=== PATIENT | male | born 1950 | race Caucasian/White ===

== ENCOUNTER 2017-09-03 18:26 | Inpatient (IN) | payer OTHER ==
[~2017-09-03] VITALS: Ht 182.9 cm; Wt 124.0 kg
[2017-09-03] MEDS ORDERED: SODIUM CHLORIDE 0.9% 1000ML 1,000 ML IV STA ×2 (18:57→19:27)
[2017-09-03] MEDS ORDERED: ACETAMINOPHEN 500 MG TAB PO STA (19:05)
[2017-09-03] MEDS ORDERED: CETI10TA10 PO (19:12)
[2017-09-03] MEDS ORDERED: FAMO20TA11 PO (19:12)
[2017-09-03] MEDS ORDERED: FRS/40 PO (19:12)
[2017-09-03] MEDS ORDERED: CYM/30 PO (19:12)
[2017-09-03] MEDS ORDERED: GABA800T PO (19:12)
[2017-09-03] MEDS ORDERED: METO2.5T PO (19:12)
[2017-09-03] MEDS ORDERED: ASPI81TA28 PO (19:12)
[2017-09-03] MEDS ORDERED: MULT-506 PO (19:12)
[2017-09-03] MEDS ORDERED: CYAN500T13 PO (19:13)
[2017-09-03 19:24] LABS: BASO % 0.3 %; BASO ABS # 0.03 K/uL (0-0.2); COMPLETE YES; EOS % 0.4 %; HEMATOCRIT 42.3 % (42-52); IG% 0.3 %; LYMPH ABS # 1.05 K/uL (1.2-3.4); MEAN CELL VOLUME 92.2 fL (80-100); MEAN CORPUSCULAR HEMOGLOBIN 31.8 pg (25-34); MEAN CORPUSCULAR HGB CONC 34.5 g/dl (32-36); MEAN PLATELET VOLUME 9.8 fL (7.4-10.4); MONO % 8.4 %; NEUT % 81.6 %; PLATELET COUNT 167 K/uL (130-400); RED BLOOD COUNT 4.59 M/uL (4.7-6.1); WHITE BLOOD COUNT 11.69 K/uL (4.8-10.8)
[2017-09-03 19:24] LABS: MANUAL MICROSCOPIC REQUIRED? NO; REVIEW REQ? NO; URINE APPEARANCE CLEAR (CLEAR); URINE BILIRUBIN NEG (NEG); URINE COLOR YELLOW; URINE EPITHELIAL CELL AUTO 0-5 /lpf (0-5); URINE NITRITE NEG (NEG); URINE SPECIFIC GRAVITY 1.013 (1.000-1.030); UROBILINOGEN NEG (NEG); ZZUR CULT IF INDIC CLEAN CATCH NO
[2017-09-03] MEDS ORDERED: PIPERACILLIN/TAZOBACTAM 4.5 GM/100ML D5W IV STA (19:27)
[2017-09-03 19:32] LABS: PARTIAL THROMBOPLASTIN RATIO 1.2; PROTHROMBIN TIME (PATIENT) 10.9 SECONDS (9.0-12.0)
[2017-09-03 19:40] LABS: ALT/SGPT 30 U/L (12-78); AST/SGOT 20 U/L (15-37); BLOOD UREA NITROGEN 16 mg/dl (7-18); BUN/CREATININE RATIO 14.9 (10-20); CALCIUM 8.4 mg/dl (8.5-10.1); CARBON DIOXIDE 25 mmol/L (21-32); CHLORIDE 104 mmol/L (98-107); CREATININE 1.09 mg/dl (0.60-1.40); GLUCOSE 128 mg/dl (70-99); POTASSIUM 4.1 mmol/L (3.5-5.1); SODIUM 138 mmol/L (136-145)
[2017-09-03 19:45] LABS: ALKALINE PHOSPHATASE 119 U/L (45-117)
--- NOTE | 2017-09-03 19:51 | DIAGNOSTIC IMAGING REPORT ---
CT OF THE HEAD WITHOUT CONTRAST CLINICAL HISTORY: Dizziness. Trauma. COMPARISON STUDY: No previous studies for comparison. CT DOSE: 1095.59 mGy.cm TECHNIQUE: Helical axial images of the head were obtained without IV contrast. Automated exposure control was utilized for the study. A dose lowering technique was utilized adhering to the principles of ALARA. FINDINGS: No acute intracranial hemorrhage, midline shift or mass effect is present. Ventricular system is normal. The basilar cisterns are patent. There are no extra-axial collections. Post-white differentiation is maintained. There are no CT findings to suggest acute dural sinus thrombosis or acute territorial infarct. A 9 mm right matter hypodensity within the right parietal lobe likely reflects an old lacunar infarct. No calvarial fracture is present. Disconjugate gaze is noted. IMPRESSION: 1. No acute intracranial findings. 2. No calvarial fracture. 3. Disconjugate gaze. Electronically signed by: Erich Pickering M.D. 09/03/2017 7:50 PM Dictated Date/Time: 09/03/2017 7:44 PM
--- NOTE | 2017-09-03 20:04 | DIAGNOSTIC IMAGING REPORT ---
CT OF THE CERVICAL SPINE WITHOUT CONTRAST CLINICAL HISTORY: Trauma. COMPARISON STUDY: No previous studies for comparison. TECHNIQUE: Helical axial images of the cervical spine were obtained without IV contrast. Sagittal and coronal reconstructions were viewed. A dose lowering technique was utilized adhering to the principles of ALARA. FINDINGS: The craniocervical junction is intact. No acute cervical spine fracture is identified. There is moderate multilevel degenerative disc disease and severe multilevel facet arthrosis. There is no prevertebral edema. IMPRESSION: No acute cervical spine fracture or subluxation. Electronically signed by: Erich Pikcering M.D. 09/03/2017 8:02 PM Dictated Date/Time: 09/03/2017 7:50 PM
--- NOTE | 2017-09-03 20:18 | EMERGENCY ROOM VISIT NOTE ---
History First contact with patient: 18:46 Chief Complaint: DIZZY Stated Complaint: DIZZY,CAROLINE TREMORS, FRANCO History of Present Illness The patient is a 67 year old male who presents to the Emergency Room with complaints of dizziness, bilateral tremors, and headache since yesterday. Patient states he was working on his deck yesterday afternoon, lost his balance and fell about 3 feet landing onto his left leg and lower back. He did hit his head, but denies loss of consciousness. He was able to get himself up off the ground and has been walking on the leg since the injury. He reports progressively worsening dizziness and tremors today, he denies any history of symptoms like this. He also complains of a mild headache described as constant , throbbing, worse with standing up, better with lying down, 4/10. He has not taken any medications for his headache. He states he has generally been feeling well and a good state of health prior to his fall yesterday. He denies any fevers or chills, vision changes, neck pain or stiffness, chest pain, shortness of breath, palpitations, syncope, abdominal pain, numbness or weakness in the extremities, difficulty walking, saddle paresthesias, bowel or bladder dysfunction, hematuria, or rash. Review of Systems A complete 10 point review of systems was reviewed with the patient with pertinent positives and negatives as per history of present illness. All else were negative. Past Medical/Surgical History Hypertension, GERD, depression Social History Smoking Status: Never Smoker Alcohol Use: none Drug Use: none Marital Status: Housing Status: lives with family Current/Historical Medications Scheduled Aspirin (Aspirin Ec), 81 MG PO DAILY Cetirizine Hcl (Zyrtec), 10 MG PO DAILY Cyanocobalamin (Vitamin B12 500MCG), 500 MCG PO DAILY Duloxetine HCl (Cymbalta), 60 MG PO DAILY Famotidine (Pepcid), 20 MG PO BID Furosemide (Lasix), 40 MG PO DAILY Gabapentin (Neurontin), 800 MG PO TID Multivitamin (Multivitamin), 1 TAB PO DAILY Potassium Chloride (Potassium Chloride Cr), 10 MEQ PO DAILY Allergies No known allergies. Physical Exam Vital Signs Date Time Temp Pulse Resp B/P (MAP) Pulse Ox O2 Delivery O2 Flow Rate FiO2 09/03/17 22:29 83 16 111/73 98 Room Air 09/03/17 21:49 37.1 94 16 98/67 98 Room Air 09/03/17 20:00 107 09/03/17 19:43 106 16 112/65 98 Room Air 09/03/17 19:06 98 Room Air 09/03/17 18:40 37.9 122 20 125/80 93 Room Air Physical Exam CONSTITUTIONAL: No acute distress. Well appearing and well nourished. Alert and oriented X 4 with normal affect. HEENT: Normocephalic, atraumatic. Pupils equal, round and reactive to light, EOMI, disconjugate gaze the patient states is his baseline. TMs normal. Pharynx normal. NECK: Supple, full active range of motion without discomfort. No midline tenderness to palpation. RESPIRATORY: Clear to auscultation bilaterally with no wheezing, crackles, rhonchi or stridor. Equal expansion bilaterally. CARDIOVASCULAR: Regular rate and rhythm with no murmurs, rubs or gallops. Normal peripheral perfusion. No edema. GASTROINTESTINAL: Soft, nontender, nondistended, obese. Bowel sounds present in all quadrants. BACK: Midline tenderness in the lumbar spine, no step-offs, no ecchymosis or swelling. No paraspinous muscle tenderness. No midline tenderness of the thoracic spine. MUSCULOSKELETAL: There is tenderness and ecchymosis of the left anterior dougherty just below the knee, pain with range of motion of the left knee. Full range of motion of all other joints without discomfort. INTEGUMENTARY: Abrasions to the left dougherty, no rash or other significant dermatologic conditions noted. NEUROLOGIC: Cranial nerves II-XII grossly intact. No focal neurologic deficits noted. Normal strength, normal sensation, normal speech, normal coordination. Medical Decision & Procedures ER Provider Diagnostic Interpretation: CT OF THE HEAD WITHOUT CONTRAST CLINICAL HISTORY: Dizziness. Trauma. COMPARISON STUDY: No previous studies for comparison. CT DOSE: 1095.59 mGy.cm TECHNIQUE: Helical axial images of the head were obtained without IV contrast. Automated exposure control was utilized for the study. A dose lowering technique was utilized adhering to the principles of ALARA. FINDINGS: No acute intracranial hemorrhage, midline shift or mass effect is present. Ventricular system is normal. The basilar cisterns are patent. There are no extra-axial collections. Post-white differentiation is maintained. There are no CT findings to suggest acute dural sinus thrombosis or acute territorial infarct. A 9 mm right matter hypodensity within the right parietal lobe likely reflects an old lacunar infarct. No calvarial fracture is present. Disconjugate gaze is noted. IMPRESSION: 1. No acute intracranial findings. 2. No calvarial fracture. 3. Disconjugate gaze. ----- CT OF THE CERVICAL SPINE WITHOUT CONTRAST CLINICAL HISTORY: Trauma. COMPARISON STUDY: No previous studies for comparison. TECHNIQUE: Helical axial images of the cervical spine were obtained without IV contrast. Sagittal and coronal reconstructions were viewed. A dose lowering technique was utilized adhering to the principles of ALARA. FINDINGS: The craniocervical junction is intact. No acute cervical spine fracture is identified. There is moderate multilevel degenerative disc disease and severe multilevel facet arthrosis. There is no prevertebral edema. IMPRESSION: No acute cervical spine fracture or subluxation. ----- CHEST 2 VIEWS ROUTINE CLINICAL HISTORY: Fever. Evaluate for pneumonia. COMPARISON STUDY: No previous studies for comparison. FINDINGS: Lung volumes are at the upper limits of normal. There is a 9 mm density within the right midlung which favors a calcified granuloma. There is no consolidation to suggest pneumonia. No pneumothorax or pleural effusion is present. There is no evidence of pulmonary edema. Cardiac size is at the upper limits of normal. IMPRESSION: No acute cardiopulmonary findings. ----- CT ANGIOGRAPHY OF THE CHEST, PULMONARY EMBOLUS PROTOCOL CLINICAL HISTORY: Hypoxia, tachycardia and dizziness. COMPARISON STUDY: Chest radiograph September 03, 2017. TECHNIQUE: Following IV administration of 92 mL of Optiray-320, helical axial images of the chest were obtained utilizing the pulmonary embolus protocol. Maximal intensity projections and sagittal and coronal reformats were viewed on an independent 3D workstation. IV contrast was administered without complication. A dose lowering technique was utilized adhering to the principles of ALARA. CT DOSE: 1007.23 mGy.cm FINDINGS: No central or lobar pulmonary emboli are identified. The segmental and subsegmental vessels are suboptimally assessed due to suboptimal opacification. The heart is mildly enlarged. There is extensive coronary artery calcification. No pericardial effusion is present. Moderate aortic dilatation is noted at the level the sinuses of Valsalva, measuring 5 cm. The ascending aorta measures 4.2 cm at the level the main pulmonary artery. There is no thoracic aortic dissection. There are several partially calcified mediastinal and right hilar lymph nodes. There are no pathologically enlarged thoracic lymph nodes. Central airways are patent. A calcified granuloma within the right lower lobe is noted. Note is made of an indeterminate 6 cm groundglass nodule within the right upper lobe on image 187 of 328. There is no consolidation to suggest pneumonia. No pneumothorax or pleural effusion is present. No suspicious osseous lesions are present within the bony thorax. Upper abdomen is unremarkable. IMPRESSION: 1. No central or lobar pulmonary emboli. Segmental and subsegmental pulmonary arteries suboptimally assessed due to suboptimal opacification. 2. No acute intrathoracic findings. 3. Moderate dilatation of the aortic root, measuring approximately 5 cm at the sinuses of Valsalva. Ascending aorta measures 4.2 cm at the level of the main pulmonary artery. No thoracic aortic dissection. 4. Mild cardiomegaly and extensive coronary artery calcification. 5. Indeterminate 6 mm groundglass nodule within the right upper lobe. A follow-up chest CT in 6 months is recommended. Laboratory Results 09/03/17 19:10 Red Blood Count 4.59, Mean Corpuscular Volume 92.2, Mean Corpuscular Hemoglobin 31.8, Mean Corpuscular Hemoglobin Concent 34.5, Mean Platelet Volume 9.8, Neutrophils (%) (Auto) 81.6, Lymphocytes (%) (Auto) 9.0, Monocytes (%) (Auto) 8.4, Eosinophils (%) (Auto) 0.4, Basophils (%) (Auto) 0.3, Neutrophils # (Auto) 9.55, Lymphocytes # (Auto) 1.05, Monocytes # (Auto) 0.98, Eosinophils # (Auto) 0.05, Basophils # (Auto) 0.03 09/03/17 19:10 Test 09/03/17 18:45 09/03/17 19:10 09/03/17 19:15 09/03/17 19:21 Urine Color YELLOW Urine Appearance CLEAR (CLEAR) Urine pH 5.0 (4.5-7.5) Urine Specific [place] 1.013 (1.000-1.030) Urine Protein NEG (NEG) Urine Glucose (UA) NEG (NEG) Urine Ketones NEG (NEG) Urine Occult Blood NEG (NEG) Urine Nitrite NEG (NEG) Urine Bilirubin NEG (NEG) Urine Urobilinogen NEG (NEG) Urine Leukocyte Esterase SMALL (NEG) Urine WBC (Auto) 1-5 /hpf (0-5) Urine RBC (Auto) 0-4 /hpf (0-4) Urine Hyaline Casts (Auto) 1-5 /lpf (0-5) Urine Epithelial Cells (Auto) 0-5 /lpf (0-5) Urine Bacteria (Auto) NEG (NEG) White Blood Count 11.69 K/uL (4.8-10.8) Red Blood Count 4.59 M/uL (4.7-6.1) Hemoglobin 14.6 g/dL (14.0-18.0) Hematocrit 42.3 % (42-52) Mean Corpuscular Volume 92.2 fL (80-100) Mean Corpuscular Hemoglobin 31.8 pg (25-34) Mean Corpuscular Hemoglobin Concent 34.5 g/dl (32-36) Platelet Count 167 K/uL (130-400) Mean Platelet Volume 9.8 fL (7.4-10.4) Neutrophils (%) (Auto) 81.6 % Lymphocytes (%) (Auto) 9.0 % Monocytes (%) (Auto) 8.4 % Eosinophils (%) (Auto) 0.4 % Basophils (%) (Auto) 0.3 % Neutrophils # (Auto) 9.55 K/uL (1.4-6.5) Lymphocytes # (Auto) 1.05 K/uL (1.2-3.4) Monocytes # (Auto) 0.98 K/uL (0.11-0.59) Eosinophils # (Auto) 0.05 K/uL (0-0.5) Basophils # (Auto) 0.03 K/uL (0-0.2) RDW Standard Deviation 47.5 fL (36.4-46.3) RDW Coefficient of Variation 14.1 % (11.5-14.5) Immature Granulocyte % (Auto) 0.3 % Immature Granulocyte # (Auto) 0.03 K/uL (0.00-0.02) Prothrombin Time 10.9 SECONDS (9.0-12.0) Prothromb Time International Ratio 1.0 (0.9-1.1) Activated Partial Thromboplast Time 31.0 SECONDS (21.0-31.0) Partial Thromboplastin Ratio 1.2 Anion Gap 9.0 mmol/L (3-11) Est Creatinine Clear Calc Drug Dose 89.7 ml/min Estimated GFR () 81.0 Estimated GFR (Non- 69.9 BUN/Creatinine Ratio 14.9 (10-20) Calcium Level 8.4 mg/dl (8.5-10.1) Total Bilirubin 0.7 mg/dl (0.2-1) Direct Bilirubin 0.2 mg/dl (0-0.2) Aspartate Amino Transf (AST/SGOT) 20 U/L (15-37) Alanine Aminotransferase (ALT/SGPT) 30 U/L (12-78) Alkaline Phosphatase 119 U/L (45-117) Troponin I < 0.015 ng/ml (0-0.045) Total Protein 7.6 gm/dl (6.4-8.2) Albumin 3.4 gm/dl (3.4-5.0) Lipase 128 U/L (73-393) Influenza Type A (RT-PCR) Neg for Influ A (NEG) Influenza Type A Antigen Neg for Influ A (NEG) Influenza Type B Antigen Neg for Influ B (NEG) Influenza Type B (RT-PCR) Neg for Influ B (NEG) Bedside Lactic Acid Venous 1.34 mmol/L (0.90-1.70) Medications Administered Medications (Trade) Dose Ordered Sig/Thomas Route Start Time Stop Time Status Last Admin Dose Admin Sodium Chloride 1,000 ml @ 999 mls/hr Q1H1M STAT IV 09/03/17 18:57 09/03/17 19:57 DC 09/03/17 19:13 999 MLS/HR Acetaminophen (Tylenol Tab) 1,000 mg NOW STAT PO 09/03/17 19:05 09/03/17 19:06 DC 09/03/17 19:13 1,000 MG Sodium Chloride 1,000 ml @ 999 mls/hr Q1H1M STAT IV 09/03/17 19:27 09/03/17 20:27 DC 09/03/17 19:42 999 MLS/HR Piperacillin Sod/ Tazobactam Sod (Zosyn Iv) 4.5 gm NOW STAT IV 09/03/17 19:27 09/03/17 19:29 DC 09/03/17 19:42 4.5 GM ECG Indication: tachycardia, other (dizziness) Rate (beats per minute): 119 Rhythm: sinus tachycardia Findings: LAFB, no acute ischemic change, no ectopy Comparison ECG Date: no prior available Medical Decision CC: Patient presenting with complaint of headache, dizziness, tremors Interpretation of Labs: Leukocytosis with left shift, no anemia, no significant electrolyte abnormalities, normal renal function, normal liver enzymes and lipase, normal coagulation factors. Normal lactic acid. UA negative. Differential Diagnosis: Includes, but not limited to concussion, intracranial hemorrhage, traumatic injury, fracture, infectious etiology including pneumonia , urinary tract infection, influenza, bacteremia, sepsis, viral URI, serotonin syndrome, among others. Medication Reconciliation: I attest that I have personally reviewed the patient' s current medication list. Vital signs review: I reviewed the patient's vital signs and interpret them as follows: T: Febrile; BP: Normotensive; HR: Tachycardic; RR: Within normal limits; Pulse Ox: Mild hypoxia 90-93% on room air. Blood pressure screening: The patient was found to have normal blood pressure on screening and does not require follow-up for repeat blood pressure check. Summary: Patient was evaluated at bedside, history of physical exam performed. Patient is alert and oriented, in no acute distress, resting calmly in the stretcher. Patient is noted to be tachycardic in the 120s, also noted to be febrile at 38.5 , he does not report any history of recent illness. He does note recent sick contacts with URI symptoms. Also noted to have mild hypoxia with sats of 90-93%, lungs are clear and he denies any shortness of breath or chest pain, and denies any history of smoking or lung disease. Patient's neurologic exam is normal with no focal deficits noted. No clonus or hyperreflexia to suggest serotonin syndrome. No obvious source of infection from history or physical exam, sepsis workup initiated and patient covered with IV fluids and broad-spectrum antibiotics. Tylenol given for fever. EKG reviewed at bedside, shows sinus tachycardia with a left anterior fascicular block, no ischemic changes appreciated. No previous EKG for comparison. Orders were placed at bedside for CT of the head and C-spine, plain film x-rays of the chest, lumbar spine, left knee and tib-fib to evaluate for traumatic injury. Patient discussed with Dr. Torres, who agrees with my assessment and plan. Labs reviewed as above, no significant abnormalities. Normal lactic acid. No UTI. Chest x-ray is clear. No apparent source for infection, however patient is persistently tachycardic after Tylenol and 2 L of fluid. Given the symptoms of dizziness with persistent tachycardia and borderline hypoxia, CT of the chest was ordered to rule out PE, this is also negative. Patient reassessed multiple times throughout ED stay, he reports that he feels somewhat improved, headache somewhat better after Tylenol and he no longer is noticing significant tremors. He does still have some dizziness with position changes. I am recommending that the patient be admitted for further workup of his fever, persistent tachycardia, and dizziness. I spoke with Dr. Ozuna, hospitalist, who agrees to admit the patient. Patient stable at time of admission. Blood Pressure Screening Patient's blood pressure: Normal blood pressure Impression Primary Impression: Fever of unknown origin Additional Impressions: SIRS (systemic inflammatory response syndrome) Dizziness Departure Information Dispostion Admitted as an inpatient Condition FAIR Referrals Brian Titus M.D. (PCP) Patient Instructions My [facility] Health Problem Qualifiers
--- NOTE | 2017-09-03 20:35 | DIAGNOSTIC IMAGING REPORT ---
CHEST 2 VIEWS ROUTINE CLINICAL HISTORY: Fever. Evaluate for pneumonia. COMPARISON STUDY: No previous studies for comparison. FINDINGS: Lung volumes are at the upper limits of normal. There is a 9 mm density within the right midlung which favors a calcified granuloma. There is no consolidation to suggest pneumonia. No pneumothorax or pleural effusion is present. There is no evidence of pulmonary edema. Cardiac size is at the upper limits of normal. IMPRESSION: No acute cardiopulmonary findings. Electronically signed by: Erich Pickering M.D. 09/03/2017 8:33 PM Dictated Date/Time: 09/03/2017 8:32 PM
--- NOTE | 2017-09-03 20:37 | DIAGNOSTIC IMAGING REPORT ---
L-SPINE MIN 4 VIEWS ROUTINE CLINICAL HISTORY: Back pain following fall. COMPARISON: None FINDINGS: There is mild levoscoliosis of the lumbar spine. No acute fracture is identified. There is moderate multilevel disc space narrowing, osteophytosis and vacuum disc and ulna. There is moderate multilevel facet arthrosis. There may be a previous L4 laminectomy. IMPRESSION: 1. No acute lumbar spine fracture or subluxation. 2. Moderate multilevel degenerative disc disease and facet arthrosis. 3. Mild levoscoliosis of the lumbar spine. Electronically signed by: Erich Pickering M.D. 09/03/2017 8:36 PM Dictated Date/Time: 09/03/2017 8:34 PM
--- NOTE | 2017-09-03 20:39 | DIAGNOSTIC IMAGING REPORT ---
L KNEE 1 OR 2 VIEWS ROUTINE CLINICAL HISTORY: Left knee pain following fall. COMPARISON: None FINDINGS: Alignment of the total left knee arthroplasty is anatomic. There is no periprosthetic fracture or unexpected radiopaque foreign body. There is no periprosthetic lucency. There is a small to moderate left knee joint effusion. There is prepatellar soft tissue swelling. IMPRESSION: 1. Status post total left knee arthroplasty. No periprosthetic fracture. 2. Prepatellar soft tissue swelling. 3. Small to moderate left knee joint effusion. Electronically signed by: Erich Pickering M.D. 09/03/2017 8:37 PM Dictated Date/Time: 09/03/2017 8:36 PM
--- NOTE | 2017-09-03 20:40 | DIAGNOSTIC IMAGING REPORT ---
L TIBIA/FIBULA 2 VIEWS ROUTINE CLINICAL HISTORY: Fall. Evaluate for fracture. COMPARISON: None FINDINGS: Alignment of the total left knee arthroplasty is anatomic. There is no periprosthetic fracture. There is no acute fracture within the left tibia or fibula. Talar dome is intact. IMPRESSION: No acute fracture of the left tibia or fibula. Electronically signed by: Erich Pickering M.D. 09/03/2017 8:38 PM Dictated Date/Time: 09/03/2017 8:37 PM
[2017-09-03 21:15] LABS: INFLUENZA A PCR Neg for Influ A (NEG); INFLUENZA B PCR Neg for Influ B (NEG)
[2017-09-03] MEDS ORDERED: OPTIRAY 320 IV PRN (21:45)
[2017-09-03] MEDS ORDERED: POTA10TA30 PO (22:15)
--- NOTE | 2017-09-03 22:36 | DIAGNOSTIC IMAGING REPORT ---
CT ANGIOGRAPHY OF THE CHEST, PULMONARY EMBOLUS PROTOCOL CLINICAL HISTORY: Hypoxia, tachycardia and dizziness. COMPARISON STUDY: Chest radiograph September 03, 2017. TECHNIQUE: Following IV administration of 92 mL of Optiray-320, helical axial images of the chest were obtained utilizing the pulmonary embolus protocol. Maximal intensity projections and sagittal and coronal reformats were viewed on an independent 3D workstation. IV contrast was administered without complication. A dose lowering technique was utilized adhering to the principles of ALARA. CT DOSE: 1007.23 mGy.cm FINDINGS: No central or lobar pulmonary emboli are identified. The segmental and subsegmental vessels are suboptimally assessed due to suboptimal opacification. The heart is mildly enlarged. There is extensive coronary artery calcification. No pericardial effusion is present. Moderate aortic dilatation is noted at the level the sinuses of Valsalva, measuring 5 cm. The ascending aorta measures 4.2 cm at the level the main pulmonary artery. There is no thoracic aortic dissection. There are several partially calcified mediastinal and right hilar lymph nodes. There are no pathologically enlarged thoracic lymph nodes. Central airways are patent. A calcified granuloma within the right lower lobe is noted. Note is made of an indeterminate 6 cm groundglass nodule within the right upper lobe on image 187 of 328. There is no consolidation to suggest pneumonia. No pneumothorax or pleural effusion is present. No suspicious osseous lesions are present within the bony thorax. Upper abdomen is unremarkable. IMPRESSION: 1. No central or lobar pulmonary emboli. Segmental and subsegmental pulmonary arteries suboptimally assessed due to suboptimal opacification. 2. No acute intrathoracic findings. 3. Moderate dilatation of the aortic root, measuring approximately 5 cm at the sinuses of Valsalva. Ascending aorta measures 4.2 cm at the level of the main pulmonary artery. No thoracic aortic dissection. 4. Mild cardiomegaly and extensive coronary artery calcification. 5. Indeterminate 6 mm groundglass nodule within the right upper lobe. A follow-up chest CT in 6 months is recommended. Electronically signed by: Erich Pickering M.D. 09/03/2017 10:35 PM Dictated Date/Time: 09/03/2017 10:22 PM
--- NOTE | 2017-09-03 23:07 | History and Physical ---
History & Physical Date & Time of Service: Sep 03, 2017 at 23:06 . Chief Complaint: weak, dizzy . Primary Care Physician: Brian Titus M.D. . History of Present Illness Source: patient, family, clinic records, hospital records 67-year-old male followed by Dr. Titus for Family Medicine. History of borderline hypertension, sleep apnea, peripheral neuropathy, and other problems noted below. He has multiple dental caries and extractions are planned in the near future. Notes some pain in a right lower molar without apparent drainage. 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 Treated with antibiotics the past. Recently has noted scant drainage, slightly bloody. Yesterday he was working on his deck, fell, injured his left leg. No head injury or loss of consciousness. He attributes the fall to losing his balance on a stepladder. No associated presyncope, vertigo, chest pain, palpitations, focal neurologic symptoms. Experienced some low back pain and left leg pain after the fall. Today he felt weak and unsteady. Noted that his hands were shaking. No fever, chills, sweats. Mild frontal headache. No visual changes, nausea, vomiting. . Past Medical/Surgical History Chronic and Resolved Medical Problems: (3) Essential hypertension Status: Chronic (4) Foot ulcer, left Status: Chronic (5) Neuropathy Status: Chronic (6) Pulmonary nodule Permanent Comment: CT 09/28/00 5 x 8 mm nodule superior segment RLL Status: Chronic (7) Sleep apnea Permanent Comment: CPAP Status: Chronic (8) Umbilical hernia Status: Chronic Surgical Problems: (1) Status post bilateral knee replacements Status: Chronic (2) Status post inguinal hernia repair Status: Chronic (3) Status post lumbar surgery Status: Chronic (4) Status post tonsillectomy Status: Chronic . Family History FATHER Congestive heart failure MOTHER Breast cancer Social History Smoking Status: Never Smoker Alcohol Use: occasionally Marital Status: Housing status: lives with family Immunizations History of Influenza Vaccine: Yes History of Pneumococcal: Yes Allergies Coded Allergies: No Known Allergies (Unverified , 09/03/17) Home Medications Scheduled Aspirin (Aspirin Ec), 81 MG PO DAILY Cetirizine Hcl (Zyrtec), 10 MG PO DAILY Cyanocobalamin (Vitamin B12 500MCG), 500 MCG PO DAILY Duloxetine HCl (Cymbalta), 60 MG PO DAILY Famotidine (Pepcid), 20 MG PO BID Furosemide (Lasix), 40 MG PO DAILY Gabapentin (Neurontin), 800 MG PO TID Multivitamin (Multivitamin), 1 TAB PO DAILY Potassium Chloride (Potassium Chloride Cr), 10 MEQ PO DAILY Review of Systems Constitutional- no fever; no weight loss Eyes- no acute visual changes; chronic right exotropia ENT- chronic sinus drainage; no pharyngitis; multiple caries Pulmonary- chronic dyspnea on exertion; no cough Cardiac- no chest pain, no palpitations, chronic dependent edema GI- no nausea, no vomiting, no diarrhea, no melena, no hematochezia - no dysuria, no hematuria Musculoskeletal- chronic back / knee pain Derm- chronic ulcer left foot with minimal drainage Hematologic- no unusual bruising, no unusual bleeding Lymphatics- no adenopathy Endocrine- no polyuria or polydipsia Neuro- peripheral neuropathy causing bilat foot discomfort . Physical Exam Vital Signs Date Time Temp Pulse Resp B/P (MAP) Pulse Ox O2 Delivery O2 Flow Rate FiO2 09/03/17 23:05 88 20 123/81 96 Room Air 09/03/17 23:02 88 09/03/17 22:29 83 16 111/73 98 Room Air 09/03/17 21:49 37.1 94 16 98/67 98 Room Air 09/03/17 20:00 107 09/03/17 19:43 106 16 112/65 98 Room Air 09/03/17 19:06 98 Room Air 09/03/17 18:40 37.9 122 20 125/80 93 Room Air General Appearance: no apparent distress, + obese Head: normocephalic, atraumatic Eyes: normal inspection (eyelids and conjunctivae normal), PERRL, EOMI, sclerae normal ENT: hearing grossly normal, pharynx normal, + pertinent finding (poor dentition) Neck: supple, no adenopathy, thyroid normal, trachea midline Respiratory/Chest: lungs clear, no respiratory distress, no accessory muscle use Cardiovascular: regular rate, rhythm, no edema, no gallop, no JVD, no murmur, + abnormal peripheral pulses (pedal pulses diminished), + pertinent finding (1+ pretibial edema) Abdomen/GI: normal bowel sounds, non tender, soft, no organomegaly, no pulsatile mass, + pertinent finding (umbilical hernia, nontender) Extremities/Musculoskelatal: no calf tenderness, normal capillary refill (1-2 sec), + pertinent finding (deformities feet; 12 x 20 mm ulcer left plantar medial foot) Neurologic/Psych: no motor/sensory deficits (motor strength extremities grossly intact), alert, normal mood/affect, oriented x 3, + pertinent finding ( PERRL, right exotropia) Skin: warm/dry, + pertinent finding (venous stasis changes lower extremities; abrasions + skin tear left dougherty; left foot ulcer as noted above) Lymphatic: no adenopathy (cervical or axillary) Diagnostics Laboratory Results Results Past 24 Hours Test 09/03/17 18:45 09/03/17 19:10 09/03/17 19:15 09/03/17 19:21 Range/Units Urine Color YELLOW Urine Appearance CLEAR CLEAR Urine pH 5.0 4.5-7.5 Urine Specific [employer] 1.013 1.000-1.030 Urine Protein NEG NEG Urine Glucose (UA) NEG NEG Urine Ketones NEG NEG Urine Occult Blood NEG NEG Urine Nitrite NEG NEG Urine Bilirubin NEG NEG Urine Urobilinogen NEG NEG Urine Leukocyte Esterase SMALL NEG Urine WBC (Auto) 1-5 0-5 /hpf Urine RBC (Auto) 0-4 0-4 /hpf Urine Hyaline Casts (Auto) 1-5 0-5 /lpf Urine Epithelial Cells (Auto) 0-5 0-5 /lpf Urine Bacteria (Auto) NEG NEG White Blood Count 11.69 4.8-10.8 K/uL Red Blood Count 4.59 4.7-6.1 M/uL Hemoglobin 14.6 14.0-18.0 g/dL Hematocrit 42.3 42-52 % Mean Corpuscular Volume 92.2 80-100 fL Mean Corpuscular Hemoglobin 31.8 25-34 pg Mean Corpuscular Hemoglobin Concent 34.5 32-36 g/dl Platelet Count 167 130-400 K/uL Mean Platelet Volume 9.8 7.4-10.4 fL Neutrophils (%) (Auto) 81.6 % Lymphocytes (%) (Auto) 9.0 % Monocytes (%) (Auto) 8.4 % Eosinophils (%) (Auto) 0.4 % Basophils (%) (Auto) 0.3 % Neutrophils # (Auto) 9.55 1.4-6.5 K/uL Lymphocytes # (Auto) 1.05 1.2-3.4 K/uL Monocytes # (Auto) 0.98 0.11-0.59 K/uL Eosinophils # (Auto) 0.05 0-0.5 K/uL Basophils # (Auto) 0.03 0-0.2 K/uL RDW Standard Deviation 47.5 36.4-46.3 fL RDW Coefficient of Variation 14.1 11.5-14.5 % Immature Granulocyte % (Auto) 0.3 % Immature Granulocyte # (Auto) 0.03 0.00-0.02 K/uL Prothrombin Time 10.9 9.0-12.0 SECONDS Prothromb Time International Ratio 1.0 0.9-1.1 Activated Partial Thromboplast Time 31.0 21.0-31.0 SECONDS Partial Thromboplastin Ratio 1.2 Sodium Level 138 136-145 mmol/L Potassium Level 4.1 3.5-5.1 mmol/L Chloride Level 104 98-107 mmol/L Carbon Dioxide Level 25 21-32 mmol/L Anion Gap 9.0 3-11 mmol/L Blood Urea Nitrogen 16 7-18 mg/dl Creatinine 1.09 0.60-1.40 mg/dl Est Creatinine Clear Calc Drug Dose 89.7 ml/min Estimated GFR () 81.0 Estimated GFR (Non- 69.9 BUN/Creatinine Ratio 14.9 10-20 Random Glucose 128 70-99 mg/dl Calcium Level 8.4 8.5-10.1 mg/dl Total Bilirubin 0.7 0.2-1 mg/dl Direct Bilirubin 0.2 0-0.2 mg/dl Aspartate Amino Transf (AST/SGOT) 20 15-37 U/L Alanine Aminotransferase (ALT/SGPT) 30 12-78 U/L Alkaline Phosphatase 119 45-117 U/L Troponin I < 0.015 0-0.045 ng/ml Total Protein 7.6 6.4-8.2 gm/dl Albumin 3.4 3.4-5.0 gm/dl Lipase 128 73-393 U/L Influenza Type A (RT-PCR) Neg for Influ A NEG Influenza Type A Antigen Neg for Influ A NEG Influenza Type B Antigen Neg for Influ B NEG Influenza Type B (RT-PCR) Neg for Influ B NEG Bedside Lactic Acid Venous 1.34 0.90-1.70 mmol/L Microbiology Results 09/03/17 Blood Culture, Received Pending 09/03/17 Blood Culture, Received Pending Diagnostic Radiology CHEST 2 VIEWS ROUTINE FINDINGS: Lung volumes are at the upper limits of normal. There is a 9 mm density within the right midlung which favors a calcified granuloma. There is no consolidation to suggest pneumonia. No pneumothorax or pleural effusion is present. There is no evidence of pulmonary edema. Cardiac size is at the upper limits of normal. IMPRESSION: No acute cardiopulmonary findings. Electronically signed by: Erich Pickering M.D. 09/03/2017 8:33 PM Dictated Date/Time: 09/03/2017 8:32 PM L-SPINE MIN 4 VIEWS ROUTINE FINDINGS: There is mild levoscoliosis of the lumbar spine. No acute fracture is identified. There is moderate multilevel disc space narrowing, osteophytosis and vacuum disc and ulna. There is moderate multilevel facet arthrosis. There may be a previous L4 laminectomy. IMPRESSION: 1. No acute lumbar spine fracture or subluxation. 2. Moderate multilevel degenerative disc disease and facet arthrosis. 3. Mild levoscoliosis of the lumbar spine. Electronically signed by: Erich Pickering M.D. 09/03/2017 8:36 PM L KNEE 1 OR 2 VIEWS ROUTINE FINDINGS: Alignment of the total left knee arthroplasty is anatomic. There is no periprosthetic fracture or unexpected radiopaque foreign body. There is no periprosthetic lucency. There is a small to moderate left knee joint effusion. There is prepatellar soft tissue swelling. IMPRESSION: 1. Status post total left knee arthroplasty. No periprosthetic fracture. 2. Prepatellar soft tissue swelling. 3. Small to moderate left knee joint effusion. Electronically signed by: Erich Pickering M.D. 09/03/2017 8:37 PM Dictated Date/Time: 09/03/2017 8:36 PM L TIBIA/FIBULA 2 VIEWS ROUTINE FINDINGS: Alignment of the total left knee arthroplasty is anatomic. There is no periprosthetic fracture. There is no acute fracture within the left tibia or fibula. Talar dome is intact. IMPRESSION: No acute fracture of the left tibia or fibula. Electronically signed by: Erich Pickering M.D. 09/03/2017 8:38 PM Dictated Date/Time: 09/03/2017 8:[address] OF THE HEAD WITHOUT CONTRAST FINDINGS: No acute intracranial hemorrhage, midline shift or mass effect is present. Ventricular system is normal. The basilar cisterns are patent. There are no extra-axial collections. Post-white differentiation is maintained. There are no CT findings to suggest acute dural sinus thrombosis or acute territorial infarct. A 9 mm right matter hypodensity within the right parietal lobe likely reflects an old lacunar infarct. No calvarial fracture is present. Disconjugate gaze is noted. IMPRESSION: 1. No acute intracranial findings. 2. No calvarial fracture. 3. Disconjugate gaze. Electronically signed by: Erich Pickering M.D. 09/03/2017 7:50 PM Dictated Date/Time: 09/03/2017 7:[address] OF THE CERVICAL SPINE WITHOUT CONTRAST FINDINGS: The craniocervical junction is intact. No acute cervical spine fracture is identified. There is moderate multilevel degenerative disc disease and severe multilevel facet arthrosis. There is no prevertebral edema. IMPRESSION: No acute cervical spine fracture or subluxation. Electronically signed by: Erich Pickering M.D. 09/03/2017 8:02 PM Dictated Date/Time: 09/03/2017 7:[address] ANGIOGRAPHY OF THE CHEST, PULMONARY EMBOLUS PROTOCOL FINDINGS: No central or lobar pulmonary emboli are identified. The segmental and subsegmental vessels are suboptimally assessed due to suboptimal opacification. The heart is mildly enlarged. There is extensive coronary artery calcification. No pericardial effusion is present. Moderate aortic dilatation is noted at the level the sinuses of Valsalva, measuring 5 cm. The ascending aorta measures 4.2 cm at the level the main pulmonary artery. There is no thoracic aortic dissection. There are several partially calcified mediastinal and right hilar lymph nodes. There are no pathologically enlarged thoracic lymph nodes. Central airways are patent. A calcified granuloma within the right lower lobe is noted. Note is made of an indeterminate 6 cm groundglass nodule within the right upper lobe on image 187 of [id number]. There is no consolidation to suggest pneumonia. No pneumothorax or pleural effusion is present. No suspicious osseous lesions are present within the bony thorax. Upper abdomen is unremarkable. IMPRESSION: 1. No central or lobar pulmonary emboli. Segmental and subsegmental pulmonary arteries suboptimally assessed due to suboptimal opacification. 2. No acute intrathoracic findings. 3. Moderate dilatation of the aortic root, measuring approximately 5 cm at the sinuses of Valsalva. Ascending aorta measures 4.2 cm at the level of the main pulmonary artery. No thoracic aortic dissection. 4. Mild cardiomegaly and extensive coronary artery calcification. 5. Indeterminate 6 mm groundglass nodule within the right upper lobe. A follow-up chest CT in 6 months is recommended. Electronically signed by: Erich Pickering M.D. 09/03/2017 10:35 PM Dictated Date/Time: 09/03/2017 10:22 PM . EKG EKG performed at 18:[address] at 120 / minute, left anterior fascicular block, inverted T-waves aVL, poor R-wave progression. . Impression Assessment and Plan SUSPECTED SEPSIS Patient presented to ED with temp of 37.9, pulse of 122. Hemodynamically stable. WBC's 11,690. Serum lactate 1.34. He does not quite meet SIRS criteria, but the overall clinical picture is consistent with sepsis per 2001 definition if an infection is confirmed. Possible sources of infection include dental abscess, endocarditis, soft tissue infection or osteomyelitis of left foot. Blood cultures were obtained in ED. Patient received intravenous piperacillin/tazobactam which will be continued. Add daptomycin for gram-positive coverage. Check C-reactive protein, ESR, and pro-calcitonin with next labs. Check panelipse films. Check plain films left foot; consider MRI scan. Consult ID. SKIN TEAR / ABRASIONS LLE Tetanus vaccination status current. Local care for skin tear. CORONARY CALCIFICATIONS Extensive coronary calcifications noted on CT of chest. No history of [place] or angina, although patient has chronic dyspnea on exertion that is stable. Continue aspirin. Check lipid profile. Consider stress testing if patient develops anginal symptoms or worsening dyspnea on exertion. PULMONARY NODULE 6 mm nodule noted within the right upper lobe. Patient was evaluated by Pulmonary Medicine for a pulmonary nodule in the superior segment of the right lower lobe in 1999. These may represent the same lesion. Follow per guidelines. AORTIC ROOT DILATATION Aortic root dilatation of 5 cm at valves of Valsalva noted on CT. Follow per guidelines. LEFT FOOT ULCER Follow-up with Podiatry. DENTAL CARIES Follow-up with Oral Surgery at [facility]. HYPERTENSION History of borderline hypertension, only taking furosemide at this time. Follow and titrate therapy. SLEEP APNEA Continue CPAP. VTE PROPHYLAXIS Moderate risk for VTE. SQ enoxaparin. Ambulate. RESUSCITATION STATUS Discussed with patient and his . He does not have a living will. He would like resuscitation attempted in the event of a cardiopulmonary arrest if there is a reasonable chance of a meaningful recovery, but does not want prolonged extraordinary measures if prognosis is poor. Therefore, code status = "Level 1" (full resuscitation). DISPOSITION Admit to Telemetry Unit. Expected discharge to home. Family Medicine follow-up with Dr. Titus. . VTE Prophylaxis Risk Level: Moderate Given or contraindicated: Enoxaparin (Lovenox)SQ
[2017-09-03] MEDS ORDERED: ACETAMINOPHEN 325 MG TAB PO PRN (23:15)
[2017-09-04 00:25] VITALS: BP 110/72; PULSE 75; TEMP 36.6; O2SAT 98; Ht 182.9 cm; Wt 124.0 kg
[2017-09-04] MEDS ORDERED: PIPERACILL/TAZOBAC CONSULT ACTIVE PRN (01:00)
[2017-09-04] MEDS: DAPTOmycin IV 750 MG in SODIUM CHLORIDE 0.9% 50ML 50 ML IV SCH (01:31)
[2017-09-04] MEDS: PIPERACILL/TAZOBAC IV 4.5 GM in DEXTROSE 5% 100ML 100 ML IV SCH ×4 (04:05→20:42)
[2017-09-04 06:04] LABS: HEMATOCRIT 41.4 % (42-52); MEAN CELL VOLUME 92.8 fL (80-100); MEAN CORPUSCULAR HEMOGLOBIN 31.2 pg (25-34); MEAN CORPUSCULAR HGB CONC 33.6 g/dl (32-36); PLATELET COUNT 146 K/uL (130-400); RED BLOOD COUNT 4.46 M/uL (4.7-6.1); WHITE BLOOD COUNT 6.96 K/uL (4.8-10.8)
[2017-09-04 06:44] LABS: C-REACTIVE PROTEIN 4.61 mg/dl (0-0.29); CALCIUM 8.2 mg/dl (8.5-10.1); CHOLESTEROL/HDL RATIO 2.9; CREATININE 0.88 mg/dl (0.60-1.40); POTASSIUM 3.3 mmol/L (3.5-5.1)
[2017-09-04 07:15] VITALS: BP 128/82; PULSE 78; TEMP 36.7; O2SAT 95
[2017-09-04] MEDS: ASPIRIN 81 MG ECTAB PO SCH (07:55)
[2017-09-04] MEDS: FUROSEMIDE 40 MG TAB PO SCH (07:55)
[2017-09-04] MEDS: POTASSIUM CHLORIDE 10 MEQ TABCR PO SCH (07:55)
[2017-09-04] MEDS: DULOXETINE (CYMBALTA) 30 MG CAP PO SCH (07:55)
[2017-09-04] MEDS: NEOMYCIN/POLYMYX/BACITR OINT 15 GM TUBE EXT SCH (07:55)
[2017-09-04] MEDS: FAMOTIDINE 20 MG TAB PO SCH ×2 (07:56→21:05)
[2017-09-04] MEDS: CETIRIZINE HCL 10 MG TAB PO SCH (07:56)
[2017-09-04] MEDS: CYANOCOBALAMIN 500 MCG TAB (VIT B-12) PO SCH (07:56)
[2017-09-04] MEDS: MULTIVITAMIN TAB PO SCH (07:56)
[2017-09-04] MEDS: ENOXAPARIN 40 MG/0.4 ML SYR SQ SCH (07:56)
[2017-09-04] MEDS: GABAPENTIN 800 MG TAB PO SCH ×3 (07:56→21:05)
--- NOTE | 2017-09-04 10:34 | Progress Note ---
Progress Note Date of Service Sep 04, 2017. Progress Note ID Consult Dictated #[id number] A/P: 1. Left Foot ulcer, likely source 2. Leukocytosis - resolved -continue abx for now, follow cultures -For mri foot, await results -may require debridement foot ulcer, please send culture -will follow, thank you
--- NOTE | 2017-09-04 10:40 | INFECT. DISEASE CONSULTATION ---
DATE OF CONSULTATION: 09/04/2017 REQUESTING PHYSICIAN: Dr. Luevano. HISTORY OF PRESENT ILLNESS: This is a 67-year-old gentleman who was admitted to the hospital after he had dizziness and fell from a ladder at home. He did undergo multiple x-rays which were unremarkable. He had mild leukocytosis of 11 in the Emergency Room, which has improved to 6.9. His sed rate was elevated at 16 and his CRP was elevated at 4.6. He did have a procalcitonin done in the ER which was negative. A flu swab and urinalysis were negative. Blood cultures were obtained and are pending at this time. He did undergo CTA, a CAT scan of the head and spine which were negative. His chest x-ray was unremarkable. He did have an x-ray of his left knee as he did suffer an abrasion on the left dougherty during his fall. This did show some soft tissue edema. He does have bilateral knee replacements which were done in 2007 and there was no malalignment of his hardware. He states he has had no difficulty postoperatively with his knee replacements. He was placed on Zosyn and daptomycin. His daughter is present during my examination. They both state that he has had chronic left foot deformity which causes callus. He does visit with podiatry both with the [facility] and also the [place]. He states that he has had multiple bedside debridements of the callus, it is sometimes done by the attic blower and sometimes done by himself at home. He states that occasionally this does lead to bleeding and recently he has noticed some bleeding and purulent drainage from the area. He has not had any fevers or chills prior to admission but was having dizziness. His T-max overnight was 37.9. He is tolerating antibiotics well. Today, he states he is feeling better. He denies any cough, shortness of breath, chest pain, nausea, vomiting, diarrhea or abdominal pain. His appetite has been stable. His remaining review of systems are reviewed and are negative except for as noted. MEDICAL HISTORY: Significant for hypertension, chronic left foot ulceration, neuropathy, pulmonary nodule, sleep apnea and an umbilical hernia. SURGICAL HISTORY: Significant for bilateral knee replacements in 2007, inguinal hernia repair, lumbar surgery and tonsillectomy. FAMILY HISTORY: Noncontributory. SOCIAL HISTORY: Negative for tobacco use, alcohol use or drug use. ALLERGIES: He has no known drug allergies. MEDICATIONS: Include Lovenox, aspirin, Zyrtec, vitamin B12, Cymbalta, Pepcid, Lasix, Neurontin, multivitamins, potassium, Zosyn, dapto, Tylenol. PHYSICAL EXAMINATION: VITAL SIGNS: He is afebrile. His T-max overnight was 37.9, pulse 78, respiratory rate 18, blood pressure 128/82, oxygen saturation is 95% on room air. GENERAL: He is awake, alert and oriented x3. He is in no acute distress. HEENT: Mucous membranes are moist. Extraocular muscles are intact. HEART: Regular. LUNGS: Clear bilaterally. ABDOMEN: Soft, nontender, nondistended. EXTREMITIES: There is no lower extremity edema bilaterally. Examination of the left knee reveals the incision to be well healed. There is superficial abrasion on the lateral anterior calf. There is no purulent drainage, tenderness, warmth or erythema. Examination of the left foot reveals a wound on the dorsal aspect of the foot. There is seropurulent drainage on the dressing; however, I am unable to express any drainage for culture. There is minimal tenderness. There is no surrounding erythema. LABORATORY STUDIES: CBC today reveals a white blood cell count of 6.9, hemoglobin 13.9, platelets are 146. Sed rate is 16. Chemistry panel reveals sodium of 139, potassium 3.3, chloride 106, bicarbonate 28, BUN 15, creatinine 0.8, glucose is 109. LFTs are within normal limits. Procalcitonin is 0.12. UA is negative. Flu swab is negative. Blood cultures are pending. IMAGING: As above. ASSESSMENT AND PLAN: Left foot ulceration, less likely infection. The patient states he is due for an MRI later today to look for osteomyelitis. He also should undergo wound debridement either at the bedside and/or operatively and culture should be obtained. He will remain on empiric antibiotics for now. Thank you for this consultation.
--- NOTE | 2017-09-04 11:51 | DIAGNOSTIC IMAGING REPORT ---
LEFT FOOT 3 VIEWS HISTORY: Left foot ulcer, possible sepsis COMPARISON: None. FINDINGS: There is no fracture or dislocation. There is a pes planus deformity. Advanced degenerative changes at the subtalar joint. This is similar to the cartilage space narrowing and subchondral sclerosis. The bones are osteopenic. 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 Moderate osteoarthritis at the first dorsal metatarsal joint and mild osteoarthritis at the first MTP joint and interphalangeal joints. The Lisfranc joint is aligned. Suspect a dorsal skin ulceration at the midfoot. Mild diffuse soft tissue swelling No radiopaque foreign bodies. No bony destruction. IMPRESSION: 1. Suspect a dorsal skin ulceration at the midfoot. No underlying bony destruction to suggest osteomyelitis. 2. Chronic and degenerative changes as described above. 3. 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 Electronically signed by: Jeremie Zamarripa M.D. 09/04/2017 11:50 AM Dictated Date/Time: 09/04/2017 11:46 AM
--- NOTE | 2017-09-04 11:53 | DIAGNOSTIC IMAGING REPORT ---
PANELIPSE OF THE MANDIBLE CLINICAL HISTORY: Tooth pain. Sepsis. COMPARISON STUDY: No previous studies for comparison. FINDINGS: A single view of the mandible is provided for interpretation. There are multiple dental caries. Multiple dental fillings are visualized. No definite dental apical abscesses are evident. IMPRESSION: Multiple dental caries Electronically signed by: Artur Fall M.D. 09/04/2017 11:52 AM Dictated Date/Time: 09/04/2017 11:50 AM
[2017-09-04 15:30] VITALS: BP 116/72; PULSE 80; TEMP 36.7; O2SAT 93
[2017-09-04 16:00] VITALS: O2SAT 93
--- NOTE | 2017-09-04 17:54 | Progress Note ---
Subjective Date of Service: Sep 04, 2017. Subjective Pt evaluation today including: conversation w/ patient, physical exam, lab review, review of studies, review of inpatient medication list Saw/examined the patient in room 253 He's doing okay today; presented with weakness and unsteadiness after a fall Currently seated at bedside - good PO intake Problem List Medical Problems: (1) Dizziness Status: Acute (2) Fever of unknown origin Status: Acute (3) SIRS (systemic inflammatory response syndrome) Status: Acute Review of Systems Constitutional: + fever (improving), + chills, + weakness Respiratory: No shortness of breath Cardiac: No chest pain Abdomen: No pain, No nausea, No vomiting, No diarrhea Medications Current Inpatient Medications Medications (Trade) Dose Ordered Sig/Thomas Route Start Time Stop Time Status Last Admin Dose Admin Ioversol (Optiray 320) 100 ml UD PRN IV 09/03/17 21:45 09/07/17 21:44 Enoxaparin Sodium (Lovenox Inj) 40 mg DAILY SQ 09/04/17 09:00 10/04/17 08:59 09/04/17 07:56 40 MG Acetaminophen (Tylenol Tab) 650 mg Q4H PRN PO 09/03/17 23:15 10/03/17 23:14 Aspirin (Ecotrin Tab) 81 mg DAILY PO 09/04/17 09:00 10/04/17 08:59 09/04/17 07:55 81 MG Cetirizine HCl (zyrTEC TAB) 10 mg DAILY PO 09/04/17 09:00 10/04/17 08:59 09/04/17 07:56 10 MG Cyanocobalamin (Vitamin B-12 Tab) 500 mcg DAILY PO 09/04/17 09:00 10/04/17 08:59 09/04/17 07:56 500 MCG Duloxetine HCl (Cymbalta Cap) 60 mg DAILY PO 09/04/17 09:00 10/04/17 08:59 09/04/17 07:55 60 MG Famotidine (Pepcid Tab) 20 mg BID PO 09/04/17 09:00 10/04/17 08:59 09/04/17 07:56 20 MG Furosemide (Lasix Tab) 40 mg DAILY PO 09/04/17 09:00 10/04/17 08:59 09/04/17 07:55 40 MG Gabapentin (Neurontin Tab) 800 mg TID PO 09/04/17 09:00 10/04/17 08:59 09/04/17 13:30 800 MG Multivitamins (Multivitamin Tab) 1 tab DAILY PO 09/04/17 09:00 10/04/17 08:59 09/04/17 07:56 1 TAB Potassium Chloride (Klor-Con M10) 10 meq DAILY PO 09/04/17 09:00 10/04/17 08:59 09/04/17 07:55 10 MEQ Daptomycin 750 mg/ Sodium Chloride 65 ml @ 100 mls/hr Q24H IV 09/04/17 02:00 09/14/17 01:59 09/04/17 01:31 100 MLS/HR Piperacillin Sod/ Tazobactam Sod 4.5 gm/Dextrose 120 ml @ 30 mls/hr Q8H IV 09/04/17 04:00 09/14/17 03:59 09/04/17 11:36 30 MLS/HR Piperacillin Sod/ Tazobactam Sod (Consult) 1 ea UD PRN N/A 09/04/17 01:00 10/04/17 00:59 Neomycin/ Polymyxin/ Bacitracin (Neosporin Oint) 1 appln DAILY EXT 09/04/17 09:00 10/04/17 08:59 09/04/17 07:55 1 APPLN Objective Vital Signs Date Time Temp Pulse Resp B/P (MAP) Pulse Ox O2 Delivery O2 Flow Rate FiO2 09/04/17 16:00 93 Room Air 09/04/17 15:30 36.7 80 18 116/72 (87) 93 Room Air 09/04/17 08:00 Room Air 09/04/17 07:15 36.7 78 18 128/82 (97) 95 Room Air 09/04/17 00:25 36.6 75 18 110/72 98 Room Air 09/04/17 00:05 84 20 124/72 95 Room Air 09/03/17 23:49 36.5 09/03/17 23:05 88 20 123/81 96 Room Air 09/03/17 23:02 88 09/03/17 22:29 83 16 111/73 98 Room Air 09/03/17 21:49 37.1 94 16 98/67 98 Room Air 09/03/17 20:00 107 09/03/17 19:43 106 16 112/65 98 Room Air 09/03/17 19:06 98 Room Air 09/03/17 18:40 37.9 122 20 125/80 93 Room Air Physical Exam General Appearance: no apparent distress, + obese Respiratory/Chest: chest non-tender, lungs clear, normal breath sounds, no respiratory distress, no accessory muscle use Cardiovascular: regular rate, rhythm, no edema, no murmur Extremities: + pertinent finding (L charcot deformity; ulceration on bottom of foot and dougherty) Laboratory Results Last 24 Hours Test 09/03/17 18:45 09/03/17 19:10 09/03/17 19:15 09/03/17 19:21 Urine Color YELLOW Urine Appearance CLEAR Urine pH 5.0 Urine Specific [place] 1.013 Urine Protein NEG Urine Glucose (UA) NEG Urine Ketones NEG Urine Occult Blood NEG Urine Nitrite NEG Urine Bilirubin NEG Urine Urobilinogen NEG Urine Leukocyte Esterase SMALL Urine WBC (Auto) 1-5 /hpf Urine RBC (Auto) 0-4 /hpf Urine Hyaline Casts (Auto) 1-5 /lpf Urine Epithelial Cells (Auto) 0-5 /lpf Urine Bacteria (Auto) NEG White Blood Count 11.69 K/uL Red Blood Count 4.59 M/uL Hemoglobin 14.6 g/dL Hematocrit 42.3 % Mean Corpuscular Volume 92.2 fL Mean Corpuscular Hemoglobin 31.8 pg Mean Corpuscular Hemoglobin Concent 34.5 g/dl Platelet Count 167 K/uL Mean Platelet Volume 9.8 fL Neutrophils (%) (Auto) 81.6 % Lymphocytes (%) (Auto) 9.0 % Monocytes (%) (Auto) 8.4 % Eosinophils (%) (Auto) 0.4 % Basophils (%) (Auto) 0.3 % Neutrophils # (Auto) 9.55 K/uL Lymphocytes # (Auto) 1.05 K/uL Monocytes # (Auto) 0.98 K/uL Eosinophils # (Auto) 0.05 K/uL Basophils # (Auto) 0.03 K/uL RDW Standard Deviation 47.5 fL RDW Coefficient of Variation 14.1 % Immature Granulocyte % (Auto) 0.3 % Immature Granulocyte # (Auto) 0.03 K/uL Prothrombin Time 10.9 SECONDS Prothromb Time International Ratio 1.0 Activated Partial Thromboplast Time 31.0 SECONDS Partial Thromboplastin Ratio 1.2 Sodium Level 138 mmol/L Potassium Level 4.1 mmol/L Chloride Level 104 mmol/L Carbon Dioxide Level 25 mmol/L Anion Gap 9.0 mmol/L Blood Urea Nitrogen 16 mg/dl Creatinine 1.09 mg/dl Est Creatinine Clear Calc Drug Dose 89.7 ml/min Estimated GFR () 81.0 Estimated GFR (Non- 69.9 BUN/Creatinine Ratio 14.9 Random Glucose 128 mg/dl Calcium Level 8.4 mg/dl Total Bilirubin 0.7 mg/dl Direct Bilirubin 0.2 mg/dl Aspartate Amino Transf (AST/SGOT) 20 U/L Alanine Aminotransferase (ALT/SGPT) 30 U/L Alkaline Phosphatase 119 U/L Troponin I < 0.015 ng/ml Total Protein 7.6 gm/dl Albumin 3.4 gm/dl Lipase 128 U/L Influenza Type A (RT-PCR) Neg for Influ A Influenza Type A Antigen Neg for Influ A Influenza Type B Antigen Neg for Influ B Influenza Type B (RT-PCR) Neg for Influ B Bedside Lactic Acid Venous 1.34 mmol/L Test 09/04/17 05:30 White Blood Count 6.96 K/uL Red Blood Count 4.46 M/uL Hemoglobin 13.9 g/dL Hematocrit 41.4 % Mean Corpuscular Volume 92.8 fL Mean Corpuscular Hemoglobin 31.2 pg Mean Corpuscular Hemoglobin Concent 33.6 g/dl RDW Standard Deviation 48.2 fL RDW Coefficient of Variation 14.2 % Platelet Count 146 K/uL Mean Platelet Volume 10.0 fL Erythrocyte Sedimentation Rate 16 mm/hr Sodium Level 139 mmol/L Potassium Level 3.3 mmol/L Chloride Level 106 mmol/L Carbon Dioxide Level 28 mmol/L Anion Gap 6.0 mmol/L Blood Urea Nitrogen 15 mg/dl Creatinine 0.88 mg/dl Est Creatinine Clear Calc Drug Dose 110.8 ml/min Estimated GFR () 103.0 Estimated GFR (Non- 88.9 BUN/Creatinine Ratio 17.0 Random Glucose 109 mg/dl Calcium Level 8.2 mg/dl C-Reactive Protein 4.61 mg/dl Triglycerides Level 113 mg/dl Cholesterol Level 126 mg/dl HDL Cholesterol 44 mg/dl LDL Cholesterol, Calculated 59 mg/dl VLDL Cholesterol, Calculated 23 mg/dl Cholesterol/HDL Ratio 2.9 Procalcitonin 0.12 ng/ml Assessment and Plan Possible Sepsis secondary to L Foot Ulceration 09/04 ordering MRI of the foot to r/o osteo wound care for the ulcer appreciate ID input - continue abx. may need debridement for culture 09/03 Patient presented to ED with temp of 37.9, pulse of 122. Hemodynamically stable. WBC's 11,690. Serum lactate 1.34. He does not quite meet SIRS criteria, but the overall clinical picture is consistent with sepsis per 2001 definition if an infection is confirmed. Possible sources of infection include dental abscess, endocarditis, soft tissue infection or osteomyelitis of left foot. Blood cultures were obtained in ED. Patient received intravenous piperacillin/tazobactam which will be continued. Add daptomycin for gram-positive coverage. Check C-reactive protein, ESR, and pro-calcitonin with next labs. Check panelipse films. Check plain films left foot; consider MRI scan. Consult ID. SKIN TEAR / ABRASIONS LLE Tetanus vaccination status current. Local care for skin tear. CORONARY CALCIFICATIONS Extensive coronary calcifications noted on CT of chest. No history of [place] or angina, although patient has chronic dyspnea on exertion that is stable. Continue aspirin. Check lipid profile. Consider stress testing if patient develops anginal symptoms or worsening dyspnea on exertion. PULMONARY NODULE 6 mm nodule noted within the right upper lobe. Patient was evaluated by Pulmonary Medicine for a pulmonary nodule in the superior segment of the right lower lobe in 1999. These may represent the same lesion. Follow per guidelines. AORTIC ROOT DILATATION Aortic root dilatation of 5 cm at valves of Valsalva noted on CT. Follow per guidelines. LEFT FOOT ULCER Follow-up with Podiatry. DENTAL CARIES Follow-up with Oral Surgery at [facility]. HYPERTENSION History of borderline hypertension, only taking furosemide at this time. Follow and titrate therapy. SLEEP APNEA Continue CPAP. VTE PROPHYLAXIS Moderate risk for VTE. SQ enoxaparin. Ambulate. RESUSCITATION STATUS Discussed with patient and his . He does not have a living will. He would like resuscitation attempted in the event of a cardiopulmonary arrest if there is a reasonable chance of a meaningful recovery, but does not want prolonged extraordinary measures if prognosis is poor. Therefore, code status = "Level 1" (full resuscitation). DISPOSITION Admit to Telemetry Unit. Expected discharge to home. Family Medicine follow-up with Dr. Titus. .
[2017-09-04] MEDS ORDERED: GADAVIST IV PRN (20:30)
[2017-09-04 21:00] VITALS: O2SAT 93
[2017-09-04 23:29] VITALS: BP 131/89; PULSE 80; TEMP 37.3; O2SAT 93
[2017-09-05 00:09] VITALS: O2SAT 93
--- NOTE | 2017-09-05 00:12 | DIAGNOSTIC IMAGING REPORT ---
L LOWER EXT NONJOINT COMBO HISTORY: 67 years-old Male L foot ulceration; r/o osteo acute ulceration of the left foot with concern for osteomyelitis. COMPARISON: Left foot radiographs of same day TECHNIQUE: Multiplanar multisequence MRI of the left foot is obtained both with and without the use of 12 mL Gadavist. FINDINGS: The study is moderately limited secondary to patient motion. There is moderate skin thickening with enhancing subcutaneous edema of the dorsal medial mid foot centered about the first tarsal metatarsal joint and proximal diaphyseal portion of the first metatarsal as seen on image 28 of series 7, image 7 of series 11 and image 25 of series 9 with overlying skin marker seen at this site. Focal skin ulceration measures up to 2.0 cm. No enhancing abscess identified within this distribution. Moderate joint space narrowing with circumscribed subcortical cystic changes and marginal spurring noted involving the first tarsal metatarsal joint without definite evidence of osteomyelitis within this distribution. Moderate first metatarsal phalangeal and interphalangeal degenerative changes are also present. Joint space narrowing with subchondral cystic changes and marginal spurring are also noted however to a lesser degree within the second tarsal metatarsal joint. Multifocal interphalangeal degenerative changes are noted. Extensive abnormal marrow signal is noted throughout the talus and calcaneus with large subcortical cystic changes, joint space narrowing and marginal spurring. Moderate-sized subtalar joint effusion is present. These changes are only partially imaged. No definite evidence of calcaneonavicular coalition. There is moderate atrophy of the intrinsic musculature of the foot. Pes planus deformity. The flexor and extensor tendons appear to be grossly intact. IMPRESSION: 1. Moderate skin thickening with enhancing subcutaneous edema of the dorsal medial mid foot suggests cellulitis with focal 2.0 cm skin ulceration. No definite evidence of associated osteomyelitis. 2. Joint space narrowing with prominent subcortical cystic changes, joint space narrowing and marginal spurring of the first tarsal metatarsal joint favors severe degenerative changes, however this is within close proximity to the adjacent skin ulceration. Follow-up recommended to exclude early osteomyelitis. 3. Pes planus deformity with extensive abnormal marrow signal of the hindfoot, partially imaged involving the talus and calcaneus with large subcortical cystic changes, marginal spurring and joint space narrowing with moderate subtalar joint effusion. These findings suggest chronic advanced degenerative changes. 4. Atrophy of the intrinsic musculature of the foot, likely secondary to long-standing diabetes mellitus with chronic denervation changes. The above report was generated using voice recognition software. It may contain grammatical, syntax or spelling errors. Electronically signed by: Cuco Rivera M.D. 09/05/2017 12:11 AM Dictated Date/Time: 09/04/2017 8:42 PM
[2017-09-05] MEDS: DAPTOmycin IV 750 MG in SODIUM CHLORIDE 0.9% 50ML 50 ML IV SCH (01:44)
[2017-09-05 07:32] VITALS: BP 127/87; PULSE 74; TEMP 36.6; O2SAT 96
[2017-09-05] MEDS: ENOXAPARIN 40 MG/0.4 ML SYR SQ SCH (07:51)
[2017-09-05] MEDS: DULOXETINE (CYMBALTA) 30 MG CAP PO SCH (07:54)
[2017-09-05] MEDS: NEOMYCIN/POLYMYX/BACITR OINT 15 GM TUBE EXT SCH (07:54)
[2017-09-05] MEDS: POTASSIUM CHLORIDE 10 MEQ TABCR PO SCH (07:54)
[2017-09-05] MEDS: ASPIRIN 81 MG ECTAB PO SCH (07:54)
[2017-09-05] MEDS: GABAPENTIN 800 MG TAB PO SCH ×3 (07:55→20:30)
[2017-09-05] MEDS: MULTIVITAMIN TAB PO SCH (07:55)
[2017-09-05] MEDS: CYANOCOBALAMIN 500 MCG TAB (VIT B-12) PO SCH (07:55)
[2017-09-05] MEDS: CETIRIZINE HCL 10 MG TAB PO SCH (07:55)
[2017-09-05] MEDS: FUROSEMIDE 40 MG TAB PO SCH (07:55)
[2017-09-05] MEDS: FAMOTIDINE 20 MG TAB PO SCH ×2 (07:55→20:30)
[2017-09-05 09:16] VITALS: O2SAT 96
[2017-09-05 11:21] VITALS: BP 133/89; PULSE 72; TEMP 36.6; O2SAT 94
[2017-09-05] MEDS: PIPERACILL/TAZOBAC IV 4.5 GM in DEXTROSE 5% 100ML 100 ML IV SCH ×2 (11:51→20:30)
[2017-09-05] MEDS ORDERED: POTASSIUM CHLORIDE 10 MEQ TABCR PO ONE (14:30)
--- NOTE | 2017-09-05 14:40 | Progress Note ---
Medicine Progress Note Date & Time of Visit: Sep 05, 2017 at 14:40. Subjective states he feels ok overall denies left foot pain except when walking denies fever/chills no knee pain, left lower leg pain no other symptoms Objective Last 8 Hrs Date Time Temp Pulse Resp B/P (MAP) Pulse Ox O2 Delivery O2 Flow Rate FiO2 09/05/17 11:21 36.6 72 16 133/89 (104) 94 Room Air 09/05/17 09:16 96 Room Air 09/05/17 08:00 Room Air 09/05/17 07:32 36.6 74 14 127/87 (100) 96 Room Air Physical Exam: General- oriented x 3, not in distress Head- atraumatic Eyes- PERRL, EOMI, anicteric ENT- oropharynx clear Neck- supple, no JVD, no adenopathy, no thyromegaly Lungs- clear to auscultation b/l Heart- regular rhythm; no murmur, normal rate Abdomen- normal bowel sounds, soft, nontender Extremities- RIGHT LEG: no pretibial edema, no calf tenderness; peripheral pulses intact LEFT LEG: dorsal/medial left foot: (+) small area of eschar/ulcer, nontender/no discharge/no erythema left foot: mild edema, no tenderness anterior proximal lower leg: small open wound, no discharge, mild erythema surrounding Neuro- alert, oriented x 3; no gross focal deficits Skin- warm & dry Assessment & Plan Possible Sepsis secondary to L Foot Infected Ulcer/Cellulitis, Left Lower Leg Infected Wound/Cellulitis - now afebrile, leukocytosis resolved - blood cultures: negative so far MRI Foot: (+) foot cellulitis, no OM seen - on Day 2 Dapto + Zosyn ID consulted- appreciate the recommendations will consult Dr. Morse for possible debridement - discussed case with patient and his they would feel more comfortable with PO antibiotics on discharge will discuss with ID and Wound Care [facility] SKIN TEAR / ABRASIONS LLE Tetanus vaccination status current. Local care for skin tear. CORONARY CALCIFICATIONS Extensive coronary calcifications noted on CT of chest. No history of [place] or angina, although patient has chronic dyspnea on exertion that is stable. Continue aspirin. LDL 59 Consider stress testing if patient develops anginal symptoms or worsening dyspnea on exertion. PULMONARY NODULE 6 mm nodule noted within the right upper lobe. Patient was evaluated by Pulmonary Medicine for a pulmonary nodule in the superior segment of the right lower lobe in 1999. These may represent the same lesion. Follow per guidelines. AORTIC ROOT DILATATION Aortic root dilatation of 5 cm at valves of Valsalva noted on CT. Follow per guidelines. DENTAL CARIES Follow-up with Oral Surgery at [facility]. HYPERTENSION History of borderline hypertension, only taking furosemide at this time. Follow and titrate therapy. stable SLEEP APNEA Continue CPAP. VTE PROPHYLAXIS Moderate risk for VTE. SQ enoxaparin. Ambulate. RESUSCITATION STATUS Therefore, code status = "Level 1" (full resuscitation). DISPOSITION anticipate d/c home when cleared by wound care and ID will benefit from home health [facility] Family Medicine follow-up with Dr. Titus. . Current Inpatient Medications: Current Inpatient Medications Medications (Trade) Dose Ordered Sig/Thomas Route Start Time Stop Time Status Last Admin Dose Admin Ioversol (Optiray 320) 100 ml UD PRN IV 09/03/17 21:45 09/07/17 21:44 Enoxaparin Sodium (Lovenox Inj) 40 mg DAILY SQ 09/04/17 09:00 10/04/17 08:59 09/04/17 07:56 40 MG Acetaminophen (Tylenol Tab) 650 mg Q4H PRN PO 09/03/17 23:15 10/03/17 23:14 Aspirin (Ecotrin Tab) 81 mg DAILY PO 09/04/17 09:00 10/04/17 08:59 09/05/17 07:54 81 MG Cetirizine HCl (zyrTEC TAB) 10 mg DAILY PO 09/04/17 09:00 10/04/17 08:59 09/05/17 07:55 10 MG Cyanocobalamin (Vitamin B-12 Tab) 500 mcg DAILY PO 09/04/17 09:00 10/04/17 08:59 09/05/17 07:55 500 MCG Duloxetine HCl (Cymbalta Cap) 60 mg DAILY PO 09/04/17 09:00 10/04/17 08:59 09/05/17 07:54 60 MG Famotidine (Pepcid Tab) 20 mg BID PO 09/04/17 09:00 10/04/17 08:59 09/05/17 07:55 20 MG Furosemide (Lasix Tab) 40 mg DAILY PO 09/04/17 09:00 10/04/17 08:59 09/05/17 07:55 40 MG Gabapentin (Neurontin Tab) 800 mg TID PO 09/04/17 09:00 10/04/17 08:59 09/05/17 13:07 800 MG Multivitamins (Multivitamin Tab) 1 tab DAILY PO 09/04/17 09:00 10/04/17 08:59 09/05/17 07:55 1 TAB Potassium Chloride (Klor-Con M10) 10 meq DAILY PO 09/04/17 09:00 10/04/17 08:59 09/05/17 07:54 10 MEQ Neomycin/ Polymyxin/ Bacitracin (Neosporin Oint) 1 appln DAILY EXT 09/04/17 09:00 10/04/17 08:59 09/05/17 07:54 1 APPLN Gadobutrol (Gadavist) 12 mmol UD PRN IV 09/04/17 20:30 09/08/17 20:29
--- NOTE | 2017-09-05 14:43 | Progress Note ---
Subjective Date of Service: Sep 05, 2017. Subjective afebrile. blood cultures negative to date. remains on emperic broad spectrum abx , tolerating well. MRI negative osteo. no abscess. no wound culture but no purulent drainage noted. Problem List Medical Problems: (1) Dizziness Status: Acute (2) Fever of unknown origin Status: Acute (3) SIRS (systemic inflammatory response syndrome) Status: Acute Objective Vital Signs Date Time Temp Pulse Resp B/P (MAP) Pulse Ox O2 Delivery O2 Flow Rate FiO2 09/05/17 11:21 36.6 72 16 133/89 (104) 94 Room Air 09/05/17 09:16 96 Room Air 09/05/17 08:00 Room Air 09/05/17 07:32 36.6 74 14 127/87 (100) 96 Room Air 09/05/17 00:09 93 Room Air 09/04/17 23:29 37.3 80 20 131/89 (103) 93 Room Air 09/04/17 21:00 93 Room Air 09/04/17 20:47 Room Air 09/04/17 16:00 93 Room Air 09/04/17 15:30 36.7 80 18 116/72 (87) 93 Room Air Assessment and Plan (1) Foot ulcer, left Assessment & Plan: continue abx for now, follow cultures, if negative and unable to obtain wound culture will likely d/c on po abx for 2-3 weeks for infected ulcer. will follow. (2) Fever of unknown origin
[2017-09-05 15:44] VITALS: BP 117/77; PULSE 73; TEMP 36.3; O2SAT 96
[2017-09-05 23:40] VITALS: BP 102/65; PULSE 83; TEMP 37; O2SAT 94
[2017-09-06 00:10] VITALS: O2SAT 93
[2017-09-06] MEDS: DAPTOmycin IV 750 MG in SODIUM CHLORIDE 0.9% 50ML 50 ML IV SCH (02:24)
[2017-09-06] MEDS: PIPERACILL/TAZOBAC IV 4.5 GM in DEXTROSE 5% 100ML 100 ML IV SCH ×2 (03:50→11:39)
[2017-09-06 07:26] LABS: BUN/CREATININE RATIO 16.7 (10-20); CALCIUM 8.9 mg/dl (8.5-10.1); CREATININE 0.92 mg/dl (0.60-1.40); POTASSIUM 4.1 mmol/L (3.5-5.1)
[2017-09-06] MEDS: ASPIRIN 81 MG ECTAB PO SCH (07:49)
[2017-09-06] MEDS: GABAPENTIN 800 MG TAB PO SCH (07:49)
[2017-09-06] MEDS: FAMOTIDINE 20 MG TAB PO SCH (07:49)
[2017-09-06] MEDS: CYANOCOBALAMIN 500 MCG TAB (VIT B-12) PO SCH (07:49)
[2017-09-06] MEDS: DULOXETINE (CYMBALTA) 30 MG CAP PO SCH (07:49)
[2017-09-06] MEDS: CETIRIZINE HCL 10 MG TAB PO SCH (07:49)
[2017-09-06] MEDS: MULTIVITAMIN TAB PO SCH (07:49)
[2017-09-06] MEDS: FUROSEMIDE 40 MG TAB PO SCH (07:50)
[2017-09-06] MEDS: ENOXAPARIN 40 MG/0.4 ML SYR SQ SCH (07:50)
[2017-09-06] MEDS: NEOMYCIN/POLYMYX/BACITR OINT 15 GM TUBE EXT SCH (07:51)
[2017-09-06] MEDS: POTASSIUM CHLORIDE 10 MEQ TABCR PO SCH (07:51)
[2017-09-06 07:57] VITALS: BP 126/84; PULSE 72; TEMP 36.7; O2SAT 95
--- NOTE | 2017-09-06 12:36 | Progress Note ---
Medicine Progress Note Date & Time of Visit: Sep 06, 2017 at 12:30. Subjective seen resting in bed, comfortable s/p debridement of left foot today, tolerated well denies pain denies fever/chills, weakness, nausea, dizziness ambulating with no problems states he is ready and would like to be discharged today Objective Last 8 Hrs Date Time Temp Pulse Resp B/P (MAP) Pulse Ox O2 Delivery O2 Flow Rate FiO2 09/06/17 07:57 36.7 72 20 126/84 (98) 95 Room Air 09/06/17 07:43 20 09/06/17 07:28 Room Air 09/06/17 07:21 Room Air Physical Exam: General- oriented x 3, not in distress Eyes- anicteric Neck- no JVD Lungs- clear to auscultation b/l Heart- regular rhythm; no murmur, normal rate Abdomen- normal bowel sounds, soft, nontender Extremities- RIGHT LEG: no pretibial edema, no calf tenderness; peripheral pulses intact LEFT LEG: dorsal/medial left foot: (+) small area of superficial, nontender/no discharge/no erythema left foot: trace edema, no tenderness anterior proximal lower leg: small open wound, no discharge, no erythema mild lower leg edema no warmth/tenderness Neuro- alert, oriented x 3; no gross focal deficits Skin- warm & dry Laboratory Results: Last 24 Hours Test 09/06/17 06:23 Sodium Level 137 mmol/L Potassium Level 4.1 mmol/L Chloride Level 103 mmol/L Carbon Dioxide Level 30 mmol/L Anion Gap 4.0 mmol/L Blood Urea Nitrogen 15 mg/dl Creatinine 0.92 mg/dl Est Creatinine Clear Calc Drug Dose 106.0 ml/min Estimated GFR () 99.4 Estimated GFR (Non- 85.8 BUN/Creatinine Ratio 16.7 Random Glucose 96 mg/dl Calcium Level 8.9 mg/dl Date/Time Source Procedure Growth Status 09/06/17 11:30 Drainage-Deep Foot Left Gram Stain Pending Ordered 09/06/17 11:30 Drainage-Deep Foot Left Wound Culture Pending Ordered 09/06/17 11:30 Drainage - Surface Leg Lower Left Gram Stain Pending Ordered 09/06/17 11:30 Drainage - Surface Leg Lower Left Wound Culture Pending Ordered Assessment & Plan Possible Sepsis secondary to L Foot Infected Ulcer/Cellulitis, Left Lower Leg Infected Wound/Cellulitis - now afebrile, leukocytosis resolved - blood cultures: negative so far MRI Foot: (+) foot cellulitis, no OM seen - 09/05/17 s/p Debridement by Dr. Morse wound cultures pending - received 3 days Dapto + Zosyn ID consulted- Dr. Mason recommend at least 2 weeks of Levaquin + Doxycycline PO probiotics daily -ff up with Dr. Morse day after discharge ff up with PCP in 3-5 days ff up with ID Clinic Dr. Mason in 1 week SKIN TEAR / ABRASIONS LLE Tetanus vaccination status current. Local care for skin tear. CORONARY CALCIFICATIONS Extensive coronary calcifications noted on CT of chest. No history of [place] or angina, although patient has chronic dyspnea on exertion that is stable. Continue aspirin. LDL 59 Consider stress testing if patient develops anginal symptoms or worsening dyspnea on exertion. PULMONARY NODULE 6 mm nodule noted within the right upper lobe. Patient was evaluated by Pulmonary Medicine for a pulmonary nodule in the superior segment of the right lower lobe in 1999. These may represent the same lesion. Follow per guidelines. AORTIC ROOT DILATATION Aortic root dilatation of 5 cm at valves of Valsalva noted on CT. Follow per guidelines. DENTAL CARIES Follow-up with Oral Surgery at [facility]. HYPERTENSION stable monitor SLEEP APNEA Continue CPAP. VTE PROPHYLAXIS Moderate risk for VTE. SQ enoxaparin. Ambulate. RESUSCITATION STATUS Therefore, code status = "Level 1" (full resuscitation). DISPOSITION - d/c home today -ff up with Dr. Morse day after discharge ff up with PCP in 3-5 days ff up with ID Clinic Dr. Mason in 1 week Current Inpatient Medications: Current Inpatient Medications Medications (Trade) Dose Ordered Sig/Thomas Route Start Time Stop Time Status Last Admin Dose Admin Ioversol (Optiray 320) 100 ml UD PRN IV 09/03/17 21:45 09/07/17 21:44 Enoxaparin Sodium (Lovenox Inj) 40 mg DAILY SQ 09/04/17 09:00 10/04/17 08:59 09/04/17 07:56 40 MG Acetaminophen (Tylenol Tab) 650 mg Q4H PRN PO 09/03/17 23:15 10/03/17 23:14 Aspirin (Ecotrin Tab) 81 mg DAILY PO 09/04/17 09:00 10/04/17 08:59 09/06/17 07:49 81 MG Cetirizine HCl (zyrTEC TAB) 10 mg DAILY PO 09/04/17 09:00 10/04/17 08:59 09/06/17 07:49 10 MG Cyanocobalamin (Vitamin B-12 Tab) 500 mcg DAILY PO 09/04/17 09:00 10/04/17 08:59 09/06/17 07:49 500 MCG Duloxetine HCl (Cymbalta Cap) 60 mg DAILY PO 09/04/17 09:00 10/04/17 08:59 09/06/17 07:49 60 MG Famotidine (Pepcid Tab) 20 mg BID PO 09/04/17 09:00 10/04/17 08:59 09/06/17 07:49 20 MG Furosemide (Lasix Tab) 40 mg DAILY PO 09/04/17 09:00 10/04/17 08:59 09/06/17 07:50 40 MG Gabapentin (Neurontin Tab) 800 mg TID PO 09/04/17 09:00 10/04/17 08:59 09/06/17 07:49 800 MG Multivitamins (Multivitamin Tab) 1 tab DAILY PO 09/04/17 09:00 10/04/17 08:59 09/06/17 07:49 1 TAB Potassium Chloride (Klor-Con M10) 10 meq DAILY PO 09/04/17 09:00 10/04/17 08:59 09/06/17 07:51 10 MEQ Piperacillin Sod/ Tazobactam Sod 4.5 gm/Dextrose 120 ml @ 30 mls/hr Q8H IV 09/04/17 04:00 09/14/17 03:59 09/06/17 03:50 30 MLS/HR Piperacillin Sod/ Tazobactam Sod (Consult) 1 ea UD PRN N/A 09/04/17 01:00 10/04/17 00:59 Neomycin/ Polymyxin/ Bacitracin (Neosporin Oint) 1 appln DAILY EXT 09/04/17 09:00 10/04/17 08:59 09/06/17 07:51 1 APPLN Gadobutrol (Gadavist) 12 mmol UD PRN IV 09/04/17 20:30 09/08/17 20:29 Daptomycin 500 mg/ Sodium Chloride 60 ml @ 100 mls/hr Q24H IV 09/07/17 02:00 09/14/17 01:59
[2017-09-06] MEDS ORDERED: LEVO1TAB34 PO (12:38)
[2017-09-06] MEDS ORDERED: DXY100 PO (12:38)
[2017-09-06] MEDS ORDERED: LACT10CA3 PO (12:38)
[2017-09-06 12:44] VITALS: BP 126/84; PULSE 72; TEMP 36.7; O2SAT 95
--- NOTE | 2017-09-06 12:45 | Discharge Instructions ---
Discharge Instructions Date of Service Sep 06, 2017. Admission Reason for Admission: Systemic Inflammatory Response Syndrome Discharge Discharge Diagnosis / Problem: LEFT LEG AND FOOT INFECTED WOUNDS, CELLULITIS Discharge Goals Goal(s): Diagnostic testing, Therapeutic intervention Activity Recommendations Activity Limitations: as noted below (NO HEAVY EXERTION UNTIL RE-EVALUATED BY PRIMARY CARE PHYSICIAN) . Instructions / Follow-Up Instructions / Follow-Up PLEASE REVIEW YOUR NEW MEDICATION LIST AND FOLLOW INSTRUCTIONS CAREFULLY. TAKE YOGURT AND PROBIOTICS DAILY. DRINK PLENTY OF FLUIDS DAILY. PLEASE FOLLOW WOUND CARE INSTRUCTIONS: Care for left foot: cleanse gently, cover with foam dressing to protect and possibly soften callous.change every 3 days. Care for abrasions on left leg, just below knee: cleanse gently, cover with foam dressing until healed.Change every 3 days. CALL PRIMARY CARE PHYSICIAN OR RETURN TO ER IMMEDIATELY IF WITH FEVER/CHILLS, NAUSEA/VOMITING, WEAKNESS, INCREASING PAIN, REDNESS, DISCHARGE, SWELLING, DRAINAGE ON THE LEFT LEG AND FOOT. FOLLOW UP WITH WOUND CARE CENTER- DR. MICHAEL GARCIA TOMORROW SEPTEMBER 06, 2017 AT 2: 00PM. FOLLOW UP WITH DR. DIEHL ON TUESDAY SEPTEMBER 12, 2017 AT 2:55PM. FOLLOW UP WITH INFECTIOUS DISEASE CLINIC DR. DAVILA IN 1 WEEK. TEL. NO. Current Hospital Diet Patient's current hospital diet: AHA Diet (Heart Healthy) Discharge Diet Recommended Diet: AHA Diet (Heart Healthy) Procedures Procedures Performed: MRI OF THE LOWER EXTREMITY, CT SCAN OF THE CHEST Pending Studies Studies pending at discharge: yes List of pending studies: WOUND CULTURE RESULTS Laboratory Results Lipid Panel Test 09/04/17 05:30 Range/Units Triglycerides Level 113 0-150 mg/dl Cholesterol Level 126 0-200 mg/dl HDL Cholesterol 44 mg/dl Cholesterol/HDL Ratio 2.9 LDL Cholesterol, Calculated 59 mg/dl Medical Emergencies . Who to Call and When: Medical Emergencies: If at any time you feel your situation is an emergency, please call 911 immediately. . Non-Emergent Contact Non-Emergency issues call your: Primary Care Provider Call Non-Emergent contact if: you have a fever, your pain is not controlled, your pain is worsening, wound has increased drainage, wound has increased redness, wound has increased pain, you have any medication questions . . "Provider Documentation" section prepared by Avni Fitzpatrick. . VTE Core Measure Inpt VTE Proph given/why not?: Enoxaparin (Lovenox)SQ
--- NOTE | 2017-09-06 12:54 | Discharge Summary ---
Discharge Summary Date of Service Sep 06, 2017. Discharge Summary Admission Date: Sep 03, 2017 at 23:09 Discharge Date: Sep 06, 2017 Discharge Disposition: Home Principal Diagnosis: Possible Sepsis secondary to L Foot Infected Ulcer/Cellulitis, Left Lower Leg Infected Wound/Cellulitis Secondary Diagnoses/Problems: Please refer to hospital course below. Procedures: L TIBIA/FIBULA 2 VIEWS ROUTINE CLINICAL HISTORY: Fall. Evaluate for fracture. COMPARISON: None FINDINGS: Alignment of the total left knee arthroplasty is anatomic. There is no periprosthetic fracture. There is no acute fracture within the left tibia or fibula. Talar dome is intact. IMPRESSION: No acute fracture of the left tibia or fibula. L KNEE 1 OR 2 VIEWS ROUTINE CLINICAL HISTORY: Left knee pain following fall. COMPARISON: None FINDINGS: Alignment of the total left knee arthroplasty is anatomic. There is no periprosthetic fracture or unexpected radiopaque foreign body. There is no periprosthetic lucency. There is a small to moderate left knee joint effusion. There is prepatellar soft tissue swelling. IMPRESSION: 1. Status post total left knee arthroplasty. No periprosthetic fracture. 2. Prepatellar soft tissue swelling. 3. Small to moderate left knee joint effusion. CT OF THE HEAD WITHOUT CONTRAST CLINICAL HISTORY: Dizziness. Trauma. COMPARISON STUDY: No previous studies for comparison. CT DOSE: 1095.59 mGy.cm TECHNIQUE: Helical axial images of the head were obtained without IV contrast. Automated exposure control was utilized for the study. A dose lowering technique was utilized adhering to the principles of ALARA. FINDINGS: No acute intracranial hemorrhage, midline shift or mass effect is present. Ventricular system is normal. The basilar cisterns are patent. There are no extra-axial collections. Post-white differentiation is maintained. There are no CT findings to suggest acute dural sinus thrombosis or acute territorial infarct. A 9 mm right matter hypodensity within the right parietal lobe likely reflects an old lacunar infarct. No calvarial fracture is present. Disconjugate gaze is noted. IMPRESSION: 1. No acute intracranial findings. 2. No calvarial fracture. 3. Disconjugate gaze. CT ANGIOGRAPHY OF THE CHEST, PULMONARY EMBOLUS PROTOCOL CLINICAL HISTORY: Hypoxia, tachycardia and dizziness. COMPARISON STUDY: Chest radiograph September 03, 2017. TECHNIQUE: Following IV administration of 92 mL of Optiray-320, helical axial images of the chest were obtained utilizing the pulmonary embolus protocol. Maximal intensity projections and sagittal and coronal reformats were viewed on an independent 3D workstation. IV contrast was administered without complication. A dose lowering technique was utilized adhering to the principles of ALARA. CT DOSE: 1007.23 mGy.cm FINDINGS: No central or lobar pulmonary emboli are identified. The segmental and subsegmental vessels are suboptimally assessed due to suboptimal opacification. The heart is mildly enlarged. There is extensive coronary artery calcification. No pericardial effusion is present. Moderate aortic dilatation is noted at the level the sinuses of Valsalva, measuring 5 cm. The ascending aorta measures 4.2 cm at the level the main pulmonary artery. There is no thoracic aortic dissection. There are several partially calcified mediastinal and right hilar lymph nodes. There are no pathologically enlarged thoracic lymph nodes. Central airways are patent. A calcified granuloma within the right lower lobe is noted. Note is made of an indeterminate 6 cm groundglass nodule within the right upper lobe on image 187 of 328. There is no consolidation to suggest pneumonia. No pneumothorax or pleural effusion is present. No suspicious osseous lesions are present within the bony thorax. Upper abdomen is unremarkable. IMPRESSION: 1. No central or lobar pulmonary emboli. Segmental and subsegmental pulmonary arteries suboptimally assessed due to suboptimal opacification. 2. No acute intrathoracic findings. 3. Moderate dilatation of the aortic root, measuring approximately 5 cm at the sinuses of Valsalva. Ascending aorta measures 4.2 cm at the level of the main pulmonary artery. No thoracic aortic dissection. 4. Mild cardiomegaly and extensive coronary artery calcification. 5. Indeterminate 6 mm groundglass nodule within the right upper lobe. A follow-up chest CT in 6 months is recommended. LEFT FOOT 3 VIEWS HISTORY: Left foot ulcer, possible sepsis COMPARISON: None. FINDINGS: There is no fracture or dislocation. There is a pes planus deformity. Advanced degenerative changes at the subtalar joint. This is similar to the cartilage space narrowing and subchondral sclerosis. The bones are osteopenic. 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 Moderate osteoarthritis at the first dorsal metatarsal joint and mild osteoarthritis at the first MTP joint and interphalangeal joints. The Lisfranc joint is aligned. Suspect a dorsal skin ulceration at the midfoot. Mild diffuse soft tissue swelling No radiopaque foreign bodies. No bony destruction. IMPRESSION: 1. Suspect a dorsal skin ulceration at the midfoot. No underlying bony destruction to suggest osteomyelitis. 2. Chronic and degenerative changes as described above. 3. 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 PANELIPSE OF THE MANDIBLE CLINICAL HISTORY: Tooth pain. Sepsis. COMPARISON STUDY: No previous studies for comparison. FINDINGS: A single view of the mandible is provided for interpretation. There are multiple dental caries. Multiple dental fillings are visualized. No definite dental apical abscesses are evident. IMPRESSION: Multiple dental caries L LOWER EXT NONJOINT COMBO HISTORY: 67 years-old Male L foot ulceration; r/o osteo acute ulceration of the left foot with concern for osteomyelitis. COMPARISON: Left foot radiographs of same day TECHNIQUE: Multiplanar multisequence MRI of the left foot is obtained both with and without the use of 12 mL Gadavist. FINDINGS: The study is moderately limited secondary to patient motion. There is moderate skin thickening with enhancing subcutaneous edema of the dorsal medial mid foot centered about the first tarsal metatarsal joint and proximal diaphyseal portion of the first metatarsal as seen on image 28 of series 7, image 7 of series 11 and image 25 of series 9 with overlying skin marker seen at this site. Focal skin ulceration measures up to 2.0 cm. No enhancing abscess identified within this distribution. Moderate joint space narrowing with circumscribed subcortical cystic changes and marginal spurring noted involving the first tarsal metatarsal joint without definite evidence of osteomyelitis within this distribution. Moderate first metatarsal phalangeal and interphalangeal degenerative changes are also present. Joint space narrowing with subchondral cystic changes and marginal spurring are also noted however to a lesser degree within the second tarsal metatarsal joint. Multifocal interphalangeal degenerative changes are noted. Extensive abnormal marrow signal is noted throughout the talus and calcaneus with large subcortical cystic changes, joint space narrowing and marginal spurring. Moderate-sized subtalar joint effusion is present. These changes are only partially imaged. No definite evidence of calcaneonavicular coalition. There is moderate atrophy of the intrinsic musculature of the foot. Pes planus deformity. The flexor and extensor tendons appear to be grossly intact. IMPRESSION: 1. Moderate skin thickening with enhancing subcutaneous edema of the dorsal medial mid foot suggests cellulitis with focal 2.0 cm skin ulceration. No definite evidence of associated osteomyelitis. 2. Joint space narrowing with prominent subcortical cystic changes, joint space narrowing and marginal spurring of the first tarsal metatarsal joint favors severe degenerative changes, however this is within close proximity to the adjacent skin ulceration. Follow-up recommended to exclude early osteomyelitis. 3. Pes planus deformity with extensive abnormal marrow signal of the hindfoot, partially imaged involving the talus and calcaneus with large subcortical cystic changes, marginal spurring and joint space narrowing with moderate subtalar joint effusion. These findings suggest chronic advanced degenerative changes. 4. Atrophy of the intrinsic musculature of the foot, likely secondary to long-standing diabetes mellitus with chronic denervation changes. Consultations: WOUND CARE SERVICE DR. GARCIA, INFECTIOUS DISEASE DR. DAVILA Pending Studies/Follow-Up: Please refer to hospital course below. Medication Reconciliation New Medications: Doxycycline Hyclate (Doxycycline Hyclate) 100 Mg Cap 100 MG PO BID for 14 Days, #28 CAP 0 Refills Lactobacillus-Inulin (Culturelle) 1 Cap Cap 1 CAP PO DAILY, #21 CAP 2 Refills Levofloxacin (Levaquin) 500 Mg Tab 500 MG PO DAILY for 14 Days, #14 TAB 0 Refills Continued Medications: Aspirin (Aspirin Ec) 81 Mg Tab 81 MG PO DAILY Cetirizine Hcl (Zyrtec) 10 Mg Tab 10 MG PO DAILY, TAB Cyanocobalamin (Vitamin B12 500MCG) 500 Mcg Tab 500 MCG PO DAILY, TAB Duloxetine HCl (Cymbalta) 30 Mg Cap 60 MG PO DAILY, CAP 2 Refills Famotidine (Pepcid) 20 Mg Tab 20 MG PO BID, TAB Furosemide (Lasix) 40 Mg Tab 40 MG PO DAILY, TAB Gabapentin (Neurontin) 800 Mg Tab 800 MG PO TID, TAB Multivitamin (Multivitamin) Tab 1 TAB PO DAILY, TAB Potassium Chloride (Potassium Chloride Cr) 10 Meq Tab 10 MEQ PO DAILY, TAB Admission Information HPI (per Admitting provider): 67-year-old male followed by Dr. Titus for Family Medicine. History of borderline hypertension, sleep apnea, peripheral neuropathy, and other problems noted below. He has multiple dental caries and extractions are planned in the near future. Notes some pain in a right lower molar without apparent drainage. 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 Treated with antibiotics the past. Recently has noted scant drainage, slightly bloody. Yesterday he was working on his deck, fell, injured his left leg. No head injury or loss of consciousness. He attributes the fall to losing his balance on a stepladder. No associated presyncope, vertigo, chest pain, palpitations, focal neurologic symptoms. Experienced some low back pain and left leg pain after the fall. Today he felt weak and unsteady. Noted that his hands were shaking. No fever, chills, sweats. Mild frontal headache. No visual changes, nausea, vomiting. . Physical Exam (per Admitting): General Appearance: no apparent distress, + obese Head: normocephalic, atraumatic Eyes: normal inspection (eyelids and conjunctivae normal), PERRL, EOMI, sclerae normal ENT: hearing grossly normal, pharynx normal, + pertinent finding (poor dentition) Neck: supple, no adenopathy, thyroid normal, trachea midline Respiratory/Chest: lungs clear, no respiratory distress, no accessory muscle use Cardiovascular: regular rate, rhythm, no edema, no gallop, no JVD, no murmur , + abnormal peripheral pulses (pedal pulses diminished), + pertinent finding (1 + pretibial edema) Abdomen/GI: normal bowel sounds, non tender, soft, no organomegaly, no pulsatile mass, + pertinent finding (umbilical hernia, nontender) Extremities/Musculoskelatal: no calf tenderness, normal capillary refill (1- 2 sec), + pertinent finding (deformities feet; 12 x 20 mm ulcer left plantar medial foot) Neurologic/Psych: no motor/sensory deficits (motor strength extremities grossly intact), alert, normal mood/affect, oriented x 3, + pertinent finding ( PERRL, right exotropia) Skin: warm/dry, + pertinent finding (venous stasis changes lower extremities ; abrasions + skin tear left dougherty; left foot ulcer as noted above) Lymphatic: no adenopathy (cervical or axillary) Hospital Course Possible Sepsis secondary to L Foot Infected Ulcer/Cellulitis, Left Lower Leg Infected Wound/Cellulitis - blood cultures: negative so far MRI Foot: (+) foot cellulitis, no OM seen - 09/05/17 s/p Debridement by Dr. Garcia wound cultures pending - received 3 days Dapto + Zosyn now afebrile, leukocytosis resolved, leg and foot swelling improving ID consulted- Dr. Davila recommend at least 2 weeks of Levaquin + Doxycycline PO probiotics daily -ff up with Dr. Garcia day after discharge ff up with PCP in 3-5 days ff up with ID Clinic Dr. Davila in 1 week SKIN TEAR / ABRASIONS LLE Tetanus vaccination status current. Local care for skin tear. CORONARY CALCIFICATIONS Extensive coronary calcifications noted on CT of chest. No history of DC or angina, although patient has chronic dyspnea on exertion that is stable. Continue aspirin. LDL 59 Consider stress testing if patient develops anginal symptoms or worsening dyspnea on exertion. PULMONARY NODULE 6 mm nodule noted within the right upper lobe. Patient was evaluated by Pulmonary Medicine for a pulmonary nodule in the superior segment of the right lower lobe in 1999. These may represent the same lesion. Follow per guidelines. AORTIC ROOT DILATATION Aortic root dilatation of 5 cm at valves of Valsalva noted on CT. Follow per guidelines. DENTAL CARIES Follow-up with Oral Surgery at [facility]. HYPERTENSION stable monitor SLEEP APNEA Continue CPAP. DISPOSITION - d/c home -ff up with Dr. Garcia day after discharge ff up with PCP in 3-5 days ff up with ID Clinic Dr. Davila in 1 week Total time spent on discharge = 30 minutes This includes examination of the patient, discharge planning, medication reconciliation, and communication with other providers. Discharge Instructions Discharge Instructions Date of Service Sep 06, 2017. Admission Reason for Admission: Systemic Inflammatory Response Syndrome Discharge Discharge Diagnosis / Problem: LEFT LEG AND FOOT INFECTED WOUNDS, CELLULITIS Discharge Goals Goal(s): Diagnostic testing, Therapeutic intervention Activity Recommendations Activity Limitations: as noted below (NO HEAVY EXERTION UNTIL RE-EVALUATED BY PRIMARY CARE PHYSICIAN) . Instructions / Follow-Up Instructions / Follow-Up PLEASE REVIEW YOUR NEW MEDICATION LIST AND FOLLOW INSTRUCTIONS CAREFULLY. TAKE YOGURT AND PROBIOTICS DAILY. DRINK PLENTY OF FLUIDS DAILY. PLEASE FOLLOW WOUND CARE INSTRUCTIONS: Care for left foot: cleanse gently, cover with foam dressing to protect and possibly soften callous.change every 3 days. Care for abrasions on left leg, just below knee: cleanse gently, cover with foam dressing until healed.Change every 3 days. CALL PRIMARY CARE PHYSICIAN OR RETURN TO ER IMMEDIATELY IF WITH FEVER/CHILLS, NAUSEA/VOMITING, WEAKNESS, INCREASING PAIN, REDNESS, DISCHARGE, SWELLING, DRAINAGE ON THE LEFT LEG AND FOOT. FOLLOW UP WITH WOUND CARE CENTER- DR. MICHAEL GARCIA TOMORROW SEPTEMBER 06, 2017 AT 2: 00PM. FOLLOW UP WITH DR. TITUS ON TUESDAY SEPTEMBER 12, 2017 AT 2:55PM. FOLLOW UP WITH INFECTIOUS DISEASE CLINIC DR. DAVILA IN 1 WEEK. TEL. NO. Current Hospital Diet Patient's current hospital diet: AHA Diet (Heart Healthy) Discharge Diet Recommended Diet: AHA Diet (Heart Healthy) Procedures Procedures Performed: MRI OF THE LOWER EXTREMITY, CT SCAN OF THE CHEST Pending Studies Studies pending at discharge: yes List of pending studies: WOUND CULTURE RESULTS
[2017-09-07] MEDS ORDERED: DAPTOmycin IV 500 MG in SODIUM CHLORIDE 0.9% 50ML 50 ML IV SCH (02:00)
--- NOTE | 2017-09-07 14:34 | Wound Consultation: Inpatient ---
Wound Consultation Date of Consultation: Sep 06, 2017. Attending Physician: Avni Fitzpatrick MD Reason for Consultation: Nonhealing ulceration left foot History of Present Illness Patient was recently admitted to [facility] 2 days ago for evaluation potential treatment of sepsis. Patient at the current time denies any fever chills or night sweats. Patient states she's had an ulceration off and on in his left foot for many years. Patient states she's had multiple medical treatments for this problem most recently with podiatry. Patient has had orthotic shoes constructed for this problem. Patient recently states there was some increased swelling and redness in the area. Patient states he has intermittent drainage from the same area. Patient also states that he sustained a traumatic wound to his left lower extremity approximately 3 days ago prior to this occurrence. Patient currently denies any significant pain in his foot or leg. Patient denies any chest pain, shortness of breath, abdominal discomfort, nausea, or vomiting. Patient denies any other systemic complaints. Family History Breast cancer MOTHER Congestive heart failure FATHER Social History Smoking Status: Never Smoker Alcohol Use: occasionally Drug Use: none Marital Status: Housing Status: lives with family Allergies Coded Allergies: No Known Allergies (Unverified , 09/03/17) Home Medications Scheduled Aspirin (Aspirin Ec), 81 MG PO DAILY Cetirizine Hcl (Zyrtec), 10 MG PO DAILY Cyanocobalamin (Vitamin B12 500MCG), 500 MCG PO DAILY Doxycycline Hyclate (Doxycycline Hyclate), 100 MG PO BID Duloxetine HCl (Cymbalta), 60 MG PO DAILY Famotidine (Pepcid), 20 MG PO BID Furosemide (Lasix), 40 MG PO DAILY Gabapentin (Neurontin), 800 MG PO TID Lactobacillus-Inulin (Culturelle), 1 CAP PO DAILY Levofloxacin (Levaquin), 500 MG PO DAILY Multivitamin (Multivitamin), 1 TAB PO DAILY Potassium Chloride (Potassium Chloride Cr), 10 MEQ PO DAILY Inpatient Medications 10 systems were reviewed in their entirety and positive findings are noted in the chief complaint history of present illness. Physical Exam Vital signs were reviewed and found to be unremarkable. Patient is afebrile. General: The patient is sitting in a hospital bed in no distress. Alert, cooperative and appropriate to all questions. HEENT: Pupils equal and reactive to light. Sclera clear, EOM intact. Neck: Supple, No JVD noted Chest: CTA in all tanner. No deformity Heart: RRR without murmurs, S3, S4, thrills, rubs or heaves Extremities: Ulceration is present in the left foot plantar surface measuring 0.4 x 0.4 x 0.2 cm. There is surrounding eschar and callus formation noted. There is no periwound erythema or active drainage or odor noted. There is a deformity present of the left foot and ankle region which is chronic in nature. Patient also has a left lower extremity traumatic wound measuring 1.2 x 2.8 x 0.1 cm. Central slough and some surrounding eschar present. No significant periwound erythema or active drainage or odor noted. Range of motion is present. Distal neurovascular bundles intact. Neurological: Alert and oriented x3. No focal deficits. Skin: No rashes, papules, vesicles, excoriations Assessment & Plan Assessment: 1 stage III pressure ulcer left foot 2 traumatic wound left lower extremity Plan: At this time the sites did require debridement. With patient's permission and after the application of topical Xylocaine 4% the sites were debrided with a #5 curette. Surrounding callus formation eschar Central slough and some subcutaneous tissue is removed. Minimal bleeding occurred which was controlled with direct pressure . Sites to be dressed with Aquasol AG and gauze change with a daily basis patient will be referred to the wound clinic tomorrow for ongoing offloading issues with consideration for total contact casting be made at that time. Patient will continue to be monitored and follow a weekly basis. This represented an excisional debridement of less than 20 cm.
[2017-09-28] MEDS ORDERED: SULF800T23 PO (15:52)
== END 2017-09-06 13:18 | disposition home or self-care (01) | DRG 853 ==
LOC: C.EDB 18:28 → C.MS2W 23:09 → ENRESERV 23:14 → CANRESERV 23:25
PROVIDERS: ADMIT Hospitalist; ATTEND Internal Medicine
PROC: 0JBR0ZZ Excision of Left Foot Subcutaneous Tissue and Fascia, Open Approach (ICD-10-PCS; principal; 2017-09-06)
DX: A41.9 Sepsis, unspecified organism (principal); L89.893 Pressure ulcer of other site, stage 3; L03.116 Cellulitis of left lower limb; L97.529 Non-pressure chronic ulcer of other part of left foot with unspecified severity; I10 Essential (primary) hypertension; K21.9 Gastro-esophageal reflux disease without esophagitis; F32.9 Major depressive disorder, single episode, unspecified; G47.30 Sleep apnea, unspecified; R91.1 Solitary pulmonary nodule; Z79.82 Long term (current) use of aspirin; Z79.899 Other long term (current) drug therapy

== ENCOUNTER 2018-03-17 23:45 | Emergency (ER) | payer OTHER ==
[~2018-03-17] VITALS: Ht 182.9 cm; Wt 130.8 kg
[~2018-03-17 23:45] MED LIST: ASPI81TA28 PO; CETI10TA10 PO; CYAN500T13 PO; CYM/30 PO; DXY100 PO; FAMO20TA11 PO; FRS/40 PO; GABA800T PO; LACT10CA3 PO; MULT-506 PO; POTA10TA30 PO
[2018-03-17 23:50] VITALS: TEMP 36.4; Ht 182.9 cm; Wt 130.8 kg
[2018-03-18] MEDS ORDERED: BENZ100C84 PO (00:30)
[2018-03-18] MEDS ORDERED: AMOX875T PO (00:32)
[2018-03-18] MEDS ORDERED: PRED10TA PO (00:34)
[2018-03-18] MEDS ORDERED: MONT1TAB3 PO (00:39)
[2018-03-18] MEDS ORDERED: GUAISYP4 PO (00:41)
[2018-03-18] MEDS ORDERED: AZEL0.15 NAE (00:43)
[2018-03-18] MEDS ORDERED: ADVIN10/60 INH (00:44)
[2018-03-18] MEDS ORDERED: VNTHFA/IN INH (00:45)
[2018-03-18 00:48] LABS: BASO % 0.3 %; BASO ABS # 0.03 K/uL (0-0.2); EOS % 1.1 %; HEMOGLOBIN 15.6 g/dL (14.0-18.0); IG# 0.02 K/uL (0.00-0.02); LYMPH % 33.3 %; LYMPH ABS # 2.91 K/uL (1.2-3.4); MEAN CELL VOLUME 92.9 fL (80-100); MEAN CORPUSCULAR HEMOGLOBIN 31.5 pg (25-34); MEAN CORPUSCULAR HGB CONC 33.9 g/dl (32-36); MEAN PLATELET VOLUME 9.6 fL (7.4-10.4); MONO % 9.4 %; MONO ABS # 0.82 K/uL (0.11-0.59); NEUT % 55.7 %; NEUT ABS # 4.87 K/uL (1.4-6.5); PLATELET COUNT 187 K/uL (130-400); RED CELL DISTRIBUTION WIDTH CV 14.2 % (11.5-14.5); RED CELL DISTRIBUTION WIDTH SD 47.9 fL (36.4-46.3); WHITE BLOOD COUNT 8.75 K/uL (4.8-10.8)
[2018-03-18] MEDS ORDERED: ATOR10TA82 PO (00:50)
[2018-03-18 00:56] LABS: PTT PATIENT 27.5 SECONDS (21.0-31.0)
[2018-03-18 01:17] LABS: ALBUMIN 3.6 gm/dl (3.4-5.0); CALCIUM 9.1 mg/dl (8.5-10.1); CREATININE 0.92 mg/dl (0.60-1.40); TOTAL PROTEIN 8.1 gm/dl (6.4-8.2)
[2018-03-18 01:33] VITALS: BP 104/80
[2018-03-18 01:45] VITALS: PULSE 81; O2SAT 93
--- NOTE | 2018-03-18 02:07 | EMERGENCY ROOM VISIT NOTE ---
History Report prepared by Aminata: Jesús Cope Under the Supervision of: Dr. Chacho Plata M.D. First contact with patient: 23:53 Chief Complaint: URINARY SYMPTOMS Stated Complaint: PEEING BLOOD History of Present Illness The patient is a 67 year old male who presents to the Emergency Room with complaints of intermittent hematuria starting yesterday. The patient states that he noticed his urine was pink and red yesterday. He reports that his urine turned back to a normal color later that afternoon. The patient states the hematuria returned today and was darker than before. He denies pain with urination, flank pain, and urinary frequency. The patient states he was recently started on Augmentin three to four days ago do to a cough and infection. He reports that he is still experiencing his cough. The patient notes he has six more days left of his prescription. The patient states he does take Aspirin. He reports a history of hyperlipidemia, which he was recently put on Lipitor. Source of History: patient Onset: yesterday Position: other (global) Quality: other (red urine) Timing: intermittent Associated Symptoms: + cough Note: Denies: urinary pain, flank pain, urinary frequency. Review of Systems See HPI for pertinent positives & negatives. A total of 10 systems reviewed and were otherwise negative. Past Medical & Surgical Medical Problems: (1) Aortic root dilatation (2) Coronary artery disease (3) Essential hypertension (4) Foot ulcer, left (5) HLD (hyperlipidemia) (6) Neuropathy (7) Pulmonary nodule (8) Sleep apnea (9) Umbilical hernia Surgical Problems: (1) Status post bilateral knee replacements (2) Status post inguinal hernia repair (3) Status post lumbar surgery (4) Status post tonsillectomy Family History Breast cancer MOTHER Congestive heart failure FATHER Social History Smoking Status: Never Smoker Alcohol Use: none Drug Use: none Marital Status: Housing Status: lives with family Occupation Status: retired Current/Historical Medications Scheduled Amoxicillin & Pot Clavulanate (Augmentin 875-125 mg), 1 TAB PO BID Aspirin (Aspirin Ec), 81 MG PO DAILY Atorvastatin (Lipitor), 10 MG PO DAILY Azelastine Hcl (Astepro), 1 SPRY PREETI BID Cetirizine Hcl (Zyrtec), 10 MG PO DAILY Cyanocobalamin (Vitamin B12 500MCG), 500 MCG PO DAILY Duloxetine HCl (Cymbalta), 60 MG PO DAILY Famotidine (Pepcid), 20 MG PO BID Fluticasone Prop/Salmeterol (Advair Diskus 100/50 60 Dose), 1 PUFFS INH BID Furosemide (Lasix), 40 MG PO DAILY Gabapentin (Neurontin), 800 MG PO TID Montelukast Sodium (Singulair), 10 MG PO DAILY Multivitamin (Multivitamin), 1 TAB PO DAILY Potassium Chloride (Potassium Chloride Cr), 10 MEQ PO DAILY Prednisone Tab (Prednisone), 10 MG PO DAILY/UD Scheduled PRN Albuterol Hfa (Ventolin Hfa), 2 PUFFS INH Q4H PRN for SOB/Wheezing Benzonatate (Tessalon Perles), 100 MG PO TID PRN for Cough Guaifenesin/Codeine (Robitussin-Ac Syrup), 5 ML PO Q4H PRN for Cough Allergies Coded Allergies: No Known Allergies (Unverified , 09/03/17) Physical Exam Vital Signs Date Time Temp Pulse Resp B/P (MAP) Pulse Ox O2 Delivery O2 Flow Rate FiO2 03/18/18 01:45 81 20 93 Room Air 03/18/18 01:33 104/80 03/17/18 23:50 36.4 83 18 151/81 95 Room Air Physical Exam Constitutional: Vital signs reviewed. Eyes: Pupils are equal round reactive to light. Conjunctiva are noninjected. ENT: Pharynx is clear without erythema or exudate. Mucous membranes are moist. Neck supple without meningeal signs. Respiratory: Fine crackles at the left base. Breath sounds are equal bilaterally. Cardiovascular: Regular rate and rhythm. No rubs or gallops. GI: Soft, nondistended and nontender. Bowel sounds are present. Musculoskeletal: No peripheral edema. No lower extremity tenderness. Integumentary: No cyanosis. Neurological: The patient is awake and alert. No focal deficits. Psychiatric: Normal affect. Medical Decision & Procedures ER Provider Diagnostic Interpretation: Radiology results as stated below per my review and the radiologist's interpretation: Chest X-ray: No consolidation. No heart failure. No change from August 2017. CT ABDOMEN & PELVIS Without Contrast: Left upper pole calyx 3-4 mm calculus without hydronephrosis. Additional small nonobstructive left upper pole renal calculus. No ureteral calculus. Scattered small densities in the posterior aspect of the bladder. Bladder calculi or recently passed ureteral calculi cannot be excluded. Recommend clinical correlation and correlation with urinalysis. No findings to suggest acute appendicitis. Incidental findings: Mild fatty infiltration of the liver. Degenerative and postsurgical changes of the lumbar spine. Atherosclerotic vascular disease without abdominal aortic aneurysm. Radiologist: Mariah Crain MD. Laboratory Results 03/18/18 00:30 Red Blood Count 4.95, Mean Corpuscular Volume 92.9, Mean Corpuscular Hemoglobin 31.5, Mean Corpuscular Hemoglobin Concent 33.9, Mean Platelet Volume 9.6, Neutrophils (%) (Auto) 55.7, Lymphocytes (%) (Auto) 33.3, Monocytes (%) (Auto) 9.4, Eosinophils (%) (Auto) 1.1, Basophils (%) (Auto) 0.3, Neutrophils # (Auto) 4.87, Lymphocytes # (Auto) 2.91, Monocytes # (Auto) 0.82, Eosinophils # (Auto) 0.10, Basophils # (Auto) 0.03 03/18/18 00:30 Test 03/18/18 00:30 White Blood Count 8.75 K/uL (4.8-10.8) Red Blood Count 4.95 M/uL (4.7-6.1) Hemoglobin 15.6 g/dL (14.0-18.0) Hematocrit 46.0 % (42-52) Mean Corpuscular Volume 92.9 fL (80-100) Mean Corpuscular Hemoglobin 31.5 pg (25-34) Mean Corpuscular Hemoglobin Concent 33.9 g/dl (32-36) Platelet Count 187 K/uL (130-400) Mean Platelet Volume 9.6 fL (7.4-10.4) Neutrophils (%) (Auto) 55.7 % Lymphocytes (%) (Auto) 33.3 % Monocytes (%) (Auto) 9.4 % Eosinophils (%) (Auto) 1.1 % Basophils (%) (Auto) 0.3 % Neutrophils # (Auto) 4.87 K/uL (1.4-6.5) Lymphocytes # (Auto) 2.91 K/uL (1.2-3.4) Monocytes # (Auto) 0.82 K/uL (0.11-0.59) Eosinophils # (Auto) 0.10 K/uL (0-0.5) Basophils # (Auto) 0.03 K/uL (0-0.2) RDW Standard Deviation 47.9 fL (36.4-46.3) RDW Coefficient of Variation 14.2 % (11.5-14.5) Immature Granulocyte % (Auto) 0.2 % Immature Granulocyte # (Auto) 0.02 K/uL (0.00-0.02) Prothrombin Time 10.7 SECONDS (9.0-12.0) Prothromb Time International Ratio 1.0 (0.9-1.1) Activated Partial Thromboplast Time 27.5 SECONDS (21.0-31.0) Partial Thromboplastin Ratio 1.1 Urine Color BROWN Urine Appearance CLOUDY (CLEAR) Urine pH 5.5 (4.5-7.5) Urine Specific [place] 1.027 (1.000-1.030) Urine Protein TRACE (NEG) Urine Glucose (UA) NEG (NEG) Urine Ketones NEG (NEG) Urine Occult Blood 3+ (NEG) Urine Nitrite NEG (NEG) Urine Bilirubin NEG (NEG) Urine Urobilinogen NEG (NEG) Urine Leukocyte Esterase NEG (NEG) Urine WBC (Auto) 10-30 /hpf (0-5) Urine RBC (Auto) >30 /hpf (0-4) Urine Hyaline Casts (Auto) 1-5 /lpf (0-5) Urine Epithelial Cells (Auto) 20-30 /lpf (0-5) Urine Bacteria (Auto) NEG (NEG) Urine Yeast (Auto) (NONE PRSENT) Anion Gap 3.0 mmol/L (3-11) Est Creatinine Clear Calc Drug Dose 109.0 ml/min Estimated GFR () 99.4 Estimated GFR (Non- 85.8 BUN/Creatinine Ratio 23.9 (10-20) Calcium Level 9.1 mg/dl (8.5-10.1) Total Bilirubin 0.7 mg/dl (0.2-1) Direct Bilirubin mg/dl (0-0.2) Aspartate Amino Transf (AST/SGOT) U/L (15-37) Alanine Aminotransferase (ALT/SGPT) 49 U/L (12-78) Alkaline Phosphatase 108 U/L (45-117) Total Protein 8.1 gm/dl (6.4-8.2) Albumin 3.6 gm/dl (3.4-5.0) Laboratory results as reviewed by me. ED Course 2355: The patient was evaluated in room A02. A complete history and physical exam was performed. 0137: I reevaluated the patient and updated him on the results. He understands the treatment plan. The patient is ready for discharge. Medical Decision This is a 67-year-old male presents with hematuria. Differential diagnosis includes kidney stone, bladder CA, renal carcinoma, UTI, renal failure. I did perform a limited focused review of portions of the patient's old chart on the electronic medical record. The patient has had no recent pertinent visits to this hospital. I did evaluate the patient as noted above. The patient is presenting with gross hematuria. He has no other symptoms other than upper respiratory symptoms for which she is taking Augmentin. IV access was established. I did order and personally review the patient's chest x-ray as described above. There is no evidence of infiltrate. Urine analysis revealed hematuria without infection. I did order and review the patient's blood work as noted in the electronic medical record. He is not anemic. Renal function is normal. I did order a CT of the abdomen and pelvis. I did review the images myself as well as the radiology report as described above. The patient does have nephrolithiasis without hydronephrosis or ureterolithiasis. There is also debris in the bladder that can be consistent with passed kidney stones. He did state that he had gross hematuria yesterday which resolved and then restarted today. I did discuss the test results with the patient and his . I did recommend he follow-up with Dr. Seals of urology for further evaluation. He was discharged in good condition. Medication Reconcilliation Current Medication List: was personally reviewed by me Blood Pressure Screening Patient's blood pressure: Elevated blood pressure Blood pressure disposition: Referred to PCP Impression Primary Impression: Gross hematuria Additional Impressions: Kidney stones Bronchitis Scribe Attestation The scribe's documentation has been prepared under my direct and personally reviewed by me in its entirety. I confirm that the note above accurately reflects all work, treatment, procedures, and medical decision making performed by me. Departure Information Dispostion Home / Self-Care Referrals Brian Titus M.D. (PCP) Forms HOME CARE DOCUMENTATION FORM, IMPORTANT VISIT INFORMATION Patient Instructions ED Hematuria, Kidney Stones, My [facility] Additional Instructions You have been examined and treated today on an emergency basis only. This is not a substitute for, or an effort to provide, complete comprehensive medical care. It is impossible to recognize and treat all injuries or illnesses in a single emergency department visit. It is therefore important that you follow up closely with your physician and Dr. Seals of urology. Call as soon as possible for an appointment. Return for worsening symptoms or if you develop fever, vomiting, chest pain, shortness of breath, decreased urination or any other concerning symptoms. Problem Qualifiers
--- NOTE | 2018-03-18 07:35 | DIAGNOSTIC IMAGING REPORT ---
CT SCAN OF THE ABDOMEN AND PELVIS WITHOUT IV CONTRAST CLINICAL HISTORY: Hematuria. COMPARISON STUDY: No priors. TECHNIQUE: CT scan of the abdomen and pelvis is performed from the lung bases to the proximal femora. Images are reviewed in the axial, sagittal, and coronal planes. IV contrast was not administered for this examination as per the referring clinician. A dose lowering technique was utilized adhering to the principles of ALARA. CT DOSE: 1515.19 mGy.cm FINDINGS: Lung bases: The heart is normal in size and without pericardial effusion. There are coronary artery calcifications. There is right basilar scarring/atelectasis. The lung bases are otherwise clear. There is a small hiatal hernia. Liver: The unenhanced liver is mildly atrophic and demonstrates heterogeneously diminished attenuation consistent with hepatic steatosis. Nodularity of the surface contour suggests early change of cirrhosis. There is no intrahepatic biliary ductal dilatation. Gallbladder: Unremarkable. Spleen: Normal in size and attenuation. Pancreas: The unenhanced pancreas is mildly atrophic and grossly unremarkable. Adrenal glands: Unremarkable. Kidneys: The unenhanced kidneys are atrophic and without hydronephrosis. There is a 7 mm calculus in the left renal pelvis seen on image #155. An additional 3 mm nonobstructing calculus is seen in the left upper pole. There are no right-sided renal calculi identified. There is no evidence of contour deforming renal mass lesion. Abdominal vasculature: The abdominal aorta is normal in course and caliber noting mild to moderate atherosclerotic calcification. Bowel: There are scattered colonic diverticula without CT evidence of acute diverticulitis. No bowel obstruction is seen. Mild colonic fecal retention is observed. The appendix is well-visualized and normal. Peritoneum: There is no intraperitoneal free air or abdominal ascites. There is a fat-containing umbilical hernia. Lymphadenopathy: None. Pelvic viscera: The prostate gland is enlarged and heterogeneous, measuring 5.7 cm in transverse diameter. There are numerous small bladder calculi identified. Although decompressed, the bladder wall appears mildly thickened and trabeculated suggesting chronic outlet obstruction. There is evidence of previous left inguinal herniorrhaphy. Skeletal structures: The skeletal structures are osteopenic. There is mild to moderate lumbosacral spondylosis and scoliosis with changes of previous laminectomy in the lower lumbar spine No lytic or blastic lesions are seen. IMPRESSION: 1. There is a 7 mm calculus in the left renal pelvis, as well as an additional nonobstructing calculus in the upper pole of the left kidney. No hydronephrosis is seen 2. No right renal calculi are identified. No hydronephrosis is seen. 3. Prostatomegaly with evidence of chronic bladder outlet obstruction. 4. Numerous small bladder calculi are identified. 5. Hepatic steatosis. 6. Nodularity of the hepatic surface contour suggests early change of cirrhosis. 7. Additional findings as above. Electronically signed by: Aiden Lin M.D. 03/18/2018 7:34 AM Dictated Date/Time: 03/18/2018 7:26 AM
--- NOTE | 2018-03-18 08:52 | DIAGNOSTIC IMAGING REPORT ---
TWO VIEW CHEST CLINICAL HISTORY: Cough. FINDINGS: PA and lateral chest radiographs are compared to chest x-ray and chest CT dated 09/03/2017. The PA view is degraded by patient rotation The heart is enlarged and there is atherosclerotic calcification of the thoracic aorta. The pulmonary vasculature is noncongested. Chronic interstitial thickening is similar to previous. No airspace consolidation or pleural effusion is identified. There is right basilar atelectasis. A calcified granuloma is noted in the right midlung. Apical scarring is observed. There is no pneumothorax. The skeletal structures are osteopenic. Degenerative changes noted throughout the thoracic spine. IMPRESSION: Cardiomegaly with no acute cardiopulmonary abnormality. Electronically signed by: Aiden Lin M.D. 03/18/2018 8:51 AM Dictated Date/Time: 03/18/2018 8:49 AM
== END 2018-03-18 01:56 | disposition home or self-care (01) ==
LOC: C.EDB 23:46 → C.EDA 03-18 01:56
DX: N20.0 Calculus of kidney (principal); J40 Bronchitis, not specified as acute or chronic; E78.5 Hyperlipidemia, unspecified; Z79.82 Long term (current) use of aspirin; I10 Essential (primary) hypertension; I25.10 Atherosclerotic heart disease of native coronary artery without angina pectoris; G62.9 Polyneuropathy, unspecified; G47.30 Sleep apnea, unspecified; Z96.653 Presence of artificial knee joint, bilateral; Z82.49 Family history of ischemic heart disease and other diseases of the circulatory system; Z80.3 Family history of malignant neoplasm of breast; Z79.899 Other long term (current) drug therapy

== ENCOUNTER 2019-02-16 00:31 | Inpatient (IN) ==
[2019-02-16] MEDS ORDERED: ACETAMINOPHEN 500 MG TAB PO STA (00:55)
[2019-02-16] MEDS ORDERED: SODIUM CHLORIDE 0.9% 1000ML 500 ML IV ONE (00:55)
[2019-02-16] MEDS ORDERED: ALBUT/IPRATROP 3MG/0.5MG NEB 3 ML VIAL NEB STA (00:55)
[2019-02-16 01:49] LABS: Basophils # (auto) 0.03 K/uL (0-0.2); Basophils % (auto) 0.2 %; Eosinophils # (auto) 0.04 K/uL (0-0.5); Eosinophils % (auto) 0.3 %; Hematocrit (blood only) 42.8 % (42-52); Hemoglobin 14.8 g/dL (14.0-18.0); Immature Granulocytes # (auto) 0.02 K/uL (0.00-0.02); Immature Granulocytes % (auto) 0.2 %; Lymphocytes % (auto) 6.5 %; Mean Corpuscular Hgb Conc 34.6 g/dL (32-36); Mean Corpuscular Volume 91.8 fL (80-100); Mean Platelet Volume 10.2 fL (7.4-10.4); Monocytes # (auto) 0.83 K/uL (0.11-0.59); Monocytes % (auto) 6.8 %; Neutrophils # (auto) 10.55 K/uL (1.4-6.5); Platelet Count 155 K/uL (130-400); RDW Coefficient of Variation 14.3 % (11.5-14.5); RDW Standard Deviation 47.9 fL (36.4-46.3); Red Blood Count 4.66 M/uL (4.7-6.1); White Blood Count 12.27 K/uL (4.8-10.8)
[2019-02-16 02:10] LABS: Alanine Aminotransferase 27 U/L (12-78); Albumin Level 3.4 gm/dl (3.4-5.0); Aspartate Aminotransferase 16 U/L (15-37); BUN Creatinine Ratio 19.7 (10-20); Bilirubin Direct 0.3 mg/dl (0-0.2); Blood Urea Nitrogen 22 mg/dl (7-18); Calcium 8.5 mg/dl (8.5-10.1); Carbon Dioxide 27 mmol/L (21-32); Chloride 102 mmol/L (98-107); Creatinine Clr Calc Pharmacy 88.2 ml/min; Est GFR (African American) 77.8; Est GFR (Non-African American) 67.1; Glucose 122 mg/dl (70-99); Potassium 4.1 mmol/L (3.5-5.1); Sodium 135 mmol/L (136-145)
[2019-02-16 02:15] LABS: Alkaline Phosphatase 132 U/L (45-117); Bilirubin,Total 0.9 mg/dl (0.2-1); Total Protein 7.8 gm/dl (6.4-8.2); Troponin I < 0.015 ng/ml (0-0.045)
[2019-02-16] MEDS ORDERED: LEVOFLOXACIN/D5W 750 MG/150 ML BAG IV STA (02:18)
[2019-02-16] MEDS ORDERED: SODIUM CHLORIDE 0.9% 1000ML 1,000 ML IV ONE (02:18)
--- NOTE | 2019-02-16 03:57 | History & Physical Report ---
Date of Service February 16, 2019 Assessment & Plan (1) Sepsis: (2) Pneumonia: (3) Atrial fibrillation: (4) Sleep apnea: (5) Aortic root dilatation: (6) Essential hypertension: (7) Neuropathy: (8) Coronary artery disease: (9) HLD (hyperlipidemia): History of Present Illness Chief Complaint: Fever and chills Primary Care Provider: Brian Titus 68-year-old male with a past medical history of obstructive sleep apnea, obesity with a BMI of 39, aortic root dilatation, hypertension, hyperlipidemia, neuropathy, GERD, osteoarthritis, degenerative disc disease lumbar spine, degenerative joint disease, and CAD comes in tonight complaining of fever, chills, and was found to have a right lower lobe pneumonia in the emergency room. He had a lactate of 2.1 and a white blood cell count of 12 in the emergency room as well. He was tachycardic and found to be in atrial fibrillation. Assessment and Plan Sepsis syndrome secondary to pneumonia Atrial fibrillation likely secondary to sepsis Fevers, chills Tachycardia Obstructive sleep apnea syndrome Hypertension Hyperlipidemia Acute kidney injury GERD Neuropathy Degenerative disc disease and degenerative joint disease Osteoarthritis Hyperlipidemia CAD Leukocytosis Started Rocephin and Zithromax, he was given Levaquin in the ER, however I will continue Rocephin and Zithromax, nebulizers, continue outpatient medications where appropriate, monitor daily labs, heparin drip for atrial fibrillation, cardiology evaluation, IVFs, Metoprolol low dose. SCDs, metoprolol for rate control was seen by cardiology. ROS-No Headache, No Visual Changes, positive fever, positive chills, No Neck Pain or Stiffness, No Chest Pain, No Palpitations, No SOB, No HERNANDEZ, positive cough, positive yellow sputum, positive wheezing, No Abdominal Pain, No Diarrhea, No Hematemesis, No Hemoptysis, No Unexpected Weight Loss, No Flank pain, No Melena, No Hematochezia, No Frequency, No Urgency, No Burning, No Hematuria, No Rashes, No Diaphoresis. Decreased appetite Physical Exam Gen-AAO x 3, NAD, febrile, Obese Head-NCAT, EOMI, PERRLA, Anicteric Sclera, No Posterior Pharyngeal Erythema Neck-Supple, No JVD, No Thyromegaly, No Masses, No LAD, No Bruits Lungs-+ R Rales, + Rhonchi, + Wheezing, No Crepitus Chest-No S4, +S1, +S2, No S3, No Murmurs, No Rubs, No Gallops, No Ectopy Abdomen-Soft, Bowel Sounds Present, Non Tender, Obese, Non Distended, No Hepatomegaly, No Splenomegaly, No Palpable Masses, No Rebound, No Rigidity, No Guarding Musculoskeletal-Full Range of Motion Bilaterally, No CVAT Extremities-No Cyanosis, No Clubbing, No Edema Nuero-Cranial Nerves II-XII grossly intact, Motor WNL, DTRs WNL, Strength WNL, No Focal Psych-Normal Mood PMH Obstr sleep apnea, pulmonary nodules, aortic root dilatation, hypertension, hyperlipidemia, neuropathy, GERD, osteoporosis, degenerative disease lumbar spine, degenerative joint disease, hyperlipidemia, CAD PSH-billable hernia repair, inguinal hernia repair, tonsils and adenoids been removed, lumbar spinal surgery. FH-reviewed noncontributory SH-no tobacco, drugs, alcohol, he is retired Meds reviewed and Reconciled Labs Reviewed Allergies Allergy/AdvReac Type Severity Reaction Status Date / Time No Known Allergies Allergy Unverified 02/16/19 01:32 Home Medications Home Medications Medication Instructions Recorded Confirmed Type albuterol sulfate 2 puff INHALATION Q4H PRN 02/16/19 02/16/19 History aspirin 81 mg PO DAILY 02/16/19 02/16/19 History atorvastatin [Lipitor] 10 mg PO DAILY 02/16/19 02/16/19 History benzonatate 100 mg PO TID PRN 02/16/19 02/16/19 History cetirizine [Zyrtec] 10 mg PO DAILY 02/16/19 02/16/19 History duloxetine 60 mg PO DAILY 02/16/19 02/16/19 History famotidine 20 mg PO BID 02/16/19 02/16/19 History fluticasone propion-salmeterol 1 puff INHALATION BID 02/16/19 02/16/19 History [Advair Diskus] furosemide [Lasix] 40 mg PO DAILY 02/16/19 02/16/19 History gabapentin 800 mg PO TID 02/16/19 02/16/19 History multivitamin 1 tab PO DAILY 02/16/19 02/16/19 History potassium chloride 10 meq PO DAILY 03/30/19 03/30/19 History prednisone 10 mg PO DAILY 02/16/19 02/16/19 History vitamin [id number] acid 1 tab PO DAILY 02/16/19 02/16/19 History Past Med/Surg History Medical History Sleep apnea (Chronic) "CPAP" Pulmonary nodule (Chronic) "CT 09/03/17 6 mm nodule RUL; CT 09/28/00 5 x 8 mm nodule superior segment RLL" Aortic root dilatation (Chronic) "CT 09/03/17 5 cm at the sinuses of Valsalva" Essential hypertension (Chronic) Neuropathy (Chronic) Coronary artery disease (Chronic) "no clinical history of DC or angina, but extensive coronary calcifications noted on CT chest 09/03/17" HLD (hyperlipidemia) Umbilical hernia (Chronic) Surgical History Status post bilateral knee replacements (Chronic) Status post inguinal hernia repair (Chronic) Status post tonsillectomy (Chronic) Status post lumbar surgery (Chronic) Family History Other No significant family history Social History Preferred Language: [place]ian Communication Ability: Effective 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
[2019-02-16] MEDS ORDERED: METOPROLOL TARTRATE 50 MG TAB PO STA (04:00)
[2019-02-16] MEDS ORDERED: POLYETHYLENE (MIRALAX) 17 GM PACK PO PRN (05:43)
[2019-02-16] MEDS ORDERED: ONDANSETRON INJ 2 MG/ML 2 ML VIAL IV PRN (05:43)
[2019-02-16] MEDS: Heparin IV Standard *NO* Bolus IV SCH ×2 (05:45→06:50)
[2019-02-16 06:27] LABS: INR 1.2 (0.9-1.1); Partial Thromboplastin Ratio 1.1; Partial Thromboplastin Time 29.9 Seconds (21.0-31.0); Prothrombin Time 11.7 Seconds (9.0-12.0)
[2019-02-16] MEDS ORDERED: Heparin Adult STANDARD Wt-Based Dextrose 5% 25,000 units/500 mL IV SCH (06:45)
[2019-02-16] MEDS: SODIUM CHLORIDE 0.9% 1000ML 1,000 ML IV SCH ×2 (06:45→18:14)
--- NOTE | 2019-02-16 07:51 | Emergency Department Note ---
Entered by Danitza Broderick acting as a scribe for ED Provider Note Name: Dante Banks Age: 68 M Arrives Via: Private vehicle Informant: The patient CC: Weakness HPI: A 68 year old male arrives for evaluation of sudden weakness starting 12 hours ago. The patient reports that he has a fever. He states that he has a cough and rhinorrhea. He notes that exerting himself worsens his weakness. He adds that his is sick at home with a sinus infection. The patient reports that he took 3 Tylenol 7 hours ago and took Advil. He states that these medications did not help his symptoms. He notes that he did receive a flu shot this past winter. He denies any recent falls, dysuria, abdominal pain, stroke symptoms, slurred speech and ear pain. ROS: See above HPI for pertinent positives & negatives. A total of 10 systems reviewed and were otherwise negative. Past Medical History: Sleep apnea, Pulmonary nodule, Aortic root dilatation, CAD, HTN, Neuropathy, HLD. Past Surgical History: Bilateral knee replacements, Inguinal hernia repair, Tonsillectomy, Lumbar surgery. Family History: No significant family history. Social History: Feels safe at home. Never smoker. Home Medications: Albuterol Sulfate 2 puff INH, Aspirin 81 mg PO, Atorvastatin 10 mg PO, Benzonotate 100 mg PO, Zyrtec 10 mg PO, Duloxetine 60 mg PO, Famo tidine 20 mg PO, Advair Diskus 1 puff INH, Lasix 40 mg PO, Gabapentin 800 mg PO, Potassium Chloride 10 meq PO, Prednisone 10 mg PO, Vitamin F61-[id number] acid 1 tab PO. Allergies No known allergies. Physical: Vitals: BP: 136/73, Pulse: 87, Resp: 22, Temp: 102F, O2 Sat: 95, Delivery: Room Air Exam: GENERAL: Patient is ill appearing and in mild distress. EYES: No scleral icterus, unremarkable pupils. ENT: Mucous membranes moist. Rhinorrhea. NECK: No masses appreciated, no meningismus, trachea is midline. RESPIRATORY: No dyspnea. Clear to auscultation and equal bilaterally. Bilateral crackles with mild wheezing in left lower lobe. CARDIOVASCULAR: Mildly tachycardic. Regular rhythm. No murmurs, rubs, gallops appreciated. GASTROINTESTINAL: Abdomen soft, non-tender, no peritonitis. Bowel sounds positive. No masses appreciated. BACK: No midline tenderness, no CVA tenderness EXTREMITIES: Normal motion all extremities, no cyanosis, no edema. NEUROLOGIC: Alert and oriented, no acute motor or sensory deficits, no focal weakness, cranial nerves grossly intact. SKIN: No rash, no jaundice, no diaphoresis. Warm to touch. ED Course: 0049: Prior Medical Record, Triage/Nursing Notes, Medications, Allergies reviewed by Me. Past medical records reviewed. The patient was evaluated in room C7, and a complete history and physical examination were performed. 0223: I reevaluated the patient at this time. His results showed Pneumonia. He was tachycardic and mildly hypoxic. He is now in A-fib and he noted that his PCP told him that he possibly had A-fib in the past but that he doesnt know. I paged for Dr. Cavazos at this time. 0230: I reviewed the patient's case with Dr. Cavazos - Deborah hospitalist. He will evaluate the patient for further management. Vital Signs: reviewed and remarkable for fever, tachy, Labs: Reviewed and remarkable for elevated lactate Interventions: Saline Lock, 1.5L NSS bolus, Levaquin 750mg IV Imaging: X ray results are stated below per my interpretation: Chest: 1 view: RLL infitrate, no effusion, normal cardiac border. EKG: Afib without ischemia Consults: Dr Dirk Cabrera Hospitalist Blood pressure: Normal. No Referral necessary Disposition: Hospitalization Differentials: Etiologies such as viral syndrome, otitis, pharyngitis, pneumonia, influenza, meningitis, urinary tract infection, septic arthritis, soft tissue infectious process, intra-abdominal process, sepsis, bacteremia, as well as others were entertained. Medical Decision Making: Pleasant 68 yr old male who looks ill arrives for cough, fatigue, illness. He is unwell appearing. Flipped to afib tachy, though without hypotension. Given IV Fluids. Nebulizer helped some with shortness of breath. LA 2.1 He does not require 30ml/kg IV fluids at this time. Given IV Levaquin. Given age, comorbid disease, new onset Afib will need to come in for his pneumonia. He does note previous afib in past. With this will hold off on immediate anticoagulation and defer to hospitalist. Impression: Right Lower Lobe Pneumonia Sirs Atrial Fibrillation with Rapid Ventricular Response Remi Mcmillan MD The scribe's documentation has been prepared under my direction and personally reviewed by me in its entirety. I confirm that the note above accurately reflects all work, treatment, procedures, and medical decision making performed by me. Impression & Plan Right lower lobe pneumonia, SIRS (systemic inflammatory response syndrome), Atrial fibrillation with rapid ventricular response Past Med/Surg History Medical History Sleep apnea (Chronic) "CPAP" Pulmonary nodule (Chronic) "CT 09/03/17 6 mm nodule RUL; CT 09/28/00 5 x 8 mm nodule superior segment RLL" Aortic root dilatation (Chronic) "CT 09/03/17 5 cm at the sinuses of Valsalva" Essential hypertension (Chronic) Neuropathy (Chronic) Coronary artery disease (Chronic) "no clinical history of [place] or angina, but extensive coronary calcifications noted on CT chest 09/03/17" HLD (hyperlipidemia) Umbilical hernia (Chronic) Surgical History Status post bilateral knee replacements (Chronic) Status post inguinal hernia repair (Chronic) Status post tonsillectomy (Chronic) Status post lumbar surgery (Chronic) Family History Other No significant family history Social History Preferred Language: Kosovan Communication Ability: Effective Residential Therapist Required: No Beliefs That Will Affect Care: None Current Living Situation: Spouse Other Information That Helps Us Care for You: No Feels Safe at Home: Yes Safety Concerns: Feels Safe At This Time Smoking Status: Never smoker Hx Alcohol Use: Yes Hx Substance Use: No Results & Data Vital Signs Vital Signs - 24 hr 02/16/19 00:32 02/16/19 00:34 02/16/19 01:42 Temperature 38.9 C H Temperature Source Oral Sepsis Recent Fever Within 48 Hours Yes Sepsis New/Unexplained Change in Mental Status No Sepsis Action Taken by Nursing No Action Required Pulse Rate 87 107 H Pulse Rate [Apical] Pulse Rate from SpO2 Sensor 96 H Respiratory Rate 22 21 Respiratory Effort / Characteristics Respiratory Depth Respiratory Pattern Blood Pressure 136/73 118/67 Blood Pressure [Left Arm] Blood Pressure [Right Arm] Blood Pressure Mean 94 84 Blood Pressure Mean [Left Arm] Blood Pressure Mean [Right Arm] Blood Pressure Position [Right Arm] Pulse Oximetry 95 95 Oxygen Delivery Method Room Air Room Air 02/16/19 01:44 02/16/19 02:00 02/16/19 02:01 Temperature Temperature Source Sepsis Recent Fever Within 48 Hours Sepsis New/Unexplained Change in Mental Status Sepsis Action Taken by Nursing Pulse Rate 104 H 108 H 108 H Pulse Rate [Apical] Pulse Rate from SpO2 Sensor 99 H 107 H 103 H Respiratory Rate 15 20 19 Respiratory Effort / Characteristics Respiratory Depth Respiratory Pattern Blood Pressure 115/65 Blood Pressure [Left Arm] Blood Pressure [Right Arm] Blood Pressure Mean 81 Blood Pressure Mean [Left Arm] Blood Pressure Mean [Right Arm] Blood Pressure Position [Right Arm] Pulse Oximetry 100 95 95 Oxygen Delivery Method 02/16/19 02:30 02/16/19 03:01 02/16/19 04:00 Temperature Temperature Source Sepsis Recent Fever Within 48 Hours Sepsis New/Unexplained Change in Mental Status Sepsis Action Taken by Nursing Pulse Rate 118 H 126 H 102 H Pulse Rate [Apical] Pulse Rate from SpO2 Sensor 107 H Respiratory Rate 19 23 21 Respiratory Effort / Characteristics Respiratory Depth Respiratory Pattern Blood Pressure 110/71 114/73 Blood Pressure [Left Arm] Blood Pressure [Right Arm] Blood Pressure Mean 84 86 Blood Pressure Mean [Left Arm] Blood Pressure Mean [Right Arm] Blood Pressure Position [Right Arm] Pulse Oximetry 96 93 96 Oxygen Delivery Method Room Air Room Air 02/16/19 04:35 02/16/19 06:22 Temperature 38.0 C H 36.8 C Temperature Source Oral Oral Sepsis Recent Fever Within 48 Hours Sepsis New/Unexplained Change in Mental Status Sepsis Action Taken by Nursing Pulse Rate Pulse Rate [Apical] 99 H 94 H Pulse Rate from SpO2 Sensor Respiratory Rate 20 20 Respiratory Effort / Characteristics Non-Labored Spontaneous Respiratory Depth Normal Respiratory Pattern Regular Blood Pressure Blood Pressure [Left Arm] 115/66 Blood Pressure [Right Arm] 113/73 Blood Pressure Mean Blood Pressure Mean [Left Arm] 82 Blood Pressure Mean [Right Arm] 86 Blood Pressure Position [Right Arm] Sitting Pulse Oximetry 93 93 Oxygen Delivery Method Room Air Room Air Home Medications Current Medication List: was personally reviewed by me Laboratory Data Attestation: I reviewed the patient's lab results. Result diagrams: 02/16/19 01:10 02/16/19 01:12 Lab Results 02/16/19 02/16/19 02/16/19 Range/Units 01:00 01:10 01:12 WBC 12.27 H (4.8-10.8) K/uL RBC 4.66 L (4.7-6.1) M/uL Hgb 14.8 (14.0-18.0) g/dL Hct 42.8 (42-52) % MCV 91.8 (80-100) fL MCH 31.8 (25-34) pg MCHC 34.6 (32-36) g/dL RDW Std Deviation 47.9 H (36.4-46.3) fL RDW Coeff of Claribel 14.3 (11.5-14.5) % Plt Count 155 (130-400) K/uL MPV 10.2 (7.4-10.4) fL Immature Gran % (Auto) 0.2 % Neut % (Auto) 86.0 % Lymph % (Auto) 6.5 % [place] % (Auto) 6.8 % Eos % (Auto) 0.3 % Baso % (Auto) 0.2 % Immature Gran # (Auto) 0.02 (0.00-0.02) K/uL Neut # (Auto) 10.55 H (1.4-6.5) K/uL Lymph # (Auto) 0.80 L (1.2-3.4) K/uL [place] # (Auto) 0.83 H (0.11-0.59) K/uL Eos # (Auto) 0.04 (0-0.5) K/uL Baso # (Auto) 0.03 (0-0.2) K/uL PT (9.0-12.0) Seconds INR (0.9-1.1) APTT (21.0-31.0) Seconds PTT Ratio Sodium 135 L (136-145) mmol/L Potassium 4.1 (3.5-5.1) mmol/L Chloride 102 (98-107) mmol/L Carbon Dioxide 27 (21-32) mmol/L Anion Gap 6.0 (3-11) BUN 22 H (7-18) mg/dl Creatinine 1.12 (0.6-1.4) mg/dl Est Cr Clr Drug Dosing 88.2 ml/min Est GFR ( Amer) 77.8 Est GFR (Non-Af Amer) 67.1 BUN/Creatinine Ratio 19.7 (10-20) Glucose 122 H (70-99) mg/dl Lactate (0.4-2.0) mmol/L Calcium 8.5 (8.5-10.1) mg/dl Total Bilirubin 0.9 (0.2-1) mg/dl Direct Bilirubin 0.3 H (0-0.2) mg/dl AST 16 (15-37) U/L ALT 27 (12-78) U/L Alkaline Phosphatase 132 H (45-117) U/L Troponin I < 0.015 (0-0.045) ng/ml Total Protein 7.8 (6.4-8.2) gm/dl Albumin 3.4 (3.4-5.0) gm/dl Procalcitonin (0-0.5) ng/ml Influenza Type A Ag Neg for Influ A (Neg) Influenza Type B Ag Neg for Influ B (Neg) 02/16/19 02/16/19 02/16/19 Range/Units 01:16 05:52 05:52 WBC (4.8-10.8) K/uL RBC (4.7-6.1) M/uL Hgb (14.0-18.0) g/dL Hct (42-52) % MCV (80-100) fL MCH (25-34) pg MCHC (32-36) g/dL RDW Std Deviation (36.4-46.3) fL RDW Coeff of Claribel (11.5-14.5) % Plt Count (130-400) K/uL MPV (7.4-10.4) fL Immature Gran % (Auto) % Neut % (Auto) % Lymph % (Auto) % [place] % (Auto) % Eos % (Auto) % Baso % (Auto) % Immature Gran # (Auto) (0.00-0.02) K/uL Neut # (Auto) (1.4-6.5) K/uL Lymph # (Auto) (1.2-3.4) K/uL [place] # (Auto) (0.11-0.59) K/uL Eos # (Auto) (0-0.5) K/uL Baso # (Auto) (0-0.2) K/uL PT (9.0-12.0) Seconds INR (0.9-1.1) APTT (21.0-31.0) Seconds PTT Ratio Sodium (136-145) mmol/L Potassium (3.5-5.1) mmol/L Chloride (98-107) mmol/L Carbon Dioxide (21-32) mmol/L Anion Gap (3-11) BUN (7-18) mg/dl Creatinine (0.6-1.4) mg/dl Est Cr Clr Drug Dosing ml/min Est GFR ( Amer) Est GFR (Non-Af Amer) BUN/Creatinine Ratio (10-20) Glucose (70-99) mg/dl Lactate 2.1 H* 1.8 (0.4-2.0) mmol/L Calcium (8.5-10.1) mg/dl Total Bilirubin (0.2-1) mg/dl Direct Bilirubin (0-0.2) mg/dl AST (15-37) U/L ALT (12-78) U/L Alkaline Phosphatase (45-117) U/L Troponin I (0-0.045) ng/ml Total Protein (6.4-8.2) gm/dl Albumin (3.4-5.0) gm/dl Procalcitonin 0.94 H (0-0.5) ng/ml Influenza Type A Ag (Neg) Influenza Type B Ag (Neg) 02/16/19 Range/Units 05:53 WBC (4.8-10.8) K/uL RBC (4.7-6.1) M/uL Hgb (14.0-18.0) g/dL Hct (42-52) % MCV (80-100) fL MCH (25-34) pg MCHC (32-36) g/dL RDW Std Deviation (36.4-46.3) fL RDW Coeff of Claribel (11.5-14.5) % Plt Count (130-400) K/uL MPV (7.4-10.4) fL Immature Gran % (Auto) % Neut % (Auto) % Lymph % (Auto) % [place] % (Auto) % Eos % (Auto) % Baso % (Auto) % Immature Gran # (Auto) (0.00-0.02) K/uL Neut # (Auto) (1.4-6.5) K/uL Lymph # (Auto) (1.2-3.4) K/uL [place] # (Auto) (0.11-0.59) K/uL Eos # (Auto) (0-0.5) K/uL Baso # (Auto) (0-0.2) K/uL PT 11.7 (9.0-12.0) Seconds INR 1.2 H (0.9-1.1) APTT 29.9 (21.0-31.0) Seconds PTT Ratio 1.1 Sodium (136-145) mmol/L Potassium (3.5-5.1) mmol/L Chloride (98-107) mmol/L Carbon Dioxide (21-32) mmol/L Anion Gap (3-11) BUN (7-18) mg/dl Creatinine (0.6-1.4) mg/dl Est Cr Clr Drug Dosing ml/min Est GFR ( Amer) Est GFR (Non-Af Amer) BUN/Creatinine Ratio (10-20) Glucose (70-99) mg/dl Lactate (0.4-2.0) mmol/L Calcium (8.5-10.1) mg/dl Total Bilirubin (0.2-1) mg/dl Direct Bilirubin (0-0.2) mg/dl AST (15-37) U/L ALT (12-78) U/L Alkaline Phosphatase (45-117) U/L Troponin I (0-0.045) ng/ml Total Protein (6.4-8.2) gm/dl Albumin (3.4-5.0) gm/dl Procalcitonin (0-0.5) ng/ml Influenza Type A Ag (Neg) Influenza Type B Ag (Neg) Administered Medications Sodium Chloride (Nss 1000ml) 1,000 mls @ 85 mls/hr IV .[id number] [facility] Stop: 03/18/19 05:42 Last Admin: 02/16/19 06:45 Dose: 85 mls/hr Documented by: [id number] Heparin Sodium/Dextrose (Heparin Sodium/Dextrose) 25,000 units in 500 mls @ 35 mls/hr IV .[id number] [facility]; Protocol Stop: 03/18/19 06:44 Last Titration: 02/16/19 07:03 Dose: 1,750 units/hr, 35 mls/hr Documented by: [id number] Cosigned by: [id number] Admin: 02/16/19 06:45 Dose: 1,750 units/hr, 35 mls/hr Documented by: [id number] Cosigned by: [id number] Discontinued Medications Acetaminophen (Tylenol) 1,000 mg PO NOW STA Stop: 02/16/19 00:56 Last Admin: 02/16/19 01:27 Dose: 1,000 mg Documented by: [id number] Albuterol (Duoneb) 3 ml NEB NOW STA Stop: 02/16/19 00:56 Last Admin: 02/16/19 01:27 Dose: 3 ml Documented by: [id number] Heparin Sodium/Dextrose () 1 ea IV Q15M [facility]; Protocol Stop: 02/16/19 08:00 Last Admin: 02/16/19 06:50 Dose: Not Given Documented by: [id number] Admin: 02/16/19 05:45 Dose: 1 ea Documented by: [id number] Sodium Chloride (Nss 1000ml) 500 mls @ 999 mls/hr IV .Q31M ONE Stop: 02/16/19 01:25 Last Infusion: 02/16/19 03:22 Dose: 0 mls/hr Documented by: [id number] Admin: 02/16/19 01:30 Dose: 999 mls/hr Documented by: [id number] Levofloxacin/Dextrose (Levaquin/D5w) 750 mg in 150 mls @ 100 mls/hr IV NOW STA Stop: 02/16/19 03:47 Last Infusion: 02/16/19 04:32 Dose: 0 mls/hr Documented by: [id number] Admin: 02/16/19 03:07 Dose: 100 mls/hr Documented by: [id number] Sodium Chloride (Nss 1000ml) 1,000 mls @ 999 mls/hr IV .Q1H1M ONE Stop: 02/16/19 03:18 Last Infusion: 02/16/19 04:22 Dose: 0 mls/hr Documented by: [id number] Admin: 02/16/19 03:08 Dose: 999 mls/hr Documented by: [id number] Metoprolol Tartrate (Lopressor) 12.5 mg PO NOW STA Stop: 02/16/19 04:01 Last Admin: 02/16/19 04:32 Dose: 12.5 mg Documented by: [id number] Imaging Data Attestation: I personally reviewed and interpreted this imaging study as follows: ECG Data Attestation: I personally reviewed and interpreted this ECG as follows: Blood Pressure Blood Pressure Findings: Normal blood pressure Blood Pressure Disposition: further management by hospitalist Discharge Plan Visit Data *Final* Discharge Date/Time: 02/16/19 04:25 Chief Complaint: Weakness Stated Complaint: SHAKING,HOT ED Provider: Remi Mcmillan Discharge Problem: Right lower lobe pneumonia, SIRS (systemic inflammatory response syndrome), Atrial fibrillation with rapid ventricular response Patient Disposition: Admitted As Inpatient Discharge Instructions Interventions: ED Discharge Assessment Last Done: 02/16/19 04:25 Discharge Problem: Right lower lobe pneumonia Qualifiers: Pneumonia type: due to unspecified organism Qualified Code(s): J18.1 - Lobar pneumonia, unspecified organism The scribe's documentation has been prepared under my direction and personally reviewed by me in its entirety. I confirm that the note above accurately reflects all work, treatment, procedures, and medical decision making performed by me.
[2019-02-16] MEDS: cefTRIAXone SODIUM 1,000 MG in DEXTROSE 5% 50 ML IV SCH (08:33)
[2019-02-16] MEDS: FLUTICASONE/SALMETEROL 100/50 (ADVAIR) 14 PUFF/1 INHALER INH SCH ×2 (08:33→20:04)
[2019-02-16] MEDS: ATORVASTATIN 10 MG TAB PO SCH (08:34)
[2019-02-16] MEDS: ASPIRIN 81 MG ECTAB PO SCH (08:34)
[2019-02-16] MEDS: METOPROLOL TARTRATE 25 MG TAB PO SCH ×2 (08:34→20:05)
[2019-02-16] MEDS: POTASSIUM CHLORIDE 10 MEQ TABCR PO SCH (08:34)
[2019-02-16] MEDS: CETIRIZINE HCL 10 MG TABLET PO SCH (08:34)
[2019-02-16] MEDS: VITAMIN B COMPLEX TAB PO SCH (08:34)
[2019-02-16] MEDS: MULTIVITAMIN TAB PO SCH (08:34)
[2019-02-16] MEDS: predniSONE 10 MG TABLET PO SCH (08:34)
[2019-02-16] MEDS: FAMOTIDINE 20 MG TAB PO SCH ×2 (08:34→20:05)
[2019-02-16] MEDS: GABAPENTIN 800 MG TAB PO SCH ×3 (08:35→20:05)
[2019-02-16] MEDS: DULOXETINE HCL 60 MG CAP PO SCH (08:35)
--- NOTE | 2019-02-16 09:48 | XRay Report ---
XR chest 1V portable CLINICAL HISTORY: sepsis, cough COMPARISON STUDY: Chest radiograph and chest CT September 03, 2017. Chest radiograph March 18, 2018. FINDINGS: Lung volumes are normal. There is no pneumothorax or pleural effusion. There is no evidence for pulmonary edema. No consolidation is present. Cardiomegaly is unchanged. Mediastinal contours ar e stable. IMPRESSION: No acute cardiopulmonary findings. No change in appearance of the chest. Electronically signed by: Erich Pickering M.D. 02/16/2019 9:47 AM
--- NOTE | 2019-02-16 10:23 | Cardiology Consultation ---
Date of Consultation February 16, 2019 Assessment & Plan (1) Premature atrial contraction: I reviewed the patient's presenting EKG, telemetry findings and repeat EKG this morning. The patient presented with sinus tachycardia with frequent supraventricular ectopy. The P waves noted on the initial EKG are small and subtle, but now with the telemetry data from overnight and repeat EKG this morning I think you can say with some degree of confidence that this was not atrial fibrillation. Sinus tachycardia with frequent supraventricular ectopy was likely present due to the patient's acute illness with significant fever. Supportive care with antibiotics and IV fluids was administered and his ta chycardia and ectopy have resolved. He does have mild conduction system disease with a borderline first-degree AV block and left anterior fascicular block, but I do not think any specific treatment or testing needs to be performed for this. (2) Aortic root dilatation: On further review of patient's chart, I found evidence that he had undergone a CT of the chest, pulmonary embolism protocol for dizziness and shortness of breath performed at [facility] on 09/03/17. This included findings of a 5 cm aneurysm at the level of the sinus of Valsalva and a 4.2 cm ascending thoracic aortic aneurysm documented at the level of the pulmonary artery. A 6 mm pulmonary nodule was also noted at that time. -I do not see any repeat imaging of the chest to reassess the incisional pulmonary nodule or the aorta. I do not see any prior echocardiogram reports in the [facility] system or in his [employer] hospital[facility] chart. Will performed a resting transthoracic echocardiogram this admission for assessment of the sinus of Valsalva diameter and assessment of aortic valve pathology which can oftentimes accompany dilatation at the level of the sinus of Valsalva. At some point, the patient will need a repeat CT. As his hospitalization develops, will determine if that is necessary this admission to help guide his pneumonia therapy, or if it can be performed as an outpatient. DVT prophylaxis: The patient's unfractionated heparin infusion has been discontinued since he is felt to not be in atrial fibrillation. I ordered Lovenox 40 mg subcu daily for DVT prophylaxis to start tomorrow. History of Present Illness Attending Physician: Jeremías Ozuna MD History of Present Illness Dante Banks is a 68-year-old male seen in cardiology consultation per the request of Dr. Cavazos for the evaluation of tachycardia, possibly atrial fibrillation. The patient's primary care provider is Dr. Brian Titus with [facility]. The patient does not see cardiology as an outpatient. He describes that he was in his normal state of health until last evening he was at the local [employer] and he started having chills. He went home and sat in front of his wood pellet fireplace but could not get warm. He ultimately came to the emergency room and was found to have a fever of 38.9 C . He has been treated for clinical suspicion of pneumonia. The initial impression of the chest x-ray as per the emergency room provider and admitting team was that the patient had a right lower lobe pneumonia. Radiology overread this morning does not include finding of infiltrate. Blood cultures were drawn and are pending. Influenza screen performed last evening was negative. The patient is currently feeling improved. The patient states that he could feel that his heart was "pounding ". Telemetry apparently revealed tachycardia with a regular rate. An EKG performed 02/16/19 at 1:38 AM revealed sinus tachycardia with frequent premature atrial contractions per my impression, incomplete right bundle branch block, left ant erior fascicular block. Allergies Allergy/AdvReac Type Severity Reaction Status Date / Time No Known Allergies Allergy Unverified 02/16/19 01:32 Home Medications Home Medications Medication Instructions Recorded Confirmed Type albuterol sulfate 2 puff INHALATION Q4H PRN 02/16/19 02/16/19 History aspirin 81 mg PO DAILY 02/16/19 02/16/19 History atorvastatin [Lipitor] 10 mg PO DAILY 02/16/19 02/16/19 History benzonatate 100 mg PO TID PRN 02/16/19 02/16/19 History cetirizine [Zyrtec] 10 mg PO DAILY 02/16/19 02/16/19 History duloxetine 60 mg PO DAILY 02/16/19 02/16/19 History famotidine 20 mg PO BID 02/16/19 02/16/19 History fluticasone propion-salmeterol 1 puff INHALATION BID 02/16/19 02/16/19 History [Advair Diskus] furosemide [Lasix] 40 mg PO DAILY 02/16/19 02/16/19 History gabapentin 800 mg PO TID 02/16/19 02/16/19 History multivitamin 1 tab PO DAILY 02/16/19 02/16/19 History potassium chloride 10 meq PO DAILY 02/16/19 02/16/19 History prednisone 10 mg PO DAILY 02/16/19 02/16/19 History vitamin [id number] acid 1 tab PO DAILY 02/16/19 02/16/19 History Patient History Medical History Sleep apnea (Chronic) "CPAP" Pulmonary nodule (Chronic) "CT 09/03/17 6 mm nodule RUL; CT 09/28/00 5 x 8 mm nodule superior segment RLL" Aortic root dilatation (Chronic) "CT 09/03/17 5 cm at the sinuses of Valsalva" Essential hypertension (Chronic) Neuropathy (Chronic) Coronary artery disease (Chronic) "no clinical history of [place] or angina, but extensive coronary calcifications noted on CT chest 09/03/17" HLD (hyperlipidemia) Umbilical hernia (Chronic) Surgical History Status post bilateral knee replacements (Chronic) Status post inguinal hernia repair (Chronic) Status post tonsillectomy (Chronic) Status post lumbar surgery (Chronic) Family History Other No significant family history Social History Preferred Language: Sinhala Communication Ability: Effective Physical 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 The patient states that his spouse had recently been ill with a sinus infection. No other sick contacts. Physical Exam Vital Signs (Past 24 Hours): Last Vital Signs Temp 37.5 C 02/16/19 07:14 Pulse 97 H 02/16/19 10:01 Resp 18 02/16/19 07:14 BP 105/66 02/16/19 07:14 Pulse Ox 93 02/16/19 07:14 Physical Exam: General: Ill in appearance, without acute distress Eyes: conjunctiva are pink and non-injected, sclera clear Neck: normal jugular venous pulse, no hepatojugular reflux Chest: normal shape and normal respiratory effort Lungs: clear to auscultation and percussion Cardiac Exam: - regular heart sounds, no murmurs, rubs, or gallops, no jugular venous distention Abdomen: abdomen soft, non-tender, no abnormal masses and no hepatosplenomegaly Extremities: no edema and no cyanosis Neuro:awake, coversant, follows commands, no focal motor deficits Psych: appropriate affect and insight. Results & Data Laboratory Results Lactate level had been 2.1 on admission and is down to 1.8. Bone was negative x1. The pro calcitonin level was mildly elevated at 0.94 NG per mL. Diagnostic Findings Repeat EKG performed this morning 02/16/19 at 9:50 AM reveals normal sinus rhythm 83 bpm left left anterior fascicular block. Compared to the prior EKG, sinus tachycardia with frequent PACs has resolved. The incomplete right bundle branch block pattern has resolved.
[2019-02-16] MEDS: BENZONATATE 100 MG CAPSULE PO PRN ×3 (12:29→23:25)
--- NOTE | 2019-02-16 16:21 | Hospitalist Progress Note ---
Date of Service February 16, 2019 Assessment & Plan (1) Sepsis: Possible Atypical Pneumonia/Acute Bronchitis Meets SIRS criteria CXR:No acute cardiopulmonary findings. No change in appearance of the chest. Lactate levels normalized Elevated Procalcitonin levels Negative Influenza Screen Continue empiric Abx:Ceftriaxone and Azithro Blood Cultures: 1/2 : Gram positive cocci --Likely contaminant Repeat blood cultures Saturating well on room air IV fluids Premature atrial contraction: In setting of acute infection IV fluids Monitor electrolytes Aortic root dilatation Ascending Thoracic Aortic Anuerysm Pulmonary Nodule Noted on Prior CT ECHO as per Cards Consider repeat CT chest Inpatient Vs Outpatient NEMESIO CPAP q HS Hyperlipidemia Continue statins Neuropathy: Continue Gabapentin DVT Px: Lovenox SQ Code Status Full Code Disposition: Expect to discharge home when stable Subjective Patient is seen and examined at bedside Feels better today Reports dry cough and had and episode of diarrhea Denies any chest pain, SOB, dizziness, nausea, abd pain Family at bedside Physical Exam Vital Signs (Past 24 Hours): Last Vital Signs Temp 36.8 C 02/16/19 15:51 Pulse 84 02/16/19 15:51 Resp 20 02/16/19 15:51 BP 126/77 02/16/19 15:51 Pulse Ox 94 02/16/19 15:51 Physical Exam: Physical Exam: Vitals signs as noted above General Appearance:Obese, no apparent distress Head: normocephalic, Atraumatic Eyes: normal inspection, EOMI Neck: supple, Trachea midline Respiratory/Chest: Normal breath sounds, CTA Cardiovascular: S1, S2, No murmur Abdomen/GI:Soft, Non tender, Bowel sounds present Extremities/Musculoskelatal:normal inspection, no edema Neurologic/Psych:AAOX3, grossly no focal neurological deficits Skin: normal color, warm Results & Data Laboratory Results Short CBC 02/16/19 Range/Units 01:10 WBC 12.27 H (4.8-10.8) K/uL Hgb 14.8 (14.0-18.0) g/dL Hct 42.8 (42-52) % Plt Count 155 (130-400) K/uL BMP 02/16/19 01:12 Sodium 135 L Potassium 4.1 Chloride 102 Carbon Dioxide 27 BUN 22 H Creatinine 1.12 Glucose 122 H Calcium 8.5 Cardiac Enzymes 02/16/19 Range/Units 01:12 Troponin I < 0.015 (0-0.045) ng/ml Liver Function 02/16/19 Range/Units 01:12 Total Bilirubin 0.9 (0.2-1) mg/dl Direct Bilirubin 0.3 H (0-0.2) mg/dl AST 16 (15-37) U/L ALT 27 (12-78) U/L Alkaline Phosphatase 132 H (45-117) U/L Albumin 3.4 (3.4-5.0) gm/dl
[2019-02-16] MEDS: ACETAMINOPHEN 325 MG TAB PO PRN (18:16)
[2019-02-16 22:10] LABS: Appearance Urine Clear (Clear); Bacteria Urine Automated Negative (Negative); Bilirubin Urine Negative (Negative); Blood Urine 2+ (Negative); Cast Urine Automated 0 /lpf (0-5); Color Urine Yellow; Glucose Urine UA Negative (Negative); Ketones Urine Negative (Negative); Leukocyte Esterase Urine Negative (Negative); Nitrite Urine Negative (Negative); Protein Urine Negative (Negative); RBC Urine Automated >30 /hpf (0-4); Specific Gravity Urine 1.015 (1.000-1.030); Urobilinogen Urine Negative (Negative)
[2019-02-16] MEDS: AZITHROMYCIN 500 MG in DEXTROSE 5% 250 ML IV SCH (22:27)
[2019-02-16] MEDS: GUAIFENESIN/CODEINE 200MG/20MG 10ML UDC PO PRN (23:25)
[2019-02-17 05:56] LABS: Basophils # (auto) 0.02 K/uL (0-0.2); Basophils % (auto) 0.1 %; Eosinophils # (auto) 0.01 K/uL (0-0.5); Eosinophils % (auto) 0.1 %; Hematocrit (blood only) 38.3 % (42-52); Hemoglobin 13.1 g/dL (14.0-18.0); Immature Granulocytes # (auto) 0.04 K/uL (0.00-0.02); Immature Granulocytes % (auto) 0.3 %; Lymphocytes # (auto) 0.93 K/uL (1.2-3.4); Lymphocytes % (auto) 6.9 %; Mean Corpuscular Hgb Conc 34.2 g/dL (32-36); Mean Corpuscular Volume 91.8 fL (80-100); Mean Platelet Volume 10.2 fL (7.4-10.4); Monocytes # (auto) 0.79 K/uL (0.11-0.59); Monocytes % (auto) 5.8 %; Neutrophils # (auto) 11.76 K/uL (1.4-6.5); Neutrophils % (auto) 86.8 %; Platelet Count 123 K/uL (130-400); RDW Coefficient of Variation 14.6 % (11.5-14.5); RDW Standard Deviation 49.2 fL (36.4-46.3); Red Blood Count 4.17 M/uL (4.7-6.1); White Blood Count 13.55 K/uL (4.8-10.8)
[2019-02-17] MEDS: SODIUM CHLORIDE 0.9% 1000ML 1,000 ML IV SCH (05:58)
[2019-02-17] MEDS: cefTRIAXone SODIUM 1,000 MG in DEXTROSE 5% 50 ML IV SCH (05:58)
[2019-02-17 06:20] LABS: Albumin Globulin Ratio 0.7 (0.9-2); Albumin Level 2.6 gm/dl (3.4-5.0); BUN Creatinine Ratio 14.9 (10-20); Bilirubin,Total 0.7 mg/dl (0.2-1); Calcium 8.4 mg/dl (8.5-10.1); Creatinine Clr Calc Pharmacy 104.9 ml/min; Est GFR (African American) 96.2; Globulin 3.9 gm/dl (2.5-4.0); Magnesium 1.8 mg/dl (1.8-2.4); Potassium 3.8 mmol/L (3.5-5.1); Total Protein 6.5 gm/dl (6.4-8.2)
[2019-02-17] MEDS ORDERED: PERFLUTREN LIPID MICROSPHERE (DEFINITY) IV ONE (07:26)
[2019-02-17] MEDS: BENZONATATE 100 MG CAPSULE PO PRN (08:19)
[2019-02-17] MEDS: FLUTICASONE/SALMETEROL 100/50 (ADVAIR) 14 PUFF/1 INHALER INH SCH ×2 (08:19→21:21)
[2019-02-17] MEDS: predniSONE 10 MG TABLET PO SCH (08:19)
[2019-02-17] MEDS: DULOXETINE HCL 60 MG CAP PO SCH (08:19)
[2019-02-17] MEDS: ATORVASTATIN 10 MG TAB PO SCH (08:19)
[2019-02-17] MEDS: CETIRIZINE HCL 10 MG TABLET PO SCH (08:20)
[2019-02-17] MEDS: MULTIVITAMIN TAB PO SCH (08:20)
[2019-02-17] MEDS: FAMOTIDINE 20 MG TAB PO SCH ×2 (08:20→21:20)
[2019-02-17] MEDS: ENOXAPARIN INJ 40 MG/0.4 ML SYR SQ SCH (08:20)
[2019-02-17] MEDS: VITAMIN B COMPLEX TAB PO SCH (08:20)
[2019-02-17] MEDS: METOPROLOL TARTRATE 25 MG TAB PO SCH ×2 (08:20→21:20)
[2019-02-17] MEDS: POTASSIUM CHLORIDE 10 MEQ TABCR PO SCH (08:20)
[2019-02-17] MEDS: ASPIRIN 81 MG ECTAB PO SCH (08:20)
[2019-02-17] MEDS: GABAPENTIN 800 MG TAB PO SCH ×3 (08:21→21:19)
[2019-02-17] MEDS: BENZONATATE 100 MG CAPSULE PO SCH ×2 (13:35→21:21)
--- NOTE | 2019-02-17 16:48 | Hospitalist Progress Note ---
Date of Service February 17, 2019 Assessment & Plan (1) Sepsis: Possible Atypical Pneumonia/Acute Bronchitis Meets SIRS criteria CXR:No acute cardiopulmonary findings. No change in appearance of the chest. Lactate levels normalized Elevated Procalcitonin levels Negative Influenza Screen Continue Ceftriaxone and Azithro Blood Cultures: 1/2 : Group A Beta Strep--Likely contaminant Repeat blood cultures:pending Saturating well on room air Received IV fluids Continue current meds Premature atrial contraction: In setting of acute infection Received IV fluids Monitor electrolytes Tele--PACs Aortic root dilatation Ascending Thoracic Aortic Anuerysm Pulmonary Nodule Noted on Prior CT ECHO as per Cards Consider repeat CT chest Inpatient Vs Outpatient NEMESIO CPAP q HS Hyperlipidemia Continue statins Neuropathy: Continue Gabapentin DVT Px: Lovenox SQ Code Status Full Code Disposition: Expect to discharge home when stable Subjective Patient is seen and examined at bedside States feeling tired today Has cough with some expectoration Reports mild headache due to cough Denies any chest pain, SOB, dizziness, nausea, abd pain No other complaints Physical Exam Vital Signs (Past 24 Hours): Last Vital Signs Temp 36.9 C 02/17/19 15:34 Pulse 71 02/17/19 15:34 Resp 20 02/17/19 15:34 BP 102/67 02/17/19 15:34 Pulse Ox 95 02/17/19 15:34 Physical Exam: Physical Exam: Vitals signs as noted above General Appearance:Obese, no apparent distress Head: normocephalic, Atraumatic Eyes: normal inspection, EOMI Neck: supple, Trachea midline Respiratory/Chest: Normal breath sounds, CTA Cardiovascular: S1, S2, No murmur Abdomen/GI:Soft, Non tender, Bowel sounds present Extremities/Musculoskelatal:normal inspection, no edema Neurologic/Psych:AAOX3, grossly no focal neurological deficits Skin: normal color, warm Results & Data Laboratory Results Short CBC 02/17/19 Range/Units 05:29 WBC 13.55 H (4.8-10.8) K/uL Hgb 13.1 L (14.0-18.0) g/dL Hct 38.3 L (42-52) % Plt Count 123 L (130-400) K/uL BMP 02/17/19 05:29 Sodium 137 Potassium 3.8 Chloride 108 H Carbon Dioxide 24 BUN 14 Creatinine 0.94 Glucose 118 H Calcium 8.4 L Liver Function 02/17/19 Range/Units 05:29 Total Bilirubin 0.7 (0.2-1) mg/dl AST 48 H (15-37) U/L ALT 71 (12-78) U/L Alkaline Phosphatase 87 (45-117) U/L Albumin 2.6 L (3.4-5.0) gm/dl Urine 02/16/19 Range/Units 21:30 Urine Color Yellow Urine Appearance Clear (Clear) Urine pH 7.0 (4.5-7.5) Ur Specific [place] 1.015 (1.000-1.030) Urine Protein Negative (Negative) Urine Glucose (UA) Negative (Negative)
[2019-02-17] MEDS: GUAIFENESIN/CODEINE 200MG/20MG 10ML UDC PO PRN ×2 (18:20→18:27)
[2019-02-17] MEDS: ACETAMINOPHEN 325 MG TAB PO PRN (18:29)
[2019-02-17] MEDS: AZITHROMYCIN 500 MG in DEXTROSE 5% 250 ML IV SCH (21:19)
[2019-02-18] MEDS: cefTRIAXone SODIUM 1,000 MG in DEXTROSE 5% 50 ML IV SCH (06:45)
[2019-02-18 07:14] LABS: Basophils # (auto) 0.02 K/uL (0-0.2); Basophils % (auto) 0.2 %; Eosinophils # (auto) 0.21 K/uL (0-0.5); Eosinophils % (auto) 2.1 %; Hematocrit (blood only) 40.4 % (42-52); Hemoglobin 13.6 g/dL (14.0-18.0); Immature Granulocytes # (auto) 0.02 K/uL (0.00-0.02); Immature Granulocytes % (auto) 0.2 %; Lymphocytes # (auto) 1.25 K/uL (1.2-3.4); Lymphocytes % (auto) 12.5 %; Mean Corpuscular Hgb Conc 33.7 g/dL (32-36); Mean Corpuscular Volume 92.4 fL (80-100); Mean Platelet Volume 10.2 fL (7.4-10.4); Monocytes # (auto) 0.92 K/uL (0.11-0.59); Monocytes % (auto) 9.2 %; Neutrophils # (auto) 7.55 K/uL (1.4-6.5); Neutrophils % (auto) 75.8 %; Platelet Count 116 K/uL (130-400); RDW Coefficient of Variation 14.8 % (11.5-14.5); RDW Standard Deviation 50.2 fL (36.4-46.3); Red Blood Count 4.37 M/uL (4.7-6.1); White Blood Count 9.97 K/uL (4.8-10.8)
[2019-02-18 07:34] LABS: BUN Creatinine Ratio 17.4 (10-20); Calcium 8.3 mg/dl (8.5-10.1); Creatinine Clr Calc Pharmacy 108.4 ml/min; Est GFR (Non-African American) 86.3; Magnesium 1.9 mg/dl (1.8-2.4); Potassium 3.8 mmol/L (3.5-5.1)
[2019-02-18] MEDS: ACETAMINOPHEN 325 MG TAB PO PRN (08:24)
[2019-02-18] MEDS: ATORVASTATIN 10 MG TAB PO SCH (08:25)
[2019-02-18] MEDS: FLUTICASONE/SALMETEROL 100/50 (ADVAIR) 14 PUFF/1 INHALER INH SCH ×2 (08:25→20:24)
[2019-02-18] MEDS: METOPROLOL TARTRATE 25 MG TAB PO SCH ×2 (08:25→21:26)
[2019-02-18] MEDS: FAMOTIDINE 20 MG TAB PO SCH ×2 (08:25→20:26)
[2019-02-18] MEDS: predniSONE 10 MG TABLET PO SCH (08:25)
[2019-02-18] MEDS: DULOXETINE HCL 60 MG CAP PO SCH (08:25)
[2019-02-18] MEDS: BENZONATATE 100 MG CAPSULE PO SCH ×3 (08:25→20:26)
[2019-02-18] MEDS: ENOXAPARIN INJ 40 MG/0.4 ML SYR SQ SCH (08:26)
[2019-02-18] MEDS: CETIRIZINE HCL 10 MG TABLET PO SCH (08:26)
[2019-02-18] MEDS: GABAPENTIN 800 MG TAB PO SCH ×3 (08:26→20:25)
[2019-02-18] MEDS: VITAMIN B COMPLEX TAB PO SCH (08:26)
[2019-02-18] MEDS: ASPIRIN 81 MG ECTAB PO SCH (08:26)
[2019-02-18] MEDS: POTASSIUM CHLORIDE 10 MEQ TABCR PO SCH (08:26)
[2019-02-18] MEDS: FUROSEMIDE 40 MG TAB PO SCH (08:26)
[2019-02-18] MEDS: MULTIVITAMIN TAB PO SCH (08:26)
[2019-02-18 11:28] LABS: Influenza A virus by PCR Neg for Influ A (Neg); Influenza B virus by PCR Neg for Influ B (Neg)
[2019-02-18] MEDS: GUAIFENESIN/CODEINE 200MG/20MG 10ML UDC PO PRN ×2 (12:44→20:33)
[2019-02-18] MEDS: DOXYCYCLINE HYCLATE 100 MG CAP PO SCH ×2 (13:58→20:25)
--- NOTE | 2019-02-18 15:06 | Hospitalist Progress Note ---
Date of Service February 18, 2019 Assessment & Plan (1) Sepsis: Possible Atypical Pneumonia/Acute Bronchitis Meets SIRS criteria CXR:No acute cardiopulmonary findings. No change in appearance of the chest. Lactate levels normalized Elevated Procalcitonin levels Negative Influenza Screen Continue Ceftriaxone and Doxycycline Blood Cultures: 11/21 : Group A Beta Strep--Likely contaminant Repeat blood cultures:No growth to date Saturating well on room air Received IV fluids Premature atrial contraction: In setting of acute infection Received IV fluids Monitor electrolytes Tele--PACs Left Foot Wound--POA Continue Abx as above Wound Care consulted Aortic root dilatation Ascending Thoracic Aortic Anuerysm Pulmonary Nodule Noted on Prior CT ECHO as per Cards Consider repeat CT chest Inpatient Vs Outpatient NEMESIO CPAP q HS Hyperlipidemia Continue statins Neuropathy: Continue Gabapentin DVT Px: Lovenox SQ Code Status Full Code Disposition: Expect to discharge home when stable Subjective Patient is seen and examined at bedside Cough continues to improve Reports rhinitis this morning-- Flu screen Negative Denies any chest pain, SOB, dizziness, nausea, abd pain No other complaints Physical Exam Vital Signs (Past 24 Hours): Last Vital Signs Temp 36.3 C L 02/18/19 07:57 Pulse 66 02/18/19 07:57 Resp 18 02/18/19 07:57 BP 130/85 02/18/19 07:57 Pulse Ox 96 02/18/19 07:57 Physical Exam: Physical Exam: Vitals signs as noted above General Appearance:Obese, no apparent distress Head: normocephalic, Atraumatic Eyes: normal inspection, EOMI Neck: supple, Trachea midline Respiratory/Chest: Decreased breath sounds at bases, CTA Cardiovascular: S1, S2, No murmur Abdomen/GI:Soft, Non tender, Bowel sounds present Extremities/Musculoskelatal:normal inspection, no edema Neurologic/Psych:AAOX3, grossly no focal neurological deficits Skin: normal color, warm Results & Data Laboratory Results Short CBC 02/18/19 Range/Units 06:53 WBC 9.97 (4.8-10.8) K/uL Hgb 13.6 L (14.0-18.0) g/dL Hct 40.4 L (42-52) % Plt Count 116 L (130-400) K/uL BMP 02/18/19 06:53 Sodium 139 Potassium 3.8 Chloride 106 Carbon Dioxide 28 BUN 16 Creatinine 0.91 Glucose 97 Calcium 8.3 L
--- NOTE | 2019-02-18 17:16 | Cardiology Progress Note ---
Date of Service February 18, 2019 Assessment & Plan (1) Aortic root dilatation: I discussed the patient's echocardiogram results with him. The study was technically limited due to patient characteristics with poor acoustic windows. The aortic root was not well visualized but was noted to be moderately dilated with diameter of 4.8 cm as best visualized in the subcostal views. This correlates with the CT of the chest performed in 2017 with aortic root diameter of 5 cm at that time. The aortic valve is not well visualized, however Doppler assessment revealed no significant aortic stenosis or aortic regurgitation. I recommend proceeding with a CT angiogram with contrast (noncoronary) at [facility] as an outpatient for further assessment of the aortic root as well as the rest of the thoracic aorta. The incidental pulmonary nodule noted in 2017 can also be followed up at that time. We will plan on follow-up in cardiology clinic as an outpatient. Physical Exam Vital Signs (Past 24 Hours): Last Vital Signs Temp 36.3 C L 02/18/19 15:34 Pulse 70 02/18/19 15:34 Resp 18 02/18/19 15:34 BP 134/80 02/18/19 15:34 Pulse Ox 96 02/18/19 15:34
[2019-02-18] MEDS: MICONAZOLE NITRATE POWDER 43 GM EXT SCH (20:24)
[2019-02-19 05:39] LABS: Basophils # (auto) 0.04 K/uL (0-0.2); Basophils % (auto) 0.5 %; Eosinophils # (auto) 0.28 K/uL (0-0.5); Eosinophils % (auto) 3.2 %; Hematocrit (blood only) 46.1 % (42-52); Immature Granulocytes # (auto) 0.02 K/uL (0.00-0.02); Immature Granulocytes % (auto) 0.2 %; Lymphocytes # (auto) 2.44 K/uL (1.2-3.4); Lymphocytes % (auto) 27.8 %; Mean Corpuscular Hgb Conc 34.7 g/dL (32-36); Mean Corpuscular Volume 91.3 fL (80-100); Mean Platelet Volume 9.7 fL (7.4-10.4); Monocytes # (auto) 0.96 K/uL (0.11-0.59); Monocytes % (auto) 10.9 %; Neutrophils # (auto) 5.04 K/uL (1.4-6.5); Neutrophils % (auto) 57.4 %; Platelet Count 173 K/uL (130-400); RDW Coefficient of Variation 14.7 % (11.5-14.5); RDW Standard Deviation 49.3 fL (36.4-46.3); Red Blood Count 5.05 M/uL (4.7-6.1); White Blood Count 8.78 K/uL (4.8-10.8)
[2019-02-19] MEDS: GUAIFENESIN/CODEINE 200MG/20MG 10ML UDC PO PRN ×2 (05:47→15:55)
[2019-02-19 06:09] LABS: BUN Creatinine Ratio 18.2 (10-20); Calcium 8.9 mg/dl (8.5-10.1); Creatinine Clr Calc Pharmacy 101.7 ml/min; Est GFR (African American) 92.6; Est GFR (Non-African American) 79.9; Potassium 3.9 mmol/L (3.5-5.1)
[2019-02-19] MEDS: cefTRIAXone SODIUM 1,000 MG in DEXTROSE 5% 50 ML IV SCH (06:30)
[2019-02-19] MEDS: DOXYCYCLINE HYCLATE 100 MG CAP PO SCH ×2 (07:45→20:40)
[2019-02-19] MEDS: VITAMIN B COMPLEX TAB PO SCH (07:45)
[2019-02-19] MEDS: FUROSEMIDE 40 MG TAB PO SCH (07:45)
[2019-02-19] MEDS: MULTIVITAMIN TAB PO SCH (07:45)
[2019-02-19] MEDS: ASPIRIN 81 MG ECTAB PO SCH (07:45)
[2019-02-19] MEDS: POTASSIUM CHLORIDE 10 MEQ TABCR PO SCH (07:46)
[2019-02-19] MEDS: FLUTICASONE/SALMETEROL 100/50 (ADVAIR) 14 PUFF/1 INHALER INH SCH ×2 (07:46→20:41)
[2019-02-19] MEDS: METOPROLOL TARTRATE 25 MG TAB PO SCH ×2 (07:46→20:40)
[2019-02-19] MEDS: BENZONATATE 100 MG CAPSULE PO SCH ×3 (07:47→20:40)
[2019-02-19] MEDS: ENOXAPARIN INJ 40 MG/0.4 ML SYR SQ SCH (07:47)
[2019-02-19] MEDS: FAMOTIDINE 20 MG TAB PO SCH ×2 (07:47→20:40)
[2019-02-19] MEDS: CETIRIZINE HCL 10 MG TABLET PO SCH (07:48)
[2019-02-19] MEDS: MICONAZOLE NITRATE POWDER 43 GM EXT SCH ×2 (07:48→20:41)
[2019-02-19] MEDS: GABAPENTIN 800 MG TAB PO SCH ×3 (09:17→20:40)
[2019-02-19] MEDS: DULOXETINE HCL 60 MG CAP PO SCH (09:17)
[2019-02-19] MEDS: ATORVASTATIN 10 MG TAB PO SCH (09:17)
[2019-02-19] MEDS: predniSONE 10 MG TABLET PO SCH (09:17)
--- NOTE | 2019-02-19 11:59 | Hospitalist Progress Note ---
Date of Service February 19, 2019 Assessment & Plan (1) Sepsis: Atypical Pneumonia/Acute Bronchitis Meets SIRS criteria Possible Bacteremia--POA H/O MRSA CXR:No acute cardiopulmonary findings. No change in appearance of the chest. Lactate levels normalized Elevated Procalcitonin levels Negative Influenza Screen Continue Ceftriaxone and Doxycycline Blood Cultures: 11/21 : Group A Beta Strep--Sensitivities pending Repeat blood cultures:No growth to date Saturating well on room air Received IV fluids Change antibiotics based on sensitivities if necessary May need prolonged Abx--Consider discussing with ID Premature atrial contraction: In setting of acute infection Received IV fluids Monitor electrolytes Tele--PACs Left Foot Wound--POA Possible developing Cellulitis Continue Abx as above Wound Care consulted Aortic root dilatation Ascending Thoracic Aortic Anuerysm Pulmonary Nodule Noted on Prior CT ECHO as per Cards Needs CTA as Outpatient Needs Follow up with Cardiology as outpatient NEMESIO CPAP q HS Hyperlipidemia Continue statins Neuropathy: Continue Gabapentin DVT Px: Lovenox SQ Code Status Full Code Disposition: Expect to discharge home when stable Subjective Patient is seen and examined at bedside Reports left leg erythematous Less Cough Denies any chest pain, SOB, dizziness, nausea, abd pain No other complaints Physical Exam Vital Signs (Past 24 Hours): Last Vital Signs Temp 36.7 C 02/19/19 07:24 Pulse 66 02/19/19 07:24 Resp 18 02/19/19 07:24 BP 153/83 H 02/19/19 07:24 Pulse Ox 96 02/19/19 07:24 Physical Exam: Physical Exam: Vitals signs as noted above General Appearance:Obese, no apparent distress Head: normocephalic, Atraumatic Eyes: normal inspection, EOMI Neck: supple, Trachea midline Respiratory/Chest: Decreased breath sounds at bases, CTA Cardiovascular: S1, S2, No murmur Abdomen/GI:Soft, Non tender, Bowel sounds present Extremities/Musculoskelatal:normal inspection, no edema, LLE erythematous, warm Neurologic/Psych:AAOX3, grossly no focal neurological deficits Skin: normal color, warm Results & Data Laboratory Results Short CBC 02/19/19 Range/Units 05:23 WBC 8.78 (4.8-10.8) K/uL Hgb 16.0 (14.0-18.0) g/dL Hct 46.1 (42-52) % Plt Count 173 (130-400) K/uL BMP 02/19/19 05:23 Sodium 140 Potassium 3.9 Chloride 104 Carbon Dioxide 27 BUN 18 Creatinine 0.97 Glucose 92 Calcium 8.9
--- NOTE | 2019-02-19 13:38 | Infectious Disease Consult ---
Date of Consultation February 19, 2019 Assessment & Plan (1) Beta-hemolytic group A streptococcal sepsis: will cotninue on rocephin for now, hopefully change to po after final sensitivities return. would give min 2 weeks. ? source foot ulcer vs URI, no evidence of pna on cxr. will follow. repeat cutlures negative. History of Present Illness Attending Physician: Jeremías Ozuna MD pt admitted with f/c [employer]. cxr negative in ER. UA negative, afebrile since admission. Initial blood cultures growing GAS 1/2 sets. repeat cultures negative to date. No cough, no sore throat, no n/v/d/abd pain. Denies cp, sob. was found to have afib on admission, cardio following, echo done, no veg. States he was to be d/c home today but awaiting final culture results. Overall feeling much better. States recently had URI, otherwise denies sick contacts. States several grandkids but all healthy. Flu swab negative. On Rocephin, tolerating well. Aslo on doxy for h/o left foot wound, h/o MRSA. no drainage or pain currently. was previously being followed at wound center, but not recently, treating at home. wbc 8.7. tolerating abx, eating well. denies n/v/d/abd pain. currently denies f/c. Allergies Allergy/AdvReac Type Severity Reaction Status Date / Time No Known Allergies Allergy Unverified 02/16/19 01:32 Home Medications Home Medications Medication Instructions Recorded Confirmed Type albuterol sulfate 2 puff INHALATION Q4H PRN 02/16/19 02/16/19 History aspirin 81 mg PO DAILY 02/16/19 02/16/19 History atorvastatin [Lipitor] 10 mg PO DAILY 02/16/19 02/16/19 History benzonatate 100 mg PO TID PRN 02/16/19 02/16/19 History cetirizine [Zyrtec] 10 mg PO DAILY 02/16/19 02/16/19 History duloxetine 60 mg PO DAILY 02/16/19 02/16/19 History famotidine 20 mg PO BID 02/16/19 02/16/19 History fluticasone propion-salmeterol 1 puff INHALATION BID 02/16/19 02/16/19 History [Advair Diskus] furosemide [Lasix] 40 mg PO DAILY 02/16/19 02/16/19 History gabapentin 800 mg PO TID 02/16/19 02/16/19 History multivitamin 1 tab PO DAILY 02/16/19 02/16/19 History potassium chloride 10 meq PO DAILY 02/16/19 02/16/19 History prednisone 10 mg PO DAILY 02/16/19 02/16/19 History vitamin [id number] acid 1 tab PO DAILY 02/16/19 02/16/19 History Patient History Medical History Sleep apnea (Chronic) "CPAP" Pulmonary nodule (Chronic) "CT 09/03/17 6 mm nodule RUL; CT 09/28/00 5 x 8 mm nodule superior segment RLL" Aortic root dilatation (Chronic) "CT 09/03/17 5 cm at the sinuses of Valsalva" Essential hypertension (Chronic) Neuropathy (Chronic) Coronary artery disease (Chronic) "no clinical history of NC or angina, but extensive coronary calcifications noted on CT chest 09/03/17" HLD (hyperlipidemia) Umbilical hernia (Chronic) Surgical History Status post bilateral knee replacements (Chronic) Status post inguinal hernia repair (Chronic) Status post tonsillectomy (Chronic) Status post lumbar surgery (Chronic) Family History Other No significant family history Social History Preferred Language: Turkish Communication Ability: Effective Cake Maker Required: No Beliefs That Will Affect Care: None Current Living Situation: Spouse Other Information That Helps Us Care for You: No Feels Safe at Home: Yes Safety Concerns: Feels Safe At This Time Smoking Status: Never smoker Hx Alcohol Use: Yes Hx Substance Use: No Review of Systems all remaining ros reviewed and are negative Physical Exam Vital Signs (Past 24 Hours): Last Vital Signs Temp 36.7 C 02/19/19 07:24 Pulse 66 02/19/19 07:24 Resp 18 02/19/19 07:24 BP 153/83 H 02/19/19 07:24 Pulse Ox 96 02/19/19 07:24 Constitutional: WD/WN, vitals as above Eyes: PERRL, conjunctivae normal, anicteric sclerae ENMT: external ear and nose normal, oropharynx normal Neck: normal visual inspection Respiratory: normal respiratory effort, lungs clear to auscultation Cardiovascular: RRR, no murmur, no edema Gastrointestinal (Abdomen): normal bowel sounds, soft, nontender, no hepatosplenomegaly Musculoskeletal: no cyanosis or clubbing, extremities motor strength 5/5 Skin: no rashes, warm and dry left foot wiwth superficial wound on plantar foot, no surrounding warmth, tenderness, erythema, drainage or bleeding Psychiatric: A+Ox3, euthymic affect Results & Data Laboratory Results Microbiology 02/16/19 01:10 Blood Blood Culture - Preliminary Group A Beta Strep 02/16/19 16:45 Blood Blood Culture - Preliminary No growth to date. 02/16/19 16:36 Blood Blood Culture - Preliminary No growth to date. 02/16/19 01:16 Blood Blood Culture - Preliminary No growth to date.
[2019-02-19] MEDS: ACETAMINOPHEN 325 MG TAB PO PRN (20:45)
[2019-02-20 05:38] LABS: Basophils # (auto) 0.04 K/uL (0-0.2); Basophils % (auto) 0.5 %; Eosinophils # (auto) 0.25 K/uL (0-0.5); Eosinophils % (auto) 2.9 %; Hematocrit (blood only) 43.3 % (42-52); Hemoglobin 15.1 g/dL (14.0-18.0); Immature Granulocytes # (auto) 0.04 K/uL (0.00-0.02); Immature Granulocytes % (auto) 0.5 %; Lymphocytes # (auto) 2.56 K/uL (1.2-3.4); Lymphocytes % (auto) 30.2 %; Mean Corpuscular Hgb Conc 34.9 g/dL (32-36); Mean Corpuscular Volume 91.5 fL (80-100); Mean Platelet Volume 9.4 fL (7.4-10.4); Monocytes # (auto) 0.95 K/uL (0.11-0.59); Monocytes % (auto) 11.2 %; Neutrophils # (auto) 4.65 K/uL (1.4-6.5); Neutrophils % (auto) 54.7 %; Platelet Count 158 K/uL (130-400); RDW Coefficient of Variation 14.6 % (11.5-14.5); RDW Standard Deviation 49.5 fL (36.4-46.3); Red Blood Count 4.73 M/uL (4.7-6.1); White Blood Count 8.49 K/uL (4.8-10.8)
[2019-02-20 05:55] LABS: BUN Creatinine Ratio 23.2 (10-20); Calcium 8.9 mg/dl (8.5-10.1); Creatinine Clr Calc Pharmacy 101.7 ml/min; Est GFR (African American) 92.6; Est GFR (Non-African American) 79.9; Potassium 3.8 mmol/L (3.5-5.1)
[2019-02-20] MEDS: cefTRIAXone SODIUM 1,000 MG in DEXTROSE 5% 50 ML IV SCH (06:45)
[2019-02-20] MEDS: DULOXETINE HCL 60 MG CAP PO SCH (08:54)
[2019-02-20] MEDS: ATORVASTATIN 10 MG TAB PO SCH (08:54)
[2019-02-20] MEDS: MICONAZOLE NITRATE POWDER 43 GM EXT SCH (08:54)
[2019-02-20] MEDS: METOPROLOL TARTRATE 25 MG TAB PO SCH (08:55)
[2019-02-20] MEDS: GABAPENTIN 800 MG TAB PO SCH ×2 (08:55→13:49)
[2019-02-20] MEDS: FAMOTIDINE 20 MG TAB PO SCH (08:55)
[2019-02-20] MEDS: DOXYCYCLINE HYCLATE 100 MG CAP PO SCH (08:55)
[2019-02-20] MEDS: POTASSIUM CHLORIDE 10 MEQ TABCR PO SCH (08:56)
[2019-02-20] MEDS: CETIRIZINE HCL 10 MG TABLET PO SCH (08:56)
[2019-02-20] MEDS: ASPIRIN 81 MG ECTAB PO SCH (08:56)
[2019-02-20] MEDS: FUROSEMIDE 40 MG TAB PO SCH (08:56)
[2019-02-20] MEDS: MULTIVITAMIN TAB PO SCH (08:57)
[2019-02-20] MEDS: FLUTICASONE/SALMETEROL 100/50 (ADVAIR) 14 PUFF/1 INHALER INH SCH (08:57)
[2019-02-20] MEDS: BENZONATATE 100 MG CAPSULE PO SCH ×2 (08:57→13:49)
[2019-02-20] MEDS: predniSONE 10 MG TABLET PO SCH (08:57)
[2019-02-20] MEDS: VITAMIN B COMPLEX TAB PO SCH (08:57)
[2019-02-20] MEDS: ENOXAPARIN INJ 40 MG/0.4 ML SYR SQ SCH (08:57)
[2019-02-20] MEDS: GUAIFENESIN/CODEINE 200MG/20MG 10ML UDC PO PRN (09:00)
[2019-02-20] MEDS: ACETAMINOPHEN 325 MG TAB PO PRN (12:41)
--- NOTE | 2019-02-20 13:25 | Infectious Disease Progress Nt ---
Date of Service February 20, 2019 Assessment & Plan (1) Beta-hemolytic group A streptococcal sepsis: will cotninue on rocephin for now, hopefully change to po after final sensitivities return. would give min 2 weeks. ? source foot ulcer vs URI, no evidence of pna on cxr. will follow. repeat cutlures negative. Subjective pt remains afebrile. tolerating abx. remains on ctx. wbc 8.4, repeat cultures remain negative. Physical Exam Vital Signs (Past 24 Hours): Last Vital Signs Temp 36.4 C L 02/20/19 07:18 Pulse 68 02/20/19 07:18 Resp 18 02/20/19 07:18 BP 131/86 02/20/19 07:18 Pulse Ox 95 02/20/19 07:18 Results & Data Laboratory Results Microbiology 02/16/19 01:10 Blood Blood Culture - Preliminary Group A Beta Strep 02/16/19 16:45 Blood Blood Culture - Preliminary No growth to date. 02/16/19 16:36 Blood Blood Culture - Preliminary No growth to date. 02/16/19 01:16 Blood Blood Culture - Preliminary No growth to date.
--- NOTE | 2019-02-20 16:57 | Discharge Summary ---
Date of Service February 20, 2019 Admission HPI Per Admitting Provider 68-year-old male with a past medical history of obstructive sleep apnea, obesity with a BMI of 39, aortic root dilatation, hypertension, hyperlipidemia, neuropathy, GERD, osteoarthritis, degenerative disc disease lumbar spine, degenerative joint disease, and CAD comes in tonight complaining of fever, chills, and was found to have a right lower lobe pneumonia in the emergency room. He had a lactate of 2.1 and a white blood cell count of 12 in the emergency room as well. He was tachycardic and found to be in atrial fibrillation. Assessment and Plan Sepsis syndrome secondary to pneumonia Atrial fibrillation likely secondary to sepsis Fevers, chills Tachycardia Obstructive sleep apnea syndrome Hypertension Hyperlipidemia Acute kidney injury GERD Neuropathy Degenerative disc disease and degenerative joint disease Osteoarthritis Hyperlipidemia CAD Leukocytosis Started Rocephin and Zithromax, he was given Levaquin in the ER, however I will continue Rocephin and Zithromax, nebulizers, continue outpatient medications where appropriate, monitor daily labs, heparin drip for atrial fibrillation, cardiology evaluation, IVFs, Metoprolol low dose. SCDs, metoprolol for rate control was seen by cardiology. ROS-No Headache, No Visual Changes, positive fever, positive chills, No Neck Pain or Stiffness, No Chest Pain, No Palpitations, No SOB, No HERNANDEZ, positive cou gh, positive yellow sputum, positive wheezing, No Abdominal Pain, No Diarrhea, No Hematemesis, No Hemoptysis, No Unexpected Weight Loss, No Flank pain, No Melena, No Hematochezia, No Frequency, No Urgency, No Burning, No Hematuria, No Rashes, No Diaphoresis. Decreased appetite Physical Exam Gen-AAO x 3, NAD, febrile, Obese Head-NCAT, EOMI, PERRLA, Anicteric Sclera, No Posterior Pharyngeal Erythema Neck-Supple, No JVD, No Thyromegaly, No Masses, No LAD, No Bruits Lungs-+ R Rales, + Rhonchi, + Wheezing, No Crepitus Chest-No S4, +S1, +S2, No S3, No Murmurs, No Rubs, No Gallops, No Ectopy Abdomen-Soft, Bowel Sounds Present, Non Tender, Obese, Non Distended, No Hepatomegaly, No Splenomegaly, No Palpable Masses, No Rebound, No Rigidity, No Guarding Musculoskeletal-Full Range of Motion Bilaterally, No CVAT Extremities-No Cyanosis, No Clubbing, No Edema Nuero-Cranial Nerves II-XII grossly intact, Motor WNL, DTRs WNL, Strength WNL, No Focal Psych-Normal Mood PMH Obstr sleep apnea, pulmonary nodules, aortic root dilatation, hypertension, hyperlipidemia, neuropathy, GERD, osteoporosis, degenerative disease lumbar spine, degenerative joint disease, hyperlipidemia, CAD PSH-billable hernia repair, inguinal hernia repair, tonsils and adenoids been removed, lumbar spinal surgery. FH-reviewed noncontributory SH-no tobacco, drugs, alcohol, he is retired Meds reviewed and Reconciled Labs Reviewed Principal Diagnosis Positive blood culturesfoot wound Discharge Exam GENERAL: No sign of distress, HEENT: Sclera nonicteric, pink-purple bilateral equal reactive to light extraocular muscle intact Normal oral mucosa, neck: No JVD, no thyromegaly, trachea midline Lungs: Clear to auscultate, no wheeze or rales Cardiovascular: Regular S1 and S2, no murmur or gallop, no JVD, no lower extremity edema Abdomen: Soft, nontender, bowel sounds active, no hepatosplenomegaly Extremities: shallow non healing ulcer on lateral left foot Neuro: No focal neurological deficit, no dysarthria, no facial droop Psych: Alert awake oriented x3: Euthymic Skin: No rash LYMPH NODES: No cervical lymphadenopathy Discharge Data Allergies Allergy/AdvReac Type Severity Reaction Status Date / Time No Known Allergies Allergy Unverified 02/16/19 01:32 Consultations 02/16/19 02:22 ED Decision to Admit Stat 02/16/19 05:43 Consult Cardiology Stat 02/19/19 12:54 Consult Infectious Diseases Routine Hospital Course (1) Sepsis: possible source of infection :left foot wound no evidence of pneumonia will Dc Doxycycline pt will be discharged with PO keflex for 10 days blood culture : Group B strep H/O MRSA CXR:No acute cardiopulmonary findings. No change in appearance of the chest. Lactate levels normalized Elevated Procalcitonin levels Negative Influenza Screen Blood Cultures: 11/21 : Group A Beta Strep--Sensitivities pending Repeat blood cultures:No growth to date ID consulted: Appreciate input, Vision was treated with IV Rocephin Will be changed to p.o. Keflex: For 10 more days Premature atrial contraction: In setting of acute infection Left Foot Wound--POA Possible developing Cellulitis Continue Abx as above Wound Care consulted Aortic root dilatation Ascending Thoracic Aortic Anuerysm Pulmonary Nodule Noted on Prior CT Patient input from cardiology, scheduled for outpatient CTA angiogram of the chest: NEMESIO CPAP q HS Hyperlipidemia Continue statins Neuropathy: Continue Gabapentin DVT Px: Lovenox SQ Code Status Full Code Disposition: Able to be discharged home today Total Time Total Time Spent Total Time Spent (In Minutes): Approximately 40 minutes Total Time Includes: Examination of the Patient, Discharge Planning and Medication Reconciliation Discharge Plan Discharge Items Patient Disposition: Home - Self-Care Reason For Visit: PNEUMONIA, AFIB Discharge Diagnosis: POSITIVE BLOOD CULTURE /FOOT WOUND Discharge Goals: Decrease discomfort Activity: Resume your previous activity Non-emergency contact: Primary Care Provider Call non-emergency contact if: you have any medication questions Follow-up/Referrals: Brian Titus [Primary Care Provider] - 02/25/19 11:05 am Diet: Heart Healthy Addtl Provider Instructions: follow up with Dr Titus continue to follow up with Podiartry in clinic CT CHEST WITH CONTRAST SCHEDULED Prescriptions: New cephalexin [Keflex] 500 mg capsule 500 mg PO BID 10 Days Qty: 20 RF: 0 Continued albuterol sulfate 90 mcg/actuation Hfa Aerosol Inhaler 2 puff INHALATION Q4H PRN (Reason: sob/wheezing) RF: 0 aspirin 81 mg Tablet,Delayed Release (Dr/Ec) 81 mg PO DAILY RF: 0 atorvastatin [Lipitor] 10 mg Tablet 10 mg PO DAILY RF: 0 benzonatate 100 mg Capsule 100 mg PO TID PRN (Reason: Cough) RF: 0 cetirizine [Zyrtec] 10 mg Tablet 10 mg PO DAILY RF: 0 vitamin C26-tbtlg acid 500-400 mcg Tablet 1 tab PO DAILY RF: 0 duloxetine 60 mg Capsule,Delayed Release(Dr/Ec) 60 mg PO DAILY RF: 0 famotidine 20 mg Tablet 20 mg PO BID RF: 0 fluticasone propion-salmeterol [Advair Diskus] 100-50 mcg/dose Blister With Device 1 puff INHALATION BID RF: 0 furosemide [Lasix] 40 mg Tablet 40 mg PO DAILY RF: 0 gabapentin 800 mg Tablet 800 mg PO TID RF: 0 multivitamin Tablet 1 tab PO DAILY RF: 0 potassium chloride 10 mEq Tablet Extended Release 10 meq PO DAILY RF: 0 prednisone 10 mg Tablet 10 mg PO DAILY RF: 0 Stand-Alone Forms: [facility] Discharge Orders: Discharge Order (Routine); Ordered 02/20/19 Ordered By: Fela Rodriguez Admission Data Admit Date/Time: 02/16/19 03:50 Attending Provider: Fela Rodriguez Admit Provider: Jovany Cavazos Primary Care Provider: Brian Titus Other Providers: Jovany Cavazos ; Christopher Encarnacion ; Bryan Hsu ; Mark Khan ; Chacho Thomas ; Jone Martin ; Brian Talley ; Madai Downing ; Yuki Rivero ; Charanjit Maria. ; Jeremías Ozuna Service: Medical Other Interventions: Discharge Summary Assessment (RN) Last Done: 02/20/19 17:09
== END 2019-02-20 18:24 | disposition home or self-care (01) | DRG 872 ==
LOC: ED 00:31 → 2S 03:50 → SUATTDRO 03:50 → 2S 04:25 → 2W 02-17 10:58 → 4E 02-18 23:28

== ENCOUNTER 2021-07-17 19:12 | Inpatient (IN) ==
[2021-07-17] MEDS ORDERED: ACETAMINOPHEN 500 MG TAB PO STA (19:27)
[2021-07-17] MEDS ORDERED: CEFEPIME 2,000 MG/20 ML VIAL IV STA (19:27)
[2021-07-17] MEDS ORDERED: SODIUM CHLORIDE 0.9% 1000ML 1,000 ML IV SCH (19:30)
--- NOTE | 2021-07-17 19:36 | Emergency Department Note ---
Impression & Plan Cellulitis of left leg, Left leg swelling, Leukocytosis, Failure of outpatient treatment ED Provider Note NAME: SALLY HOWARD AGE: 70 SEX: M : 1950 ARRIVES VIA: Walk-In INFORMANT: [Patient][family] ED PROVIDER(S): [Aiden Guidry MD] CHIEF COMPLAINT: Swelling and left leg pain HISTORY OF PRESENT ILLNESS: The patient is a 70-year-old male who presents to the ER with increasing trouble with the left leg for the last week. He has seen his doctor a few times. He was put on Keflex yesterday. In the last 24 hours, the leg has become more painful. There is now moderate pain. The erythema has increased, the swelling has increased. He has had chills and now has a temperature elevation. He feels like he might have the flu. There has been no cough or congestion or shortness of breath. No vomiting or diarrhea. The patient has no history of diabetes. He states that he has a chronic wound on the left medial mid plantar foot. He sees a hand glove cleaner every 2 weeks for this foot wound. He has no history of previous cellulitis. He is vaccinated against COVID-19. REVIEW OF SYSTEMS: See HPI for pertinent positives and negatives. A total of ten systems were reviewed and were otherwise negative. PMHx/PSHx: See Below SOCIAL HISTORY: See Below. PHYSICAL EXAM: GENERAL: Patient is in no acute distress. HEENT: No acute trauma, normocephalic atraumatic, mucous membranes moist, no nasal congestion, no scleral icterus. NECK: No stridor, no adenopathy, no meningismus, trachea is midline. LUNGS: Clear to auscultation bilaterally, no wheeze, no rhonchi, breath sounds equal. HEART: Mildly tachycardic with a subtle murmur, regular rhythm. ABDOMEN: Soft, nontender, bowel sounds positive, small nontender and reducible umbilical hernia, no peritonitis. EXTREMITIES: No cyanosis. The patient does have edema of the left lower extremity when compared to the right. There is some deformity to the left foot which appears chronic. The patient has a 3 cm hardened callus looking lesion to the midportion of the medial plantar foot. There is some subtle surrounding erythema. No drainage. There is erythema from the ankle to the proximal tib- fib. There is no drainage. Warmth is present. NEUROLOGIC: Oriented x 3, no acute motor or sensory deficits, no focal weakness. SKIN: No rash, no jaundice, no diaphoresis. DIFFERENTIAL DIAGNOSIS: Sepsis, UTI, pneumonia, metabolic abnormality, electrolyte abnormalities, cardiac sources, cellulitis, osteomyelitis, COVID-19, UTI, bacteremia, intracerebral event, toxicologic etiology, neurologic event, as well as other pathologies. EMERGENCY DEPARTMENT COURSE/PROCEDURES: ECG: Indication was possible sepsis. The ECG shows a normal sinus rhythm with a rate of 99. There is a nonspecific intraventricular block. No ST elevation, no PVCs. The QTc is 472. There are some inverted T waves laterally. Compared to an ECG from January,, the T wave changes laterally appear more pronounced. Continuous Cardiac Monitoring: An order was placed for continuous cardiac monitoring. The monitor shows a rate of 96 with normal sinus rhythm. MEDICAL DECISION MAKING: There is a mild leukocytosis, this could be consistent with infection. There is a normal hemoglobin and platelet count. No coagulopathy. No significant electrolyte abnormality or kidney failure. Lactic acid level is not elevated making sepsis less likely. Covid testing is negative. Left leg ultrasound does not show DVT. Left foot CT does not show osteomyelitis. On exam, the patient had a left lower extremity cellulitis. The leg was warm and erythematous. The patient presents with fever, chills. He has worsened despite Keflex prescribed to him as an outpatient. The patient was given IV saline, 1 L. He received IV cefepime and IV vancomycin as antibiotic coverage. He was given oral Tylenol. The patient would benefit from a hospital stay. I did speak with case management. The patient is aware of all his findings thus far. The on-call hospitalist has been consulted. Past Med/Surg History Medical History (Updated 07/17/21 @ 21:52 by Aiden Guidry MD) Aortic root dilatation "CT 09/03/17 5 cm at the sinuses of Valsalva" BPH (benign prostatic hyperplasia) Coronary artery disease "no clinical history of MO or angina, but extensive coronary calcifications noted on CT chest 09/03/17" Essential hypertension HLD (hyperlipidemia) Kidney stones Neuropathy Pulmonary nodule "CT 09/03/17 6 mm nodule RUL; CT 09/28/00 5 x 8 mm nodule superior segment RLL" Sleep apnea "CPAP" Umbilical hernia Surgical History History of colonoscopy X MULTIPLE History of right cataract surgery Status post bilateral knee replacements Status post inguinal hernia repair Status post lumbar surgery Status post tonsillectomy Family History Other No significant family history Social History Smoking Status: Never smoker Second Hand Exposure: No; Hx Alcohol Use: Yes Alcohol type: hard liquor Hx Substance Use: No Preferred Language: Kyrgyz Communication Ability: Effective Tile Burner Required: No Beliefs That Will Affect Care: None Current Living Situation: Spouse Feels Safe at Home: Yes Assistive Devices: Denture - Upper, Glasses and Hearing Aid - Bilateral Allergies Allergies Allergy/AdvReac Type Severity Reaction Status Date / Time No Known Allergies Allergy Verified 07/17/21 19:30 Home Meds Home Medications Medication Instructions Recorded Confirmed albuterol sulfate 90 mcg/actuation 2 puff INHALATION Q4H PRN 02/16/19 07/17/21 aerosol inhaler aspirin 81 mg tablet,delayed 81 mg PO QAM 02/16/19 07/17/21 release benzonatate 100 mg capsule 100 mg PO TID PRN 02/16/19 07/17/21 cetirizine 10 mg tablet (Zyrtec) 10 mg PO QAM PRN 02/16/19 07/17/21 duloxetine 60 mg capsule,delayed 60 mg PO QAM 02/16/19 07/17/21 release famotidine 20 mg tablet 20 mg PO BID 02/16/19 07/17/21 furosemide 40 mg tablet (Lasix) 40 mg PO QAM 02/16/19 07/17/21 multivitamin 1 tab PO QAM 02/16/19 07/17/21 potassium chloride 10 mEq 10 meq PO QAM 02/16/19 07/17/21 tablet,extended release finasteride 5 mg tablet 5 mg PO QAM 12/11/19 07/17/21 pregabalin 75 mg capsule (Lyrica) 75 mg PO TID 12/11/19 07/17/21 tamsulosin 0.4 mg capsule 0.4 mg PO QAM 12/11/19 07/17/21 atorvastatin 80 mg tablet 40 mg PO QAM 07/17/21 07/17/21 Results & Data (ED) Vital Signs Vital Signs - 24 hr 07/17/21 17:54 07/17/21 19:16 07/17/21 20:07 Temperature 37.8 C H Temperature Source Oral Pulse Rate 96 H 102 H 96 H Respiratory Rate 21 20 18 Respiratory Pattern Regular Blood Pressure 128/85 151/95 H Blood Pressure Mean 99 113 Pulse Oximetry 97 97 96 Oxygen Delivery Method Room Air Room Air Room Air Sepsis Recent Fever Within 48 Hours Yes Sepsis New/Unexplained Change in Mental Status N/A Sepsis Action Taken by Nursing No Action Required 07/17/21 20:52 07/17/21 20:53 07/17/21 21:00 Temperature 37.7 C H Temperature Source Oral Pulse Rate 93 H 94 H Respiratory Rate 22 19 Respiratory Pattern Blood Pressure 126/85 124/82 Blood Pressure Mean 98 96 Pulse Oximetry 96 96 Oxygen Delivery Method Room Air Room Air Sepsis Recent Fever Within 48 Hours Sepsis New/Unexplained Change in Mental Status Sepsis Action Taken by [facility] Medications Current Medication List: was personally reviewed by me Laboratory Data Attestation: I reviewed the patient's lab results. Result diagrams: 07/17/21 19:48 07/17/21 19:48 Lab Results 07/17/21 07/17/21 07/17/21 Range/Units 19:48 19:48 19:48 WBC 11.57 H (4.8-10.8) K/uL RBC 4.81 (4.7-6.1) M/uL Hgb 15.1 (14.0-18.0) g/dL Hct 44.7 (42-52) % MCV 92.9 (80-100) fL MCH 31.4 (25-34) pg MCHC 33.8 (32-36) g/dL RDW Std Deviation 49.0 H (36.4-46.3) fL RDW Coeff of Claribel 14.4 (11.5-14.5) % Plt Count 186 (130-400) K/uL MPV 9.9 (7.4-10.4) fL Immature Gran % (Auto) 0.2 % Neut % (Auto) 78.6 % Lymph % (Auto) 11.2 % Mcdowell % (Auto) 8.8 % Eos % (Auto) 1.0 % Baso % (Auto) 0.2 % Neut # (Auto) 9.09 H (1.4-6.5) K/uL Lymph # (Auto) 1.30 (1.2-3.4) K/uL Mcdowell # (Auto) 1.02 H (0.11-0.59) K/uL Eos # (Auto) 0.12 (0-0.5) K/uL Baso # (Auto) 0.02 (0-0.2) K/uL Immature Gran # (Auto) 0.02 (0.00-0.02) K/uL PT 10.6 (9.0-12.0) Seconds INR 1.0 (0.9-1.1) APTT 25.4 (21.0-31.0) Seconds PTT Ratio 1.0 Sodium 135 L (136-145) mmol/L Potassium 3.8 (3.5-5.1) mmol/L Chloride 102 (98-107) mmol/L Carbon Dioxide 28 (21-32) mmol/L Anion Gap 6.0 (3-11) BUN 17 (7-18) mg/dl Creatinine 1.20 (0.6-1.4) mg/dl Est Cr Clr Drug Dosing 72.2 ml/min Est GFR ( Amer) 70.6 ml/min Est GFR (Non-Af Amer) 60.9 ml/min BUN/Creatinine Ratio 14.3 (10-20) Glucose 114 H (70-99) mg/dl Lactate (0.4-2.0) mmol/L Calcium 9.0 (8.5-10.1) mg/dl Magnesium 1.9 (1.8-2.4) mg/dl Total Bilirubin 0.9 (0.2-1) mg/dl AST 19 (15-37) U/L ALT 28 (12-78) U/L Alkaline Phosphatase 120 H (45-117) U/L Total Protein 7.9 (6.4-8.2) gm/dl Albumin 3.4 (3.4-5.0) gm/dl Globulin 4.5 H (2.5-4.0) gm/dl Albumin/Globulin Ratio 0.8 L (0.9-2) Procalcitonin (0-0.5) ng/ml COVID-19 Eval Order SARS-CoV-2 (PCR) (Negative) 07/17/21 07/17/21 07/17/21 Range/Units 19:48 19:48 20:05 WBC (4.8-10.8) K/uL RBC (4.7-6.1) M/uL Hgb (14.0-18.0) g/dL Hct (42-52) % MCV (80-100) fL MCH (25-34) pg MCHC (32-36) g/dL RDW Std Deviation (36.4-46.3) fL RDW Coeff of Claribel (11.5-14.5) % Plt Count (130-400) K/uL MPV (7.4-10.4) fL Immature Gran % (Auto) % Neut % (Auto) % Lymph % (Auto) % Mcdowell % (Auto) % Eos % (Auto) % Baso % (Auto) % Neut # (Auto) (1.4-6.5) K/uL Lymph # (Auto) (1.2-3.4) K/uL Mcdowell # (Auto) (0.11-0.59) K/uL Eos # (Auto) (0-0.5) K/uL Baso # (Auto) (0-0.2) K/uL Immature Gran # (Auto) (0.00-0.02) K/uL PT (9.0-12.0) Seconds INR (0.9-1.1) APTT (21.0-31.0) Seconds PTT Ratio Sodium (136-145) mmol/L Potassium (3.5-5.1) mmol/L Chloride (98-107) mmol/L Carbon Dioxide (21-32) mmol/L Anion Gap (3-11) BUN (7-18) mg/dl Creatinine (0.6-1.4) mg/dl Est Cr Clr Drug Dosing ml/min Est GFR ( Amer) ml/min Est GFR (Non-Af Amer) ml/min BUN/Creatinine Ratio (10-20) Glucose (70-99) mg/dl Lactate 1.1 (0.4-2.0) mmol/L Calcium (8.5-10.1) mg/dl Magnesium (1.8-2.4) mg/dl Total Bilirubin (0.2-1) mg/dl AST (15-37) U/L ALT (12-78) U/L Alkaline Phosphatase (45-117) U/L Total Protein (6.4-8.2) gm/dl Albumin (3.4-5.0) gm/dl Globulin (2.5-4.0) gm/dl Albumin/Globulin Ratio (0.9-2) Procalcitonin < 0.05 (0-0.5) ng/ml COVID-19 Eval Order Covid19 at [facility] SARS-CoV-2 (PCR) (Negative) 07/17/21 Range/Units 20:05 WBC (4.8-10.8) K/uL RBC (4.7-6.1) M/uL Hgb (14.0-18.0) g/dL Hct (42-52) % MCV (80-100) fL MCH (25-34) pg MCHC (32-36) g/dL RDW Std Deviation (36.4-46.3) fL RDW Coeff of Claribel (11.5-14.5) % Plt Count (130-400) K/uL MPV (7.4-10.4) fL Immature Gran % (Auto) % Neut % (Auto) % Lymph % (Auto) % Mcdowell % (Auto) % Eos % (Auto) % Baso % (Auto) % Neut # (Auto) (1.4-6.5) K/uL Lymph # (Auto) (1.2-3.4) K/uL Mcdowell # (Auto) (0.11-0.59) K/uL Eos # (Auto) (0-0.5) K/uL Baso # (Auto) (0-0.2) K/uL Immature Gran # (Auto) (0.00-0.02) K/uL PT (9.0-12.0) Seconds INR (0.9-1.1) APTT (21.0-31.0) Seconds PTT Ratio Sodium (136-145) mmol/L Potassium (3.5-5.1) mmol/L Chloride (98-107) mmol/L Carbon Dioxide (21-32) mmol/L Anion Gap (3-11) BUN (7-18) mg/dl Creatinine (0.6-1.4) mg/dl Est Cr Clr Drug Dosing ml/min Est GFR ( Amer) ml/min Est GFR (Non-Af Amer) ml/min BUN/Creatinine Ratio (10-20) Glucose (70-99) mg/dl Lactate (0.4-2.0) mmol/L Calcium (8.5-10.1) mg/dl Magnesium (1.8-2.4) mg/dl Total Bilirubin (0.2-1) mg/dl AST (15-37) U/L ALT (12-78) U/L Alkaline Phosphatase (45-117) U/L Total Protein (6.4-8.2) gm/dl Albumin (3.4-5.0) gm/dl Globulin (2.5-4.0) gm/dl Albumin/Globulin Ratio (0.9-2) Procalcitonin (0-0.5) ng/ml COVID-19 Eval Order SARS-CoV-2 (PCR) NEGATIVE (Negative) Administered Medications Vancomycin HCl 2,750 mg/ (Sodium Chloride) 555 mls @ 180 mls/hr IV NOW ONE Stop: 07/18/21 00:23 Last Admin: 07/17/21 21:41 Dose: 180 mls/hr Documented by: [id number] Discontinued Medications Acetaminophen (Acetaminophen 500 Mg Tab) 1,000 mg PO NOW STA Stop: 07/17/21 19:28 Last Admin: 07/17/21 19:41 Dose: 1,000 mg Documented by: [id number] Sodium Chloride (Nss 1000ml) 1,000 mls @ 999 mls/hr IV .Q1H1M MAUREEN Stop: 07/17/21 20:30 Last Infusion: 07/17/21 20:44 Dose: 0 mls/hr Documented by: [id number] Admin: 07/17/21 19:43 Dose: 999 mls/hr Documented by: [id number] Cefepime HCl (Maxipime) 2,000 mg in 20 mls @ 5 mls/min IV NOW STA; Protocol Stop: 07/17/21 19:30 Last Admin: 07/17/21 19:41 Dose: 5 mls/min Documented by: [id number] Imaging Data Radiologist's Impression: Foot CT 07/17/21 19:27 CT SCAN OF THE LEFT FOOT WITHOUT IV CONTRAST CLINICAL HISTORY: Swelling and infection. COMPARISON STUDY: Left ankle radiographs dated 03/25/2020. Left foot radiographs dated 09/04/2017. TECHNIQUE: CT scan of the left foot is performed from the distal tibia and fibula to the base of the foot. Images are reviewed in the axial, sagittal, and coronal planes. IV contrast was not administered for this examination. A dose lowering technique was utilized adhering to the principles of ALARA. Note that interpretation is suboptimal without current plain film correlate. CT DOSE: 379.04 mGy.cm FINDINGS: The skeletal structures are osteopenic. No fracture is seen. There is no bony erosion or periostitis. An os trigonum is incidentally noted. There is a plantar calcaneal enthesophyte. Degenerative spurring is seen along the dorsal aspect of the tarsal bones. Degenerative change is seen at the tibiotalar articulation and throughout the foot. There is an ankle joint effusion. Diffuse superficial and deep soft tissue edema is present throughout the ankle and foot with associated subcutaneous fluid. A wound with dermal thickening suggested along the plantar aspect of the medial midfoot. There is associated dermal thickening and infiltration. There is no evidence of organized fluid collection to suggest abscess. No soft tissue gas or radiodense foreign body is identified. The Achilles tendon is intact as visualized. There is calcific tendinopathy of the tibialis posterior tendon. Generalized atrophy is observed in the regional musculature. IMPRESSION: 1. No acute bony abnormality is identified. 2. Diffuse soft tissue edema is seen throughout the foot and ankle. Correlate clinically for evidence of cellulitis. No organized fluid collection is seen to suggest abscess. 3. A cutaneous ulceration/wound with overlying dermal thickening is suggested along the plantar aspect of the medial midfoot. Correlate clinically. 4. Ankle joint effusion. 5. Osteopenia and degenerative change as above. ACT 112: Negative or not required by law. Electronically signed by: Aiden Lin M.D. 07/17/2021 8:40 PM Venous Doppler Study 07/17/21 19:27 ULTRASOUND LEFT LOWER EXTREMITY VENOUS CLINICAL HISTORY: Left leg swelling. COMPARISON STUDY: No priors. TECHNIQUE: Real-time, grayscale, and color Doppler sonography of the deep veins of the left lower extremity was performed from the inguinal crease to the calf. Compression and augmentation were utilized. FINDINGS: There is no sonographic evidence of deep venous thrombosis identified in the left lower extremity. The common femoral, superficial femoral, and popliteal veins are patent and normally compressible. The greater saphenous vein and the profunda femoris vein at the junction with the common femoral vein are clear. The visualized calf veins are patent. IMPRESSION: There is no sonographic evidence of deep venous thrombosis identified in the left lower extremity. ACT 112: Negative or not required by law. Electronically signed by: Aiden Lin M.D. 07/17/2021 8:47 PM Discharge Plan Visit Data Chief Complaint: Swelling/Edema to Extremity Stated Complaint: FEVER,CHILLS,LEFT LEG SWELLING/PAINFUL/LOOKS INFEC ED Provider: Aiden Guidry Discharge Problem: Cellulitis of left leg, Left leg swelling, Leukocytosis, Failure of outpatient treatment Patient Disposition: Admitted As Inpatient Condition: Fair Forms Stand Alone Forms: My My Own Med Prescriptions Prescriptions: No Action albuterol sulfate 90 mcg/actuation Hfa Aerosol Inhaler 2 puff INHALATION Q4H PRN (Reason: sob/wheezing) RF: 0 aspirin 81 mg Tablet,Delayed Release (Dr/Ec) 81 mg PO QAM RF: 0 benzonatate 100 mg Capsule 100 mg PO TID PRN (Reason: Cough) RF: 0 cetirizine [Zyrtec] 10 mg Tablet 10 mg PO QAM PRN (Reason: Allergic Symptoms) RF: 0 duloxetine 60 mg Capsule,Delayed Release(Dr/Ec) 60 mg PO QAM RF: 0 famotidine 20 mg Tablet 20 mg PO BID RF: 0 furosemide [Lasix] 40 mg Tablet 40 mg PO QAM RF: 0 multivitamin Tablet 1 tab PO QAM RF: 0 potassium chloride 10 mEq Tablet Extended Release 10 meq PO QAM RF: 0 pregabalin [Lyrica] 75 mg Capsule 75 mg PO TID RF: 0 tamsulosin 0.4 mg Capsule 0.4 mg PO QAM RF: 0 finasteride 5 mg Tablet 5 mg PO QAM RF: 0 atorvastatin 80 mg tablet 40 mg PO QAM RF: 0 Referrals Referrals: Brian Titus MD [Primary Care Provider] -
[2021-07-17 20:01] LABS: Basophils # (auto) 0.02 K/uL (0-0.2); Basophils % (auto) 0.2 %; Eosinophils # (auto) 0.12 K/uL (0-0.5); Hematocrit (blood only) 44.7 % (42-52); Hemoglobin 15.1 g/dL (14.0-18.0); Immature Granulocytes # (auto) 0.02 K/uL (0.00-0.02); Immature Granulocytes % (auto) 0.2 %; Lymphocytes % (auto) 11.2 %; Mean Corpuscular Hemoglobin 31.4 pg (25-34); Mean Corpuscular Hgb Conc 33.8 g/dL (32-36); Mean Corpuscular Volume 92.9 fL (80-100); Mean Platelet Volume 9.9 fL (7.4-10.4); Monocytes # (auto) 1.02 K/uL (0.11-0.59); Monocytes % (auto) 8.8 %; Neutrophils # (auto) 9.09 K/uL (1.4-6.5); Neutrophils % (auto) 78.6 %; Platelet Count 186 K/uL (130-400); RDW Coefficient of Variation 14.4 % (11.5-14.5); Red Blood Count 4.81 M/uL (4.7-6.1); White Blood Count 11.57 K/uL (4.8-10.8)
[2021-07-17 20:12] LABS: Partial Thromboplastin Time 25.4 Seconds (21.0-31.0); Prothrombin Time 10.6 Seconds (9.0-12.0)
[2021-07-17 20:21] LABS: Albumin Level 3.4 gm/dl (3.4-5.0); BUN Creatinine Ratio 14.3 (10-20); Creatinine Clr Calc Pharmacy 72.2 ml/min; Est GFR (African American) 70.6 ml/min; Est GFR (Non-African American) 60.9 ml/min; Magnesium 1.9 mg/dl (1.8-2.4); Potassium 3.8 mmol/L (3.5-5.1)
[2021-07-17 20:24] LABS: Albumin Globulin Ratio 0.8 (0.9-2); Bilirubin,Total 0.9 mg/dl (0.2-1); Globulin 4.5 gm/dl (2.5-4.0); Total Protein 7.9 gm/dl (6.4-8.2)
--- NOTE | 2021-07-17 20:41 | CT Scan Report ---
CT SCAN OF THE LEFT FOOT WITHOUT IV CONTRAST CLINICAL HISTORY: Swelling and infection. COMPARISON STUDY: Left ankle radiographs dated 03/25/2020. Left foot radiographs dated 09/04/2017. TECHNIQUE: CT scan of the left foot is performed from the distal tibia and fibula to the base of the foot. Images are reviewed in the axial, sagittal, and coronal planes. IV contrast was not administer ed for this examination. A dose lowering technique was utilized adhering to the principles of ALARA. Note that interpretation is suboptimal without current plain film correlate. CT DOSE: 379.04 mGy.cm FINDINGS: The skeletal structures are osteopenic. No fracture is seen. There is no bony erosion or pe riostitis. An os trigonum is incidentally noted. There is a plantar calcaneal enthesophyte. Degenerat jcarlos spurring is seen along the dorsal aspect of the tarsal bones. Degenerative change is seen at the tibiotalar articulation and throughout the foot. There is an ankle joint effusion. Diffuse superficia l and deep soft tissue edema is present throughout the ankle and foot with associated subcutaneous fl uid. A wound with dermal thickening suggested along the plantar aspect of the medial midfoot. There i s associated dermal thickening and infiltration. There is no evidence of organized fluid collection t o suggest abscess. No soft tissue gas or radiodense foreign body is identified. The Achilles tendon i s intact as visualized. There is calcific tendinopathy of the tibialis posterior tendon. Generalized atrophy is observed in the regional musculature. IMPRESSION: 1. No acute bony abnormality is identified. 2. Diffuse soft tissue edema is seen throughout the foot and ankle. Correlate clinically for evidence of cellulitis. No organized fluid collection is seen to suggest abscess. 3. A cutaneous ulceration/wound with overlying dermal thickening is suggested along the plantar aspec t of the medial midfoot. Correlate clinically. 4. Ankle joint effusion. 5. Osteopenia and degenerative change as above. ACT 112: Negative or not required by law. Electronically signed by: Aiden Lin M.D. 07/17/2021 8:40 PM
--- NOTE | 2021-07-17 20:49 | Ultrasound Report ---
ULTRASOUND LEFT LOWER EXTREMITY VENOUS CLINICAL HISTORY: Left leg swelling. COMPARISON STUDY: No priors. TECHNIQUE: Real-time, grayscale, and color Doppler sonography of the deep veins of the left lower ext remity was performed from the inguinal crease to the calf. Compression and augmentation were utilized . FINDINGS: There is no sonographic evidence of deep venous thrombosis identified in the left lower ext remity. The common femoral, superficial femoral, and popliteal veins are patent and normally compress ible. The greater saphenous vein and the profunda femoris vein at the junction with the common femora l vein are clear. The visualized calf veins are patent. IMPRESSION: There is no sonographic evidence of deep venous thrombosis identified in the left lower e xtremity. ACT 112: Negative or not required by law. Electronically signed by: Aiden Lin M.D. 07/17/2021 8:47 PM
[2021-07-17] MEDS ORDERED: VANCOMYCIN CONSULT ACTIVE PRN (21:19)
[2021-07-17] MEDS ORDERED: VANCOMYCIN HCL 2,750 MG in SODIUM CHLORIDE 0.9% 500 ML IV ONE (21:19)
--- NOTE | 2021-07-17 22:02 | History & Physical Report ---
Date of Service July 17, 2021 Assessment & Plan (1) Sepsis: Plan: Secondary to ascending LLE cellulitis secondary to infected chronic left foot ulcer hx chronic left foot ulcer secondary to Charcot deformity secondary to peripheral neuropathy. 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 Ms. Aiyana Banks, contact #[phone]. Text document was generated using [employer] voice recognition software. It may contain grammatical or spelling errors. Kindly contact undersigned for clarification of any documentation item in question. History of Present Illness Chief Complaint: Left leg swelling Primary Care Provider: Brian Titus MD History obtained from patient, family, and records. Medical history significant for hypertension, hyperlipidemia, PAF, PVD, NEMESIO on CPAP, BPH, chronic left foot ulcer secondary to Charcot deformity secondary to peripheral neuropathy. Last confinement February 2019 for sepsis secondary to pneumonia. Patient has had a chronic left foot ulcer for years now attributed to Charcot deformity from peripheral neuropathy. Patient confined August 2017 for sepsis secondary to infected left foot ulcer/cellulitis. Wound CS grew MRSA (resistant to oxacillin, tetracycline, clindamycin; sensitive to Bactrim, vancomycin, daptomycin, rifampin). Patient seen 2 weeks ago at [facility] environmental services attendant office for left foot ulcer recheck. Increased swelling of left leg as per note. Open wound debridement performed. Offloading option including return to total contact cast recommended but patient declined as per note. Few days ago, patient seen at PCPs office for worsening swelling of the leg of leg, scant left foot wound drainage as per patient. Patient prescribed Keflex course. Outpatient ESR and CRP elevated. Outpatient foot x-ray requested. Outpatient ABIs of the lower extremities as follows : TERI at rest is 1.2 on the right and 1.3 on the left. Calcification and non-compressible vessels may render the ABIs unreliable. Non- compressible right great toe and decreased amplitude in PPG tracings suggestive of small vessel disease. For the right lower extremity: Lower extremity Doppler Evaluation is normal at rest with no evidence of significant arterial occlusive disease. Great toe pressure was non-compressible. PPG tracing of the great toe has decreased amplitude. For the left lower extremity: Lower extremity Doppler Evaluation is normal at rest with no evidence of significant arterial occlusive disease. Great toe pressure is 136. PPG tracing of the great toe has decreased amplitude. Patient later noted unimproved left leg swelling along with fever chills. No chest pain, no S OB. At the ER, patient received Vancomycin and Cefepime for sepsis. 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 Allergies Allergy/AdvReac Type Severity Reaction Status Date / Time No Known Allergies Allergy Verified 07/17/21 19:30 Home Medications Medication Instructions Recorded Confirmed Type albuterol sulfate 90 mcg/actuation 2 puff INHALATION Q4H PRN 02/16/19 07/17/21 History aerosol inhaler aspirin 81 mg tablet,delayed 81 mg PO QAM 02/16/19 07/17/21 History release benzonatate 100 mg capsule 100 mg PO TID PRN 02/16/19 07/17/21 History cetirizine 10 mg tablet (Zyrtec) 10 mg PO QAM PRN 02/16/19 07/17/21 History duloxetine 60 mg capsule,delayed 60 mg PO QAM 02/16/19 07/17/21 History release famotidine 20 mg tablet 20 mg PO BID 02/16/19 07/17/21 History furosemide 40 mg tablet (Lasix) 40 mg PO QAM 02/16/19 07/17/21 History multivitamin 1 tab PO QAM 02/16/19 07/17/21 History potassium chloride 10 mEq 10 meq PO QAM 02/16/19 07/17/21 History tablet,extended release finasteride 5 mg tablet 5 mg PO QAM 12/11/19 07/17/21 History pregabalin 75 mg capsule (Lyrica) 75 mg PO TID 12/11/19 07/17/21 History tamsulosin 0.4 mg capsule 0.4 mg PO QAM 12/11/19 07/17/21 History atorvastatin 80 mg tablet 40 mg PO QAM 07/17/21 07/17/21 History Past Med/Surg History Medical History (Updated 07/18/21 @ 04:39 by Armando Barnhart MD) Aortic root dilatation "CT 09/03/17 5 cm at the sinuses of Valsalva" BPH (benign prostatic hyperplasia) Coronary artery disease "no clinical history of AK or angina, but extensive coronary calcifications noted on CT chest 09/03/17" Essential hypertension HLD (hyperlipidemia) Kidney stones Neuropathy Pulmonary nodule "CT 09/03/17 6 mm nodule RUL; CT 09/28/00 5 x 8 mm nodule superior segment RLL" Sleep apnea "CPAP" Umbilical hernia Surgical History History of colonoscopy X MULTIPLE History of right cataract surgery Status post bilateral knee replacements Status post inguinal hernia repair Status post lumbar surgery Status post tonsillectomy Family History Other No significant family history Social History Smoking Status: Never smoker Second Hand Exposure: No; Hx Alcohol Use: Yes Alcohol type: hard liquor Hx Substance Use: No Preferred Language: [place] Communication Ability: Effective Digital Content Coordinator Required: No Beliefs That Will Affect Care: None Current Living Situation: Spouse Other Information That Helps Us Care for You: No Feels Safe at Home: Yes Safety Concerns: Feels Safe At This Time Assistive Devices: None Review of Systems Review of Systems: As per HPI, all 10 systems reviewed, all other ROS negative Physical Exam Physical Exam: GENERAL: Comfortable, obese, no respiratory distress SKIN: Normal color, warm HEENT: Alopecia, [place] palpebral conjunctivae, no ptosis, dry buccal mucosa NECK : Supple, short neck, no tenderness CHEST : CTA, no tenderness HEART : RRR, no obvious murmurs ABDOMEN: Some distention, nontender EXTREMITIES : Indurated LLE with minimal tenderness, ulcerated wound, left foot medial plantar aspect with scant drainage NEUROLOGIC : Coherent, no facial asymmetry, no other gross focality Results & Data Results & Data ([facility]) Vital Signs (Past 12 Hours) Vital Signs Temp Pulse Resp BP Pulse Ox 07/17/21 21:00 94 H 19 124/82 96 08/28/21 20:53 93 H 22 126/85 96 07/17/21 20:52 37.7 C H 07/17/21 20:07 96 H 18 96 07/17/21 19:16 37.8 C H 102 H 20 151/95 H 97 07/17/21 17:54 96 H 21 128/85 97 Laboratory Results Laboratory Results WBC 11.57 K/uL (4.8-10.8) H 07/17/21 19:48 RBC 4.81 M/uL (4.7-6.1) 07/17/21 19:48 Hgb 15.1 g/dL (14.0-18.0) 07/17/21 19:48 Hct 44.7 % (42-52) 07/17/21 19:48 MCV 92.9 fL (80-100) 07/17/21 19:48 MCH 31.4 pg (25-34) 07/17/21 19:48 MCHC 33.8 g/dL (32-36) 07/17/21 19:48 RDW Std Deviation 49.0 fL (36.4-46.3) H 07/17/21 19:48 RDW Coeff of Claribel 14.4 % (11.5-14.5) 07/17/21 19:48 Plt Count 186 K/uL (130-400) 07/17/21 19:48 MPV 9.9 fL (7.4-10.4) 07/17/21 19:48 Immature Gran % (Auto) 0.2 % 07/17/21 19:48 Neut % (Auto) 78.6 % 07/17/21 19:48 Lymph % (Auto) 11.2 % 07/17/21 19:48 [place] % (Auto) 8.8 % 07/17/21 19:48 Eos % (Auto) 1.0 % 07/17/21 19:48 Baso % (Auto) 0.2 % 07/17/21 19:48 Neut # (Auto) 9.09 K/uL (1.4-6.5) H 07/17/21 19:48 Lymph # (Auto) 1.30 K/uL (1.2-3.4) 07/17/21 19:48 [place] # (Auto) 1.02 K/uL (0.11-0.59) H 07/17/21 19:48 Eos # (Auto) 0.12 K/uL (0-0.5) 07/17/21 19:48 Baso # (Auto) 0.02 K/uL (0-0.2) 07/17/21 19:48 Immature Gran # (Auto) 0.02 K/uL (0.00-0.02) 07/17/21 19:48 PT 10.6 Seconds (9.0-12.0) 07/17/21 19:48 INR 1.0 (0.9-1.1) 07/17/21 19:48 APTT 25.4 Seconds (21.0-31.0) 07/17/21 19:48 PTT Ratio 1.0 07/17/21 19:48 Sodium 135 mmol/L (136-145) L 07/17/21 19:48 Potassium 3.8 mmol/L (3.5-5.1) 07/17/21 19:48 Chloride 102 mmol/L (98-107) 07/17/21 19:48 Carbon Dioxide 28 mmol/L (21-32) 07/17/21 19:48 Anion Gap 6.0 (3-11) 07/17/21 19:48 BUN 17 mg/dl (7-18) 07/17/21 19:48 Creatinine 1.20 mg/dl (0.6-1.4) 07/17/21 19:48 Est Cr Clr Drug Dosing 72.2 ml/min 07/17/21 19:48 Est GFR ( Amer) 70.6 ml/min 07/17/21 19:48 Est GFR (Non-Af Amer) 60.9 ml/min 07/17/21 19:48 BUN/Creatinine Ratio 14.3 (10-20) 07/17/21 19:48 Glucose 114 mg/dl (70-99) H 07/17/21 19:48 Lactate 1.1 mmol/L (0.4-2.0) 07/17/21 19:48 Calcium 9.0 mg/dl (8.5-10.1) 07/17/21 19:48 Magnesium 1.9 mg/dl (1.8-2.4) 07/17/21 19:48 Total Bilirubin 0.9 mg/dl (0.2-1) 07/17/21 19:48 AST 19 U/L (15-37) 07/17/21 19:48 ALT 28 U/L (12-78) 07/17/21 19:48 Alkaline Phosphatase 120 U/L (45-117) H 07/17/21 19:48 Total Protein 7.9 gm/dl (6.4-8.2) 07/17/21 19:48 Albumin 3.4 gm/dl (3.4-5.0) 07/17/21 19:48 Globulin 4.5 gm/dl (2.5-4.0) H 07/17/21 19:48 Albumin/Globulin Ratio 0.8 (0.9-2) L 07/17/21 19:48 Procalcitonin < 0.05 ng/ml (0-0.5) 07/17/21 19:48 COVID-19 Eval Order Covid19 at [facility] 07/17/21 20:05 SARS-CoV-2 (PCR) NEGATIVE (Negative) 07/17/21 20:[address] 07/17/21 19:27 CT SCAN OF THE LEFT FOOT WITHOUT IV CONTRAST CLINICAL HISTORY: Swelling and infection. COMPARISON STUDY: Left ankle radiographs dated 03/25/2020. Left foot radiographs dated 09/04/2017. TECHNIQUE: CT scan of the left foot is performed from the distal tibia and fibula to the base of the foot. Images are reviewed in the axial, sagittal, and coronal planes. IV contrast was not administered for this examination. A dose lowering technique was utilized adhering to the principles of ALARA. Note that interpretation is suboptimal without current plain film correlate. CT DOSE: 379.04 mGy.cm FINDINGS: The skeletal structures are osteopenic. No fracture is seen. There is no bony erosion or periostitis. An os trigonum is incidentally noted. There is a plantar calcaneal enthesophyte. Degenerative spurring is seen along the dorsal aspect of the tarsal bones. Degenerative change is seen at the tibiotalar articulation and throughout the foot. There is an ankle joint effusion. Diffuse superficial and deep soft tissue edema is present throughout the ankle and foot with associated subcutaneous fluid. A wound with dermal thickening suggested along the plantar aspect of the medial midfoot. There is associated dermal thickening and infiltration. There is no evidence of organized fluid collection to suggest abscess. No soft tissue gas or radiodense foreign body is identified. The Achilles tendon is intact as visualized. There is calcific tendinopathy of the tibialis posterior tendon. Generalized atrophy is observed in the regional musculature. IMPRESSION: 1. No acute bony abnormality is identified. 2. Diffuse soft tissue edema is seen throughout the foot and ankle. Correlate clinically for evidence of cellulitis. No organized fluid collection is seen to suggest abscess. 3. A cutaneous ulceration/wound with overlying dermal thickening is suggested along the plantar aspect of the medial midfoot. Correlate clinically. 4. Ankle joint effusion. 5. Osteopenia and degenerative change as above. ACT 112: Negative or not required by law. Electronically signed by: Aiden Lin M.D. 07/17/2021 8:40 PM Venous Doppler Study 07/17/21 19:27 ULTRASOUND LEFT LOWER EXTREMITY VENOUS CLINICAL HISTORY: Left leg swelling. COMPARISON STUDY: No priors. TECHNIQUE: Real-time, grayscale, and color Doppler sonography of the deep veins of the left lower extremity was performed from the inguinal crease to the calf. Compression and augmentation were utilized. FINDINGS: There is no sonographic evidence of deep venous thrombosis identified in the left lower extremity. The common femoral, superficial femoral, and popliteal veins are patent and normally compressible. The greater saphenous vein and the profunda femoris vein at the junction with the common femoral vein are clear. The visualized calf veins are patent. IMPRESSION: There is no sonographic evidence of deep venous thrombosis identified in the left lower extremity. ACT 112: Negative or not required by law. Electronically signed by: Aiden Lin M.D. 07/17/2021 8:47 PM Diagnostic Findings EKG as per my interpretation rate 100, NSR, LAD, LAFB, incomplete RBBB, T wave abnormality septal leads
[2021-07-18] MEDS ORDERED: PROMETHAZINE HCL 12.5 MG in SODIUM CHLORIDE 0.9% 50 ML IV PRN (00:44)
[2021-07-18] MEDS ORDERED: ACETAMINOPHEN 325 MG TAB PO PRN (00:44)
[2021-07-18] MEDS ORDERED: CETIRIZINE HCL 10 MG TABLET PO PRN (00:44)
[2021-07-18] MEDS ORDERED: LORazepam 0.25 MG/0.5 ML VIAL IV PRN (00:44)
[2021-07-18] MEDS ORDERED: traMADol HCL 50 MG TABLET PO PRN (00:44)
[2021-07-18] MEDS ORDERED: CEFEPIME CONSULT ACTIVE PRN (00:44)
[2021-07-18] MEDS ORDERED: NSS + 20MEQ KCL 20 MEQ/1,000 ML BAG IV ONE (01:45)
[2021-07-18] MEDS: DAPTOmycin 400 MG in SYRINGE 0 ML IV SCH (05:31)
[2021-07-18 07:41] LABS: Basophils # (auto) 0.02 K/uL (0-0.2); Basophils % (auto) 0.2 %; Eosinophils # (auto) 0.08 K/uL (0-0.5); Eosinophils % (auto) 0.8 %; Hematocrit (blood only) 42.1 % (42-52); Hemoglobin 14.1 g/dL (14.0-18.0); Immature Granulocytes # (auto) 0.02 K/uL (0.00-0.02); Immature Granulocytes % (auto) 0.2 %; Lymphocytes # (auto) 1.12 K/uL (1.2-3.4); Lymphocytes % (auto) 11.2 %; Mean Corpuscular Hemoglobin 31.1 pg (25-34); Mean Corpuscular Hgb Conc 33.5 g/dL (32-36); Mean Corpuscular Volume 92.9 fL (80-100); Mean Platelet Volume 10.3 fL (7.4-10.4); Monocytes # (auto) 0.96 K/uL (0.11-0.59); Monocytes % (auto) 9.6 %; Neutrophils # (auto) 7.79 K/uL (1.4-6.5); Platelet Count 185 K/uL (130-400); RDW Coefficient of Variation 14.6 % (11.5-14.5); RDW Standard Deviation 49.2 fL (36.4-46.3); Red Blood Count 4.53 M/uL (4.7-6.1); White Blood Count 9.99 K/uL (4.8-10.8)
[2021-07-18 08:17] LABS: BUN Creatinine Ratio 17.1 (10-20); Calcium 8.2 mg/dl (8.5-10.1); Creatinine Clr Calc Pharmacy 121.4 ml/min; Est GFR (African American) 104.9 ml/min; Est GFR (Non-African American) 90.5 ml/min; Potassium 3.7 mmol/L (3.5-5.1)
[2021-07-18] MEDS: CEFEPIME 2,000 MG in SYRINGE 0 ML IV SCH ×2 (08:44→19:59)
[2021-07-18] MEDS: TAMSULOSIN HCL 0.4 MG CAP PO SCH (08:45)
[2021-07-18] MEDS: FINASTERIDE 5 MG TAB PO SCH (08:45)
[2021-07-18] MEDS: ASPIRIN 81 MG ECTAB PO SCH (08:46)
[2021-07-18] MEDS: ENOXAPARIN INJ 40 MG/0.4 ML SYR SQ SCH (08:46)
[2021-07-18] MEDS: DULoxetine HCL 60 MG CAP PO SCH (08:46)
[2021-07-18] MEDS: MULTIVITAMIN TAB PO SCH (08:46)
[2021-07-18] MEDS ORDERED: DOXYCYCLINE HYCLATE 100 MG CAP PO SCH (09:00)
[2021-07-18] MEDS ORDERED: ATORVASTATIN 40 MG TAB PO SCH (09:00)
[2021-07-18] MEDS: FAMOTIDINE 20 MG TAB PO SCH ×2 (09:21→20:04)
[2021-07-18] MEDS: PREGABALIN 75 MG CAP PO SCH ×3 (09:21→20:04)
--- NOTE | 2021-07-18 13:16 | Magnetic Resonance Report ---
MR foot LT w/o con HISTORY: L foot swellling/wound ro osteomyelitis TECHNIQUE: Multiplanar multisequence MRI of the left foot was performed without contrast according to standard departmental protocol. Initial examination was ordered as a contrast study. However, the pa faviola was unable to tolerate the entire examination. COMPARISON STUDY: Left foot CT 07/09/2021. FINDINGS: There is 1.6 cm skin ulceration along the plantar medial aspect of the midfoot. No underlyi ng bony signal abnormality or destruction to suggest an osteomyelitis. There is moderate osteoarthrit is at the first tarsometatarsal joint and majority by joint space narrowing and subchondral cystic ch yuki. There is moderate osteoarthritis within the visualized subtalar joint. No fracture or dislocati on within the forefoot. Extensive soft tissue edema seen throughout the forefoot most pronounced dors ally. No loculated fluid collections on this noncontrast study to suggest an abscess. There is also m oderate osteoarthrosis of the first MTP joint. IMPRESSION: 1. No evidence for osteomyelitis within the right forefoot. 2. A 1.6 cm skin ulceration at the plantar medial aspect of the midfoot. 3. Moderate osteoarthritis at described above. 4. Extensive dorsal subcutaneous edema. No loculated fluid collections to suggest an abscess. ACT 112: Negative or not required by law. Electronically signed by: Jeremie Zamarripa M.D. 07/18/2021 1:15 PM
--- NOTE | 2021-07-18 14:19 | Hospitalist Progress Note ---
Date of Service July 18, 2021 Assessment & Plan (1) Sepsis: Plan: Sepsis Left lower extremity cellulitis Chronic left foot Plantar ulceration H/O Chronic left foot ulcer secondary to Charcot deformity/Peripheral neuropathy. H/O Recurrent infection H/O MRSA -Foot MRI:No evidence for osteomyelitis within the right forefoot. A 1.6 cm skin ulceration at the plantar medial aspect of the midfoot. Moderate osteoarthritis at described above. Extensive dorsal subcutaneous edema. No loculated fluid collections to suggest an abscess. -Foot CT:No acute bony abnormality is identified. Diffuse soft tissue edema is seen throughout the foot and ankle. Correlate clinically for evidence of cellulitis. No organized fluid collection is seen to suggest abscess. A cutaneous ulceration/wound with overlying dermal thickening is suggested along the plantar aspect of the medial midfoot. Correlate clinically. Ankle joint effusion. Osteopenia and degenerative change as above. -Venous Doppler: There is no sonographic evidence of deep venous thrombosis identified in the left lower extremity. -Blood/Wound cultures:pending -Continue daptomycin, cefepime -Orthopedics Consulted Hypertension P.AF As per records Currently not on meds H/O PVD S/P stable thoracic aneurysm from recent January 2021 Follows with Cardiology Continue aspirin, statin Monitor is normal Continue on duloxetine Peripheral neuropathy Continue Lyrica DVT Px: Lovenox SQ Code Status Full code Admission and Anticipated Discharge Date Admission Date: July 17, 2021 Subjective Patient is seen and examined at bedside States having left leg pain, swelling Also reports minimal cough Otherwise feels well Denies chest pain, dyspnea, dizziness, nausea, abdominal pain Review of Systems Review of Systems: All systems reviewed & are unremarkable except as noted in Subjective Physical Exam Physical Exam: Physical Exam: Vitals signs as noted above General Appearance:Obese, no apparent distress Head: normocephalic, Atraumatic Eyes: normal inspection, EOMI, PERRL Neck: supple, Trachea midline Respiratory/Chest: Normal breath sounds, CTA, No accessory muscle use Cardiovascular: S1, S2, No murmur Abdomen/GI:Soft, Non tender, Bowel sounds present Extremities/Musculoskeletal:normal inspection, left lower extremity erythema, swelling, mild tenderness, ulcerated wound on left plantar foot Neurologic/Psych:AAOX3, grossly no focal neurological deficits Skin: normal color, warm Results & Data Results & Data ([facility]) Vital Signs (Past 12 Hours) Vital Signs Temp Pulse Resp BP Pulse Ox 07/18/21 07:45 36.7 C 85 18 125/79 94 Laboratory Results Short CBC 07/17/21 07/18/21 Range/Units 19:48 06:42 WBC 11.57 H 9.99 (4.8-10.8) K/uL Hgb 15.1 14.1 (14.0-18.0) g/dL Hct 44.7 42.1 (42-52) % Plt Count 186 185 (130-400) K/uL BMP 07/17/21 07/18/21 19:48 06:42 Sodium 135 L 137 Potassium 3.8 3.7 Chloride 102 107 Carbon Dioxide 28 25 BUN 17 14 Creatinine 1.20 0.80 D Glucose 114 H 108 H Calcium 9.0 8.2 L Liver Function 07/17/21 Range/Units 19:48 Total Bilirubin 0.9 (0.2-1) mg/dl AST 19 (15-37) U/L ALT 28 (12-78) U/L Alkaline Phosphatase 120 H (45-117) U/L Albumin 3.4 (3.4-5.0) gm/dl
[2021-07-18] MEDS: BENZONATATE 100 MG CAPSULE PO SCH ×2 (14:31→20:04)
--- NOTE | 2021-07-18 23:06 | Electrocardiogram Report ---
Test Reason : Blood Pressure : / mmHG Vent. Rate : 099 BPM Atrial Rate : 099 BPM P-R Int : 170 ms QRS Dur : 126 ms QT Int : 368 ms P-R-T Axes : -26 -54 087 degrees QTc Int : 472 ms Normal sinus rhythm Left axis deviation Non-specific intra-ventricular conduction block Abnormal ECG When compared with ECG of 16-FEB-2019 09:50, Inverted T waves have replaced nonspecific T wave abnormality in Lateral leads Confirmed by Raheel Monterroso ([id number]) on 07/18/2021 11:05:44 PM Referred By: REFERRED SELF Confirmed By:Raheel Monterroso
--- NOTE | 2021-07-19 02:02 | Consultation Report ---
PERTINENT HISTORY: This is a 70-year-old gentleman seen at the request of the medical service regard ing chronic left foot ulceration with cellulitis. The patient had ongoing neuropathy for over 15 yea rs without confirmed diabetes mellitus. He has been under the care of a local national secretary with conser vative management and some intermittent debridement. He noticed severe, worsened redness and swellin g of the left lower extremity. He had some scant left foot drainage without significant odor. He wa s seen in his primary care physician's office who prescribed Keflex and with an outpatient sed rate a nd CRP, which was noted to be elevated. Outpatient foot x-ray requested. He had ABIs at rest, 1.2 o n the right, 1.3 on the left. Calcification noncompressible vessels noted. Noncompressible right gr eat toe and decreased amplitude and PPG tracing suggests a small vessel disease. He had continued sw elling and redness in the left lower extremity with fever and chills. He then presented to the Emerg ency Department, he was placed on vancomycin and cefepime. Admitted to the hospitalist service with orthopedics to consult. PAST MEDICAL HISTORY: Hypertension, hyperlipidemia, PAF, PVD, NEMESIO on CPAP, BPH, chronic left foot ul ceration secondary to Charcot arthropathy with peripheral neuropathy. Chronic recurrent foot ulcerat ion, left with foot deformity Charcot. History of MRSA. PAST SURGICAL HISTORY: Knee replacement, cataract surgery, cystoscopy, ureteroscopy, lithotripsy, ex ploration for undescended testes, T and A, inguinal hernia repair, lumbar surgery. ALLERGIES: No known drug allergies. MEDICATIONS: Please note, the medications in the medical record. SOCIAL HISTORY: Denies tobacco use. He drinks alcohol 1-3 drinks, intermittent. No drug use. He is . He is disabled and retired. PHYSICAL EXAMINATION: GENERAL: This is a well-nourished, well-hydrated 70-year-old gentleman, alert and oriented x3, lying supine in his hospital room bed. Conversant. He is obese. EXTREMITIES: Focused exam of the lower extremities demonstrates significant cellulitis and a 3+/4 ed therese, left lower extremity. He has an ulceration on the plantar medial aspect of the left foot measur ing approximately 2.5 cm in diameter. This penetrates the epidermis and into the dermis. There is n o exposed fat or deeper soft tissue in the left foot ulceration. Scant discharge, no odor. Posterio r tibial pulse is 2/4, obscured by edema. Dorsalis pedis pulse is nonpalpable. This foot is warm, h e has sensation to the level of the ankle. He has severely diminished sensation at the mid foot and little to no sensation at the toes. He has multiple claw toe deformities. He has severe planovalgus deformity of the foot with a rocker bottom deformity at the midfoot and hindfoot junction. He has a palpable plantar directed talar head and navicular. He has an Achilles contracture on the left comp ared to the right, and limitation of mobility, particularly with inversion and eversion on the left c ompared to the right. 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 He also has a hallux interphalangeus with deformity at the interphalangeal joint of the great toe. LABORATORY DATA: Laboratories and radiographs as well as CT scan and MRI of the left foot reviewed. No obvious abscess fluid collection. He has significant Charcot arthropathy with severe pes planova lgus deformity of the hindfoot. Multiple claw toes. No obvious abscess. Soft tissue edema and like ly cellulitis throughout the mid foot and hindfoot. IMPRESSION: 1. Left foot neuropathic plantar ulcer measuring 2.5 cm in diameter. 2. Posterior tibial tendon dysfunction grade 3. 3. Cellulitis. 4. Charcot arthropathy. 5. Chronic Achilles contracture. 6. Claw toe deformities, 2, 3, 4 and 5 toes with hallux interphalangeus of the great toe. RECOMMENDATION: Continue IV antibiotics. Monitor ulceration with daily dressing changes. Limit robinson ghtbearing to heel weightbearing on the left for transfers only. The patient will likely require hin dfoot reconstruction and claw toe correction once the cellulitis is controlled. The patient should b e reassessed in the office as an outpatient after discharge from the hospital. Recommend a walking b oot with unloading of the plantar medial ulceration, left foot upon discharge. Thank you for the opportunity to consult in care of this patient. Job ID: [id number]
[2021-07-19] MEDS: DAPTOmycin 400 MG in SYRINGE 0 ML IV SCH (05:17)
[2021-07-19 06:44] LABS: Hemoglobin 13.4 g/dL (14.0-18.0); Mean Corpuscular Hgb Conc 33.5 g/dL (32-36); Mean Corpuscular Volume 92.6 fL (80-100); Mean Platelet Volume 9.7 fL (7.4-10.4); Platelet Count 164 K/uL (130-400); RDW Coefficient of Variation 14.4 % (11.5-14.5); RDW Standard Deviation 49.2 fL (36.4-46.3); Red Blood Count 4.32 M/uL (4.7-6.1); White Blood Count 9.58 K/uL (4.8-10.8)
[2021-07-19 07:20] LABS: BUN Creatinine Ratio 17.2 (10-20); Calcium 8.7 mg/dl (8.5-10.1); Creatinine Clr Calc Pharmacy 112.9 ml/min; Est GFR (African American) 101.8 ml/min; Est GFR (Non-African American) 87.9 ml/min
[2021-07-19 08:09] LABS: Estimated Average Glucose 123 mg/dl; Hemoglobin A1C 5.9 % (4.5-5.6)
[2021-07-19] MEDS: MULTIVITAMIN TAB PO SCH (08:32)
[2021-07-19] MEDS: CEFEPIME 2,000 MG in SYRINGE 0 ML IV SCH ×2 (08:32→19:29)
[2021-07-19] MEDS: TAMSULOSIN HCL 0.4 MG CAP PO SCH (08:33)
[2021-07-19] MEDS: ENOXAPARIN INJ 40 MG/0.4 ML SYR SQ SCH (08:33)
[2021-07-19] MEDS: FINASTERIDE 5 MG TAB PO SCH (08:33)
[2021-07-19] MEDS: ASPIRIN 81 MG ECTAB PO SCH (08:34)
[2021-07-19] MEDS: DULoxetine HCL 60 MG CAP PO SCH (08:34)
[2021-07-19] MEDS: BENZONATATE 100 MG CAPSULE PO SCH ×3 (08:34→20:07)
[2021-07-19] MEDS: FUROSEMIDE 40 MG TAB PO SCH (10:12)
[2021-07-19] MEDS: FAMOTIDINE 20 MG TAB PO SCH ×2 (10:12→20:07)
[2021-07-19] MEDS: PREGABALIN 75 MG CAP PO SCH ×3 (10:12→20:07)
[2021-07-19] MEDS: POTASSIUM CHLORIDE 10 MEQ TABCR PO SCH (10:12)
--- NOTE | 2021-07-19 16:35 | Hospitalist Progress Note ---
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 H/O Recurrent infection H/O MRSA -Foot MRI:No evidence for osteomyelitis within the right forefoot. A 1.6 cm skin ulceration at the plantar medial aspect of the midfoot. Moderate osteoarthritis at described above. Extensive dorsal subcutaneous edema. No loculated fluid collections to suggest an abscess. -Foot CT:No acute bony abnormality is identified. Diffuse soft tissue edema is seen throughout the foot and ankle. Correlate clinically for evidence of cellulitis. No organized fluid collection is seen to suggest abscess. A cutaneous ulceration/wound with overlying dermal thickening is suggested along the plantar aspect of the medial midfoot. Correlate clinically. Ankle joint effusion. Osteopenia and degenerative change as above. -Venous Doppler: There is no sonographic evidence of deep venous thrombosis identified in the left lower extremity. -Blood Culture: Negative to date -Wound culture:Gram Negative bacilli -Continue daptomycin, cefepime -Appreciate Orthopedics Input -Daily dressing change Heel weightbearing on left lower extremity for transfers only Patient needs hindfoot reconstruction and claw toe correction eventually Needs follow-up with orthopedics upon discharge Walking boot for ambulation Hypertension P.AF As per records Currently not on meds H/O PVD S/P stable thoracic aneurysm from recent January 2021 Follows with Cardiology Continue aspirin, statin Mood disorder Continue duloxetine Peripheral neuropathy Continue Lyrica DVT Px: Lovenox SQ Code Status Full code Admission and Anticipated Discharge Date Admission Date: July 17, 2021 Subjective Patient is seen and examined at bedside Persistent left leg pain, swelling No new complaints Denies chest pain, dyspnea, dizziness, nausea, abdominal pain Review of Systems Review of Systems: All systems reviewed & are unremarkable except as noted in Subjective Physical Exam Physical Exam: Physical Exam: Vitals signs as noted above General Appearance:Obese, no apparent distress Head: normocephalic, Atraumatic Eyes: normal inspection, EOMI Neck: supple, Trachea midline Respiratory/Chest: Normal breath sounds, CTA, No accessory muscle use Cardiovascular: S1, S2, No murmur Abdomen/GI:Soft, Non tender, Bowel sounds present Extremities/Musculoskeletal:normal inspection, left lower extremity erythema, swelling, mild tenderness, ulcerated wound on left plantar foot Neurologic/Psych:AAOX3, grossly no focal neurological deficits Skin: normal color, warm Results & Data Results & Data ([facility]) Vital Signs (Past 12 Hours) Vital Signs Temp Pulse Resp BP Pulse Ox 07/19/21 15:17 36.4 C L 85 18 100/61 94 07/19/21 07:23 36.8 C 77 18 106/71 95 Laboratory Results Short CBC 07/19/21 Range/Units 06:32 WBC 9.58 (4.8-10.8) K/uL Hgb 13.4 L (14.0-18.0) g/dL Hct 40.0 L (42-52) % Plt Count 164 (130-400) K/uL BMP 07/19/21 06:32 Sodium 134 L Potassium 4.0 Chloride 106 Carbon Dioxide 25 BUN 15 Creatinine 0.86 Glucose 110 H Calcium 8.7
[2021-07-20] MEDS: DAPTOmycin 400 MG in SYRINGE 0 ML IV SCH (05:07)
[2021-07-20] MEDS: CEFEPIME 2,000 MG in SYRINGE 0 ML IV SCH ×2 (08:10→19:32)
[2021-07-20] MEDS: ENOXAPARIN INJ 40 MG/0.4 ML SYR SQ SCH (08:10)
[2021-07-20] MEDS: MULTIVITAMIN TAB PO SCH (08:11)
[2021-07-20] MEDS: POTASSIUM CHLORIDE 10 MEQ TABCR PO SCH (08:11)
[2021-07-20] MEDS: FUROSEMIDE 40 MG TAB PO SCH (08:11)
[2021-07-20] MEDS: ASPIRIN 81 MG ECTAB PO SCH (08:11)
[2021-07-20] MEDS: FINASTERIDE 5 MG TAB PO SCH (08:11)
[2021-07-20] MEDS: TAMSULOSIN HCL 0.4 MG CAP PO SCH (08:12)
[2021-07-20] MEDS: BENZONATATE 100 MG CAPSULE PO SCH ×3 (08:12→20:27)
[2021-07-20] MEDS: DULoxetine HCL 60 MG CAP PO SCH (08:12)
[2021-07-20] MEDS: FAMOTIDINE 20 MG TAB PO SCH ×3 (08:13→20:27)
[2021-07-20] MEDS: PREGABALIN 75 MG CAP PO SCH ×3 (08:13→20:27)
--- NOTE | 2021-07-20 08:20 | Hospitalist Progress Note ---
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 H/O Recurrent infection H/O MRSA -Foot MRI:No evidence for osteomyelitis within the right forefoot. A 1.6 cm skin ulceration at the plantar medial aspect of the midfoot. Moderate osteoarthritis at described above. Extensive dorsal subcutaneous edema. No loculated fluid collections to suggest an abscess. -Foot CT:No acute bony abnormality is identified. Diffuse soft tissue edema is seen throughout the foot and ankle. Correlate clinically for evidence of cellulitis. No organized fluid collection is seen to suggest abscess. A cutaneous ulceration/wound with overlying dermal thickening is suggested along the plantar aspect of the medial midfoot. Correlate clinically. Ankle joint effusion. Osteopenia and degenerative change as above. -Venous Doppler: There is no sonographic evidence of deep venous thrombosis identified in the left lower extremity. -Blood Culture: Negative to date -Wound culture: Preliminary culture growing Serratia -Continue cefepime -Will discontinue Daptomycin -Appreciate Orthopedics Input -Daily dressing change Heel weightbearing on left lower extremity for transfers only Patient needs hindfoot reconstruction and claw toe correction eventually Needs follow-up with orthopedics upon discharge Walking boot for ambulation Follow up cultures and adjust antibiotics as needed Hypertension P.AF As per records Currently not on meds H/O PVD S/P stable thoracic aneurysm from recent January 2021 Follows with Cardiology Continue aspirin, statin Mood disorder Continue duloxetine Peripheral neuropathy Continue Lyrica DVT Px: Lovenox SQ Code Status Full code Admission and Anticipated Discharge Date Admission Date: July 17, 2021 Subjective Patient is seen and examined at bedside Left leg pain much improved Leg swelling, erythema slowly improving No new complaints Denies chest pain, dyspnea, dizziness, nausea, abdominal pain Review of Systems Review of Systems: All systems reviewed & are unremarkable except as noted in Subjective Physical Exam Physical Exam: Physical Exam: Vitals signs as noted above General Appearance:Obese, no apparent distress Head: normocephalic, Atraumatic Eyes: normal inspection, EOMI Neck: supple, Trachea midline Respiratory/Chest: Normal breath sounds, CTA, No accessory muscle use Cardiovascular: S1, S2, No murmur Abdomen/GI:Soft, Non tender, Bowel sounds present Extremities/Musculoskeletal:normal inspection, left lower extremity erythema, swelling, mild tenderness, ulcerated wound on left plantar foot Neurologic/Psych:AAOX3, grossly no focal neurological deficits Skin: normal color, warm Results & Data Results & Data ([facility]) Vital Signs (Past 12 Hours) Vital Signs Temp Pulse Pulse Resp BP Pulse Ox 07/20/21 07:20 36.6 C 91 H 18 128/82 92 07/19/21 22:24 37.1 C 90 18 136/91 94
[2021-07-21 06:05] LABS: Hematocrit (blood only) 44.7 % (42-52); Hemoglobin 15.4 g/dL (14.0-18.0); Mean Corpuscular Hemoglobin 31.3 pg (25-34); Mean Corpuscular Hgb Conc 34.5 g/dL (32-36); Mean Corpuscular Volume 90.9 fL (80-100); Mean Platelet Volume 9.6 fL (7.4-10.4); Platelet Count 220 K/uL (130-400); RDW Coefficient of Variation 14.4 % (11.5-14.5); RDW Standard Deviation 47.8 fL (36.4-46.3); Red Blood Count 4.92 M/uL (4.7-6.1); White Blood Count 8.77 K/uL (4.8-10.8)
[2021-07-21 06:35] LABS: BUN Creatinine Ratio 18.4 (10-20); Calcium 9.1 mg/dl (8.5-10.1); Creatinine Clr Calc Pharmacy 106.7 ml/min; Est GFR (African American) 98.6 ml/min; Est GFR (Non-African American) 85.1 ml/min; Potassium 4.2 mmol/L (3.5-5.1)
[2021-07-21] MEDS: CEFEPIME 2,000 MG in SYRINGE 0 ML IV SCH ×2 (08:04→20:40)
[2021-07-21] MEDS: PREGABALIN 75 MG CAP PO SCH ×3 (08:04→21:23)
[2021-07-21] MEDS: FAMOTIDINE 20 MG TAB PO SCH ×2 (08:04→20:39)
[2021-07-21] MEDS: ASPIRIN 81 MG ECTAB PO SCH (08:05)
[2021-07-21] MEDS: TAMSULOSIN HCL 0.4 MG CAP PO SCH (08:05)
[2021-07-21] MEDS: BENZONATATE 100 MG CAPSULE PO SCH ×3 (08:05→20:39)
[2021-07-21] MEDS: POTASSIUM CHLORIDE 10 MEQ TABCR PO SCH (08:05)
[2021-07-21] MEDS: FUROSEMIDE 40 MG TAB PO SCH (08:05)
[2021-07-21] MEDS: MULTIVITAMIN TAB PO SCH (08:06)
[2021-07-21] MEDS: DULoxetine HCL 60 MG CAP PO SCH (08:06)
[2021-07-21] MEDS: ENOXAPARIN INJ 40 MG/0.4 ML SYR SQ SCH (08:06)
[2021-07-21] MEDS: FINASTERIDE 5 MG TAB PO SCH (08:06)
--- NOTE | 2021-07-21 14:23 | Hospitalist Progress Note ---
Date of Service July 21, 2021 Assessment & Plan (1) Sepsis: Plan: per Dr. 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 H/O Recurrent infection H/O MRSA per Dr. Ozuna's notes: -Foot MRI:No evidence for osteomyelitis within the right forefoot. A 1.6 cm skin ulceration at the plantar medial aspect of the midfoot. Moderate osteoarthritis at described above. Extensive dorsal subcutaneous edema. No loculated fluid collections to suggest an abscess. -Foot CT:No acute bony abnormality is identified. Diffuse soft tissue edema is seen throughout the foot and ankle. Correlate clinically for evidence of cellulitis. No organized fluid collection is seen to suggest abscess. A cutaneous ulceration/wound with overlying dermal thickening is suggested along the plantar aspect of the medial midfoot. Correlate clinically. Ankle joint effusion. Osteopenia and degenerative change as above. -Venous Doppler: There is no sonographic evidence of deep venous thrombosis identified in the left lower extremity. -Blood Culture: Negative -Wound culture: Preliminary culture growing Serratia -Continue cefepime day 5 -received Daptomycin x 4 days will consult ID Ortho consulted Heel weightbearing on left lower extremity for transfers only Patient needs hindfoot reconstruction and claw toe correction eventually Needs follow-up with orthopedics upon discharge Walking boot for ambulation Hypertension P.AF As per records Currently not on meds H/O PVD S/P stable thoracic aneurysm from recent January 2021 Continue aspirin, statin Mood disorder Continue duloxetine Peripheral neuropathy Continue Lyrica DVT Px: Lovenox SQ Code Status Full code Disposition pending awaiting ID recommendations re: antibiotics lives with at home Admission and Anticipated Discharge Date Admission Date: July 17, 2021 Subjective ff up for L LE cellulitis, L foot ulcer seen resting in bed, comfortable states he feels ok overall minimal left leg/foot discomfort states L lower ext edema very slowly improving no chest pain, dyspnea, palpitations, dizziness no fever/chills no other symptoms Review of Systems Review of Systems: all noted and negative except for above Physical Exam Physical Exam: General- oriented x 3, not in distress, speaks in sentences with no effort or accessory muscle use Head- atraumatic Eyes- PERRL, EOMI, anicteric ENT- oropharynx clear Neck- supple, no JVD, no adenopathy, no thyromegaly; carotids +2/2, no bruits appreciated Lungs- clear to auscultation bilaterally, no rales/wheezes Heart- normal rate, regular rhythm; no murmur, no gallop, no rub appreciated Abdomen- normal bowel sounds, nondistended, soft, nontender, no masses or hepatosplenomegaly Extremities- Right: no pretibial edema, no calf tenderness; peripheral pulses intact Left: (+) moderate L LE edema, and erythema, (+) moderate L foot edema, with erythema ulcer- appears to be healing well Neuro- alert, oriented x 3; CN 2-12 grossly intact; motor 5/5 bilaterally;sensation 100% on all extremities; no other gross focal neurologic deficits Skin- warm & dry Results & Data Results & Data ([facility]) Vital Signs (Past 12 Hours) Vital Signs Temp Pulse Resp BP Pulse Ox 07/21/21 07:22 36.7 C 89 20 112/77 95
[2021-07-22] MEDS: ENOXAPARIN INJ 40 MG/0.4 ML SYR SQ SCH (08:18)
[2021-07-22] MEDS: BENZONATATE 100 MG CAPSULE PO SCH ×3 (08:18→20:26)
[2021-07-22] MEDS: POTASSIUM CHLORIDE 10 MEQ TABCR PO SCH (08:18)
[2021-07-22] MEDS: MULTIVITAMIN TAB PO SCH (08:18)
[2021-07-22] MEDS: FAMOTIDINE 20 MG TAB PO SCH ×2 (08:18→20:26)
[2021-07-22] MEDS: PREGABALIN 75 MG CAP PO SCH ×3 (08:18→20:26)
[2021-07-22] MEDS: DULoxetine HCL 60 MG CAP PO SCH (08:18)
[2021-07-22] MEDS: CEFEPIME 2,000 MG in SYRINGE 0 ML IV SCH ×2 (08:18→20:25)
[2021-07-22] MEDS: TAMSULOSIN HCL 0.4 MG CAP PO SCH (08:19)
[2021-07-22] MEDS: FINASTERIDE 5 MG TAB PO SCH (08:19)
[2021-07-22] MEDS: FUROSEMIDE 40 MG TAB PO SCH (08:19)
[2021-07-22] MEDS: ASPIRIN 81 MG ECTAB PO SCH (08:19)
--- NOTE | 2021-07-22 16:45 | Hospitalist Progress Note ---
Date of Service July 22, 2021 Assessment & Plan (1) Sepsis: Plan: per Dr. 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 H/O Recurrent infection H/O MRSA per Dr. Ozuna's notes: -Foot MRI:No evidence for osteomyelitis within the right forefoot. A 1.6 cm skin ulceration at the plantar medial aspect of the midfoot. Moderate osteoarthritis at described above. Extensive dorsal subcutaneous edema. No loculated fluid collections to suggest an abscess. -Foot CT:No acute bony abnormality is identified. Diffuse soft tissue edema is seen throughout the foot and ankle. Correlate clinically for evidence of cellulitis. No organized fluid collection is seen to suggest abscess. A cutaneous ulceration/wound with overlying dermal thickening is suggested along the plantar aspect of the medial midfoot. Correlate clinically. Ankle joint effusion. Osteopenia and degenerative change as above. -Venous Doppler: There is no sonographic evidence of deep venous thrombosis identified in the left lower extremity. -Blood Culture: Negative -Wound culture: Preliminary culture growing Serratia improving gradually -Continue cefepime day 6 -received Daptomycin x 4 days will consult ID- awaiting recommendations re: antibiotics for discharge Ortho consulted Heel weightbearing on left lower extremity for transfers only Patient needs hindfoot reconstruction and claw toe correction eventually Needs follow-up with orthopedics upon discharge Walking boot for ambulation Hypertension P.AF As per records Currently not on meds H/O PVD S/P stable thoracic aneurysm from recent January 2021 Continue aspirin, statin Mood disorder Continue duloxetine Peripheral neuropathy Continue Lyrica DVT Px: Lovenox SQ Code Status Full code Disposition pending awaiting ID recommendations re: antibiotics lives with at home plan of care discussed with patient in detail and at length all questions answered he is understanding, agreeable, comfortable with the plan of care Admission and Anticipated Discharge Date Admission Date: July 17, 2021 Subjective ff up for infected L foot and LE cellulitis seen resting in bedside chair, comfortable states he feels ok overall L LE and foot swelling improved compared to yesterday minimal discomfort no other symptoms Review of Systems Review of Systems: all noted and negative except for above Physical Exam Physical Exam: General- oriented x 3, not in distress, speaks in sentences with no effort or accessory muscle use Eyes- anicteric Neck- no JVD Lungs- clear BS BL Heart- normal rate, regular rhythm; no murmurs Abdomen- normal bowel sounds, nondistended, soft, nontender Extremities- no pretibial edema, no calf tenderness L LE: edema and erythema improving L foot: edema and erythema improving, ulcer healing well Neuro- alert, oriented x 3; no gross focal neurologic deficits Skin- warm & dry Results & Data Results & Data ([facility]) Vital Signs (Past 12 Hours) Vital Signs Temp Pulse Resp BP Pulse Ox 07/22/21 14:37 36.7 C 78 20 116/76 92 07/22/21 06:59 36.9 C 79 18 114/74 91 all noted and reviewed including below
[2021-07-23] MEDS: CEFEPIME 2,000 MG in SYRINGE 0 ML IV SCH ×2 (07:48→20:07)
[2021-07-23] MEDS: DULoxetine HCL 60 MG CAP PO SCH (07:59)
[2021-07-23] MEDS: ASPIRIN 81 MG ECTAB PO SCH (08:00)
[2021-07-23] MEDS: TAMSULOSIN HCL 0.4 MG CAP PO SCH (08:00)
[2021-07-23] MEDS: POTASSIUM CHLORIDE 10 MEQ TABCR PO SCH (08:01)
[2021-07-23] MEDS: FUROSEMIDE 40 MG TAB PO SCH (08:01)
[2021-07-23] MEDS: MULTIVITAMIN TAB PO SCH (08:01)
[2021-07-23] MEDS: FAMOTIDINE 20 MG TAB PO SCH ×2 (08:02→20:06)
[2021-07-23] MEDS: BENZONATATE 100 MG CAPSULE PO SCH ×3 (08:02→20:05)
[2021-07-23] MEDS: FINASTERIDE 5 MG TAB PO SCH (08:02)
[2021-07-23] MEDS: PREGABALIN 75 MG CAP PO SCH ×3 (08:07→20:05)
[2021-07-23] MEDS: ENOXAPARIN INJ 40 MG/0.4 ML SYR SQ SCH (08:15)
--- NOTE | 2021-07-23 19:33 | Hospitalist Progress Note ---
Date of Service July 23, 2021 Assessment & Plan (1) Sepsis: Plan: per Dr. 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 H/O Recurrent infection H/O MRSA per Dr. Ozuna's notes: -Foot MRI:No evidence for osteomyelitis within the right forefoot. A 1.6 cm skin ulceration at the plantar medial aspect of the midfoot. Moderate osteoarthritis at described above. Extensive dorsal subcutaneous edema. No loculated fluid collections to suggest an abscess. -Foot CT:No acute bony abnormality is identified. Diffuse soft tissue edema is seen throughout the foot and ankle. Correlate clinically for evidence of cellulitis. No organized fluid collection is seen to suggest abscess. A cutaneous ulceration/wound with overlying dermal thickening is suggested along the plantar aspect of the medial midfoot. Correlate clinically. Ankle joint effusion. Osteopenia and degenerative change as above. -Venous Doppler: There is no sonographic evidence of deep venous thrombosis identified in the left lower extremity. -Blood Culture: Negative -Wound culture: Preliminary culture growing Serratia improving gradually daily -Continue cefepime day 7 -received Daptomycin x 4 days ID consulted: recommend Bactrim + Ampicillin PO x 10-14 days Ortho consulted Heel weightbearing on left lower extremity for transfers only Patient needs hindfoot reconstruction and claw toe correction eventually Needs follow-up with orthopedics upon discharge Walking boot for ambulation Hypertension P.AF As per records Currently not on meds H/O PVD S/P stable thoracic aneurysm from recent January 2021 Continue aspirin, statin Mood disorder Continue duloxetine Peripheral neuropathy Continue Lyrica DVT Px: Lovenox SQ Code Status Full code Disposition pending awaiting ID recommendations re: antibiotics lives with at home plan of care discussed with patient in detail and at length all questions answered he is understanding, agreeable, comfortable with the plan of care Admission and Anticipated Discharge Date Admission Date: July 17, 2021 Subjective ff up for left leg cellulitis seen resting in bed, comfortable feels fine overall no leg or foot pain no other symptoms Review of Systems Review of Systems: all noted and negative except for above Physical Exam Physical Exam: General- oriented x 3, not in distress, speaks in sentences with no effort or accessory muscle use Eyes- anicteric Neck- no JVD Lungs- clear breath sounds BL Heart- normal rate, regular rhythm; no murmurs Abdomen- normal bowel sounds, nondistended, soft, nontender Extremities- no pretibial edema, no calf tenderness left leg and foot edema, erythema, tenderness mild- continues to improve left foot ulcer- healing well Neuro- alert, oriented x 3; no gross focal neurologic deficits Skin- warm & dry Results & Data Results & Data ([facility]) Vital Signs (Past 12 Hours) Vital Signs Temp Pulse Resp BP Pulse Ox 07/23/21 17:13 117/73 07/23/21 15:45 36.3 C L 75 18 91/63 L 94 07/23/21 12:13 36.5 C 85 18 160/75 H 94 all noted and reviewed including below
[2021-07-24] MEDS: CEFEPIME 2,000 MG in SYRINGE 0 ML IV SCH ×2 (08:52→20:26)
[2021-07-24] MEDS: FINASTERIDE 5 MG TAB PO SCH (08:55)
[2021-07-24] MEDS: BENZONATATE 100 MG CAPSULE PO SCH ×3 (08:55→20:26)
[2021-07-24] MEDS: ASPIRIN 81 MG ECTAB PO SCH (08:55)
[2021-07-24] MEDS: FAMOTIDINE 20 MG TAB PO SCH ×2 (08:55→20:26)
[2021-07-24] MEDS: FUROSEMIDE 40 MG TAB PO SCH (08:56)
[2021-07-24] MEDS: POTASSIUM CHLORIDE 10 MEQ TABCR PO SCH (08:56)
[2021-07-24] MEDS: TAMSULOSIN HCL 0.4 MG CAP PO SCH (08:57)
[2021-07-24] MEDS: MULTIVITAMIN TAB PO SCH (08:57)
[2021-07-24] MEDS: DULoxetine HCL 60 MG CAP PO SCH (08:57)
[2021-07-24] MEDS: ENOXAPARIN INJ 40 MG/0.4 ML SYR SQ SCH (08:58)
[2021-07-24] MEDS: PREGABALIN 75 MG CAP PO SCH ×3 (08:59→20:26)
[2021-07-24 10:22] LABS: Basophils # (auto) 0.04 K/uL (0-0.2); Basophils % (auto) 0.6 %; Eosinophils # (auto) 0.16 K/uL (0-0.5); Eosinophils % (auto) 2.4 %; Hematocrit (blood only) 46.4 % (42-52); Hemoglobin 15.9 g/dL (14.0-18.0); Immature Granulocytes # (auto) 0.01 K/uL (0.00-0.02); Immature Granulocytes % (auto) 0.1 %; Lymphocytes # (auto) 1.43 K/uL (1.2-3.4); Lymphocytes % (auto) 21.1 %; Mean Corpuscular Hemoglobin 31.3 pg (25-34); Mean Corpuscular Hgb Conc 34.3 g/dL (32-36); Mean Corpuscular Volume 91.3 fL (80-100); Mean Platelet Volume 9.1 fL (7.4-10.4); Monocytes # (auto) 0.51 K/uL (0.11-0.59); Monocytes % (auto) 7.5 %; Neutrophils # (auto) 4.64 K/uL (1.4-6.5); Neutrophils % (auto) 68.3 %; Platelet Count 225 K/uL (130-400); RDW Coefficient of Variation 14.1 % (11.5-14.5); RDW Standard Deviation 47.4 fL (36.4-46.3); Red Blood Count 5.08 M/uL (4.7-6.1); White Blood Count 6.79 K/uL (4.8-10.8)
[2021-07-24 10:39] LABS: BUN Creatinine Ratio 21.6 (10-20); Calcium 9.4 mg/dl (8.5-10.1); Creatinine Clr Calc Pharmacy 89.1 ml/min; Est GFR (African American) 79.3 ml/min; Est GFR (Non-African American) 68.4 ml/min; Potassium 4.1 mmol/L (3.5-5.1)
[2021-07-24] MEDS: SACCHAROMYCES BOULARDII 250 MG CAP PO SCH (18:25)
[2021-07-25] MEDS: CEFEPIME 2,000 MG in SYRINGE 0 ML IV SCH (08:03)
[2021-07-25] MEDS: ASPIRIN 81 MG ECTAB PO SCH (08:33)
[2021-07-25] MEDS: DULoxetine HCL 60 MG CAP PO SCH (08:34)
[2021-07-25] MEDS: BENZONATATE 100 MG CAPSULE PO SCH ×2 (08:34→13:37)
[2021-07-25] MEDS: FINASTERIDE 5 MG TAB PO SCH (08:34)
[2021-07-25] MEDS: FAMOTIDINE 20 MG TAB PO SCH (08:34)
[2021-07-25] MEDS: FUROSEMIDE 40 MG TAB PO SCH (08:35)
[2021-07-25] MEDS: POTASSIUM CHLORIDE 10 MEQ TABCR PO SCH (08:35)
[2021-07-25] MEDS: MULTIVITAMIN TAB PO SCH (08:35)
[2021-07-25] MEDS: ENOXAPARIN INJ 40 MG/0.4 ML SYR SQ SCH (08:36)
[2021-07-25] MEDS: SACCHAROMYCES BOULARDII 250 MG CAP PO SCH (08:36)
[2021-07-25] MEDS: PREGABALIN 75 MG CAP PO SCH ×2 (08:36→13:37)
[2021-07-25] MEDS: TAMSULOSIN HCL 0.4 MG CAP PO SCH (08:36)
--- NOTE | 2021-07-25 14:05 | Hospitalist Progress Note ---
Date of Service July 25, 2021 Assessment & Plan (1) Sepsis: Plan: per Dr. 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 H/O Recurrent infection H/O MRSA per Dr. Ozuna's notes: -Foot MRI:No evidence for osteomyelitis within the right forefoot. A 1.6 cm skin ulceration at the plantar medial aspect of the midfoot. Moderate osteoarthritis at described above. Extensive dorsal subcutaneous edema. No loculated fluid collections to suggest an abscess. -Foot CT:No acute bony abnormality is identified. Diffuse soft tissue edema is seen throughout the foot and ankle. Correlate clinically for evidence of cellulitis. No organized fluid collection is seen to suggest abscess. A cutaneous ulceration/wound with overlying dermal thickening is suggested along the plantar aspect of the medial midfoot. Correlate clinically. Ankle joint effusion. Osteopenia and degenerative change as above. -Venous Doppler: There is no sonographic evidence of deep venous thrombosis identified in the left lower extremity. -Blood Culture: Negative -Wound culture: Preliminary culture growing Serratia Improved gradually with IV cefepime, completed 7 days while inpatient also received Daptomycin x 4 days ID consulted: recommend Bactrim + Ampicillin PO-given prescription for 7 more days to complete 14-day course Ortho consulted Heel weightbearing on left lower extremity for transfers only Patient needs hindfoot reconstruction and claw toe correction eventually Needs follow-up with orthopedics upon discharge Walking boot for ambulation Hypertension P.AF As per records Currently not on meds H/O PVD S/P stable thoracic aneurysm from recent January 2021 Continue aspirin, statin Mood disorder Continue duloxetine Peripheral neuropathy Continue Lyrica DVT Px: Lovenox SQ Code Status Full code Disposition pending awaiting ID recommendations re: antibiotics lives with at home plan of care discussed with patient in detail and at length all questions answered he is understanding, agreeable, comfortable with the plan of care Admission and Anticipated Discharge Date Admission Date: July 17, 2021 Subjective Follow-up for left lower extremity cellulitis, left foot infection Seen resting in bedside chair, comfortable, in good spirits States he feels much better overall Left lower extremity and foot swelling and redness continues to improve No pain Denies other symptoms States that he is ready and would like to go home today Review of Systems Review of Systems: all noted and negative except for above Physical Exam Physical Exam: General- oriented x 3, not in distress, speaks in sentences with no effort or accessory muscle use Eyes- anicteric Neck- no JVD Lungs- clear breath sounds, no crackles or wheezing bilaterally Heart- normal rate, regular rhythm; no murmurs Abdomen- normal bowel sounds, nondistended, soft, nontender Left lower extremity and foot: Mild edema, no erythema, no tenderness, no warmth Left foot ulcer: Continues to improve, healing well Extremities- no pretibial edema, no calf tenderness Neuro- alert, oriented x 3; no gross focal neurologic deficits Skin- warm & dry Results & Data Results & Data ([facility]) Vital Signs (Past 12 Hours) Vital Signs Temp Pulse Resp BP Pulse Ox 07/25/21 11:48 36.7 C 83 16 111/76 95 07/25/21 07:49 36.5 C 85 14 131/80 95 all noted and reviewed including below
--- NOTE | 2021-07-25 14:08 | Discharge Summary ---
Date of Service July 25, 2021 Admission HPI Per Admitting Provider History obtained from patient, family, and records. Medical history significant for hypertension, hyperlipidemia, PAF, PVD, NEMESIO on CPAP, BPH, chronic left foot ulcer secondary to Charcot deformity secondary to peripheral neuropathy. Last confinement February 2019 for sepsis secondary to pneumonia. Patient has had a chronic left foot ulcer for years now attributed to Charcot deformity from peripheral neuropathy. Patient confined August 2017 for sepsis secondary to infected left foot ulcer/cellulitis. Wound CS grew MRSA (resistant to oxacillin, tetracycline, clindamycin; sensitive to Bactrim, vancomycin, daptomycin, rifampin). Patient seen 2 weeks ago at [facility] nutrition services manager office for left foot ulcer recheck. Increased swelling of left leg as per note. Open wound debridement performed. Offloading option including return to total contact cast recommended but patient declined as per note. Few days ago, patient seen at [facility]Ps office for worsening swelling of the leg of leg, scant left foot wound drainage as per patient. Patient prescribed Keflex course. Outpatient ESR and CRP elevated. Outpatient foot x-ray requested. Outpatient ABIs of the lower extremities as follows : TERI at rest is 1.2 on the right and 1.3 on the left. Calcification and non-compressible vessels may render the ABIs unreliable. Non- compressible right great toe and decreased amplitude in PPG tracings suggestive of small vessel disease. For the right lower extremity: Lower extremity Doppler Evaluation is normal at rest with no evidence of significant arterial occlusive disease. Great toe pressure was non-compressible. PPG tracing of the great toe has decreased amplitude. For the left lower extremity: Lower extremity Doppler Evaluation is normal at rest with no evidence of significant arterial occlusive disease. Great toe pressure is 136. PPG tracing of the great toe has decreased amplitude. Patient later noted unimproved left leg swelling along with fever chills. No chest pain, no S OB. At the ER, patient received Vancomycin and Cefepime for sepsis. 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 Admission Exam (Per Admitting) Constitutional GENERAL: Comfortable, obese, no respiratory distress SKIN: Normal color, warm HEENT: Alopecia, Clarita palpebral conjunctivae, no ptosis, dry buccal mucosa NECK : Supple, short neck, no tenderness CHEST : CTA, no tenderness HEART : RRR, no obvious murmurs ABDOMEN: Some distention, nontender EXTREMITIES : Indurated LLE with minimal tenderness, ulcerated wound, left foot medial plantar aspect with scant drainage NEUROLOGIC : Coherent, no facial asymmetry, no other gross focality Discharge Data Consultations 07/17/21 21:23 ED Decision to Admit Stat 07/18/21 00:44 Consult Orthopedic Surgery Routine 07/21/21 14:18 Consult Infectious Diseases Routine Procedures Performed MR foot LT w/o con HISTORY: L foot swellling/wound ro osteomyelitis TECHNIQUE: Multiplanar multisequence MRI of the left foot was performed without contrast according to standard departmental protocol. Initial examination was ordered as a contrast study. However, the patient was unable to tolerate the entire examination. COMPARISON STUDY: Left foot CT 07/09/2021. FINDINGS: There is 1.6 cm skin ulceration along the plantar medial aspect of the midfoot. No underlying bony signal abnormality or destruction to suggest an osteomyelitis. There is moderate osteoarthritis at the first tarsometatarsal joint and majority by joint space narrowing and subchondral cystic change. There is moderate osteoarthritis within the visualized subtalar joint. No fracture or dislocation within the forefoot. Extensive soft tissue edema seen throughout the forefoot most pronounced dorsally. No loculated fluid collections on this noncontrast study to suggest an abscess. There is also moderate osteoarthrosis of the first MTP joint. IMPRESSION: 1. No evidence for osteomyelitis within the right forefoot. 2. A 1.6 cm skin ulceration at the plantar medial aspect of the midfoot. 3. Moderate osteoarthritis at described above. 4. Extensive dorsal subcutaneous edema. No loculated fluid collections to suggest an abscess. ULTRASOUND LEFT LOWER EXTREMITY VENOUS CLINICAL HISTORY: Left leg swelling. COMPARISON STUDY: No priors. TECHNIQUE: Real-time, grayscale, and color Doppler sonography of the deep veins of the left lower extremity was performed from the inguinal crease to the calf. Compression and augmentation were utilized. FINDINGS: There is no sonographic evidence of deep venous thrombosis identified in the left lower extremity. The common femoral, superficial femoral, and popliteal veins are patent and normally compressible. The greater saphenous vein and the profunda femoris vein at the junction with the common femoral vein are clear. The visualized calf veins are patent. IMPRESSION: There is no sonographic evidence of deep venous thrombosis identified in the left lower extremity. Hospital Course (1) Sepsis: per Dr. 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 H/O Recurrent infection H/O MRSA per Dr. Ozuna's notes: -Foot MRI:No evidence for osteomyelitis within the right forefoot. A 1.6 cm skin ulceration at the plantar medial aspect of the midfoot. Moderate osteoarthritis at described above. Extensive dorsal subcutaneous edema. No loculated fluid collections to suggest an abscess. -Foot CT:No acute bony abnormality is identified. Diffuse soft tissue edema is seen throughout the foot and ankle. Correlate clinically for evidence of cellulitis. No organized fluid collection is seen to suggest abscess. A cutaneous ulceration/wound with overlying dermal thickening is suggested along the plantar aspect of the medial midfoot. Correlate clinically. Ankle joint effusion. Osteopenia and degenerative change as above. -Venous Doppler: There is no sonographic evidence of deep venous thrombosis identified in the left lower extremity. -Blood Culture: Negative -Wound culture: Preliminary culture growing Serratia Improved gradually with IV cefepime, completed 7 days while inpatient also received Daptomycin x 4 days ID consulted: recommend Bactrim + Ampicillin PO-given prescription for 7 more days to complete 14-day course Ortho consulted Heel weightbearing on left lower extremity for transfers only Patient needs hindfoot reconstruction and claw toe correction eventually Needs follow-up with orthopedics upon discharge Walking boot for ambulation Hypertension P.AF As per records Currently not on meds H/O PVD S/P stable thoracic aneurysm from recent January 2021 Continue aspirin, statin Mood disorder Continue duloxetine Peripheral neuropathy Continue Lyrica DVT Px: Lovenox SQ Code Status Full code Disposition Discharge to home Follow-up with primary care physician next week [facility] plan of care discussed with patient in detail and at length all questions answered he is understanding, agreeable, comfortable with the plan of care
== END 2021-07-25 15:35 | disposition home or self-care (01) | DRG 872 ==
LOC: ED 19:12 → 3N 22:11 → SUATTDRO 22:11 → 3N 23:14

== ENCOUNTER 2022-04-07 18:19 | Inpatient (IN) ==
[2022-04-07] MEDS ORDERED: SODIUM CHLORIDE 0.9% 500 ML IV STA (18:44)
[2022-04-07] MEDS ORDERED: KETOROLAC TROMETHAMINE 15 MG/ML VIAL IV STA ×2 (19:21→20:28)
[2022-04-07] MEDS ORDERED: ONDANSETRON INJ 2 MG/ML 2 ML VIAL IV STA (19:21)
--- NOTE | 2022-04-07 19:30 | Emergency Department Note ---
History of Present Illness General Chief Complaint: Flank Pain Stated Complaint: BACK PAIN Time Seen by Provider: 04/07/22 19:11 History of Present Illness Provider Complaint: flank pain (R) Onset (ago): 2 day(s) Pain Consistency: intermittent Location: R flank Migration to: RLQ Severity: severe Maximum Pain Intensity: 10 Current Pain Intensity: 9 Quality: + stabbing and + sharp Relieved By: + nothing Exacerbated By: + nothing Context: no foreign travel, no possible food poisoning, no sick contacts, no recent antibiotic use, no recent surgery/procedure or no recent injury Associated Symptoms: + nausea, + vomiting, + dysuria, + hematuria and + back pain; no diarrhea, no fever, no chills, no constipation, no hematemesis, no hematochezia, no melena, no anorexia, no syncope, no headache, no neck pain, no chest pain, no weakness, no breathing difficulty and no numbness Home Medications Medication Instructions Recorded Confirmed Type albuterol sulfate 90 mcg/actuation 2 puff INHALATION Q4H PRN 02/16/19 04/07/22 History aerosol inhaler aspirin 81 mg tablet,delayed 81 mg PO QAM 02/16/19 04/07/22 History release duloxetine 60 mg capsule,delayed 60 mg PO QAM 02/16/19 04/07/22 History release famotidine 20 mg tablet 20 mg PO BID 02/16/19 04/07/22 History furosemide 40 mg tablet (Lasix) 40 mg PO QAM 02/16/19 04/07/22 History multivitamin 1 tab PO QAM 02/16/19 04/07/22 History potassium chloride 10 mEq 10 meq PO QAM 02/16/19 04/07/22 History tablet,extended release finasteride 5 mg tablet 5 mg PO QAM 12/11/19 04/07/22 History pregabalin 75 mg capsule (Lyrica) 75 mg PO TID 12/11/19 04/07/22 History tamsulosin 0.4 mg capsule 0.4 mg PO QAM 12/11/19 04/07/22 History atorvastatin 80 mg tablet 40 mg PO QAM 07/17/21 04/07/22 History azelastine 137 mcg (0.1 %) nasal 1 spray INTRANASAL BID 04/07/22 04/07/22 History spray aerosol Allergies Allergy/AdvReac Type Severity Reaction Status Date / Time No Known Allergies Allergy Verified 04/07/22 20:50 Past Med/Surg History Medical History (Updated 04/07/22 @ 22:03 by Nba Lopez) Aortic root dilatation "CT 09/03/17 5 cm at the sinuses of Valsalva" BPH (benign prostatic hyperplasia) Coronary artery disease "no clinical history of [place] or angina, but extensive coronary calcifications noted on CT chest 09/03/17" Essential hypertension HLD (hyperlipidemia) Kidney stones Neuropathy Pulmonary nodule "CT 09/03/17 6 mm nodule RUL; CT 09/28/00 5 x 8 mm nodule superior segment RLL" Sleep apnea "CPAP" Umbilical hernia Surgical History History of colonoscopy X MULTIPLE History of right cataract surgery Status post bilateral knee replacements Status post inguinal hernia repair Status post lumbar surgery Status post tonsillectomy Family History Other No significant family history Social History Smoking Status: Never smoker Second Hand Exposure: No; Hx Alcohol Use: Yes Alcohol type: hard liquor Hx Substance Use: No Preferred Language: Libyan Communication Ability: Effective 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 Beliefs That Will Affect Care: None marital status: Current Living Situation: Spouse Feels Safe at Home: Yes Assistive Devices: None Review of Systems A total of 10 systems reviewed and were otherwise negative Physical Exam Vital Signs: Vital Signs - 24 hr 04/07/22 18:40 04/07/22 19:28 04/07/22 21:00 Temperature 36.8 C 36.7 C Temperature Source Temporal Artery Sc an Oral Pulse Rate 60 Pulse Rate [Finger ] 61 67 Pulse Rhythm [Fing er] Regular Regular Pulse Strength [Fi nger] Normal Normal Respiratory Rate 18 18 18 Respiratory Effort / Characteristics Non-Labored Sponta neous Non-Labored Sponta neous Respiratory Depth Normal Normal Respiratory Patter n Regular Regular Blood Pressure 180/87 H Blood Pressure [Ri ght Arm] 153/95 H 107/67 Blood Pressure Lauryn n 118 Blood Pressure Lauryn n [Right Arm] 114 80 Blood Pressure Pos ition [Right Arm] Lying Lying Pulse Oximetry 92 97 97 Oxygen Delivery Me thod Room Air Room Air Room Air Sepsis Recent Feve r Within 48 Hours No Sepsis New/Unexpla ined Change in Men joisane Status No Sepsis Action Take n by Nursing No Action Required Physical Exam: Physical Exam GENERAL: He is oriented to person, place, and time. He appears well-developed and well-nourished. He does not appear distressed. HENT: Exam performed. - Head: Normocephalic and atraumatic. - Right Ear: External ear normal. No mastoid tenderness. - Left Ear: External ear normal. No mastoid tenderness. - Mouth/Throat: The oropharynx is clear and moist. No trismus in the jaw. No dental abscesses or uvula swelling. No oropharyngeal exudate or tonsillar abscesses. EYES: Conjunctivae and EOM are normal. Pupils are equal, round, and reactive to light. Right eye exhibits no discharge. Left eye exhibits no discharge. No scleral icterus. NECK: Normal range of motion. Neck supple. No JVD present. No spinous process tenderness present. No carotid bruit present. No rigidity. No tracheal deviation and normal range of motion present. No Brudzinski's sign and no Kernig's sign noted. CV: Normal rate, regular rhythm, normal heart sounds and intact distal pulses. There is no peripheral edema. Palpable radial pulses bue. PULM/CHEST: Effort normal and breath sounds normal. No respiratory distress. No stridor. He has no wheezes. He has no rales. - Chest Wall: He exhibits no tenderness. ABD: The abdomen is soft. Bowel sounds are normal. He has distension. No mass is present. There is tenderness of the right lower quadrant There is no rebound, no guarding, no Ashraf's sign. Rovsig negative. Right-sided CVA tenderness. MUSC/SKEL: Normal range of motion. There is no peripheral edema, tenderness or deformity. LYMPH: No cervical adenopathy. NEURO: He is alert and oriented to person, place, and time. He has normal strength. No cranial nerve deficit or sensory deficit. Coordination and gait normal. GCS eye subscore is 4. GCS verbal subscore is 5. GCS motor subscore is 6. Cerebellar tests wnl. SKIN: Skin is warm and dry. He is not diaphoretic. PSYCH: He has a normal mood and affect. Behavior is normal. Judgment and thought content normal. Course Course 1910: The patient was evaluated in room A2. A complete history and physical exam was performed Cardiac monitoring: An order was placed for continuous cardiac monitoring. The monitor shows a rate of 60 with sinus rhythm 2030: Vital signs stable. Within normal limits. Imaging shows 5 mm kidney stone with hydronephrosis. Patient states pain is too much. Patient given repe at analgesia admitted to the [facility] Hospitalist team Dr. Boswell notified. Administered Medications Discontinued Medications Sodium Chloride (Nss) 500 mls @ 999 mls/hr IV .Q31M STA Stop: 04/07/22 19:14 Last Infusion: 04/07/22 19:32 Dose: 0 mls/hr Documented by: [id number] Admin: 04/07/22 18:55 Dose: 999 mls/hr Documented by: [id number] Ketorolac Tromethamine (Ketorolac Tromethamine 15 Mg/Ml Vial) 15 mg IV NOW STA Stop: 04/07/22 19:22 Last Admin: 04/07/22 19:31 Dose: 15 mg Documented by: [id number] Ketorolac Tromethamine (Ketorolac Tromethamine 15 Mg/Ml Vial) 15 mg IV NOW STA Stop: 04/07/22 20:29 Last Admin: 04/07/22 20:37 Dose: 15 mg Documented by: [id number] Ondansetron HCl (Ondansetron Inj 2 Mg/Ml 2 Ml Vial) 4 mg IV NOW STA Stop: 04/07/22 19:22 Last Admin: 04/07/22 19:31 Dose: 4 mg Documented by: [id number] Tamsulosin HCl (Tamsulosin Hcl 0.4 Mg Cap) 0.4 mg PO NOW ONE Stop: 04/07/22 21:01 Last Admin: 04/07/22 21:19 Dose: 0.4 mg Documented by: [id number] Medical Decision Making Laboratory Data Result diagrams: 04/07/22 18:55 04/07/22 19:51 Lab Results 04/07/22 04/07/22 04/07/22 Range/Units 18:55 18:55 18:55 WBC 8.75 (4.8-10.8) K/uL RBC 5.35 (4.7-6.1) M/uL Hgb 16.6 (14.0-18.0) g/dL Hct 49.5 (42-52) % MCV 92.5 (80-100) fL MCH 31.0 (25-34) pg MCHC 33.5 (32-36) g/dL RDW Std Deviation 49.9 H (36.4-46.3) fL RDW Coeff of Claribel 14.7 H (11.5-14.5) % Plt Count 197 (130-400) K/uL MPV 10.5 H (7.4-10.4) fL Sodium 138 (136-145) mmol/L Potassium TNP Chloride 103 (98-107) mmol/L Carbon Dioxide 26 (21-32) mmol/L Anion Gap 9 (3-11) BUN 19 (6-23) mg/dl Creatinine 1.34 (0.6-1.4) mg/dl Est Cr Clr Drug Dosing 70.5 ml/min Est GFR ( Amer) 61.3 ml/min Est GFR (Non-Af Amer) 52.9 ml/min BUN/Creatinine Ratio 14.2 (10-20) Glucose 138 H (70-99(Fasting)) mg/dl Calcium 9.5 (8.5-10.1) mg/dl Total Bilirubin 0.6 (0.2-1.0) mg/dl Direct Bilirubin 0.2 (0-0.2) mg/dl AST 26 (13-39) U/L ALT 37 (7-52) U/L Alkaline Phosphatase 151 H (34-104) U/L Total Protein 8.6 H (6.0-8.3) gm/dl Albumin 4.3 (3.4-5.0) gm/dl Lipase (11-82) U/L SARS-CoV-2, RNA, NAAT (NEGATIVE) 04/07/22 04/07/22 04/07/22 Range/Units 18:55 19:51 20:41 WBC (4.8-10.8) K/uL RBC (4.7-6.1) M/uL Hgb (14.0-18.0) g/dL Hct (42-52) % MCV (80-100) fL MCH (25-34) pg MCHC (32-36) g/dL RDW Std Deviation (36.4-46.3) fL RDW Coeff of Claribel (11.5-14.5) % Plt Count (130-400) K/uL MPV (7.4-10.4) fL Sodium (136-145) mmol/L Potassium 4.2 Chloride (98-107) mmol/L Carbon Dioxide (21-32) mmol/L Anion Gap (3-11) BUN (6-23) mg/dl Creatinine (0.6-1.4) mg/dl Est Cr Clr Drug Dosing ml/min Est GFR ( Amer) ml/min Est GFR (Non-Af Amer) ml/min BUN/Creatinine Ratio (10-20) Glucose (70-99(Fasting)) mg/dl Calcium (8.5-10.1) mg/dl Total Bilirubin (0.2-1.0) mg/dl Direct Bilirubin (0-0.2) mg/dl AST (13-39) U/L ALT (7-52) U/L Alkaline Phosphatase (34-104) U/L Total Protein (6.0-8.3) gm/dl Albumin (3.4-5.0) gm/dl Lipase 103 H (11-82) U/L SARS-CoV-2, RNA, NAAT NEGATIVE (NEGATIVE) Imaging Data Radiologist's Impression: Abdomen/Pelvis CT 04/07/22 19:12 CT OF THE ABDOMEN AND PELVIS WITHOUT CONTRAST CLINICAL HISTORY: Right flank pain. Hematuria. COMPARISON STUDY: CT of the abdomen and pelvis March 18, 2018. TECHNIQUE: Axial images of the abdomen and pelvis were obtained without IV contrast. Images were reviewed in the axial, sagittal, and coronal planes. Automated exposure control was utilized for the study. A dose lowering technique was utilized adhering to the principles of ALARA. FINDINGS: A 4 mm proximal right ureteral calculus results in mild right hydronephrosis with perinephric and periureteral stranding. This calculus is at or just distal to the ureteropelvic junction. No additional ureteral calculi are present. There is a 5 mm left renal calculus. Moderate bilateral renal cortical thinning is noted. Evaluation of the remainder of the abdomen and pelvis is suboptimal as unenhanced exam. Liver, spleen, right adrenal gland and pancreas are unremarkable. There is no biliary or pancreatic ductal dilatation. Low- attenuation 1.4 cm left adrenal nodule is unchanged. This is benign. There is no evidence for a bowel obstruction. Colonic diverticulosis is noted without evidence for acute diverticulitis. There is no lymphadenopathy or ascites. There is no acute fracture or suspicious lesion within the visualized skeletal struct ures. IMPRESSION: 1. 5 mm proximal right ureteral calculus which results in mild right hydrone phrosis. 2. 5 mm renal calculus. ACT 112: Negative or not required by law. Electronically signed by: Erich Pickering M.D. 04/07/2022 7:47 PM MDM Narrative Vital signs stable. Within normal limits. Imaging shows 5 mm kidney stone with hydronephrosis. Patient states pain is too much. Patient given repeat analgesia admitted to the [facility] hospitalist team Dr. Boswell notified. Impression & Plan Hydronephrosis with renal and ureteral calculous obstruction Discharge Plan Visit Data Chief Complaint: Flank Pain Stated Complaint: BACK PAIN Discharge Problem: Hydronephrosis with renal and ureteral calculous obstruction Patient Disposition: Being Evaluated by Hospitalist Forms Stand Alone Forms: My [facility] [place] Xtract Prescriptions Prescriptions: No Action albuterol sulfate 90 mcg/actuation Hfa Aerosol Inhaler 2 puff INHALATION Q4H PRN (Reason: sob/wheezing) RF: 0 aspirin 81 mg Tablet,Delayed Release (Dr/Ec) 81 mg PO QAM RF: 0 duloxetine 60 mg Capsule,Delayed Release(Dr/Ec) 60 mg PO QAM RF: 0 famotidine 20 mg Tablet 20 mg PO BID RF: 0 furosemide [Lasix] 40 mg Tablet 40 mg PO QAM RF: 0 multivitamin Tablet 1 tab PO QAM RF: 0 potassium chloride 10 mEq Tablet Extended Release 10 meq PO QAM RF: 0 pregabalin [Lyrica] 75 mg Capsule 75 mg PO TID RF: 0 tamsulosin 0.4 mg Capsule 0.4 mg PO QAM RF: 0 finasteride 5 mg Tablet 5 mg PO QAM RF: 0 atorvastatin 80 mg tablet 40 mg PO QAM RF: 0 azelastine 137 mcg (0.1 %) aerosol,spray 1 spray INTRANASAL BID RF: 0 Referrals Referrals: Brian Titus MD [Primary Care Provider] -
[2022-04-07 19:39] LABS: Anion Gap 9 (3-11); BUN Creatinine Ratio 14.2 (10-20); Blood Urea Nitrogen 19 mg/dl (6-23); Calcium 9.5 mg/dl (8.5-10.1); Carbon Dioxide 26 mmol/L (21-32); Chloride 103 mmol/L (98-107); Creatinine Clr Calc Pharmacy 70.5 ml/min; Est GFR (African American) 61.3 ml/min; Est GFR (Non-African American) 52.9 ml/min; Glucose 138 mg/dl (70-99(Fasting)); Sodium 138 mmol/L (136-145)
--- NOTE | 2022-04-07 19:49 | CT Scan Report ---
CT OF THE ABDOMEN AND PELVIS WITHOUT CONTRAST CLINICAL HISTORY: Right flank pain. Hematuria. COMPARISON STUDY: CT of the abdomen and pelvis March 18, 2018. TECHNIQUE: Axial images of the abdomen and pelvis were obtained without IV contrast. Images were revi ewed in the axial, sagittal, and coronal planes. Automated exposure control was utilized for the delio dy. A dose lowering technique was utilized adhering to the principles of ALARA. FINDINGS: A 4 mm proximal right ureteral calculus results in mild right hydronephrosis with perinephr ic and periureteral stranding. This calculus is at or just distal to the ureteropelvic junction. No a dditional ureteral calculi are present. There is a 5 mm left renal calculus. Moderate bilateral renal cortical thinning is noted. Evaluation of the remainder of the abdomen and pelvis is suboptimal as u nenhanced exam. Liver, spleen, right adrenal gland and pancreas are unremarkable. There is no biliary or pancreatic ductal dilatation. Low-attenuation 1.4 cm left adrenal nodule is unchanged. This is be nign. There is no evidence for a bowel obstruction. Colonic diverticulosis is noted without evidence for acute diverticulitis. There is no lymphadenopathy or ascites. There is no acute fracture or suspi cious lesion within the visualized skeletal structures. IMPRESSION: 1. 5 mm proximal right ureteral calculus which results in mild right hydronephrosis. 2. 5 mm renal calculus. ACT 112: Negative or not required by law. Electronically signed by: Erich Pickering M.D. 04/07/2022 7:47 PM
[2022-04-07 20:12] LABS: Hematocrit (blood only) 49.5 % (42-52); Hemoglobin 16.6 g/dL (14.0-18.0); Mean Corpuscular Hgb Conc 33.5 g/dL (32-36); Mean Corpuscular Volume 92.5 fL (80-100); Mean Platelet Volume 10.5 fL (7.4-10.4); Platelet Count 197 K/uL (130-400); RDW Coefficient of Variation 14.7 % (11.5-14.5); RDW Standard Deviation 49.9 fL (36.4-46.3); Red Blood Count 5.35 M/uL (4.7-6.1); White Blood Count 8.75 K/uL (4.8-10.8)
[2022-04-07 20:40] LABS: Bilirubin Direct 0.2 mg/dl (0-0.2)
[2022-04-07 20:43] LABS: Albumin Level 4.3 gm/dl (3.4-5.0); Bilirubin,Total 0.6 mg/dl (0.2-1.0); Total Protein 8.6 gm/dl (6.0-8.3)
[2022-04-07] MEDS ORDERED: TAMSULOSIN HCL 0.4 MG CAP PO ONE (21:00)
--- NOTE | 2022-04-07 21:22 | Urology Consultation ---
Date of Consultation April 07, 2022 Assessment & Plan (1) Nephrolithiasis: Patient is being admitted on the hospitalist service. We recommend proceeding as follows: Provide analgesics provide antiemetics Await results of urinalysis and initiate antibiotics and obtain a urine culture if clinically indicated Consider initiating Flomax for expulsive therapy Strain all urine and save any kidney stones retrieved for analysis Provide hydration with IV fluids Follow serial labs I discussed with the patient that we will ask him to be n.p.o. after midnight tonight that way in case he needs a cystoscopy in the morning he will be prepared for this procedure. At the present time the patient is afebrile and hemodynamically stable. He has normal renal function and a nonelevated white blood cell count, therefore not feel an emergent urologic procedure is required. Additional recommendation will be forthcoming based on his clinical course as unfolds History of Present Illness Reason for Consultation: Nephrolithiasis History of Present Illness This is a 71-year-old male who presented to [facility] emergency department secondary to right flank pain. Patient notes that he does have a history of nephrolithiasis and he notes most recent episode was approximately 1-1/2 years ago. He really says he required a urologic procedure by Dr. Houston Dwyer at [facility]. Patient notes that earlier today he developed right-sided flank pain that radiated to the front of his abdomen. He had associated nausea and vomiting. He denies any fevers, shakes, chills. He denies any dysuria but did report some intermittent hematuria. Today in the emergency department patient had labs and imaging which I independe ntly reviewed. CT scan of the abdomen pelvis showed the patient had a 5 mm kidney stone in the proximal right ureter resulting in right hydronephrosis. CBC revealed white blood cell count, hemoglobin, hematocrit, and platelet count were all normal. Chemistry profile showed sodium, potassium, BUN, and creatinine were all normal. COVID test was performed and was noted to be negative. Urinalysis has been ordered and is pending. At the time of my interview the patient is resting comfortably in bed. His pain was well controlled and he was in no distress. Allergies Allergy/AdvReac Type Severity Reaction Status Date / Time No Known Allergies Allergy Verified 04/07/22 20:50 Home Medications Medication Instructions Recorded Confirmed Type albuterol sulfate 90 mcg/actuation 2 puff INHALATION Q4H PRN 02/16/19 04/07/22 History aerosol inhaler aspirin 81 mg tablet,delayed 81 mg PO QAM 02/16/19 04/07/22 History release duloxetine 60 mg capsule,delayed 60 mg PO QAM 02/16/19 04/07/22 History release famotidine 20 mg tablet 20 mg PO BID 02/16/19 04/07/22 History furosemide 40 mg tablet (Lasix) 40 mg PO QAM 02/16/19 04/07/22 History multivitamin 1 tab PO QAM 02/16/19 04/07/22 History potassium chloride 10 mEq 10 meq PO QAM 02/16/19 04/07/22 History tablet,extended release finasteride 5 mg tablet 5 mg PO QAM 12/11/19 04/07/22 History pregabalin 75 mg capsule (Lyrica) 75 mg PO TID 12/11/19 04/07/22 History tamsulosin 0.4 mg capsule 0.4 mg PO QAM 12/11/19 04/07/22 History atorvastatin 80 mg tablet 40 mg PO QAM 07/17/21 04/07/22 History azelastine 137 mcg (0.1 %) nasal 1 spray INTRANASAL BID 04/07/22 04/07/22 H istory spray aerosol Patient History Medical History (Updated 04/07/22 @ 21:20 by Chiki Albrecht PA-C) Aortic root dilatation "CT 09/03/17 5 cm at the sinuses of Valsalva" BPH (benign prostatic hyperplasia) Coronary artery disease "no clinical history of [place] or angina, but extensive coronary calcifications noted on CT chest 09/03/17" Essential hypertension HLD (hyperlipidemia) Kidney stones Neuropathy Pulmonary nodule "CT 09/03/17 6 mm nodule RUL; CT 09/28/00 5 x 8 mm nodule superior segment RLL" Sleep apnea "CPAP" Umbilical hernia Surgical History History of colonoscopy X MULTIPLE History of right cataract surgery Status post bilateral knee replacements Status post inguinal hernia repair Status post lumbar surgery Status post tonsillectomy Family History Other No significant family history Social History Smoking Status: Never smoker Second Hand Exposure: No; Hx Alcohol Use: Yes Alcohol type: hard liquor Hx Substance Use: No Preferred Language: Georgian Communication Ability: Effective Court Recorder Required: No Beliefs That Will Affect Care: None marital status: Current Living Situation: Spouse Feels Safe at Home: Yes Assistive Devices: None Review of Systems Constitutional: no fever and no chills Eyes: no eye pain Ear, Nose, Mouth, Throat: no hearing loss Respiratory: no cough and no dyspnea Cardiovascular: no chest pain Gastrointestinal: + abdominal pain (Radiating from right flank), + nausea and + vomiting Genitourinary: + as per Subjective / HPI, + hematuria and + flank pain (Right sided); no dysuria Musculoskeletal: + back pain (Right flank) Integumentary: no rash Neurologic: no localized weakness Physical Exam Constitutional: well developed, well nourished and + obese; no acute distress Eyes: no conjunctival abnormality ENMT: Ears: no hearing impairment and no external ear abnormality Mouth: no oropharynx abnormality Neck: trachea midline Respiratory: normal respiratory effort; no respiratory distress and no labored breathing Cardiovascular: Rate/Rhythm: regular rate and regular rhythm Gastrointestinal (Abdomen): Abdomen is rotund. It is soft and nontender to palpation. Musculoskeletal: No calf tenderness Skin: no rashes Neurologic: moves all extremities Psychiatric: A+Ox3, euthymic affect Genitourinary: no CVA tenderness Results & Data ([facility]) Vital Signs (Past 12 Hours) Vital Signs Temp Pulse Pulse Resp BP BP Pulse Ox 04/07/22 19:28 36.7 C 61 18 153/95 H 97 04/07/22 18:40 36.8 C 60 18 180/87 H 92 PG Care Time/CCT Total # of Minutes Spent Total Time Spent with Patient: Total time spent is greater than 50% in coordination of care (as documented) at patient's floor/unit and/or counseling patient: Coding Level of Care Code 41086 Inpt Consult Level 5 Diagnoses Nephrolithiasis N20.0
--- NOTE | 2022-04-07 22:38 | History & Physical Report ---
Date of Service April 07, 2022 Assessment & Plan (1) Hydronephrosis with renal and ureteral calculous obstruction: Plan: hx chronic left hydronephrosis Obstructive uropathy secondary to urolithiasis No sepsis for now hypertension, stable hx PAF hx PVD (stable thoracic aneurysm from recent outpatient imaging from last month) ILD, patient currently without pulmonary complaints. Hyperglycemia likely secondary to prediabetes, hemoglobin A1c of 5.29 December 2021 GMF Analgesia, continue home Flomax IVF, strain urine Urology consult Re: Obstructive uropathy (Patient already seen by provider at the ER who recommends n.p.o. status in anticipation of procedural intervention in a.m.) DVT prophylaxis SCDs Re: Gross hematuria Full code Text document was generated using [employer] voice recognition software. It may contain grammatical or spelling errors. Kindly contact undersigned for clarification of any documentation item in question. History of Present Illness Chief Complaint: Hematuria, kidney stone Primary Care Provider: Brian Titus MD History obtained from patient and records. 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 3 days ago, patient noted gross hematuria symptoms without other symptoms. Today, patient noted achy left flank pain symptoms reminiscent of kidney stone pain. No fever, no chills. Dry heaving without emesis. No chest pain, no SOB. Patient consulted ER for evaluation. 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 Allergies Allergy/AdvReac Type Severity Reaction Status Date / Time No Known Allergies Allergy Verified 04/07/22 20:50 Home Medications Medication Instructions Recorded Confirmed Type albuterol sulfate 90 mcg/actuation 2 puff INHALATION Q4H PRN 02/16/19 04/07/22 History aerosol inhaler aspirin 81 mg tablet,delayed 81 mg PO QAM 02/16/19 04/07/22 History release duloxetine 60 mg capsule,delayed 60 mg PO QAM 02/16/19 04/07/22 History release famotidine 20 mg tablet 20 mg PO BID 02/16/19 04/07/22 History furosemide 40 mg tablet (Lasix) 40 mg PO QAM 02/16/19 04/07/22 History multivitamin 1 tab PO QAM 02/16/19 04/07/22 History potassium chloride 10 mEq 10 meq PO QAM 02/16/19 04/07/22 History tablet,extended release finasteride 5 mg tablet 5 mg PO QAM 12/11/19 04/07/22 History pregabalin 75 mg capsule (Lyrica) 75 mg PO TID 12/11/19 04/07/22 History tamsulosin 0.4 mg capsule 0.4 mg PO QAM 12/11/19 04/07/22 History atorvastatin 80 mg tablet 40 mg PO QAM 07/17/21 04/07/22 History azelastine 137 mcg (0.1 %) nasal 1 spray INTRANASAL BID 04/07/22 04/07/22 History spray aerosol Past Med/Surg History Medical History Aortic root dilatation "CT 09/03/17 5 cm at the sinuses of Valsalva" BPH (benign prostatic hyperplasia) Coronary artery disease "no clinical history of [place] or angina, but extensive coronary calcifications noted on CT chest 09/03/17" Essential hypertension HLD (hyperlipidemia) Kidney stones Neuropathy Pulmonary nodule "CT 09/03/17 6 mm nodule RUL; CT 09/28/00 5 x 8 mm nodule superior segment RLL" Sleep apnea "CPAP" Umbilical hernia Surgical History History of colonoscopy X MULTIPLE History of right cataract surgery Status post bilateral knee replacements Status post inguinal hernia repair Status post lumbar surgery Status post tonsillectomy Family History Other No significant family history Social History Smoking Status: Never smoker Second Hand Exposure: No; Hx Alcohol Use: Yes Alcohol type: hard liquor Hx Substance Use: No Preferred Language: [place] Islander Communication Ability: Effective Waiter/Waitress Counter Required: No Beliefs That Will Affect Care: None marital status: Current Living Situation: Spouse Other Information That Helps Us Care for You: No Feels Safe at Home: Yes Safety Concerns: Feels Safe At This Time Assistive Devices: None Review of Systems Review of Systems: As per HPI, all other systems reviewed and negative Physical Exam Physical Exam: GENERAL: Comfortable, obese, no respiratory distress SKIN: Normal color, warm HEENT: Alopecia, [place] palpebral conjunctivae, no ptosis, moist buccal mucosa NECK : Supple, short neck, no tenderness CHEST : CTA, no tenderness HEART : RRR, no obvious murmurs ABDOMEN: Some distention, nontender BACK : Minimal left flank tenderness EXTREMITIES : Minimal LE swelling, no tenderness NEUROLOGIC : Coherent, no facial asymmetry, no other gross focality Results & Data Results & Data ([facility]) Vital Signs (Past 12 Hours) Vital Signs Temp Pulse Pulse Resp BP BP Pulse Ox 04/07/22 21:00 67 18 107/67 97 04/07/22 19:28 36.7 C 61 18 153/95 H 97 04/07/22 18:40 36.8 C 60 18 180/87 H 92 Laboratory Results Laboratory Results WBC 8.75 K/uL (4.8-10.8) 04/07/22 18:55 RBC 5.35 M/uL (4.7-6.1) 04/07/22 18:55 Hgb 16.6 g/dL (14.0-18.0) 04/07/22 18:55 Hct 49.5 % (42-52) 04/07/22 18:55 MCV 92.5 fL (80-100) 04/07/22 18:55 MCH 31.0 pg (25-34) 04/07/22 18:55 MCHC 33.5 g/dL (32-36) 04/07/22 18:55 RDW Std Deviation 49.9 fL (36.4-46.3) H 04/07/22 18:55 RDW Coeff of Claribel 14.7 % (11.5-14.5) H 04/07/22 18:55 Plt Count 197 K/uL (130-400) 04/07/22 18:55 MPV 10.5 fL (7.4-10.4) H 04/07/22 18:55 Sodium 138 mmol/L (136-145) 04/07/22 18:55 Potassium 4.2 mmol/L (3.5-5.1) 04/07/22 19:51 Chloride 103 mmol/L (98-107) 04/07/22 18:55 Carbon Dioxide 26 mmol/L (21-32) 04/07/22 18:55 Anion Gap 9 (3-11) 04/07/22 18:55 BUN 19 mg/dl (6-23) 04/07/22 18:55 Creatinine 1.34 mg/dl (0.6-1.4) 04/07/22 18:55 Est Cr Clr Drug Dosing 70.5 ml/min 04/07/22 18:55 Est GFR ( Amer) 61.3 ml/min 04/07/22 18:55 Est GFR (Non-Af Amer) 52.9 ml/min 04/07/22 18:55 BUN/Creatinine Ratio 14.2 (10-20) 04/07/22 18:55 Glucose 138 mg/dl (70-99(Fasting)) H 04/07/22 18:55 Calcium 9.5 mg/dl (8.5-10.1) 04/07/22 18:55 Total Bilirubin 0.6 mg/dl (0.2-1.0) 04/07/22 18:55 Direct Bilirubin 0.2 mg/dl (0-0.2) 04/07/22 18:55 AST 26 U/L (13-39) 04/07/22 18:55 ALT 37 U/L (7-52) 04/07/22 18:55 Alkaline Phosphatase 151 U/L (34-104) H 04/07/22 18:55 Total Protein 8.6 gm/dl (6.0-8.3) H 04/07/22 18:55 Albumin 4.3 gm/dl (3.4-5.0) 04/07/22 18:55 Lipase 103 U/L (11-82) H 04/07/22 18:55 SARS-CoV-2, RNA, NAAT NEGATIVE (NEGATIVE) 04/07/22 20:41 Impressions Abdomen/Pelvis CT 04/07/22 19:12 CT OF THE ABDOMEN AND PELVIS WITHOUT CONTRAST CLINICAL HISTORY: Right flank pain. Hematuria. COMPARISON STUDY: CT of the abdomen and pelvis March 18, 2018. TECHNIQUE: Axial images of the abdomen and pelvis were obtained without IV contrast. Images were reviewed in the axial, sagittal, and coronal planes. Automated exposure control was utilized for the study. A dose lowering technique was utilized adhering to the principles of ALARA. FINDINGS: A 4 mm proximal right ureteral calculus results in mild right hydronephrosis with perinephric and periureteral stranding. This calculus is at or just distal to the ureteropelvic junction. No additional ureteral calculi are present. There is a 5 mm left renal calculus. Moderate bilateral renal cortical thinning is noted. Evaluation of the remainder of the abdomen and pelvis is suboptimal as unenhanced exam. Liver, spleen, right adrenal gland and pancreas are unremarkable. There is no biliary or pancreatic ductal dilatation. Low- attenuation 1.4 cm left adrenal nodule is unchanged. This is benign. There is no evidence for a bowel obstruction. Colonic diverticulosis is noted without evidence for acute diverticulitis. There is no lymphadenopathy or ascites. There is no acute fracture or suspicious lesion within the visualized skeletal structures. IMPRESSION: 1. 5 mm proximal right ureteral calculus which results in mild right hydronephrosis. 2. 5 mm renal calculus. ACT 112: Negative or not required by law. Electronically signed by: Erich Pickering M.D. 04/07/2022 7:47 PM
[2022-04-08] MEDS ORDERED: PROMETHAZINE HCL 12.5 MG in SODIUM CHLORIDE 0.9% 50 ML IV PRN (00:10)
[2022-04-08] MEDS ORDERED: MoRPHine SULFATE 4 MG/ML 1 ML CARP\\VIAL IV PRN (00:10)
[2022-04-08] MEDS ORDERED: ACETAMINOPHEN 325 MG TAB PO PRN (00:10)
[2022-04-08] MEDS: oxyCODONE HCL IR 5 MG TAB (IMMEDIATE RELEASE) PO PRN ×2 (00:57→07:30)
[2022-04-08] MEDS: SODIUM CHLORIDE 0.9% 500 ML IV SCH ×3 (00:58→17:02)
[2022-04-08 06:01] LABS: Basophils # (auto) 0.03 K/uL (0-0.2); Basophils % (auto) 0.4 %; Eosinophils # (auto) 0.07 K/uL (0-0.5); Eosinophils % (auto) 0.8 %; Hematocrit (blood only) 45.4 % (42-52); Hemoglobin 14.8 g/dL (14.0-18.0); Immature Granulocytes # (auto) 0.01 K/uL (0.00-0.02); Immature Granulocytes % (auto) 0.1 %; Lymphocytes # (auto) 1.44 K/uL (1.2-3.4); Lymphocytes % (auto) 16.9 %; Mean Corpuscular Hemoglobin 29.7 pg (25-34); Mean Corpuscular Hgb Conc 32.6 g/dL (32-36); Mean Corpuscular Volume 91.2 fL (80-100); Monocytes # (auto) 0.94 K/uL (0.11-0.59); Neutrophils # (auto) 6.05 K/uL (1.4-6.5); Neutrophils % (auto) 70.8 %; Platelet Count 169 K/uL (130-400); RDW Coefficient of Variation 14.9 % (11.5-14.5); RDW Standard Deviation 49.4 fL (36.4-46.3); Red Blood Count 4.98 M/uL (4.7-6.1); White Blood Count 8.54 K/uL (4.8-10.8)
[2022-04-08 06:24] LABS: BUN Creatinine Ratio 14.7 (10-20); Calcium 8.6 mg/dl (8.5-10.1); Creatinine Clr Calc Pharmacy 60.5 ml/min; Potassium 3.8 mmol/L (3.5-5.1)
[2022-04-08 07:15] LABS: Appearance Urine Turbid (Clear); Bacteria Urine Automated Negative (Negative); Blood Urine 3+ (Negative); Color Urine Dark Yellow; Glucose Urine UA Negative (Negative); Ketones Urine Trace (Negative); Leukocyte Esterase Urine 1+ (Negative); Nitrite Urine Negative (Negative); Protein Urine 2+ (Negative); RBC Urine Automated >30 /hpf (0-4); Specific Gravity Urine 1.028 (1.000-1.030); Urobilinogen Urine Negative (Negative); pH Urine 5.5 (4.5-7.5)
[2022-04-08] MEDS: ASPIRIN 81 MG ECTAB PO SCH (07:34)
[2022-04-08 07:35] LABS: Bilirubin Urine 1+ (Negative)
[2022-04-08] MEDS: AZELASTINE HCL 0.1% NASAL 200 SPRAYS/27,400 MCG BTL SCH ×2 (07:35→20:05)
[2022-04-08] MEDS: ATORVASTATIN 40 MG TAB PO SCH (07:35)
[2022-04-08] MEDS: DULoxetine HCL 60 MG CAP PO SCH (07:35)
[2022-04-08] MEDS: FAMOTIDINE 20 MG TAB PO SCH ×2 (07:36→20:05)
[2022-04-08] MEDS: MULTIVITAMIN TAB PO SCH (07:36)
[2022-04-08] MEDS: FINASTERIDE 5 MG TAB PO SCH (07:36)
[2022-04-08] MEDS: POTASSIUM CHLORIDE 10 MEQ TABCR PO SCH (07:36)
[2022-04-08] MEDS: TAMSULOSIN HCL 0.4 MG CAP PO SCH (07:37)
[2022-04-08] MEDS ORDERED: HYDROmorphone INJ 0.5 MG/0.5 ML SYR IV PRN (08:58)
[2022-04-08] MEDS ORDERED: ACETAMINOPHEN 1000 MG/100 ML IV IV PRN (08:59)
[2022-04-08] MEDS ORDERED: PHENAZOPYRIDINE HCL 100 MG TAB PO PRN (09:02)
[2022-04-08] MEDS: PREGABALIN 75 MG CAP PO SCH ×3 (09:51→20:05)
--- NOTE | 2022-04-08 10:28 | Urology Progress Note ---
Date of Service April 08, 2022 Assessment & Plan (1) Hydronephrosis with renal and ureteral calculous obstruction: (2) Acute flank pain: Plan: 71yo M admitted with intractable right flank pain secondary to a 5 mm proximal right ureteral calculus which results in mild right hydronephrosis. - Still with right flank pain this morning, no stone passage noted. - Afebrile, hemodynamically stable, non-toxic appearing. - Labs reviewed - Wbc 8.54, Creatinine 1.56 (1.34 yesterday). - Urinalysis not overly suspicious for infection. Plan- - Plan of care reviewed with Dr. Trejo, on-call urologist. - Given his intractable right flank pain in the context of an obstructing 5mm proximal right ureteral stone, will proceed with OR for cystoscopy, right retrograde pyelogram, right ureteral stent placement. - Risks and benefits to be reviewed with patient by . OR notified. Covid test negative. Will cover with IV Ancef preoperatively. - Patient agreeable to plan, all questions were answered. - Keep NPO. - Strain all urine. - Continue supportive care and pain management. - Will continue to follow. Admission and Anticipated Discharge Date Admission Date: April 07, 2022 Supervising Physician Co-Signing Physician Notes I have discussed Mr. Banks's case with SANFORD Reina and agree with the above documentation. We will plan for right ureteral stent placement to address his renal colic and ureteral obstruction. Assuming everything goes as planned and there is no evidence of infection he should be appropriate for discharge postoperatively. Subjective Pt examined at bedside this AM. Awake, resting in bed on arrival. Denies fever or chills. Still with right flank pain that radiates to his right groin, managing with PO/IV pain medication. Some nausea this morning, no vomiting. Reports low urine output, states he has voided x1 since arrival. Denies hematuria/dysuria at present. Has been NPO. Review of Systems Constitutional: as per Subjective / HPI Gastrointestinal: as per Subjective / HPI Genitourinary: + as per Subjective / HPI Physical Exam Constitutional: no acute distress Respiratory: no respiratory distress and no labored breathing Skin: Warm and dry Neurologic: moves all extremities and awake Psychiatric: Orientation: alert, oriented x 3 and cooperative Genitourinary: Right flank tenderness with palpation Results & Data ([facility]) Vital Signs (Past 12 Hours) Vital Signs Temp Pulse Resp BP BP Pulse Ox 04/08/22 08:18 36.4 C L 70 16 121/70 93 04/08/22 02:03 36.5 C 90 18 139/85 97 04/08/22 00:00 36.7 C 63 18 138/105 H 96 04/07/22 23:00 63 18 138/105 H 96 PG Care Time/CCT Total # of Minutes Spent Total Time Spent with Patient: Total time spent is greater than 50% in coordination of care (as documented) at patient's floor/unit and/or counseling patient: Coding Level of Care Code 45099 Subseq Hosp Care Lvl 2 Diagnoses Hydronephrosis with renal and ureteral calculous obstruction N13.2 Acute flank pain R10.9
[2022-04-08] MEDS ORDERED: ceFAZolin 2000MG 2,000 MG/15 ML SYR IV SCH (11:14)
[2022-04-08] MEDS ORDERED: ePHEDrine sulfate 50 MG/ML AMP IV PRN (13:22)
[2022-04-08] MEDS ORDERED: ATROPINE SULFATE 0.1 MG/ML 10ML SYR IV PRN (13:22)
[2022-04-08] MEDS ORDERED: fentaNYL citrate 100 MCG/2 ML VIAL IV PRN (13:22)
[2022-04-08] MEDS ORDERED: ONDANSETRON INJ 2 MG/ML 2 ML VIAL IV PRN (13:22)
--- NOTE | 2022-04-08 13:22 | Anesthesiology Consultation ---
Date of Service April 08, 2022 Assessment & Plan ASA ASA3 Proposed Anesthesia Anesthesia Type: MAC Risk / Benefits Reviewed With: PT / POA / Parent / Guardian, Accepts Plan and Informed Consent Obtained History Surgery Operation Date: 04/08/22 14:20 Proposed Procedures p Cystoscopy, Right Retrograde Pyelogram, Right Stent Placement - Remi Trejo MD Height/Weight Height: 6 ft Weight: 129.8 kg Allergies Allergy/AdvReac Type Severity Reaction Status Date / Time No Known Allergies Allergy Verified 04/08/22 13:02 Medications Home Medications Medication Instructions Recorded Confirmed Last Taken albuterol sulfate 90 mcg/actuation 2 puff INHALATION Q4H PRN 02/16/19 04/07/22 Unknown aerosol inhaler aspirin 81 mg tablet,delayed 81 mg PO QAM 02/16/19 04/07/22 07/17/21 release duloxetine 60 mg capsule,delayed 60 mg PO QAM 02/16/19 04/07/22 07/17/21 release famotidine 20 mg tablet 20 mg PO BID 02/16/19 04/07/22 07/17/21 furosemide 40 mg tablet (Lasix) 40 mg PO QAM 02/16/19 04/07/22 07/17/21 multivitamin 1 tab PO QAM 02/16/19 04/07/22 07/17/21 potassium chloride 10 mEq 10 meq PO QAM 02/16/19 04/07/22 07/17/21 tablet,extended release finasteride 5 mg tablet 5 mg PO QAM 12/11/19 04/07/22 07/17/21 pregabalin 75 mg capsule (Lyrica) 75 mg PO TID 12/11/19 04/07/22 07/17/21 tamsulosin 0.4 mg capsule 0.4 mg PO QAM 12/11/19 04/07/22 07/17/21 atorvastatin 80 mg tablet 40 mg PO QAM 07/17/21 04/07/22 07/17/21 azelastine 137 mcg (0.1 %) nasal 1 spray INTRANASAL BID 04/07/22 04/07/22 Unknown spray aerosol Active Medications Generic Name Dose Route Start Last Admin Trade Name Freq PRN Reason Stop Dose Admin Aspirin 81 mg 04/08/22 09:00 04/08/22 07:34 Aspirin 81 Mg Ectab PO 05/08/22 08:59 81 mg QAM MAUREEN Administration Atorvastatin Calcium 40 mg 04/08/22 09:00 04/08/22 07:35 Atorvastatin 40 Mg Tab PO 05/08/22 08:59 40 mg QAM MAUREEN Administration Azelastine HCl 1 sprays 04/08/22 09:00 04/08/22 07:35 Azelastine Hcl 0.1% Nasal 200 Sprays/27,400 Mcg Btl NA 05/08/22 08:59 1 sprays BID MAUREEN Administration Duloxetine HCl 60 mg 04/08/22 09:00 04/08/22 07:35 Duloxetine Hcl 60 Mg Cap PO 05/08/22 08:59 60 mg QAM MAUREEN Administration Famotidine 20 mg 04/08/22 09:00 04/08/22 07:36 Famotidine 20 Mg Tab PO 05/08/22 08:59 20 mg BID MAUREEN Administration Finasteride 5 mg 04/08/22 09:00 04/08/22 07:36 Finasteride 5 Mg Tab PO 05/08/22 08:59 5 mg QAM MAUREEN Administration Hydromorphone HCl 0.5 mg 04/08/22 08:58 04/08/22 09:51 Hydromorphone Inj 0.5 Mg/0.5 Ml Syr IV 04/22/22 08:57 0.5 mg Q3H PRN Administration Pain Sodium Chloride 500 mls @ 75 mls/hr 04/08/22 00:10 04/08/22 12:53 Nss IV 05/08/22 00:09 0 mls/hr .[id number] MAUREEN Infusion Multivitamins 1 tab 04/08/22 09:00 04/08/22 07:36 Multivitamin Tab PO 05/08/22 08:59 1 tab QAM MAUREEN Administration Oxycodone HCl 5 - 10 mg 04/08/22 00:10 04/08/22 07:30 Oxycodone Hcl Ir 5 Mg Tab (Immediate Release) PO 04/22/22 00:09 10 mg QID PRN Administration Pain Potassium Chloride 10 meq 04/08/22 09:00 04/08/22 07:36 Potassium Chloride 10 Meq Tabcr PO 05/08/22 08:59 10 meq QAM MAUREEN Administration Pregabalin 75 mg 04/08/22 09:00 04/08/22 09:51 Pregabalin 75 Mg Cap PO 05/08/22 08:59 75 mg TID MAUREEN Administration Tamsulosin HCl 0.4 mg 04/08/22 09:00 04/08/22 07:37 Tamsulosin Hcl 0.4 Mg Cap PO 05/08/22 08:59 0.4 mg QAM MAUREEN Administration NPO Date Last Intake of Fluids: 04/07/22 Time Last Intake of Fluids: 21:00 Last Intake of Fluids Comment: sips this am with meds Date Last Intake of Solids: 04/07/22 Time Last Intake of Solids: 21:00 Past Medical History Medical History (Updated 04/08/22 @ 10:44 by SANFORD Sarmiento) Aortic root dilatation "CT 09/03/17 5 cm at the sinuses of Valsalva" BPH (benign prostatic hyperplasia) Coronary artery disease "no clinical history of [place] or angina, but extensive coronary calcifications noted on CT chest 09/03/17" Essential hypertension HLD (hyperlipidemia) Kidney stones Neuropathy Pulmonary nodule "CT 09/03/17 6 mm nodule RUL; CT 09/28/00 5 x 8 mm nodule superior segment RLL" Sleep apnea "CPAP" Umbilical hernia Exercise / Class Metabolic Activity II 4-5 Yardwork/Stairs/Walk up hill Past Family History Family History Other No significant family history Past Surgical History Surgical History History of colonoscopy X MULTIPLE History of right cataract surgery Status post bilateral knee replacements Status post inguinal hernia repair Status post lumbar surgery Status post tonsillectomy Past Anesthesia History No Hx of Anesthesia Complications and No Family Hx of Anesthesia Complications History of PONV No Hx of PONV and No Hx of Motion Sickness Social History Smoking Status: Never smoker Hx Alcohol Use: Yes Alcohol type: hard liquor alcohol intake frequency: holidays/special occasions only Hx Substance Use: No Review of Systems denies fever/cough/ colds/ chest pain/ SOB/ NEMESIO denies NEMESIO Physical Exam Vital Signs Last Vital Signs Temp 36.6 C 04/08/22 13:04 Pulse 84 04/08/22 13:04 Resp 20 04/08/22 13:04 BP 121/81 04/08/22 13:04 Pulse Ox 94 04/08/22 13:04 ENMT Mouth: + dentition abnormality and + dentures; no TMJ abnormality Thyromental Distance: > or= 3.5 Finger Breadths Mallampati Class: II Neck neck extension not limited Respiratory normal respiratory effort; no respiratory distress Auscultation: lungs clear to auscultation bilaterally Cardiovascular Rate/Rhythm: regular rate and regular rhythm Neurologic moves all extremities Psychiatric Orientation: alert and oriented x 3 Testing Laboratory Results 04/08/22 05:41 04/08/22 05:41 Urine Color Dark Yellow 04/08/22 07:04 Urine Appearance Turbid (Clear) A 04/08/22 07:04 Urine pH 5.5 (4.5-7.5) 04/08/22 07:04 Ur Specific [place] 1.028 (1.000-1.030) 04/08/22 07:04 Urine Protein 2+ (Negative) H 04/08/22 07:04 Urine Glucose (UA) Negative (Negative) 04/08/22 07:04 Urine Ketones Trace (Negative) H 04/08/22 07:04 Urine Nitrite Negative (Negative) 04/08/22 07:04 Ur Leukocyte Esterase 1+ (Negative) H 04/08/22 07:04 Urine WBC (Auto) 5-10 /hpf (0-5) H 04/08/22 07:04 Urine RBC (Auto) >30 /hpf (0-4) H 04/08/22 07:04 U Hyaline Cast (Auto) 1-5 /lpf (0-5) 04/08/22 07:04 U Epithel Cells (Auto) 10-20 /lpf (0-5) H 04/08/22 07:04 Urine Bacteria (Auto) Negative (Negative) 04/08/22 07:04
[2022-04-08] MEDS ORDERED: fentaNYL citrate 100 MCG/2 ML VIAL ONE (13:40)
[2022-04-08] MEDS ORDERED: LIDOCAINE 2% 2 ML VIAL/AMP(20MG/ML) INFIL ONE (13:50)
[2022-04-08] MEDS ORDERED: PROPOFOL IV EMULSION 10 MG/ML 20 ML VIAL IV ONE (13:50)
[2022-04-08] MEDS ORDERED: ONDANSETRON INJ 2 MG/ML 2 ML VIAL ONE (13:50)
[2022-04-08] MEDS ORDERED: DIATRIZOATE MEGLUMINE 30% 100ML VIAL INSTIL ONE (14:07)
--- NOTE | 2022-04-08 14:07 | Operative Report ---
PG Post Operative Report Pre & Post Diagnosis Operation Date: 04/08/22 14:20 Pre-Op Diagnosis: Right Hydronephrosis with renal and ureteral calculous obstruction and 5 mm proximal right ureteral calculus which results in mild right hydronephrosis. Post-Op Diagnosis: Right Hydronephrosis with renal and ureteral calculous obstruction and 5 mm proximal right ureteral calculus which results in mild right hydronephrosis. I identified the patient and participated in the time-out.: Yes Procedure Operation Date: 04/08/22 14:20 Actual Procedures p Cystoscopy, Right Retrograde Pyelogram, Right Ureteral Stent Placement(Right) - Remi Trejo MD Surgeon Remi Trejo MD Dog Beautician none Estimated Blood Loss 0 Findings Consistent with Post-Op Diagnosis Successful right ureteral stent placement Specimens None Drains 6 Cypriot by 26 cm double-J ureteral stent in the right ureter Anesthesia Type MAC Complications none Disposition Disposition: Recovery Room Indications Is a 71-year-old male who presented to the emergency department on 04/07/2022 with intractable right flank pain, found to have a proximal right ureteral stone. He is being brought to the OR today for right ureteral stent placement to allow drainage of his kidney. Description of Procedure The patient was identified in the holding area and informed consent was confirmed. They were marked on the right side, then were taken to the operating room where general anesthesia was initiated. They were placed in the dorsal lithotomy position with all pressure points appropriately padded. They were prepped and draped in the usual sterile fashion and a preoperative timeout was performed. A well-lubricated cystoscope was inserted per urethra and panendoscopy was performed. The urethra was normal with no strictures or mucosal abnormalities. He had a enlarged prostate with a high bladder neck. The bladder appeared grossly normal. Ureteral orifices were in orthotopic position. The right ureteral orifice was identified and cannulated with a 5 Cypriot open- ended catheter. A retrograde pyelogram was performed demonstrating the distal ureter was normal in course and caliber. There is mild hydronephrosis of the right kidney. A 0.038" ZIPwire was advanced to the level of the kidney under fluoroscopic guidance. Over the wire, a 6 [place]riot x 26 centimeter double-J ureteral stent was advanced. When the wire was removed, the proximal curl was visualized in the kidney with x-ray, and the distal curl visualized in the bladder with the cystoscope. At this point the bladder was drained and all instrumentation was removed. The patient was then awakened from anesthesia and was brought to the PACU in stable condition. I attest to the content of the Intraoperative Record and any orders documented therein. Any exceptions are noted below.
--- NOTE | 2022-04-08 14:34 | Fluoroscopy Report ---
FL retrograde includes kub CLINICAL HISTORY: RETROGRADE AND STENT PLACEMENT COMPARISON STUDY: None FLUOROSCOPY TIME: 9 seconds. FLUOROSCOPIC IMAGES: 6 FINDINGS: Retrograde urogram was performed on the right with placement of a double-J ureteral stent. IMPRESSION: Placement of double-J ureteral stent on the right. ACT 112: Negative or not required by law. Electronically signed by: Harish Colindres M.D. 04/08/2022 2:33 PM
--- NOTE | 2022-04-08 14:54 | Anesthesiology Progress Note ---
Date of Service April 08, 2022 Anesthesia Post Procedure Vital Signs Vital Signs: Temp Pulse Pulse Pulse Resp BP BP 04/08/22 14:40 36.5 C 80 13 04/08/22 14:30 82 14 04/08/22 14:20 80 15 04/08/22 14:13 36.4 C L 89 16 04/08/22 13:04 36.6 C 84 20 04/08/22 08:18 36.4 C L 70 16 121/70 04/08/22 02:03 36.5 C 90 18 04/08/22 00:00 36.7 C 63 18 04/07/22 23:00 63 18 04/07/22 21:00 67 18 04/07/22 19:28 36.7 C 61 18 04/07/22 18:40 36.8 C 60 18 180/87 H BP Pulse Ox 04/08/22 14:40 118/81 92 04/08/22 14:30 107/80 96 04/08/22 14:20 111/84 94 04/08/22 14:13 106/77 96 04/08/22 13:04 121/81 94 04/08/22 08:18 93 04/08/22 02:03 139/85 97 04/08/22 00:00 138/105 H 96 04/07/22 23:00 138/105 H 96 04/07/22 21:00 107/67 97 04/07/22 19:28 153/95 H 97 04/07/22 18:40 92 Pain Intensity Lower Back: Pain Intensity: 7 Transfer of Care Handoff Completed per policy Notes Mental Status: alert / awake / arousable and participated in evaluation Patient Amnestic to Procedure: Yes Nausea / Vomiting: adequately controlled Pain: adequately controlled Airway Patency, RR, SpO2: stable & adequate BP & HR: stable & adequate Hydration State: stable & adequate Anesthetic Complications: no major complications apparent and Pt Satisfied with anesthetic care
[2022-04-08] MEDS ORDERED: SODIUM CHLORIDE 0.9% 1000ML 1,000 ML IV SCH (17:15)
--- NOTE | 2022-04-08 17:38 | Hospitalist Progress Note ---
Date of Service April 08, 2022 Assessment & Plan (1) Hydronephrosis with renal and ureteral calculous obstruction: Plan: Renal/Ureteral calculus Right hydronephrosis Obstructive uropathy --CT ABD:5 mm proximal right ureteral calculus which results in mild right hydronephrosis. 5 mm renal calculus. S/P Cystoscopy, Right Retrograde Pyelogram, Right Ureteral Stent Placement(Right) by Continue IV fluids Pain control Continue Flomax Appreciate urology input Needs follow-up with urology upon discharge Acute Kidney Injury Creatinine 1.5 Avoid nephrotoxic agents Continue IV fluids Monitor renal function Hypertension H/O P.Afib PVD (stable thoracic aneurysm from recent outpatient imaging from last month) Continue aspirin, statin ILD No pulmonary complaints Follow up as outpatient Prediabetes HbA1C:5.9 DVT Px: SCDs Re: Gross hematuria Code Status Full code Admission and Anticipated Discharge Date Admission Date: April 07, 2022 Subjective Patient is seen and examined at bedside States having right flank pain radiating to groin Also reports dysuria, intermittent hematuria and nausea Denies any chest pain, dyspnea, dizziness Offers no other complaints Review of Systems Review of Systems: All systems reviewed & are unremarkable except as noted in Subjective Physical Exam Physical Exam: Physical Exam: Vitals signs as noted above General Appearance:Obese, no apparent distress Head: normocephalic, Atraumatic Eyes: normal inspection, EOMI Neck: supple, Trachea midline Respiratory/Chest: Normal breath sounds, CTA, No accessory muscle use Cardiovascular: S1, S2, No murmur Abdomen/GI:Soft, R flank tender, Bowel sounds present Extremities/Musculoskeletal:normal inspection, 1+ B/L LE edema Neurologic/Psych:AAOX3, grossly no focal neurological deficits Skin: normal color, warm Results & Data Results & Data ([facility]) Vital Signs (Past 12 Hours) Vital Signs Temp Pulse Pulse Resp BP BP Pulse Ox 04/08/22 17:05 36.9 C 81 16 125/72 97 04/08/22 16:05 36.6 C 85 16 145/80 H 96 04/08/22 15:35 36.8 C 82 16 136/82 98 04/08/22 15:05 37.1 C 83 16 125/80 93 04/08/22 14:50 36.5 C 86 13 131/79 94 04/08/22 14:40 36.5 C 80 13 118/81 92 04/08/22 14:30 82 14 107/80 96 04/08/22 14:20 80 15 111/84 94 04/08/22 14:13 36.4 C L 89 16 106/77 96 04/08/22 13:04 36.6 C 84 20 121/81 94 04/08/22 08:18 36.4 C L 70 16 121/70 93 Laboratory Results Short CBC 04/07/22 04/08/22 Range/Units 18:55 05:41 WBC 8.75 8.54 (4.8-10.8) K/uL Hgb 16.6 14.8 (14.0-18.0) g/dL Hct 49.5 45.4 (42-52) % Plt Count 197 169 (130-400) K/uL BMP 04/07/22 04/07/22 04/08/22 18:55 19:51 05:41 Sodium 138 139 Potassium TNP 4.2 3.8 Chloride 103 105 Carbon Dioxide 26 28 BUN 19 23 Creatinine 1.34 1.56 H Glucose 138 H 87 Calcium 9.5 8.6 Liver Function 04/07/22 Range/Units 18:55 Total Bilirubin 0.6 (0.2-1.0) mg/dl Direct Bilirubin 0.2 (0-0.2) mg/dl AST 26 (13-39) U/L ALT 37 (7-52) U/L Alkaline Phosphatase 151 H (34-104) U/L Albumin 4.3 (3.4-5.0) gm/dl Urine 04/08/22 Range/Units 07:04 Urine Color Dark Yellow Urine Appearance Turbid A (Clear) Urine pH 5.5 (4.5-7.5) Ur Specific [place] 1.028 (1.000-1.030) Urine Protein 2+ H (Negative) Urine Glucose (UA) Negative (Negative)
[2022-04-09] MEDS: FAMOTIDINE 20 MG TAB PO SCH (07:47)
[2022-04-09] MEDS: PREGABALIN 75 MG CAP PO SCH (07:47)
[2022-04-09] MEDS: DULoxetine HCL 60 MG CAP PO SCH (07:48)
[2022-04-09] MEDS: FINASTERIDE 5 MG TAB PO SCH (07:48)
[2022-04-09] MEDS: ATORVASTATIN 40 MG TAB PO SCH (07:48)
[2022-04-09] MEDS: POTASSIUM CHLORIDE 10 MEQ TABCR PO SCH (07:48)
[2022-04-09] MEDS: AZELASTINE HCL 0.1% NASAL 200 SPRAYS/27,400 MCG BTL SCH (07:48)
[2022-04-09] MEDS: ASPIRIN 81 MG ECTAB PO SCH (07:48)
[2022-04-09] MEDS: MULTIVITAMIN TAB PO SCH (07:48)
[2022-04-09] MEDS: TAMSULOSIN HCL 0.4 MG CAP PO SCH (07:48)
[2022-04-09 08:43] LABS: Hematocrit (blood only) 40.8 % (42-52); Hemoglobin 13.5 g/dL (14.0-18.0); Mean Corpuscular Hemoglobin 30.9 pg (25-34); Mean Corpuscular Hgb Conc 33.1 g/dL (32-36); Mean Corpuscular Volume 93.4 fL (80-100); Mean Platelet Volume 9.8 fL (7.4-10.4); Platelet Count 151 K/uL (130-400); RDW Coefficient of Variation 15.1 % (11.5-14.5); RDW Standard Deviation 51.5 fL (36.4-46.3); Red Blood Count 4.37 M/uL (4.7-6.1)
[2022-04-09] MEDS ORDERED: BENZONATATE 100 MG CAPSULE PO PRN (08:53)
[2022-04-09 09:13] LABS: BUN Creatinine Ratio 17.1 (10-20); Calcium 8.3 mg/dl (8.5-10.1); Creatinine Clr Calc Pharmacy 76.7 ml/min; Est GFR (Non-African American) 58.7 ml/min; Potassium 4.1 mmol/L (3.5-5.1)
--- NOTE | 2022-04-09 09:38 | Urology Progress Note ---
Date of Service April 09, 2022 Assessment & Plan (1) Acute flank pain: (2) Hydronephrosis with renal and ureteral calculous obstruction: (3) Nephrolithiasis: Plan: Patient is doing well, POD #1 from cystoscopy and stent placement. From my perspective he is appropriate for discharge home. We will arrange urology follow-up to ensure passage of stone and coordinate removal if he does not pass spontaneously. Urology will sign off for now. Please call with any questions or concerns. Admission and Anticipated Discharge Date Admission Date: April 07, 2022 Subjective Feeling well today, no fevers or chills. No significant pain from the stent, just some twinging with urination. Having some blood in the urine but no clots Stone pain has resolved Review of Systems Review of Systems: No fevers or chills Genitourinary: + as per Subjective / HPI (Some hematuria) Physical Exam Physical Exam: Well-appearing, NAD Respiratory: Breathing comfortably on room air Results & Data ([facility]) Vital Signs (Past 12 Hours) Vital Signs Temp Pulse Resp BP BP Pulse Ox 04/09/22 07:07 36.5 C 74 18 117/76 94 04/09/22 03:11 36.7 C 76 16 112/73 95 04/08/22 23:05 36.9 C 88 16 114/71 94 PG Care Time/CCT Total # of Minutes Spent Total Time Spent with Patient: Total time spent is greater than 50% in coordination of care (as documented) at patient's floor/unit and/or counseling patient: Coding Level of Care Code 46043 Subseq Hosp Care Lvl 1 Diagnoses Acute flank pain R10.9 Hydronephrosis with renal and ureteral calculous obstruction N13.2 Nephrolithiasis N20.0
--- NOTE | 2022-04-09 13:18 | Hospitalist Progress Note ---
Date of Service April 09, 2022 Assessment & Plan (1) Hydronephrosis with renal and ureteral calculous obstruction: Plan: Renal/Ureteral calculus Right hydronephrosis Obstructive uropathy --CT ABD:5 mm proximal right ureteral calculus which results in mild right hydronephrosis. 5 mm renal calculus. S/P Cystoscopy, Right Retrograde Pyelogram, Right Ureteral Stent Placement(Right) by Received IV fluids Pain control Continue Flomax Appreciate urology input Needs follow-up with urology upon discharge for stone treatment if doesn't pass spontaneously Acute Kidney Injury Creatinine 1.5>1.23 Avoid nephrotoxic agents Received IV fluids Monitor renal function Hypertension H/O P.Afib PVD (stable thoracic aneurysm from recent outpatient imaging from last month) Continue aspirin, statin ILD No pulmonary complaints Follow up as outpatient Prediabetes HbA1C:5.9 DVT Px: SCDs Re: Gross hematuria Code Status Full code Admission and Anticipated Discharge Date Admission Date: April 07, 2022 Subjective Patient is seen and examined at bedside Flank pain is much improved Minimal hematuria expected Denies any chest pain, shortness breath, dizziness, nausea Offers no other complaints Review of Systems Review of Systems: Short CBC 04/09/22 Range/Units 08:15 WBC 7.50 (4.8-10.8) K/uL Hgb 13.5 L (14.0-18.0) g/dL Hct 40.8 L (42-52) % Plt Count 151 (130-400) K/uL BMP 04/09/22 08:15 Sodium 135 L Potassium 4.1 Chloride 105 Carbon Dioxide 25 BUN 21 Creatinine 1.23 D Glucose 91 Calcium 8.3 L Physical Exam Physical Exam: Physical Exam: Vitals signs as noted above General Appearance:Obese, no apparent distress Head: normocephalic, Atraumatic Eyes: normal inspection, EOMI Neck: supple, Trachea midline Respiratory/Chest: Normal breath sounds, CTA, No accessory muscle use Cardiovascular: S1, S2, No murmur Abdomen/GI:Soft, R flank tender, Bowel sounds present Extremities/Musculoskeletal:normal inspection, 1+ B/L LE edema Neurologic/Psych:AAOX3, grossly no focal neurological deficits Skin: normal color, warm Results & Data Results & Data ([facility]) Vital Signs (Past 12 Hours) Vital Signs Temp Pulse Resp BP BP Pulse Ox 04/09/22 07:07 36.5 C 74 18 117/76 94 04/09/22 03:11 36.7 C 76 16 112/73 95 Laboratory Results Short CBC 04/09/22 Range/Units 08:15 WBC 7.50 (4.8-10.8) K/uL Hgb 13.5 L (14.0-18.0) g/dL Hct 40.8 L (42-52) % Plt Count 151 (130-400) K/uL BMP 04/09/22 08:15 Sodium 135 L Potassium 4.1 Chloride 105 Carbon Dioxide 25 BUN 21 Creatinine 1.23 D Glucose 91 Calcium 8.3 L
--- NOTE | 2022-04-09 14:27 | Discharge Summary ---
Date of Service April 09, 2022 Admission HPI Per Admitting Provider History obtained from patient and records. 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 3 days ago, patient noted gross hematuria symptoms without other symptoms. Today, patient noted achy left flank pain symptoms reminiscent of kidney stone pain. No fever, no chills. Dry heaving without emesis. No chest pain, no SOB. Patient consulted ER for evaluation. 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 Admission Exam Per Admitting Provider Physical Exam Physical Exam: GENERAL: Comfortable, obese, no respiratory distress SKIN: Normal color, warm HEENT: Alopecia, [place] palpebral conjunctivae, no ptosis, moist buccal mucosa NECK : Supple, short neck, no tenderness CHEST : CTA, no tenderness HEART : RRR, no obvious murmurs ABDOMEN: Some distention, nontender BACK : Minimal left flank tenderness EXTREMITIES : Minimal LE swelling, no tenderness NEUROLOGIC : Coherent, no facial asymmetry, no other gross focality Principal Diagnosis Renal/Ureteral calculus Right hydronephrosis Obstructive uropathy Acute Kidney Injury Discharge Exam Physical Exam: Vitals signs as noted above General Appearance:Obese, no apparent distress Head: normocephalic, Atraumatic Eyes: normal inspection, EOMI Neck: supple, Trachea midline Respiratory/Chest: Normal breath sounds, CTA, No accessory muscle use Cardiovascular: S1, S2, No murmur Abdomen/GI:Soft, R flank tender, Bowel sounds present Extremities/Musculoskeletal:normal inspection, 1+ B/L LE edema Neurologic/Psych:AAOX3, grossly no focal neurological deficits Skin: normal color, warm Discharge Data Allergies Allergy/AdvReac Type Severity Reaction Status Date / Time No Known Allergies Allergy Verified 04/08/22 13:02 Consultations 04/07/22 20:29 ED Decision to Admit Stat 04/08/22 00:10 Consult Urology Routine Procedures Performed Operation Date: 04/08/22 14:20 Actual Procedures p Cystoscopy, Right Retrograde Pyelogram, Right Ureteral Stent Placement(Right) - Remi Trejo MD Ordered Studies 04/07/22 19:12 CT abd pelvis wo con Stat 04/08/22 [place] retrograde includes kub Routine Hospital Course (1) Hydronephrosis with renal and ureteral calculous obstruction: Renal/Ureteral calculus Right hydronephrosis Obstructive uropathy --CT ABD:5 mm proximal right ureteral calculus which results in mild right hydronephrosis. 5 mm renal calculus. S/P Cystoscopy, Right Retrograde Pyelogram, Right Ureteral Stent Placement(Right) by Received IV fluids Pain control Continue Flomax Appreciate urology input Needs follow-up with urology upon discharge for stone treatment if doesn't pass spontaneously Acute Kidney Injury Creatinine 1.5>1.23 Avoid nephrotoxic agents Received IV fluids Monitor renal function Hypertension H/O P.Afib PVD (stable thoracic aneurysm from recent outpatient imaging from last month) Continue aspirin, statin ILD No pulmonary complaints Follow up as outpatient Prediabetes HbA1C:5.9 DVT Px: SCDs Re: Gross hematuria Code Status Full code Total Time Total Time Spent Total Time Spent (In Minutes): 39 minutes Discharge Plan Discharge Items Patient Disposition: Home - Self-Care Reason For Visit: PBS UROPATHY Discharge Diagnosis: Renal/Ureteral calculus Right hydronephrosis Obstructive uropathy Acute Kidney Injury Activity: Per Instructions section Exercise/Sports: Gradually increase as tolerated Non-emergency contact: Primary Care Provider and Urologist Call non-emergency contact if: you have any medication questions, your symptoms worsen, your pain is concerning for you and you have a fever Follow-up/Referrals: Brian Titus MD [Primary Care Provider] - (Date & Time 04/13/2022 11:00 AM Provider Brian Titus MD [facility] ) Diet: Heart Healthy Addtl Attending Provider Instructions: Follow-up with your primary care physician on 04/13/2022 11:00 AM Follow-up with your urologist next week as advised for definitive stone treatment Seek immediate medical attention if your symptoms reoccur or worsen Please take all medications as instructed on discharge list below. Please call if you have any questions or problems. You can reach a [facility] hospitalist on duty at [facility] 24 hours a day by calling [phone] Pending Studies at Discharge: No Stand-Alone Forms: My [facility], Smoking Cessation Medications and DC Order Prescriptions: New oxycodone 5 mg Tablet 5 mg PO Q8H PRN (Reason: pain) Qty: 10 RF: 0 phenazopyridine [Pyridium] 100 mg Tablet 100 mg PO TID PRN (Reason: Dysuria ) Qty: 20 RF: 0 Continued albuterol sulfate 90 mcg/actuation Hfa Aerosol Inhaler 2 puff INHALATION Q4H PRN (Reason: sob/wheezing) RF: 0 aspirin 81 mg Tablet,Delayed Release (Dr/Ec) 81 mg PO QAM RF: 0 duloxetine 60 mg Capsule,Delayed Release(Dr/Ec) 60 mg PO QAM RF: 0 famotidine 20 mg Tablet 20 mg PO BID RF: 0 furosemide [Lasix] 40 mg Tablet 40 mg PO QAM RF: 0 multivitamin Tablet 1 tab PO QAM RF: 0 potassium chloride 10 mEq Tablet Extended Release 10 meq PO QAM RF: 0 pregabalin [Lyrica] 75 mg Capsule 75 mg PO TID RF: 0 tamsulosin 0.4 mg Capsule 0.4 mg PO QAM RF: 0 finasteride 5 mg Tablet 5 mg PO QAM RF: 0 atorvastatin 80 mg tablet 40 mg PO QAM RF: 0 azelastine 137 mcg (0.1 %) aerosol,spray 1 spray INTRANASAL BID RF: 0 Discharge Orders: Discharge Order (Routine); Ordered 04/09/22 Ordered By: Jeremías Parsons/Other Patient Handouts: Preventing Kidney Stones Admission Data Admit Date/Time: 04/07/22 22:42 Attending Provider: Jeremías Ozuna Admit Provider: Armando Barnhart Primary Care Provider: Brian Titus Other Providers: Armando Barnhart ; Jason Fitzgerald ; Christopher Middleton ; Mark Christiansen ; Cehlsey Wilkins ; Telly Seals ; Arabella Sierra ; Mahnaz Booth ; Navya Morris ; Remi Trejo ; Chacho Cruz ; Sienna Acosta ; Lala Morris ; Gavino To Other Interventions: Discharge Summary Assessment (RN) Last Done: 04/09/22 13:32
== END 2022-04-09 14:24 | disposition home or self-care (01) | DRG 660 ==
LOC: ED 18:19 → 3E 22:42
DX: I10 Essential (primary) hypertension; N13.2 Hydronephrosis with renal and ureteral calculous obstruction; N17.9 Acute kidney failure, unspecified; I25.10 Atherosclerotic heart disease of native coronary artery without angina pectoris; E78.5 Hyperlipidemia, unspecified; M14.672 Charcot's joint, left ankle and foot; N40.0 Benign prostatic hyperplasia without lower urinary tract symptoms; I73.9 Peripheral vascular disease, unspecified; R73.03 Prediabetes; L97.529 Non-pressure chronic ulcer of other part of left foot with unspecified severity; Z79.82 Long term (current) use of aspirin; J84.9 Interstitial pulmonary disease, unspecified

== ENCOUNTER 2023-05-05 01:57 | Inpatient (IN) ==
--- NOTE | 2023-05-05 02:08 | Emergency Department Note ---
History of Present Illness General Chief complaint: Cough Stated complaint: COUGH/NASAL DRIP/CHEST PAIN Time Seen by Provider: 05/05/23 02:06 History of Present Illness Maximum Pain Intensity: 4 This 72-year-old male patient presents to the emergency department with his for evaluation of cough, nasal congestion, and chest pain. The patient was seen by his family doctor on Monday for postnasal drip and cough. He was started on steroids, but they do not seem to be working. He is taking 80 mg of prednisone for 2 days followed by 60 mg of prednisone for 2 days. Tonight his cough is much worse and he is wheezing and having trouble breathing. Has used his albuterol and Advair inhalers without improvement. Also having some mild discomfort in his chest with the symptoms, but mostly SOB and wheezing. No fevers. He rates his discomfort as 4/10. Denies abdominal pain, nausea, or vomiting. No known ill contacts. Has had 3 COVID vaccines. Had his flu vaccine this year. He is not on any blood thinners. Home Medications Medication Instructions Recorded Confirmed Type albuterol sulfate 90 mcg/actuation 2 puff inhalation Q4H PRN 02/16/19 05/05/23 History aerosol inhaler SHORTNESS OF BREATH/COUGH aspirin 81 mg tablet,delayed 81 mg PO QAM 02/16/19 05/05/23 History release duloxetine 60 mg capsule,delayed 60 mg PO QAM 02/16/19 05/05/23 History release famotidine 20 mg tablet 20 mg PO BID 02/16/19 05/05/23 History furosemide 40 mg tablet (Lasix) 40 mg PO QAM PRN WT GAIN/FLUID 02/16/19 05/05/23 History RETENTION multivitamin 1 tab PO QAM 02/16/19 05/05/23 History potassium chloride 10 mEq 10 meq PO QAM 02/16/19 05/05/23 History tablet,extended release finasteride 5 mg tablet 5 mg PO QAM 12/11/19 05/05/23 History pregabalin 75 mg capsule (Lyrica) 75 mg PO TID 12/11/19 05/05/23 History tamsulosin 0.4 mg capsule 0.4 mg PO QAM 12/11/19 05/05/23 History atorvastatin 80 mg tablet 40 mg PO QAM 07/17/21 05/05/23 History azelastine 137 mcg (0.1 %) nasal 1 spray intranasal BID 04/07/22 05/05/23 History spray aerosol acetaminophen 500 mg tablet 500 mg PO Q6H PRN Pain 03/25/23 05/05/23 History (Tylenol Extra Strength) fluticasone 250 mcg-salmeterol 50 1 inh inhalation BID 03/25/23 05/05/23 History mcg/dose blistr powdr for inhalation montelukast 10 mg tablet 10 mg PO QAM 03/25/23 05/05/23 History albuterol sulfate 1.25 mg/3 mL 1.25 mg inhalation Q4H PRN Wheezing 05/05/23 05/05/23 History solution for nebulization metoprolol succinate 25 mg 12.5 mg PO QAM 05/05/23 05/05/23 History tablet,extended release 24 hr prednisone 20 mg tablet 0 mg PO DIRECTED 05/05/23 05/05/23 History Allergies Allergy/AdvReac Type Severity Reaction Status Date / Time ragweed pollen Allergy Intermediate PER [facility] Verified 05/05/23 02:30 MED LIST Past Med/Surg History Medical History Aortic root dilatation 5.1 cm on 2020 stress echo BPH (benign prostatic hyperplasia) Chronic ulcer of left foot Charcot deformity Coronary artery disease "no clinical history of AR or angina, but extensive coronary calcifications noted on CT chest 09/03/17" Essential hypertension F/U DR DANII BRITTON GERD (gastroesophageal reflux disease) HLD (hyperlipidemia) Kidney stones Neuropathy Paroxysmal A-fib Prediabetes Pulmonary nodule "CT 09/03/17 6 mm nodule RUL; CT 09/28/00 5 x 8 mm nodule superior segment RLL" Restrictive lung disease Sleep apnea "CPAP" Umbilical hernia Surgical History History of ankle surgery LEFT RECONSTRUCTION 11/2021 History of colonoscopy X MULTIPLE History of cystoscopy WITH STENT FOR KIDNEY STONES. 04/08/22. History of right cataract surgery AND LEFT Status post bilateral knee replacements Status post inguinal hernia repair Status post lumbar surgery Status post tonsillectomy Family History Other No significant family history Social History Smoking Status: Never smoker Second Hand Exposure: Yes; Do You Dip or Chew Tobacco: No; Hx Alcohol Use: Yes Alcohol type: hard liquor Hx Substance Use: No Preferred Language: Bulgarian Communication Ability: Effective Visual Impairment: No Limitations Hearing Ability: Use of Hearing Aid Sizer Machine Required: No Beliefs That Will Affect Care: None marital status: Current Living Situation: Spouse current occupational status: retired Feels Safe at Home: Yes Assistive Devices: CPAP, Denture - Upper and Hearing Aid - Bilateral Review of Systems See HPI for pertinent positives & negatives. Physical Exam Vital Signs Vital Signs - 24 hr 05/05/23 02:00 05/05/23 02:43 05/05/23 03:03 Temperature 36.5 C Temperature Source Temporal Artery Scan Pulse Rate 92 H Pulse Rate [Apical] 78 Pulse Rate from SpO2 Sensor Respiratory Rate 24 18 Blood Pressure 154/100 H Blood Pressure [Left Arm] 132/92 Blood Pressure Mean 118 Blood Pressure Mean [Left Arm] 105 Pulse Oximetry 96 97 94 Oxygen Delivery Method Room Air Room Air Room Air Sepsis New/Unexplained Change in Mental Status N/A Sepsis Action Taken by Nursing No Action Required 05/05/23 05:00 05/05/23 06:00 05/05/23 07:00 Temperature Temperature Source Pulse Rate 67 Pulse Rate [Apical] 82 78 Pulse Rate from SpO2 Sensor 65 Respiratory Rate 18 18 18 Blood Pressure 142/78 H Blood Pressure [Left Arm] 115/86 137/88 Blood Pressure Mean 99 Blood Pressure Mean [Left Arm] 95 104 Pulse Oximetry 93 97 92 Oxygen Delivery Method Room Air Room Air Sepsis New/Unexplained Change in Mental Status Sepsis Action Taken by Nursing VITALS: Vitals are noted on the nurse's note and reviewed by myself. GENERAL: Non toxic, no acute distress, non-diaphoretic. SKIN: Capillary refill <2 sec. EARS: External auditory canals clear, tympanic membranes pearly jarrell without erythema or effusion bilaterally. EYES: PERRLA. EOMI. Conjunctivae without injection, sclerae without icterus. NOSE: Patent without discharge. MOUTH: Mucous membranes moist. Uvula midline. Airway patent. Pharynx without erythema, edema, or exudate. No evidence for peritonsillar abscess. NECK: Supple without nuchal rigidity. No lymphadenopathy. HEART: Regular rate and rhythm without murmurs gallops or rubs. LUNGS: Clear to auscultation bilaterally. Scattered wheezes throughout. No rales or rhonchi. No retractions, but initially mild accessory muscle use. ABDOMEN: Positive bowel sounds x 4. Normal tympanic percussion. Soft, nontender, without masses or organomegaly. Ashraf sign negative. No guarding or rebound tenderness. No focal RLQ or LLQ tenderness. MUSCULOSKELETAL: No gross musculoskeletal defects. No calf tenderness bilaterally. Negative Homans' sign bilaterally. Peripheral pulses 2+. NEURO: Patient was alert and oriented to person place and time. No focal neurological deficits. Course Administered Medications Discontinued Medications Albuterol (Albut/Ipratrop 3mg/0.5mg Neb 3 Ml Vial) 3 ml INH NOW STA Stop: 05/05/23 02:32 Last Admin: 05/05/23 02:48 Dose: 3 ml Documented By: AN Albuterol (Albut/Ipratrop 3mg/0.5mg Neb 3 Ml Vial) 3 ml NEB NOW STA; Protocol Stop: 05/05/23 05:02 Last Admin: 05/05/23 05:07 Dose: 3 ml Documented By: AN Albuterol (Albut/Ipratrop 3mg/0.5mg Neb 3 Ml Vial) 3 ml NEB NOW STA; Protocol Stop: 05/05/23 06:20 Last Admin: 05/05/23 06:37 Dose: 3 ml Documented By: AN Cetirizine HCl (Cetirizine Hcl 10 Mg Tablet) 10 mg PO NOW ONE Stop: 05/05/23 06:20 Last Admin: 05/05/23 06:36 Dose: 10 mg Documented By: AN Sodium Chloride (Nss) 500 mls @ 999 mls/hr IV .Q31M STA Stop: 05/05/23 03:01 Last Infusion: 05/05/23 03:22 Dose: 0 mls/hr Documented By: Admin: 05/05/23 02:48 Dose: 999 mls/hr Documented By: AN Ioversol (Optiray 320 125ml) 120 ml IV ONCE ONE Stop: 05/05/23 03:57 Last Admin: 05/05/23 03:56 Dose: 120 ml Documented By: RENÉE Methylprednisolone (Methylprednisolone 125 Mg/2 Ml Vial) 125 mg IV NOW STA Stop: 05/05/23 07:08 Last Admin: 05/05/23 07:22 Dose: 125 mg Documented By: GRACIE Medical Decision Making Differential Diagnosis Differential diagnosis includes URI, COVID, influenza, RSV, bronchitis, pneumonia, pneumothorax, hemothorax, PE, AR, pericarditis, myocarditis, airway obstruction, aspiration, pulmonary edema, asthma, COPD, CHF, pleurisy, metabolic acidosis, anemia, neoplasm, or others. Laboratory Data Attestation: I reviewed the patient's lab results. 05/05/23 02:43 05/05/23 02:43 Lab Results 05/05/23 05/05/23 05/05/23 Range/Units 02:43 02:43 02:43 WBC 9.60 (4.8-10.8) K/ul RBC 4.91 (4.70-6.10) M/uL Hgb 15.3 (14.0-18.0) g/dl Hct 45.1 (42.0-52.0) % MCV 91.9 (80.0-100.0) fL MCH 31.2 (25.0-34.0) pg MCHC 33.9 (32.0-36.0) g/dL RDW Std Deviation 47.8 H (36.4-46.3) fL RDW Coeff of Claribel 14.1 (11.5-14.5) % Plt Count 175 (130-400) K/uL MPV 10.4 (9.4-12.4) fL Immature Gran % (Auto) 0.2 % Neut % (Auto) 61.5 % Lymph % (Auto) 25.8 % [place] % (Auto) 11.4 % Eos % (Auto) 0.6 % Baso % (Auto) 0.5 % Neut # (Auto) 5.90 (1.40-6.50) K/uL Lymph # (Auto) 2.48 (1.2-3.4) K/uL [place] # (Auto) 1.09 H (0.11-0.59) K/uL Eos # (Auto) 0.06 (0-0.50) K/uL Baso # (Auto) 0.05 (0-0.2) K/uL Immature Gran # (Auto) 0.02 (0.01-0.20) K/uL PT 11.4 (9.0-12.0) Seconds INR 1.0 (0.9-1.1) APTT 28.1 (21.0-31.0) Seconds PTT Ratio 1.0 D-Dimer 960 H* (0-500) ug/L FEU Sodium 137 (136-145) mmol/L Potassium 3.8 (3.5-5.1) mmol/L Chloride 104 (98-107) mmol/L Carbon Dioxide 27 (21-32) mmol/L Anion Gap 6 (3-11) BUN 24 H (6-23) mg/dl Creatinine 1.03 (0.6-1.4) mg/dl Est Cr Clr Drug Dosing 91.7 ml/min Est GFR ( Amer) 83.7 ml/min Est GFR (Non-Af Amer) 72.2 ml/min BUN/Creatinine Ratio 23.3 H (10-20) Glucose 77 (70-99(Fasting)) mg/dl Calcium 8.9 (8.6-10.3) mg/dl Magnesium 2.0 (1.7-2.4) mg/dl Total Bilirubin 0.6 (0.2-1.0) mg/dl AST 21 (13-39) U/L ALT 24 (7-52) U/L Alkaline Phosphatase 98 (34-104) U/L Troponin I High Sens 5.2 (0-20) pg/ml B-Natriuretic Peptide (0-100) pg/ml Total Protein 7.0 (6.0-8.3) gm/dl Albumin 3.7 (3.4-5.0) gm/dl Globulin 3.3 (2.5-4.0) gm/dl Albumin/Globulin Ratio 1.1 (0.9-2) Urine Color Urine Appearance (Clear) Urine pH (4.5-7.5) Ur Specific [place] (1.000-1.030) Urine Protein (Negative) Urine Glucose (UA) (Negative) Urine Ketones (Negative) Urine Blood (Negative) Urine Nitrite (Negative) Urine Bilirubin (Negative) Urine Urobilinogen (Negative) Ur Leukocyte Esterase (Negative) SARS-CoV-2 (PCR) (Negative) Influenza Type A (PCR) (Neg) Influenza Type B (PCR) (Neg) RSV (RT-PCR) (Neg) 05/05/23 05/05/23 05/05/23 Range/Units 02:43 02:50 04:35 WBC (4.8-10.8) K/ul RBC (4.70-6.10) M/uL Hgb (14.0-18.0) g/dl Hct (42.0-52.0) % MCV (80.0-100.0) fL MCH (25.0-34.0) pg MCHC (32.0-36.0) g/dL RDW Std Deviation (36.4-46.3) fL RDW Coeff of Claribel (11.5-14.5) % Plt Count (130-400) K/uL MPV (9.4-12.4) fL Immature Gran % (Auto) % Neut % (Auto) % Lymph % (Auto) % [place] % (Auto) % Eos % (Auto) % Baso % (Auto) % Neut # (Auto) (1.40-6.50) K/uL Lymph # (Auto) (1.2-3.4) K/uL [place] # (Auto) (0.11-0.59) K/uL Eos # (Auto) (0-0.50) K/uL Baso # (Auto) (0-0.2) K/uL Immature Gran # (Auto) (0.01-0.20) K/uL PT (9.0-12.0) Seconds INR (0.9-1.1) APTT (21.0-31.0) Seconds PTT Ratio D-Dimer (0-500) ug/L FEU Sodium (136-145) mmol/L Potassium (3.5-5.1) mmol/L Chloride (98-107) mmol/L Carbon Dioxide (21-32) mmol/L Anion Gap (3-11) BUN (6-23) mg/dl Creatinine (0.6-1.4) mg/dl Est Cr Clr Drug Dosing ml/min Est GFR ( Amer) ml/min Est GFR (Non-Af Amer) ml/min BUN/Creatinine Ratio (10-20) Glucose (70-99(Fasting)) mg/dl Calcium (8.6-10.3) mg/dl Magnesium (1.7-2.4) mg/dl Total Bilirubin (0.2-1.0) mg/dl AST (13-39) U/L ALT (7-52) U/L Alkaline Phosphatase (34-104) U/L Troponin I High Sens (0-20) pg/ml B-Natriuretic Peptide 72 (0-100) pg/ml Total Protein (6.0-8.3) gm/dl Albumin (3.4-5.0) gm/dl Globulin (2.5-4.0) gm/dl Albumin/Globulin Ratio (0.9-2) Urine Color Yellow Urine Appearance Clear (Clear) Urine pH 7.0 (4.5-7.5) Ur Specific [place] 1.029 (1.000-1.030) Urine Protein Negative (Negative) Urine Glucose (UA) Negative (Negative) Urine Ketones Negative (Negative) Urine Blood Negative (Negative) Urine Nitrite Negative (Negative) Urine Bilirubin Negative (Negative) Urine Urobilinogen Negative (Negative) Ur Leukocyte Esterase Negative (Negative) SARS-CoV-2 (PCR) NEGATIVE (Negative) Influenza Type A (PCR) Negative (Neg) Influenza Type B (PCR) Negative (Neg) RSV (RT-PCR) Negative (Neg) Imaging Data Attestation: I personally reviewed and interpreted this imaging study as follows: My Impression: Chest x-ray as interpreted by myself shows cardiomegaly with possible increased mediastinal widening compared to previous chest x-ray. Radiology report still pending. Radiologist's Impression: Chest X-Ray 05/05/23 02:31 XR chest 1V portable HISTORY: 72 years-old Male Dyspnea acute shortness of breath COMPARISON: CTA chest of same day TECHNIQUE: AP view of the chest FINDINGS: Cardiac silhouette is enlarged. Chronic interstitial coarsening. Calcified granuloma right lower lobe. No pneumothorax, pleural effusion, airspace consolidation or overt pulmonary edema. Degenerative changes of the shoulders and spine. IMPRESSION: Cardiomegaly without acute process. ACT 112: Negative or not required by law. The above report was generated using voice recognition software. It may contain grammatical, syntax or spelling errors. Electronically signed by: Carlos Rivera M.D. 05/05/2023 6:49 AM Chest CTA 05/05/23 03:27 Exam(s): CTA CHEST IV Amt: 120ml of optiray 320 EXAM: CT Angiography Chest With Intravenous Contrast CLINICAL HISTORY: Reason for exam: PE. TECHNIQUE: Axial computed tomographic angiography images of the chest with intravenous contrast. CTDI is 28.14 mGy and DLP is 1014.35 mGy-cm. Automated exposure control was utilized for the study. A dose lowering technique was utilized adhering to the principles of ALARA. MIP reconstructed images were created and reviewed. COMPARISON: No relevant prior studies available. FINDINGS: Pulmonary arteries: No pulmonary embolism. Aorta: Aneurysmal ascending thoracic aorta measuring up to 4.5 cm at the root. No dissection. Lungs: Unremarkable. Pleural space: Unremarkable. Heart: Unremarkable. Bones/joints: No acute fracture. Soft tissues: Unremarkable Lymph nodes: Unremarkable. IMPRESSION: 1. No pulmonary embolism. 2. Aneurysmal ascending thoracic aorta measuring up to 4.5 cm at the root. No dissection. Electronically signed by: Brennon Wilkins MD 05/05/23 04:49 AM MDM Narrative I examined the patient. An IV lock was placed and labs were drawn. He was given 500 mL normal saline solution bolus. He was given a total of 3 DuoNeb treatments while in the emergency department. His wheezing did improve slightly for short period of time after each DuoNeb treatment, but then became worse again. The patient felt no change in his shortness of breath after the DuoNeb treatments. He was given Zyrtec 10 mg p.o. as well as Solu-Medrol 125 mg IV. EKG showed sinus rhythm with occasional PVCs at 74 bpm along with left axis deviation with no acute ST or T wave changes. Continuous court recording monitor: Order was placed for continuous court recording monitor. Patient was placed on the court recording monitor and continuous pulse ox. Patient was noted to be in normal sinus rhythm at an initial rate of 82 bpm per my interpretation. Chest x-ray as interpreted by myself shows cardiomegaly with possible increased mediastinal widening compared to previous chest x-ray. Radiology report still pending. CBC without leukocytosis or anemia. Coags normal. BUN 24, but CMP otherwise essentially unremarkable. High-sensitivity troponin normal. Urinalysis normal. COVID, influenza, and RSV were negative. D-dimer elevated at 960. CTA of the chest with contrast was reviewed by myself and read by radiology as above and shows no evidence for PE, pneumonia, or other acute abnormalities. It does show an aneurysmal ascending thoracic aorta measuring up to 4.5 cm at the root with no dissection. The patient states that this is stable compared to his previous imaging through [facility]. The patient still had continued wheezing and shortness of breath despite the above treatment. The patient states that he does not have COPD and is unsure if he has asthma, but restrictive lung disease is listed in his past medical history. The patient was independently evaluated by Dr. Lezama, who agrees with my assessment and treatment plan. We feel the patient requires admission for further management of his symptoms. I spoke with the on-call hospitalist who agreed to admit the patient for further evaluation and treatment. Please refer to their dictation for further details. The patient's care was transferred in stable condition. Impression & Plan SOB (shortness of breath), Wheezing Discharge Plan Visit Data Chief Complaint: Cough Stated Complaint: COUGH/NASAL DRIP/CHEST PAIN ED Provider: Annetta Lezama ED Midlevel Provider: Luz Maria Jaquez Discharge Problem: SOB (shortness of breath), Wheezing Patient Disposition: Admitted As Inpatient Condition: Good Forms Stand Alone Forms: My [facility] Prescriptions Prescriptions: No Action albuterol sulfate 90 mcg/actuation Hfa Aerosol Inhaler 2 puff INHALATION Q4H PRN (Reason: SHORTNESS OF BREATH/COUGH) aspirin 81 mg Tablet,Delayed Release (Dr/Ec) 81 mg PO QAM duloxetine 60 mg Capsule,Delayed Release(Dr/Ec) 60 mg PO QAM famotidine 20 mg Tablet 20 mg PO BID furosemide [Lasix] 40 mg Tablet 40 mg PO QAM PRN (Reason: WT GAIN/FLUID RETENTION) multivitamin Tablet 1 tab PO QAM potassium chloride 10 mEq Tablet Extended Release 10 meq PO QAM pregabalin [Lyrica] 75 mg Capsule 75 mg PO TID tamsulosin 0.4 mg Capsule 0.4 mg PO QAM finasteride 5 mg Tablet 5 mg PO QAM atorvastatin 80 mg tablet 40 mg PO QAM fluticasone propion-salmeterol 250-50 mcg/dose blister with device 1 inh INHALATION BID acetaminophen [Tylenol Extra Strength] 500 mg Tablet 500 mg PO Q6H PRN (Reason: Pain) montelukast 10 mg tablet 10 mg PO QAM albuterol sulfate 1.25 mg/3 mL solution for nebulization 1.25 mg inhalation Q4H PRN (Reason: Wheezing) prednisone 20 mg tablet 0 mg PO DIRECTED Rx Instructions: STARTED 05/02/23 FOR 8 DAYS, TAKE 80 MG X 2 DAYS, THEN 60 MG X 2 DAYS, THEN 40 MG X 2 DAYS, THEN 20 MG X 2 DAYS, THEN STOP. metoprolol succinate 25 mg tablet extended release 24 hr 12.5 mg PO QAM azelastine 137 mcg (0.1 %) aerosol,spray 1 spray INTRANASAL BID Referrals Referrals: Brian Titus MD [Primary Care Provider] -
[2023-05-05] MEDS ORDERED: ALBUT/IPRATROP 3MG/0.5MG NEB 3 ML VIAL INH STA (02:31)
[2023-05-05] MEDS ORDERED: SODIUM CHLORIDE 0.9% 500 ML IV STA (02:31)
[2023-05-05 03:23] LABS: Basophils # (auto) 0.05 K/uL (0-0.2); Basophils % (auto) 0.5 %; Eosinophils # (auto) 0.06 K/uL (0-0.50); Eosinophils % (auto) 0.6 %; Hematocrit (blood only) 45.1 % (42.0-52.0); Hemoglobin 15.3 g/dl (14.0-18.0); Immature Granulocytes # (auto) 0.02 K/uL (0.01-0.20); Immature Granulocytes % (auto) 0.2 %; Lymphocytes # (auto) 2.48 K/uL (1.2-3.4); Lymphocytes % (auto) 25.8 %; Mean Corpuscular Hemoglobin 31.2 pg (25.0-34.0); Mean Corpuscular Hgb Conc 33.9 g/dL (32.0-36.0); Mean Corpuscular Volume 91.9 fL (80.0-100.0); Mean Platelet Volume 10.4 fL (9.4-12.4); Monocytes # (auto) 1.09 K/uL (0.11-0.59); Monocytes % (auto) 11.4 %; Neutrophils % (auto) 61.5 %; Platelet Count 175 K/uL (130-400); RDW Coefficient of Variation 14.1 % (11.5-14.5); RDW Standard Deviation 47.8 fL (36.4-46.3); Red Blood Count 4.91 M/uL (4.70-6.10)
[2023-05-05 03:27] LABS: Albumin Globulin Ratio 1.1 (0.9-2); Albumin Level 3.7 gm/dl (3.4-5.0); BUN Creatinine Ratio 23.3 (10-20); Bilirubin,Total 0.6 mg/dl (0.2-1.0); Calcium 8.9 mg/dl (8.6-10.3); Creatinine Clr Calc Pharmacy 91.7 ml/min; Est GFR (African American) 83.7 ml/min; Est GFR (Non-African American) 72.2 ml/min; Globulin 3.3 gm/dl (2.5-4.0); Potassium 3.8 mmol/L (3.5-5.1)
[2023-05-05 03:33] LABS: Troponin I High Sensitivity 5.2 pg/ml (0-20)
[2023-05-05 03:38] LABS: Influenza A virus by PCR Negative (Neg); Influenza B virus by PCR Negative (Neg); RSV by PCR Negative (Neg); SARS CoV2 RNA(COVID-19) Ceph NEGATIVE (Negative)
[2023-05-05 03:40] LABS: Partial Thromboplastin Time 28.1 Seconds (21.0-31.0); Prothrombin Time 11.4 Seconds (9.0-12.0)
[2023-05-05 03:44] LABS: D Dimer 960 ug/L FEU (0-500)
[2023-05-05] MEDS ORDERED: OPTIRAY 320 125ml IV ONE (03:56)
--- NOTE | 2023-05-05 04:50 | CT Scan Report ---
Exam(s): CTA CHEST IV Amt: 120ml of optiray 320 EXAM: CT Angiography Chest With Intravenous Contrast CLINICAL HISTORY: Reason for exam: PE. TECHNIQUE: Axial computed tomographic angiography images of the chest with intravenous contrast. CTDI is 28.14 mGy and DLP is 1014.35 mGy-cm. Automated exposure control was utilized for the study. A dose lowering technique was utilized adhering to the principles of ALARA. MIP reconstructed images were created and reviewed. COMPARISON: No relevant prior studies available. FINDINGS: Pulmonary arteries: No pulmonary embolism. Aorta: Aneurysmal ascending thoracic aorta measuring up to 4.5 cm at the root. No dissection. Lungs: Unremarkable. Pleural space: Unremarkable. Heart: Unremarkable. Bones/joints: No acute fracture. Soft tissues: Unremarkable Lymph nodes: Unremarkable. IMPRESSION: 1. No pulmonary embolism. 2. Aneurysmal ascending thoracic aorta measuring up to 4.5 cm at the root. No dissection. Electronically signed by: Brennon Wilkins MD 05/05/23 04:49 AM
[2023-05-05] MEDS ORDERED: ALBUT/IPRATROP 3MG/0.5MG NEB 3 ML VIAL NEB STA ×2 (05:01→06:19)
[2023-05-05 05:03] LABS: Appearance Urine Clear (Clear); Bilirubin Urine Negative (Negative); Blood Urine Negative (Negative); Color Urine Yellow; Glucose Urine UA Negative (Negative); Ketones Urine Negative (Negative); Leukocyte Esterase Urine Negative (Negative); Nitrite Urine Negative (Negative); Protein Urine Negative (Negative); Specific Gravity Urine 1.029 (1.000-1.030); Urobilinogen Urine Negative (Negative)
[2023-05-05] MEDS ORDERED: CETIRIZINE HCL 10 MG TABLET PO ONE (06:19)
--- NOTE | 2023-05-05 06:41 | Emergency Department Note ---
ED Visit Note I was consulted by the Advanced Practice Provider. I saw the patient personally and performed a substantive portion of the visit. This includes aspects of the HPI, MDM, diagnostic interpretations, and disposition/plan. .
--- NOTE | 2023-05-05 06:50 | XRay Report ---
XR chest 1V portable HISTORY: 72 years-old Male Dyspnea acute shortness of breath COMPARISON: CTA chest of same day TECHNIQUE: AP view of the chest FINDINGS: Cardiac silhouette is enlarged. Chronic interstitial coarsening. Calcified granuloma right lower lobe . No pneumothorax, pleural effusion, airspace consolidation or overt pulmonary edema. Degenerative ch anges of the shoulders and spine. IMPRESSION: Cardiomegaly without acute process. ACT 112: Negative or not required by law. The above report was generated using voice recognition software. It may contain grammatical, syntax o r spelling errors. Electronically signed by: Carlos Rivera M.D. 05/05/2023 6:49 AM
[2023-05-05] MEDS ORDERED: methylPREDNISolone 125 MG/2 ML VIAL IV STA (07:07)
[2023-05-05] MEDS ORDERED: XOPENEX/ATROVENT 1.25mg/0.5MG NEB COMBO NEB PRN (07:29)
[2023-05-05] MEDS ORDERED: IPRATROPIUM BROMIDE NEB SOLN 0.02% 2.5 ML VIAL INH PRN (07:30)
[2023-05-05] MEDS ORDERED: LEVALBUTEROL 1.25 MG/3 ML NEB NEB PRN (07:30)
[2023-05-05 07:50] LABS: Allen Test Pos (Pos); Base Excess ABG 0.3 mEq/L (-9-1.8); HCO3 ABG 25 mmol/L (19-24); Oxygen Saturation ABG 96.6 % (90-95); PCO2 ABG 38 mmHg (35-46); PO2 ABG 80 mmHg (80-95); pH ABG 7.42 (7.35-7.45)
[2023-05-05] MEDS ORDERED: ACETAMINOPHEN 325 MG TAB PO PRN (08:40)
--- NOTE | 2023-05-05 08:40 | History & Physical Report ---
Date of Service May 05, 2023 Assessment & Plan (1) Asthma exacerbation: Plan: -Acute Bronchitis Admit to med surg with tele - Sputum culture, mucinex, duonebs QID and Q2H prn, tessalon pearls - Wean O2 prn -does not require at home, will CPAP HS - Influenza swab neg, COVID, RSV neg - WBC at time of admission = 9.60 - BCx x 2, follow - Tmax = afebrile, no reported fever at home either - CXR was negative, D dimer elevated at 960 but CTA was negative for PE - Continue antibiotic therapy with doxycycline IV - IV solumedrol 40 mg Q8H with next dose starting at 1400, already received 125 mg in the ER. (2) Sleep apnea: Plan: -Patient reports uses CPAP at bedtime, his does not know how to break the machine down and therefore would like to use one here at the hospital (3) Coronary artery disease: (4) Essential hypertension: (5) Diastolic CHF due to valvular disease: Plan: - -Hold Lasix today with receiving contrast, resume tomorrow - Last echo reviewed showing preserved EF, continue metoprolol succinate 12 point 5 in the morning, baby aspirin, (6) Aortic root dilatation: Plan: - Noted on CTA of the chest, measuring less than 5 cm today. Denies any chest pain, pressure, heaviness (7) HLD (hyperlipidemia): Plan: -Continue statin therapy DVT PPx: - teds, scds CODE: Full code Dispo: From home, likely to remain in the hospital x 1-2 days A total of75 minutes were spent with greater than 50% of that time face to face with the patient, personally reviewing all current laboratories, imaging studies, past medication reconciliation, outpatient chart review, and discussion with specialists to collaborate care for the patient with attending. Please see attending documentation for corrections and/or additions. History of Present Illness Chief Complaint: Shortness of breath Primary Care Provider: Brian Titus MD This is a 72-year-old male with PMHx of moderate persistent asthma, diastolic CHF due to valvular disease, CAD, history of SVT, aortic root dilation of 4.5 cm, HTN, HLD, obstructive sleep apnea on CPAP, obesity with a BMI of 40, BPH, CKD. Pt presented to the PCP office 3 days ago with c/o sore throat, cough, and headache and reported at that time he had been using inhalers, nasal spray and allergy medications but had not improved his symptoms. His PCP had diagnosed a acute asthma exacerbation and so he was given a short course of prednisone taper. He is coughing up more mucus within the past 3 days which is white and thick, denies any hemoptysis. In the past he experiences exacerbations like this about twice per year, typically around this time and right before hunting season starts in the fall, and this does feel very similar, notes he has been told this is bronchitis in the past. He had minimal relief in symptoms so came to the hospital today. At no point was he found to be hypoxic. D-Dimer was elevated however CTA is negative. Pt got 2 nebulizer treatments and solumedrol 125 IV in the ER without significant improvement and continues to have wheezing. At this time he is currently receiving nebulizers by respiratory up on the floor. He states he feels slightly improved at this point in time. Allergies Allergy/AdvReac Type Severity Reaction Status Date / Time ragweed pollen Allergy Intermediate PER [facility] Verified 05/05/23 02:30 MED LIST Home Medications Medication Instructions Recorded Confirmed Type albuterol sulfate 90 mcg/actuation 2 puff inhalation Q4H PRN 02/16/19 05/05/23 History aerosol inhaler SHORTNESS OF BREATH/COUGH aspirin 81 mg tablet,delayed 81 mg PO QAM 02/16/19 05/05/23 History release duloxetine 60 mg capsule,delayed 60 mg PO QAM 02/16/19 05/05/23 History release famotidine 20 mg tablet 20 mg PO BID 02/16/19 05/05/23 History furosemide 40 mg tablet (Lasix) 40 mg PO QAM PRN WT GAIN/FLUID 02/16/19 05/05/23 History RETENTION multivitamin 1 tab PO QAM 02/16/19 05/05/23 History potassium chloride 10 mEq 10 meq PO QAM 02/16/19 05/05/23 History tablet,extended release finasteride 5 mg tablet 5 mg PO QAM 12/11/19 05/05/23 History pregabalin 75 mg capsule (Lyrica) 75 mg PO TID 12/11/19 05/05/23 History tamsulosin 0.4 mg capsule 0.4 mg PO QAM 12/11/19 05/05/23 History atorvastatin 80 mg tablet 40 mg PO QAM 07/17/21 05/05/23 History azelastine 137 mcg (0.1 %) nasal 1 spray intranasal BID 04/07/22 05/05/23 History spray aerosol acetaminophen 500 mg tablet 500 mg PO Q6H PRN Pain 03/25/23 05/05/23 History (Tylenol Extra Strength) fluticasone 250 mcg-salmeterol 50 1 inh inhalation BID 03/25/23 05/05/23 History mcg/dose blistr powdr for inhalation montelukast 10 mg tablet 10 mg PO QAM 03/25/23 05/05/23 History albuterol sulfate 1.25 mg/3 mL 1.25 mg inhalation Q4H PRN Wheezing 05/05/23 05/05/23 History solution for nebulization metoprolol succinate 25 mg 12.5 mg PO QAM 05/05/23 05/05/23 History tablet,extended release 24 hr prednisone 20 mg tablet 0 mg PO DIRECTED 05/05/23 05/05/23 History Past Med/Surg History Medical History Aortic root dilatation 5.1 cm on 2020 stress echo BPH (benign prostatic hyperplasia) Chronic ulcer of left foot Charcot deformity Coronary artery disease "no clinical history of [place] or angina, but extensive coronary calcifications noted on CT chest 09/03/17" Essential hypertension F/U DR DANII BRITTON GERD (gastroesophageal reflux disease) HLD (hyperlipidemia) Kidney stones Neuropathy Paroxysmal A-fib Prediabetes Pulmonary nodule "CT 09/03/17 6 mm nodule RUL; CT 09/28/00 5 x 8 mm nodule superior segment RLL" Restrictive lung disease Sleep apnea "CPAP" Umbilical hernia Surgical History History of ankle surgery LEFT RECONSTRUCTION 11/2021 History of colonoscopy X MULTIPLE History of cystoscopy WITH STENT FOR KIDNEY STONES. 04/08/22. History of right cataract surgery AND LEFT Status post bilateral knee replacements Status post inguinal hernia repair Status post lumbar surgery Status post tonsillectomy Family History Other No significant family history Social History Smoking Status: Never smoker Second Hand Exposure: Yes; Do You Dip or Chew Tobacco: No; Hx Alcohol Use: No Hx Substance Use: No Preferred Language: German Communication Ability: Effective Visual Impairment: No Limitations Hearing Ability: Use of Hearing Aid [employer] Required: No Beliefs That Will Affect Care: None marital status: Current Living Situation: Spouse current occupational status: retired Feels Safe at Home: Yes Safety Concerns: Feels Safe At This Time Assistive Devices: None Review of Systems Review of Systems: Constitutional: No fever, sweats, + chills Eyes: No diplopia, no worsening or blurred vision ENT: normal hearing, no trouble swallowing Respiratory: As per HPI, + cough, + sputum, plus dyspnea on exertion Cardiovascular: No chest pain, tightness or palpitations Abdomen: No pain, nausea, vomiting, diarrhea or constipation Musculoskeletal: No joint pain, calf pain, swelling Neurologic: No weakness, numbness/tingling, or balance problems Psychiatric: No anxiety or depression Skin: No rash or itch Physical Exam Physical Exam: General: awake, alert, no apparent distress, morbidly obese with BMI of 37.4 Head: Normocephalic, atraumatic ENT: PERRL, EOMI, + right-sided strabismus, no pharyngeal exudate, mucous memb ranes moist Chest: + coarse breath sounds throughout, getting nebulizer treatment currently, minimal wheezing, no crackles Cardiac: Regular rate and rhythm, no murmur, no JVD, normal peripheral pulses, good capillary refill Abdominal: Abdominally obese, NABS x 4 quadrants, soft, nondistended, nontender to palpation, no rebound or guarding Extremities: Normal inspection, 1+ peripheral edema, no erythema, calfs nontender to palpation Psych: Normal mood and affect Neuro: AAO x 3, strength intact bilaterally and rated 5/5, no motor deficits, speech is clear, no peripheral sensory deficits Results & Data Results & Data Vital Signs (Past 12 Hours) Vital Signs Temp Pulse Pulse Resp BP BP Pulse Ox 05/05/23 08:00 73 15 144/92 H 97 05/05/23 08:12 05/05/23 07:00 67 18 142/78 H 92 05/05/23 06:00 78 18 137/88 97 05/05/23 05:00 82 18 115/86 93 05/05/23 03:03 78 18 132/92 94 05/05/23 02:43 97 05/05/23 02:00 36.5 C 92 H 24 154/100 H 96 O2 Del Method 05/05/23 08:00 05/05/23 08:12 Room Air 05/05/23 07:00 05/05/23 06:00 Room Air 05/05/23 05:00 Room Air 05/05/23 03:03 Room Air 05/05/23 02:43 Room Air 05/05/23 02:00 Room Air Laboratory Results 05/05/23 05/05/23 05/05/23 07:40 04:35 02:50 WBC RBC Hgb Hct MCV MCH MCHC RDW Std Deviation RDW Coeff of Claribel Plt Count MPV Immature Gran % (Auto) Neut % (Auto) Lymph % (Auto) [place] % (Auto) Eos % (Auto) Baso % (Auto) Neut # (Auto) Lymph # (Auto) [place] # (Auto) Eos # (Auto) Baso # (Auto) Immature Gran # (Auto) PT INR APTT PTT Ratio D-Dimer ABG pH 7.42 ABG pCO2 38 ABG pO2 80 ABG HCO3 25 H ABG O2 Saturation 96.6 H ABG Base Excess 0.3 Sudarshan Test Pos Oxygen Given ROOM AIR Sodium Potassium Chloride Carbon Dioxide Anion Gap BUN Creatinine Est Cr Clr Drug Dosing Est GFR ( Amer) Est GFR (Non-Af Amer) BUN/Creatinine Ratio Glucose Calcium Magnesium Total Bilirubin AST ALT Alkaline Phosphatase Troponin I High Sens B-Natriuretic Peptide Total Protein Albumin Globulin Albumin/Globulin Ratio Urine Color Yellow Urine Appearance Clear Urine pH 7.0 Ur Specific [place] 1.029 Urine Protein Negative Urine Glucose (UA) Negative Urine Ketones Negative Urine Blood Negative Urine Nitrite Negative Urine Bilirubin Negative Urine Urobilinogen Negative Ur Leukocyte Esterase Negative SARS-CoV-2 (PCR) NEGATIVE Influenza Type A (PCR) Negative Influenza Type B (PCR) Negative RSV (RT-PCR) Negative 05/05/23 05/05/23 05/05/23 02:43 02:43 02:43 WBC RBC Hgb Hct MCV MCH MCHC RDW Std Deviation RDW Coeff of Claribel Plt Count MPV Immature Gran % (Auto) Neut % (Auto) Lymph % (Auto) [place] % (Auto) Eos % (Auto) Baso % (Auto) Neut # (Auto) Lymph # (Auto) [place] # (Auto) Eos # (Auto) Baso # (Auto) Immature Gran # (Auto) PT 11.4 INR 1.0 APTT 28.1 PTT Ratio 1.0 D-Dimer 960 H* ABG pH ABG pCO2 ABG pO2 ABG HCO3 ABG O2 Saturation ABG Base Excess Sudarshan Test Oxygen Given Sodium 137 Potassium 3.8 Chloride 104 Carbon Dioxide 27 Anion Gap 6 BUN 24 H Creatinine 1.03 Est Cr Clr Drug Dosing 91.7 Est GFR ( Amer) 83.7 Est GFR (Non-Af Amer) 72.2 BUN/Creatinine Ratio 23.3 H Glucose 77 Calcium 8.9 Magnesium 2.0 Total Bilirubin 0.6 AST 21 ALT 24 Alkaline Phosphatase 98 Troponin I High Sens 5.2 B-Natriuretic Peptide 72 Total Protein 7.0 Albumin 3.7 Globulin 3.3 Albumin/Globulin Ratio 1.1 Urine Color Urine Appearance Urine pH Ur Specific [place] Urine Protein Urine Glucose (UA) Urine Ketones Urine Blood Urine Nitrite Urine Bilirubin Urine Urobilinogen Ur Leukocyte Esterase SARS-CoV-2 (PCR) Influenza Type A (PCR) Influenza Type B (PCR) RSV (RT-PCR) 05/05/23 02:43 WBC 9.60 RBC 4.91 Hgb 15.3 Hct 45.1 MCV 91.9 MCH 31.2 MCHC 33.9 RDW Std Deviation 47.8 H RDW Coeff of Claribel 14.1 Plt Count 175 MPV 10.4 Immature Gran % (Auto) 0.2 Neut % (Auto) 61.5 Lymph % (Auto) 25.8 [place] % (Auto) 11.4 Eos % (Auto) 0.6 Baso % (Auto) 0.5 Neut # (Auto) 5.90 Lymph # (Auto) 2.48 [place] # (Auto) 1.09 H Eos # (Auto) 0.06 Baso # (Auto) 0.05 Immature Gran # (Auto) 0.02 PT INR APTT PTT Ratio D-Dimer ABG pH ABG pCO2 ABG pO2 ABG HCO3 ABG O2 Saturation ABG Base Excess Sudarshan Test Oxygen Given Sodium Potassium Chloride Carbon Dioxide Anion Gap BUN Creatinine Est Cr Clr Drug Dosing Est GFR ( Amer) Est GFR (Non-Af Amer) BUN/Creatinine Ratio Glucose Calcium Magnesium Total Bilirubin AST ALT Alkaline Phosphatase Troponin I High Sens B-Natriuretic Peptide Total Protein Albumin Globulin Albumin/Globulin Ratio Urine Color Urine Appearance Urine pH Ur Specific [place] Urine Protein Urine Glucose (UA) Urine Ketones Urine Blood Urine Nitrite Urine Bilirubin Urine Urobilinogen Ur Leukocyte Esterase SARS-CoV-2 (PCR) Influenza Type A (PCR) Influenza Type B (PCR) RSV (RT-PCR) Diagnostic Findings Chest X-Ray 05/05/23 02:31 XR chest 1V portable HISTORY: 72 years-old Male Dyspnea acute shortness of breath COMPARISON: CTA chest of same day TECHNIQUE: AP view of the chest FINDINGS: Cardiac silhouette is enlarged. Chronic interstitial coarsening. Calcified granuloma right lower lobe. No pneumothorax, pleural effusion, airspace consolidation or overt pulmonary edema. Degenerative changes of the shoulders and spine. IMPRESSION: Cardiomegaly without acute process. ACT 112: Negative or not required by law. The above report was generated using voice recognition software. It may contain grammatical, syntax or spelling errors. Electronically signed by: Carlos Rivera M.D. 05/05/2023 6:49 AM Chest CTA 05/05/23 03:27 Exam(s): CTA CHEST IV Amt: 120ml of optiray 320 EXAM: CT Angiography Chest With Intravenous Contrast CLINICAL HISTORY: Reason for exam: PE. TECHNIQUE: Axial computed tomographic angiography images of the chest with intravenous contrast. CTDI is 28.14 mGy and DLP is 1014.35 mGy-cm. Automated exposure control was utilized for the study. A dose lowering technique was utilized adhering to the principles of ALARA. MIP reconstructed images were created and reviewed. COMPARISON: No relevant prior studies available. FINDINGS: Pulmonary arteries: No pulmonary embolism. Aorta: Aneurysmal ascending thoracic aorta measuring up to 4.5 cm at the root. No dissection. Lungs: Unremarkable. Pleural space: Unremarkable. Heart: Unremarkable. Bones/joints: No acute fracture. Soft tissues: Unremarkable Lymph nodes: Unremarkable. IMPRESSION: 1. No pulmonary embolism. 2. Aneurysmal ascending thoracic aorta measuring up to 4.5 cm at the root. No dissection. Electronically signed by: Brennon Wilkins MD 05/05/23 04:49 AM Code Status & VTE Plan Code Status Full code - discussed with the patient at bedside VTE Prophylaxis Plan VTE Prophylaxis will be ordered: Yes Supervising Physician Co-Signing Physician Notes Attending Addendum: care coordinated with IVETTE Chahal. please refer to her notes for full details, I agree with her notes patient seen and examined, records reviewed by myself as well on exam, patient seen resting in bed, comfortable not in distress states he feels somewhat improved compared to admission cough getting looser no active shortness of breath (+) faint, occasional wheezing on exam no other symptoms diagnoses and plan of care as per IVETTE Chahal's notes Avni Fitzpatrick MD
[2023-05-05] MEDS: SODIUM CHLOR 7% 4 ML NEB NEB SCH ×2 (09:02→19:14)
[2023-05-05] MEDS: IPRATROPIUM BROMIDE NEB SOLN 0.02% 2.5 ML VIAL INH SCH ×3 (09:05→19:14)
[2023-05-05] MEDS: LEVALBUTEROL 1.25 MG/3 ML NEB NEB SCH ×3 (09:05→19:14)
[2023-05-05] MEDS: guaiFENesin 600 MG TABCR PO SCH ×2 (09:37→20:04)
[2023-05-05] MEDS: DOXYCYCLINE HYCLATE 100 MG in DEXTROSE 5% 100 ML IV SCH ×2 (09:37→20:08)
[2023-05-05] MEDS ORDERED: ALBUTEROL HFA 8 GM INHALER INH PRN (10:14)
[2023-05-05] MEDS ORDERED: FUROSEMIDE 40 MG TAB PO PRN (10:14)
--- NOTE | 2023-05-05 11:35 | Electrocardiogram Report ---
Test Reason : Blood Pressure : / mmHG Vent. Rate : 074 BPM Atrial Rate : 074 BPM P-R Int : 200 ms QRS Dur : 128 ms QT Int : 408 ms P-R-T Axes : 084 -53 077 degrees QTc Int : 452 ms Sinus rhythm with occasional Premature ventricular complexes Left axis deviation Non-specific intra-ventricular conduction block Abnormal ECG When compared with ECG of 17-JUL-2021 19:58, Premature ventricular complexes are now Present Confirmed by Mark Forbes [id number] on 05/05/2023 11:34:44 AM Referred By: REFERRED SELF Confirmed By:Ismael Forbes
[2023-05-05] MEDS: METOPROLOL SUCC 25MG EXT REL TAB PO SCH (11:36)
[2023-05-05] MEDS: FAMOTIDINE 20 MG TAB PO SCH ×2 (11:37→20:04)
[2023-05-05] MEDS: ATORVASTATIN 40 MG TAB PO SCH (11:37)
[2023-05-05] MEDS: ASPIRIN 81 MG ECTAB PO SCH (11:37)
[2023-05-05] MEDS: DULoxetine HCL 60 MG CAP PO SCH (11:37)
[2023-05-05] MEDS: MONTELUKAST SODIUM 10 MG TABLET PO SCH (11:37)
[2023-05-05] MEDS: TAMSULOSIN HCL 0.4 MG CAP PO SCH (11:37)
[2023-05-05] MEDS: FLUTICASONE/VILANTEROL 200/25MCG 14 PUFFS/INHALER INH SCH (11:38)
[2023-05-05] MEDS: FINASTERIDE 5 MG TAB PO SCH (11:38)
[2023-05-05] MEDS: AZELASTINE HCL 0.1% NASAL 200 SPRAYS/27,400 MCG BTL SCH ×2 (11:38→20:03)
[2023-05-05] MEDS: MULTIVITAMIN TAB PO SCH (11:39)
[2023-05-05] MEDS ORDERED: XOPENEX/ATROVENT 1.25mg/0.5MG NEB COMBO NEB SCH (12:00)
[2023-05-05] MEDS: PREGABALIN 75 MG CAP PO SCH ×2 (15:21→20:08)
[2023-05-05] MEDS: methylPREDNISolone 40 MG in SYRINGE 0 ML IV SCH ×2 (15:21→21:53)
[2023-05-06] MEDS: IPRATROPIUM BROMIDE NEB SOLN 0.02% 2.5 ML VIAL INH SCH ×4 (01:54→19:10)
[2023-05-06] MEDS: LEVALBUTEROL 1.25 MG/3 ML NEB NEB SCH ×4 (01:54→19:10)
[2023-05-06] MEDS: methylPREDNISolone 40 MG in SYRINGE 0 ML IV SCH ×2 (06:29→16:11)
[2023-05-06] MEDS: SODIUM CHLOR 7% 4 ML NEB NEB SCH ×2 (07:09→19:10)
[2023-05-06 08:19] LABS: BUN Creatinine Ratio 24.4 (10-20); Calcium 9.5 mg/dl (8.6-10.3); Creatinine Clr Calc Pharmacy 109.3 ml/min; Est GFR (African American) 98.5 ml/min; Potassium 4.4 mmol/L (3.5-5.1)
[2023-05-06] MEDS: DOXYCYCLINE HYCLATE 100 MG in DEXTROSE 5% 100 ML IV SCH ×2 (09:22→20:55)
[2023-05-06] MEDS: FLUTICASONE/VILANTEROL 200/25MCG 14 PUFFS/INHALER INH SCH (09:25)
[2023-05-06] MEDS: MONTELUKAST SODIUM 10 MG TABLET PO SCH (09:27)
[2023-05-06] MEDS: ASPIRIN 81 MG ECTAB PO SCH (09:27)
[2023-05-06] MEDS: POTASSIUM CHLORIDE 10 MEQ TABCR PO SCH (09:27)
[2023-05-06] MEDS: DULoxetine HCL 60 MG CAP PO SCH (09:28)
[2023-05-06] MEDS: TAMSULOSIN HCL 0.4 MG CAP PO SCH (09:28)
[2023-05-06] MEDS: MULTIVITAMIN TAB PO SCH (09:28)
[2023-05-06] MEDS: FINASTERIDE 5 MG TAB PO SCH (09:28)
[2023-05-06] MEDS: guaiFENesin 600 MG TABCR PO SCH ×2 (09:29→21:02)
[2023-05-06] MEDS: ATORVASTATIN 40 MG TAB PO SCH (09:29)
[2023-05-06] MEDS: METOPROLOL SUCC 25MG EXT REL TAB PO SCH (09:29)
[2023-05-06] MEDS: FAMOTIDINE 20 MG TAB PO SCH ×2 (09:29→21:01)
[2023-05-06] MEDS: AZELASTINE HCL 0.1% NASAL 200 SPRAYS/27,400 MCG BTL SCH (09:29)
[2023-05-06] MEDS: PREGABALIN 75 MG CAP PO SCH ×3 (09:38→21:05)
[2023-05-06] MEDS ORDERED: HYDROcodone/HOMATROPINE SYRUP 5MG/1.5MG 5ML UDP PO PRN (13:45)
[2023-05-06] MEDS: HYDROcodone/HOMATROPINE SYRUP 5MG/1.5MG 5ML UDP PO PRN ×2 (14:25→21:01)
--- NOTE | 2023-05-06 15:12 | Hospitalist Progress Note ---
Date of Service May 06, 2023 Assessment & Plan (1) Asthma exacerbation: Plan: -Acute Bronchitis per IVETTE Aggie Chahal's notes: Admit to med surg with tele - Sputum culture, mucinex, duonebs QID and Q2H prn, tessalon pearls - Wean O2 prn -does not require at home, will CPAP HS - Influenza swab neg, COVID, RSV neg - WBC at time of admission = 9.60 - BCx x 2, follow - Tmax = afebrile, no reported fever at home either - CXR was negative, D dimer elevated at 960 but CTA was negative for PE - Continue antibiotic therapy with doxycycline IV - IV solumedrol 40 mg Q8H with next dose starting at 1400, already received 125 mg in the ER. 05/06 improving taper IV steroids to BID continue nebs, doxy IV add Flonase, Ipratropium nasal spray, Claritin (2) Sleep apnea: Plan: -Patient reports uses CPAP at bedtime, his does not know how to break the machine down and therefore would like to use one here at the hospital (3) Coronary artery disease: (4) Essential hypertension: (5) Diastolic CHF due to valvular disease: Plan: - -Hold Lasix today with receiving contrast, resume tomorrow - Last echo reviewed showing preserved EF, continue metoprolol succinate 12 point 5 in the morning, baby aspirin, 05/06 resume lasix (6) Aortic root dilatation: Plan: - Noted on CTA of the chest, measuring less than 5 cm today. Denies any chest pain, pressure, heaviness (7) HLD (hyperlipidemia): Plan: -Continue statin therapy DVT PPx: - teds, scds CODE: Full code Dispo: anticipate d/c home tomorrow plan of care discussed with patient in detail and at length all questions answered he is understanding, agreeable, comfortable with the plan of care Admission and Anticipated Discharge Date Admission Date: May 05, 2023 Subjective ff up for asthma exacerbation, etc seen resting in bed, sitting up comfortable states he is still having postnasal drip resulting to coughing spells breathing is improving still hears some wheezing intermittently no chest pain, fever no other symptoms Review of Systems Review of Systems: all noted and negative except for above Physical Exam Physical Exam: General- oriented x 3, not in distress, speaks in sentences with no effort or accessory muscle use Eyes- anicteric Neck- no JVD Lungs- clear breath sounds bilaterally, no rales/wheezes Heart- normal rate, regular rhythm; no murmurs Abdomen- normal bowel sounds, nondistended, soft, nontender Extremities- no pretibial edema, no calf tenderness Neuro- alert, oriented x 3; no gross focal neurologic deficits Skin- warm & dry Results & Data Results & Data Vital Signs (Past 12 Hours) Vital Signs Temp Pulse Pulse Resp BP Pulse Ox O2 Del Method 05/06/23 13:05 70 05/06/23 12:49 90 16 93 Room Air 05/06/23 12:29 36.7 C 86 18 144/76 H 92 Room Air 05/06/23 07:44 36.4 C L 75 18 133/78 94 Room Air 05/06/23 07:12 98 H 18 94 Room Air 05/06/23 03:45 87 20 94 05/06/23 03:11 36.8 C 75 18 126/64 91 Room Air all noted and reviewed including below
[2023-05-06] MEDS ORDERED: LORATADINE 10 MG TAB PO ONE (15:15)
[2023-05-06] MEDS: FLUTICASONE PROPIONATE NA SPR 16 GM BTL SCH (15:20)
[2023-05-06] MEDS: IPRATROPIUM BROMIDE NASAL SPRAY 0.06% 15ML NAE SCH (21:03)
[2023-05-07] MEDS: IPRATROPIUM BROMIDE NEB SOLN 0.02% 2.5 ML VIAL INH SCH ×2 (00:28→07:24)
[2023-05-07] MEDS: LEVALBUTEROL 1.25 MG/3 ML NEB NEB SCH ×2 (00:28→07:24)
[2023-05-07] MEDS: HYDROcodone/HOMATROPINE SYRUP 5MG/1.5MG 5ML UDP PO PRN (05:27)
[2023-05-07] MEDS: methylPREDNISolone 40 MG in SYRINGE 0 ML IV SCH (05:27)
[2023-05-07] MEDS: SODIUM CHLOR 7% 4 ML NEB NEB SCH (07:24)
[2023-05-07] MEDS: guaiFENesin 600 MG TABCR PO SCH (08:07)
[2023-05-07] MEDS: POTASSIUM CHLORIDE 10 MEQ TABCR PO SCH (08:07)
[2023-05-07] MEDS: PREGABALIN 75 MG CAP PO SCH (08:07)
[2023-05-07] MEDS: DULoxetine HCL 60 MG CAP PO SCH (08:08)
[2023-05-07] MEDS: TAMSULOSIN HCL 0.4 MG CAP PO SCH (08:08)
[2023-05-07] MEDS: MULTIVITAMIN TAB PO SCH (08:08)
[2023-05-07] MEDS: ASPIRIN 81 MG ECTAB PO SCH (08:08)
[2023-05-07] MEDS: METOPROLOL SUCC 25MG EXT REL TAB PO SCH (08:08)
[2023-05-07] MEDS: FINASTERIDE 5 MG TAB PO SCH (08:09)
[2023-05-07] MEDS: FAMOTIDINE 20 MG TAB PO SCH (08:09)
[2023-05-07] MEDS: ATORVASTATIN 40 MG TAB PO SCH (08:09)
[2023-05-07] MEDS: MONTELUKAST SODIUM 10 MG TABLET PO SCH (08:09)
[2023-05-07] MEDS: FLUTICASONE PROPIONATE NA SPR 16 GM BTL SCH (08:10)
[2023-05-07] MEDS: IPRATROPIUM BROMIDE NASAL SPRAY 0.06% 15ML NAE SCH (08:10)
[2023-05-07] MEDS: FLUTICASONE/VILANTEROL 200/25MCG 14 PUFFS/INHALER INH SCH (08:10)
[2023-05-07] MEDS: DOXYCYCLINE HYCLATE 100 MG in DEXTROSE 5% 100 ML IV SCH (08:25)
--- NOTE | 2023-05-07 08:53 | Hospitalist Progress Note ---
Date of Service May 07, 2023 delayed entry date of service noted above Assessment & Plan (1) Asthma exacerbation: Plan: -Acute Bronchitis per IVETTE Aggie Chahal's notes: Admit to med surg with tele - Sputum culture, mucinex, duonebs QID and Q2H prn, tessalon pearls - Wean O2 prn -does not require at home, will CPAP HS - Influenza swab neg, COVID, RSV neg - WBC at time of admission = 9.60 - BCx x 2, follow - Tmax = afebrile, no reported fever at home either - CXR was negative, D dimer elevated at 960 but CTA was negative for PE - 05/07 patient given IV Solumedrol, Doxycycline, Mucinex also given Claritin Flonase, Ipratropium nasal spray and PRN Hycodan gradually improved wheezing resolved discharge on: Prednisone taper Doxycycline x5 more days Mucinex twice daily x7 days Claritin, Flonase, ipratropium nasal spray x1 week Follow-up with PCP in 1 week (2) Sleep apnea: Plan: continue CPAP (3) Coronary artery disease: (4) Essential hypertension: (5) Diastolic CHF due to valvular disease: Plan: - -Hold Lasix today with receiving contrast, resume tomorrow - Last echo reviewed showing preserved EF, continue metoprolol succinate 12 point 5 in the morning, baby aspirin, 05/07 resume lasix (6) Aortic root dilatation: Plan: - Noted on CTA of the chest, measuring less than 5 cm today. Denies any chest pain, pressure, heaviness (7) HLD (hyperlipidemia): Plan: -Continue statin therapy DVT PPx: - teds, scds CODE: Full code Dispo: d/c home ff up with PCP in 1 week plan of care discussed with patient in detail and at length all questions answered he is understanding, agreeable, comfortable with the plan of care Admission and Anticipated Discharge Date Admission Date: May 05, 2023 Subjective ff up for acute bronchitis, asthma exacerbation, etc seen resting in chair, comfortable states he feels much better overall breathing much improved less cough less nasal drainage ambulating with no problems no other symptoms Review of Systems Review of Systems: all noted and negative except for above Physical Exam Physical Exam: General- oriented x 3, not in distress, speaks in sentences with no effort or accessory muscle use Eyes- anicteric Neck- no JVD Lungs- clear breath sounds bilaterally, no rales/wheezes Heart- normal rate, regular rhythm; no murmurs Abdomen- normal bowel sounds, nondistended, soft, nontender Extremities- no pretibial edema, no calf tenderness Neuro- alert, oriented x 3; no gross focal neurologic deficits Skin- warm & dry Results & Data Results & Data Vital Signs (Past 12 Hours) Vital Signs Temp Pulse Pulse Resp BP Pulse Ox O2 Del Method 05/07/23 07:23 74 18 93 Room Air 05/07/23 07:00 36.7 C 67 18 149/97 H 94 Room Air 05/07/23 03:34 36.6 C 75 18 117/63 96 Room Air 05/07/23 01:51 Room Air 05/07/23 00:30 18 94 Room Air 05/06/23 23:09 36.5 C 79 20 147/88 H 93 Room Air all noted and reviewed including below
[2023-05-07] MEDS ORDERED: FUROSEMIDE 40 MG TAB PO SCH (09:00)
[2023-05-07] MEDS ORDERED: LORATADINE 10 MG TAB PO SCH (09:00)
--- NOTE | 2023-05-08 13:11 | Discharge Summary ---
Discharge Summary Date of Service May 08, 2023 Notes For Next Care Provider Medication Changes From Visit Claritin-antihistamine for rhinitis Flonase, ipratropium spray-nasal spray for rhinitis Doxycycline-antibiotic for acute bronchitis Continue the prednisone taper your previously prescribed with. Levalbuterol/ipratropium nebulizer treatment as needed for shortness of breath or wheezing. Admission HPI Per Admitting Provider This is a 72-year-old male with PMHx of moderate persistent asthma, diastolic CHF due to valvular disease, CAD, history of SVT, aortic root dilation of 4.5 cm, HTN, HLD, obstructive sleep apnea on CPAP, obesity with a BMI of 40, BPH, CKD. Pt presented to the PCP office 3 days ago with c/o sore throat, cough, and headache and reported at that time he had been using inhalers, nasal spray and allergy medications but had not improved his symptoms. His PCP had diagnosed a acute asthma exacerbation and so he was given a short course of prednisone taper. He is coughing up more mucus within the past 3 days which is white and thick, denies any hemoptysis. In the past he experiences exacerbations like this about twice per year, typically around this time and right before hunting season starts in the fall, and this does feel very similar, notes he has been told this is bronchitis in the past. He had minimal relief in symptoms so came to the hospital today. At no point was he found to be hypoxic. D-Dimer was elevated however CTA is negative. Pt got 2 nebulizer treatments and solumedrol 125 IV in the ER without significant improvement and continues to have wheezing. At this time he is currently receiving nebulizers by respiratory up on the floor. He states he feels slightly improved at this point in time. Admission Exam Per Admitting Provider General: awake, alert, no apparent distress, morbidly obese with BMI of 37.4 Head: Normocephalic, atraumatic ENT: PERRL, EOMI, + right-sided strabismus, no pharyngeal exudate, mucous membranes moist Chest: + coarse breath sounds throughout, getting nebulizer treatment currently, minimal wheezing, no crackles Cardiac: Regular rate and rhythm, no murmur, no JVD, normal peripheral pulses, good capillary refill Abdominal: Abdominally obese, NABS x 4 quadrants, soft, nondistended, nontender to palpation, no rebound or guarding Extremities: Normal inspection, 1+ peripheral edema, no erythema, calfs nontender to palpation Psych: Normal mood and affect Neuro: AAO x 3, strength intact bilaterally and rated 5/5, no motor deficits, speech is clear, no peripheral sensory deficits Principal Dx & Hospital Course #1 = Principal Diagnosis (1) Asthma exacerbation: (2) Sleep apnea: (3) Coronary artery disease: (4) Essential hypertension: (5) Diastolic CHF due to valvular disease: (6) Aortic root dilatation: (7) HLD (hyperlipidemia): Discharge Exam General- oriented x 3, not in distress, speaks in sentences with no effort or accessory muscle use Eyes- anicteric Neck- no JVD Lungs- clear breath sounds bilaterally, no rales/wheezes Heart- normal rate, regular rhythm; no murmurs Abdomen- normal bowel sounds, nondistended, soft, nontender Extremities- no pretibial edema, no calf tenderness Neuro- alert, oriented x 3; no gross focal neurologic deficits Skin- warm & dry Updated Medication List Medication Instructions Recorded Confirmed Type albuterol sulfate 90 mcg/actuation 2 puff inhalation Q4H PRN 02/16/19 05/05/23 History aerosol inhaler SHORTNESS OF BREATH/COUGH aspirin 81 mg tablet,delayed 81 mg PO QAM 02/16/19 05/05/23 History release duloxetine 60 mg capsule,delayed 60 mg PO QAM 02/16/19 05/05/23 History release famotidine 20 mg tablet 20 mg PO BID 02/16/19 05/05/23 History furosemide 40 mg tablet (Lasix) 40 mg PO QAM PRN WT GAIN/FLUID 02/16/19 05/05/23 History RETENTION multivitamin 1 tab PO QAM 02/16/19 05/05/23 History potassium chloride 10 mEq 10 meq PO QAM 02/16/19 05/05/23 History tablet,extended release finasteride 5 mg tablet 5 mg PO QAM 12/11/19 05/05/23 History pregabalin 75 mg capsule (Lyrica) 75 mg PO TID 12/11/19 05/05/23 History tamsulosin 0.4 mg capsule 0.4 mg PO QAM 12/11/19 05/05/23 History atorvastatin 80 mg tablet 40 mg PO QAM 07/17/21 05/05/23 History acetaminophen 500 mg tablet 500 mg PO Q6H PRN Pain 03/25/23 05/05/23 History (Tylenol Extra Strength) fluticasone 250 mcg-salmeterol 50 1 inh inhalation BID 03/25/23 05/05/23 History mcg/dose blistr powdr for inhalation montelukast 10 mg tablet 10 mg PO QAM 03/25/23 05/05/23 History albuterol sulfate 1.25 mg/3 mL 1.25 mg inhalation Q4H PRN Wheezing 05/05/23 05/05/23 History solution for nebulization metoprolol succinate 25 mg 12.5 mg PO QAM 05/05/23 05/05/23 History tablet,extended release 24 hr prednisone 20 mg tablet 0 mg PO DIRECTED 05/05/23 05/05/23 History doxycycline hyclate 100 mg capsule 100 mg PO BID 5 days #10 caps 05/07/23 Rx fluticasone propionate 50 2 spray NA DAILY 7 days #16 grams 05/07/23 Rx mcg/actuation nasal spray,suspension guaifenesin 600 mg tablet, 600 mg PO Q12 7 days #14 tabs 05/07/23 Rx extended release 12 hr (Mucinex) hydrocodone-homatropine 5 mg-1.5 5 ml PO Q6H PRN cough #100 mL 05/07/23 Rx mg/5 mL oral syrup (Hydromet) ipratropium bromide 42 mcg (0.06 2 spray PREETI BID 5 days #15 mL 05/07/23 Rx %) nasal spray loratadine 10 mg tablet (Wal-itin) 10 mg PO QAM 7 days #7 tabs 05/07/23 Rx Hospital Stay Data Consultations 05/05/23 07:07 ED Decision to Admit Stat Diagnostic Imagining Performed 05/05/23 03:27 CT angio chest PE protocol Stat COMPARISON: No relevant prior studies available. FINDINGS: Pulmonary arteries: No pulmonary embolism. Aorta: Aneurysmal ascending thoracic aorta measuring up to 4.5 cm at the root. No dissection. Lungs: Unremarkable. Pleural space: Unremarkable. Heart: Unremarkable. Bones/joints: No acute fracture. Soft tissues: Unremarkable Lymph nodes: Unremarkable. IMPRESSION: 1. No pulmonary embolism. 2. Aneurysmal ascending thoracic aorta measuring up to 4.5 cm at the root. No dissection. Electronically signed by: Brennon Wilkins MD 05/05/23 04:49 AM Dictated:05/05/23 04 Pending Results Patient Have Any Pending Studies at Discharge: No Discharge Instructions Given to Patient (Per Discharging Provider) PLEASE REFER TO YOUR NEW MEDICATION LIST AND FOLLOW INSTRUCTIONS CAREFULLY. YOUR NEW MEDICATIONS INCLUDE: Claritin-antihistamine for rhinitis Flonase, ipratropium spray-nasal spray for rhinitis Doxycycline-antibiotic for acute bronchitis Continue the prednisone taper your previously prescribed with. Levalbuterol/ipratropium nebulizer treatment as needed for shortness of breath or wheezing. PLEASE CALL YOUR PRIMARY CARE PHYSICIAN OR RETURN TO THE ER IF WITH WORSENING OF SYMPTOMS, INCLUDING Shortness of breath, cough, fevers or chills, etc. FOLLOW UP WITH PRIMARY CARE PHYSICIAN IN 1 WEEK. THE CLINIC WILL BE CALLING YOU SOON FOR THE APPOINTMENT SCHEDULE. TAKE CARE. Total Time Total Time Spent Total Time Spent (In Minutes): > 30 minutes
== END 2023-05-07 11:28 | disposition home or self-care (01) | DRG 202 ==
LOC: ED 01:57 → 2S 07:17